=== PATIENT | male | born 1970 | race Caucasian/White ===

== ENCOUNTER → 2016-10-15 | Outpatient (CLI) | payer MEDICARE ==
[2015-07-20 11:00] VITALS: BP 134/83
[~2016-10-15] MED LIST: ACET500T55 PO; ASEN10TA9 SL; ASPI81TA9 PO; BUSP10TA PO; CITA20TA5 PO; CLON0.2T PO; CLON2TAB2 PO; DEXT4TAB PO; FENO145T2 PO; GABA-586 PO; IBUP-1060 PO; INSU100C4 SQ; INSU100I13 SQ; INSU100I7 SQ; INSU100V13 SQ; IOHEXOL 180 MG/ML 10 ML VIAL. ONE; LEVO75TA5 PO; LISI-334 PO; LISI-338 PO; METF10002 PO; MIRT30TA3 PO; NPH,100V SQ; OMEG500C PO; PENT400T2 PO; PRAV40TA2 PO; PRAZ1CAP2 PO; SENN1TAB9 PO; SERT100T PO; TAMS0.4C2 PO; TRAZ100T12 PO; TRAZ150T55 PO; methylPREDNISolone ACETATE 40 MG/ML VIAL. ONE; methylPREDNISolone ACETATE 80 MG/ML VIAL. ONE
--- NOTE | 2016-10-16 02:30 | PAIN ---
DATE OF SERVICE: 10/15/2016 INITIAL CONSULTATION FOR PAIN CLINIC CHIEF COMPLAINT: Low back and left lower extremity pain. HISTORY OF PRESENT ILLNESS: This is a 46-year-old male who presents with history of pain in the low back and left lower extremity since 02/2016. The patient reports it began gradually. He fell in a hole with his left leg up to his waist and the other leg was still above ground, bent with his knee pointing upwards. The patient reports the pain has been very severe since that time in the left leg and across the low back as well and starting to go up into the left lower back also and middle back on the left side. The patient reports it is constant, sharp, stabbing, throbbing and shooting pain radiating to the left leg, aching, mostly in the posterior gluteus, posterolateral thigh, lateral anterior thigh, especially in the medial thigh, medial lower leg, anterior lower leg, the entire foot and posterior lower leg as well. The patient reports it wakes him from sleep at least 2-3 times at night. He believes it affects his bowel and bladder control and he has some increased urgency, but no loss of continence. The patient reports it does cause difficulty with walking. He is using a cane in his left hand, a 4-point platform cane. The patient has tried oxycodone, hydrocodone and gabapentin, all with only very minimal decrease in pain since July of this year. The patient reports his disability rating from 0 to 10, 10 being the worst is a 10/10 in all categories, family and home responsibilities, social activity, recreation, occupation, sexual behavior, self care and life support activities. The patient did have MRI scan of lumbar spine dated 05/28/2016, showing multilevel degenerative changes, most notably involving the facets at L4-L5 and L5-S1 with multilevel degenerative central spinal canal narrowing, moderate at L4-L5. Multilevel degenerative neural foraminal narrowing which is greater at L4-L5 and L5-S1 with suspected annular tear at L4-L5 with moderate right and moderate to severe left narrowing at L5-S1 and facet arthropathy at this level as well, L4-L5 showing severe right, moderate left facet hypertrophy and ligamentum flavum thickening with moderate central spinal canal stenosis, moderate left and [id number] right neural foraminal narrowing at L4-L5 as well. The patient reports no complete loss of function in the left lower extremity, but he becomes weak much more easily on the right side with walking and standing, better with sitting, but again lying down or lying on his left side, it awakens from sleep because of the pain in the leg and the back. PAST MEDICAL HISTORY: Significant for hearing loss, cataracts, cigarette smoking less than 1 pack a day for the past 2 years, hypertension, pancreatitis, arthritis and headaches. PREVIOUS SURGERY: Includes splenectomy, cholecystectomy and left ankle fracture requiring ORIF. CURRENT MEDICATIONS: Include ____ insulin, Levemir, pentoxifylline, metformin, lisinopril, buspirone, Humulin, mirtazapine and tamsulosin. ALLERGIES: The patient has no known drug allergies. FAMILY HISTORY: Significant for heart disease, diabetes and cancer. SOCIAL HISTORY: The patient drinks alcohol about 6 times a year up to half a pint of alcohol or 3 beers at a time to 6 times per year by his report, smokes less than a pack a day ____ cigarettes and has smoked for about 2 years. The patient is currently single. He is on disability and lives in [place], [place], near his family. REVIEW OF SYSTEMS: The patient's review of systems is positive for those items mentioned in history of present illness. All systems reviewed and otherwise negative. It is complete, full and well documented on the patient's chart. PHYSICAL EXAMINATION: VITAL SIGNS: The patient's blood pressure is 125/89, pulse 94, respirations 18, temperature is 98.3 degrees Fahrenheit, height is 5 feet 7-3/4 inches and weight is 199 pounds. GENERAL: The patient is awake, alert, oriented, appropriate, very pleasant demeanor. HEENT: Head shows normocephalic, atraumatic. Extraocular movements are intact and symmetrical. Oral cavity, mucous membranes moist and pink. Dentition is intact. NECK: Shows anterior throat supple without palpable lymphadenopathy noted. Swallow reflex is symmetrical. CHEST: Shows normal on inspection. Breath sounds clear to auscultation bilaterally. HEART: Shows S1 and S2 clear. ABDOMEN: Soft, nontender, nondistended. No palpable organomegaly. No rebound or guarding demonstrated. BACK: Shows spine grossly midline. Normal appearing thoracic kyphosis and lumbar lordotic curvature. No previous bruises, lesions, rashes or scars are noted. Back shows symmetrical lumbar paraspinous musculature on inspection with palpation shows some moderate tenderness throughout the middle and lower distribution of paraspinous muscles bilaterally, somewhat more tender on the left side, but present bilaterally. No tenderness over the spinous processes. No tenderness over the sacrum and sacroiliac regions with palpation. The patient shows good rotational motion of lumbar spine, both laterally, right and left as well as extension and forward flexion greater than 10 degrees, extension and forward flexion at 45 degrees without significant pain reported. LOWER EXTREMITIES: The patient's lower extremities show deep tendon reflexes at 1+ in the patellar and tendo calcaneus tendons. Motor exam is 4 on a scale of 5, but symmetrical and equal in strength with dorsiflexion, extension, quadriceps and hamstring flexion bilaterally. The patient's peripheral pulses are 1+ posterior tibial and dorsalis pedis pulses. No peripheral edema is noted. No clubbing, no cyanosis. Lower extremities are warm and dry to touch, equal in color and appearance. Straight leg raise noted to be slightly positive on the left at about 45 degrees with pain in the anterior thigh, but is decreased with knee flexion, right side is negative. Gaenslen's and Ricki's maneuvers are negative bilaterally. The patient is able to stand. It is difficult to try to stand on his toes, as he loses balance quickly and has balance difficulty with standing only on his left leg compared to the right leg. He is walking again with a somewhat antalgic gait, favoring his left lower extremity with a limp and using a cane in his left hand. IMPRESSION: 1. This is a 46-year-old male who presents with history of low back and left lower extremity pain for approximately 6 months. 2. MRI scan of lumbar spine as noted. 3. Arthritis. 4. Hypertension. 5. Cigarette smoking. PLAN: Options were discussed with the patient including conservative medical management, physical therapy, interventional techniques and as he is doing some exercises and stretching techniques, he would like to pursue interventional techniques. We discussed a lumbar epidural steroid injection using description as well as anatomical models to describe the procedure. Risks were then discussed including, but not limited to bleeding, infection, possibility of epidural hematoma, subsequent neurologic compromise, dural puncture, headaches, spinal cord and/or nerve damage, side effects of steroid medication and poor results regarding pain control. The patient understands and wishes to proceed. The patient will return to clinic in approximately 2 weeks for followup, was counseled on return appointment, activity level and side effects to be aware of. DIAGNOSES: Lumbar radiculopathy with lumbar degenerative disk disease. PROCEDURE: Lumbar epidural steroid injection in translaminar approach at the L4-L5 level using C-arm fluoroscopic guidance under sterile prep and drape using local anesthetic. Medication injected is 120 mg of Depo-Medrol plus 10 mL of preservative-free normal saline and 2 mL of Isovue for contrast. CONDITION AT DISCHARGE: Stable. The patient tolerated procedure well, had no complications. BRANDEN KAUR MD DR: STEPHANIE/karan JOB#: [id number] / [id number]
== END | disposition home or self-care (01) ==
LOC: PNCL 13:16
PROVIDERS: ATTEND Anesthesiology
DX: M51.16 Intervertebral disc disorders with radiculopathy, lumbar region (principal); M19.90 Unspecified osteoarthritis, unspecified site; I10 Essential (primary) hypertension; F17.210 Nicotine dependence, cigarettes, uncomplicated; H40.9 Unspecified glaucoma; E11.9 Type 2 diabetes mellitus without complications; E03.9 Hypothyroidism, unspecified; F41.9 Anxiety disorder, unspecified; F32.9 Major depressive disorder, single episode, unspecified; Z90.49 Acquired absence of other specified parts of digestive tract
CPT/HCPCS: 62323; J1030; J1040

== ENCOUNTER → 2016-11-05 | Outpatient (CLI) | payer MEDICARE, OTHER ==
[2015-07-20 11:00] VITALS: BP 134/83
[~2016-11-05] MED LIST changes: +HYDR-2868 PO; +LURA40TA PO; +METF-620 PO; -METF10002 PO
--- NOTE | 2016-11-06 01:22 | PAIN ---
DATE OF SERVICE: 11/05/2016 DIAGNOSES: Lumbar radiculopathy with lumbar degenerative disk disease. HISTORY OF PRESENT ILLNESS: The patient is a 46-year-old male who returns for followup status post lumbar epidural steroid injection x 1. The patient reports about 60% improvement overall, but pain is returning now in the last few days in the low back and left greater than right lower extremity. The patient reports it is a 10 on a scale of 10, is worse, aching, sharp, dull, tight, shooting, stabbing, radiating, constant, severe, unbearable pain, all in various degrees depending on activity, worse with increased activity. The patient reports this did not awaken him from sleep at night. He is sleeping 4-6 hours, but not being awakened from the pain. The patient reports otherwise no new changes. No new motor or sensory deficits or other complaints. PHYSICAL EXAMINATION: VITAL SIGNS: The patient's blood pressure 140/94, pulse 98, respirations are 18, temperature 99.0 degrees Fahrenheit. Weight is 201 pounds. GENERAL: The patient is awake, alert, oriented, appropriate, very pleasant demeanor. HEENT: Head shows normocephalic, atraumatic. Extraocular movements are intact and symmetrical. Oral cavity, mucous membranes are moist and pink. The patient has full moustache and stratton. NECK: Shows anterior throat supple without palpable lymphadenopathy noted. Swallow reflex is symmetrical. CHEST: Shows normal on inspection. Breath sounds are clear to auscultation bilaterally. HEART: Shows S1 and S2 clear. ABDOMEN: Soft, nontender, nondistended. No palpable organomegaly. No rebound or guarding demonstrated. BACK: Shows spine grossly in midline with normal lordotic curvature. Lumbar paraspinous muscle shows some moderate tenderness with palpation, but it is only diffusely tender, is firm with normal muscle girth and symmetrical. Lower extremities show deep tendon reflexes 1+ in the patellar and tendo calcaneus tendons. Motor exam is approximately 4 on a scale of 5, but equal with dorsiflexion, extension, quadriceps and hamstring flexion is symmetrical. Options were discussed with the patient and the patient's old chart was reviewed as his current medication regimen updated. Current review of systems updated today as well. We will proceed with a second lumbar epidural steroid injection today with fluoroscopic guidance. Risks were again discussed including, but not limited to bleeding, infection, possibility of epidural hematoma and subsequent neurologic compromise, dural puncture, headaches, spinal cord and/or nerve damage, side effects of steroid medication and poor results regarding pain control. The patient understands and wishes to proceed. The patient will return to clinic in approximately 2 weeks for followup, was counseled on return appointment, activity level and side effects to be aware of. We also discussed the option of physical therapy. I feel he may benefit from this fairly significantly and we will have this arranged as well. The patient was counseled as to activity levels as well as side effects to be aware of with medication and to follow up with physical therapy and they will contact him for appointment soon. DIAGNOSIS: Lumbar radiculopathy with lumbar degenerative disk disease. PROCEDURES: Lumbar epidural steroid injection in translaminar approach at L4-L5 level using C-arm fluoroscopic guidance under sterile prep and drape using local anesthetic. Medications injected is 120 mg of Depo-Medrol plus 10 mL of preservative-free normal saline and 2 mL of Isovue for contrast. Condition on discharge is stable. The patient tolerated the procedure well and had no complications. BRANDEN KAUR MD DR: STEPHANIE/karan JOB#: [id number] / [id number]
== END | disposition home or self-care (01) ==
LOC: PNCL 10:15
PROVIDERS: ATTEND Anesthesiology
DX: M51.16 Intervertebral disc disorders with radiculopathy, lumbar region (principal); I10 Essential (primary) hypertension; Z90.49 Acquired absence of other specified parts of digestive tract; E11.9 Type 2 diabetes mellitus without complications; E03.9 Hypothyroidism, unspecified; F41.9 Anxiety disorder, unspecified; F32.9 Major depressive disorder, single episode, unspecified
CPT/HCPCS: 62323; J1030; J1040

== ENCOUNTER → 2016-12-13 | Outpatient (CLI) | payer MEDICARE, OTHER ==
[2015-07-20 11:00] VITALS: BP 134/83
[~2016-12-13] MED LIST changes: +ASPI-612 PO; -ASPI81TA9 PO; +TRAZ150T49 PO; -TRAZ150T55 PO
--- NOTE | 2016-12-14 04:09 | PN ---
DATE: 12/13/2016 PROGRESS NOTE FOR PAIN CLINIC DIAGNOSES: Lumbar radiculopathy with lumbar degenerative disk disease. HISTORY OF PRESENT ILLNESS: The patient is a 46-year-old male who returns for followup status post lumbar epidural steroid injection x 2. The patient reports about 50% improvement overall in his low back and left lower extremity pain. The patient reports the pain is returning now. He did well for several weeks, now is back, almost the baseline, rated as 8 on a scale of 10 at its worst, it is a 3 on a scale of 10 at the least. The patient describes it as aching, dull with radiating and shooting pain in the left leg and low back. The patient reports no new motor or sensory deficits, no new bowel or bladder incontinence or other complaints. PHYSICAL EXAMINATION: VITAL SIGNS: Today, the patient's blood pressure is 141/82, pulse 79, respirations 18, temperature 98.2 degrees Fahrenheit, height is 5 feet 7 inches, weighs 197 pounds. GENERAL: The patient is awake, alert, oriented, appropriate, has a very pleasant demeanor. HEENT: Head shows normocephalic, atraumatic. Extraocular movements are intact and symmetrical. Oral cavity has mucous membranes moist and pink. Dentition is intact. NECK: Shows anterior throat supple. CHEST: Shows normal on inspection. Breath sounds clear to auscultation bilaterally. HEART: Shows S1 and S2 clear. ABDOMEN: Soft, nontender, nondistended. BACK: Shows spine grossly in the midline. Lumbar paraspinous muscle shows symmetrical on inspection. On palpation shows some moderate tenderness to palpation, but only diffusely without radiation minimally in the lower lumbar distribution bilaterally. No problems with right and left lateral rotation, extension or flexion with pain reported. The patient's lower extremities showed deep tendon reflexes 1+ in the patellar and tendo calcaneus tendons. Motor exam is approximately 4 on a scale of 5, but equal and symmetrical with dorsiflexion, extension, quadriceps and hamstring flexion, right and left. Options were discussed with the patient and the patient's old chart was reviewed as his current medication regimen and updated. Current review of systems updated today as well. We will proceed with a third in the series of lumbar epidural steroid injection today with fluoroscopic guidance. Risks were again discussed including, but not limited to bleeding, infection, possibility of epidural hematoma, subsequent neurologic compromise, dural puncture, headaches, spinal cord and/or nerve damage, side effects of steroid medication and poor results regarding pain control. The patient understands and wishes to proceed. The patient will return to the clinic in approximately 2 weeks for followup, was counseled on return appointment, activity level and side effects to be aware of. DIAGNOSES: Lumbar radiculopathy with lumbar degenerative disk disease. PROCEDURE: Lumbar epidural steroid injection in translaminar approach at the L4-L5 level using C-arm fluoroscopic guidance under sterile prep and drape using local anesthetic. Medication injected is 120 mg Depo-Medrol plus 10 mL of preservative free normal saline and 2 mL of Isovue for contrast. CONDITION AT DISCHARGE: Stable. The patient tolerated the procedure well, had no complications. BRANDEN KAUR MD DR: STEPHANIE/karan JOB#: [id number] / [id number]
== END | disposition home or self-care (01) ==
LOC: PNCL 10:44
PROVIDERS: ATTEND Anesthesiology
DX: M51.16 Intervertebral disc disorders with radiculopathy, lumbar region (principal); E11.39 Type 2 diabetes mellitus with other diabetic ophthalmic complication; H40.89 Other specified glaucoma; I10 Essential (primary) hypertension; E03.9 Hypothyroidism, unspecified; F41.9 Anxiety disorder, unspecified; F32.9 Major depressive disorder, single episode, unspecified; Z90.49 Acquired absence of other specified parts of digestive tract; Z86.69 Personal history of other diseases of the nervous system and sense organs; Z86.39 Personal history of other endocrine, nutritional and metabolic disease
CPT/HCPCS: 62323; J1030; J1040

== ENCOUNTER → 2018-06-18 | Outpatient (CLI) | payer MEDICARE, OTHER ==
[2015-07-20 11:00] VITALS: BP 134/83
[~2018-06-18] MED LIST changes: +ATOR40TA59 PO; +CELE100C PO; +CHOL4POW2 PO; -CITA20TA5 PO; +CITA20TA6 PO; -CLON2TAB2 PO; +CLON2TAB9 PO; +DULO60CA6 PO; -FENO145T2 PO; +FENO145T30 PO; -GABA-586 PO; +GABA300C18 PO; -METF-620 PO; +METF10007 PO; +OMEG1CAP38 PO; +OXCA300T19 PO; -PENT400T2 PO; +PENT400T4 PO; +TRAZ-86 PO; -TRAZ100T12 PO; +regular insulin
--- NOTE | 2018-06-18 12:52 | PAIN ---
DATE OF SERVICE: 06/18/2018 PROGRESS NOTE FOR PAIN CLINIC DIAGNOSES: 1. Lumbar radiculopathy with lumbar degenerative disk disease. 2. Cervical radiculopathy with cervical degenerative disk disease. HISTORY OF PRESENT ILLNESS: The patient is a 47-year-old male who returns for followup status post most recent visit in 12/2016. The patient had lumbar epidural steroid injections, which reports worked for a while, but his main complaint today is neck and bilateral upper extremity and shoulder pain, slightly worse on the right than the left but present bilaterally. The patient reports it has been going on for about a year. He has recently seen a neurosurgeon. MRI scan was done showing significant cervical spondylosis and degenerative disk changes at C4-C5, disk osteophyte complex, more symmetric to the right with mild central canal stenosis towards the right as well and some moderate to severe right neural foraminal narrowing. C5-C6 shows disk osteophyte complex, more to the left, possible herniation protrusion towards the left, narrowing in the left lateral recess causing with moderate to severe or severe left neural foraminal narrowing. C6-C7 shows disk osteophyte complex, superimposed central disk bulge and central disk protrusion with mild left neural foraminal narrowing at that level as well. The patient reports significant pain in the base of the neck and shoulders with reaching his hands over his head or carrying items reaching forward, any repetitive motion, even driving a car, holding onto a steering wheel. The patient reports his pain is an 8 on a scale of 10 at its worst, 7 on average, 7 at its least and is a 7 today. The patient reports it is aching, sharp, tight, shooting, cramping, stabbing, radiating, becoming more constant, more severe and more unbearable. The patient reports some moderate loss of tactile sense in his right hand and has been dropping some items as well, but not consistently. The patient reports no new motor or sensory deficits, no new bowel or bladder incontinence. PHYSICAL EXAMINATION: VITAL SIGNS: The patient's blood pressure is 136/94, pulse 81, respirations are 16, temperature is 98.2 degrees Fahrenheit, height is 5 feet 7 inches, weight is 198 pounds. GENERAL: The patient is awake, alert, oriented, appropriate, very pleasant demeanor. HEENT: Head shows normocephalic, atraumatic. Extraocular movements are intact and symmetrical. Oral cavity: Mucous membranes are moist and pink. Dentition is intact. NECK: Shows anterior throat supple without palpable lymphadenopathy noted. Swallow reflex is symmetrical. CHEST: Shows normal on inspection. Breath sounds are clear to auscultation bilaterally. HEART: Shows S1, S2 clear. No murmurs auscultated. ABDOMEN: Soft, nontender, nondistended. No palpable organomegaly is noted. No rebound or guarding demonstrated. BACK: Shows spine grossly in the midline. Cervical lordotic curvature is maintained as is thoracic kyphotic curvature and lumbar lordotic curvature. Cervical paraspinous muscle shows symmetrical on inspection, on palpation shows some moderate tenderness diffusely bilaterally, but only with middle and inferior aspect of the cervical paraspinous muscles. The patient has good rotational motion of cervical spine, both laterally greater than 45 degrees right and left as well as full extension, full forward flexion without significant increase in pain. EXTREMITIES: The patient's upper extremities show deep tendon reflexes 2+ in the biceps and triceps tendons. Motor exam is strong with suspect artist strength rated at 5/5 on the left and 4/5 on the right. Bicep and tricep flexion, however, is 5/5 and equal bilaterally. Peripheral pulses are 2+ in radial distribution. No peripheral edema is noted. The patient does show some moderate tenderness with shoulder shrug and resistance, but without loss of strength. Options were discussed with the patient. The patient's old chart was reviewed as his current medication regimen updated. Current review of systems updated today as well. We will proceed with a cervical epidural steroid injection today with fluoroscopic guidance. Risks were again discussed including, but not limited to bleeding, infection, possibility of epidural hematoma, subsequent neurological compromise, dural puncture, headaches, spinal cord and/or nerve damage, side effects of steroid medication and poor results regarding pain control. The patient understands and wished to proceed. The patient will return to the clinic in approximately 2 weeks for followup, was counseled on return appointment, activity level and side effects to be aware of. DIAGNOSIS: Cervical radiculopathy with cervical degenerative disk disease. PROCEDURE: Cervical epidural steroid injection, translaminar approach at C6-C7 level using C-arm fluoroscopic guidance under sterile prep and drape using local anesthetic. MEDICATION INJECTED: A total of 120 mg Depo-Medrol plus 5 mL of preservative-free normal saline and 2 mL of Isovue for contrast. CONDITION AT DISCHARGE: Stable. The patient tolerated the procedure well, had no complications. BRANDEN KAUR MD DR: STEPHANIE/karan JOB#: [id number] / [id number]
== END | disposition home or self-care (01) ==
LOC: PNCL 09:56
PROVIDERS: ATTEND Anesthesiology
DX: M50.123 Cervical disc disorder at C6-C7 level with radiculopathy (principal); M51.16 Intervertebral disc disorders with radiculopathy, lumbar region
CPT/HCPCS: 62321; J1030; J1040; Q9965

== ENCOUNTER 2018-09-07 17:45 | Inpatient (IN) | payer MEDICARE, OTHER ==
[~2018-09-07] VITALS: Ht 170.2 cm; Wt 78.5 kg
[~2018-09-07 17:45] MED LIST changes: -IOHEXOL 180 MG/ML 10 ML VIAL. ONE; -PENT400T4 PO; +PENT400T7 PO; +SENN-162 PO; -SENN1TAB9 PO; -methylPREDNISolone ACETATE 40 MG/ML VIAL. ONE; -methylPREDNISolone ACETATE 80 MG/ML VIAL. ONE
[2018-09-07 20:45] VITALS: BP 124/73
[2018-09-07 21:00] VITALS: BP 131/68
[2018-09-07 21:15] VITALS: BP 117/52
[2018-09-07 21:42] LABS: ALBUMIN 3.2 g/dL (3.4-5.0); ALBUMIN/GLOBULIN RATIO 0.6 (1.0-1.7); ALK PHOS 114 U/L (46-116); ALT (SGPT) 100 U/L (16-63); AST (SGOT) 302 U/L (15-37); BLOOD UREA NITROGEN 40 mg/dL (8-26); CALCIUM 8.7 mg/dL (8.5-10.1); CHLORIDE 97 mmol/L (98-107); GFR 49.5; GLUCOSE 466 mg/dL (70-99); POTASSIUM 4.6 mmol/L (3.5-5.1); SODIUM 135 mmol/L (136-145); TOTAL BILIRUBIN 0.7 mg/dL (0.2-1.0); TOTAL PROTEIN 8.3 g/dL (6.4-8.2)
[2018-09-07 21:50] LABS: BUN/CREATININE RATIO 27 (6-20); CREATININE 1.5 mg/dL (0.7-1.3)
--- NOTE | 2018-09-07 21:50 | NUR ---
Pt admitted to 115 @ 2039 from [facility]. Pt confused, very drowsy, does not answer questions very well. Pt knows they are at [facility]. Pt unable to appropriately answer any admission questions. RN will attempt to do admission when pt is more alert and oriented.
[2018-09-07 21:53] LABS: CARBON DIOXIDE < 5 mmol/L (21-32)
[2018-09-07 22:00] VITALS: BP 135/89
[2018-09-07 22:30] VITALS: BP 140/70
[2018-09-07] MEDS ORDERED: PIP/TAZO PER PHARMACY MC PRN (22:45)
--- NOTE | 2018-09-07 22:45 | NUR ---
DKA protocol unable to be started due to limited IV access-- 2nd IV access obtained at 2230. Dr. Yaima kowalski for admission orders. Follow DKA protocol. Consult nephrology and cardiology. Order Zosyn per pharmacy. Labs ordered per DKA protocol, SHAHID in the AM.
[2018-09-07] MEDS: PIPERACILLIN/TAZOBACTAM 3.375 GM in IV NORMAL SALINE 50ML 50 ML IV SCH (22:49)
[2018-09-07 22:57] LABS: BASE EXCESS ABG -23 mmol/L (-3-3); HCO3 ABG 3 mmol/L (21-28); PO2 ABG 131 mmHg (75-108); SAT O2 ABG 98 % (92-99)
[2018-09-07 23:00] VITALS: BP 128/61
[2018-09-07] MEDS ORDERED: IV NORMAL SALINE 1000ML BAG 1,000 ML IV SCH (23:00)
[2018-09-07] MEDS: INSULIN REGULAR VIAL 150 UNIT in 0.9 % SODIUM CHLORIDE 150ML 150 ML IV PRN (23:12)
[2018-09-07 23:38] LABS: FIO2 ABG 28; PCO2 ABG < 15 mmHg (35-46)
[2018-09-07] MEDS: POTASSIUM CHLORIDE 10MEQ 100 ML IV PRN (23:47)
[2018-09-08] VITALS (24 sets, daily range): BP systolic 103–166; BP diastolic 59–85
[2018-09-08] MEDS ORDERED: SODIUM BICARB ADULT 8.4% 50 MEQ/50 ML DISP.SYRIN. IV ONE
[2018-09-08] MEDS ORDERED: SODIUM BICARBONATE VIAL 50 MEQ in IV 1/2 NORMAL SALINE 1,000 ML IV ONE ×2
--- NOTE | 2018-09-08 00:25 | NUR ---
2330: Dr. Erwin notified of critical labs on ABG-- orders received to give 1amp bicarb IVP and add 1amp Bicarb in fluids to run at 250/hr. 0015: Dr. Erwin paged back and wants another ABG drawn to determine if pH and bicarb have improved-- orders placed.
[2018-09-08 00:28] LABS: BASE EXCESS ABG -18 mmol/L (-3-3); HCO3 ABG 5 mmol/L (21-28); PO2 ABG 103 mmHg (75-108); SAT O2 ABG 98 % (92-99)
[2018-09-08 00:29] LABS: FIO2 ABG 28; PCO2 ABG < 15 mmHg (35-46)
[2018-09-08] MEDS: POTASSIUM CHLORIDE 10MEQ 100 ML IV PRN ×7 (00:49→11:42)
[2018-09-08 02:15] LABS: CALCIUM 9.1 mg/dL (8.5-10.1); CREATININE 1.6 mg/dL (0.7-1.3); MAGNESIUM 2.2 mg/dL (1.8-2.4); PHOSPHORUS 1.5 mg/dL (2.6-4.7)
[2018-09-08 02:44] LABS: BASE EXCESS ABG -13 mmol/L (-3-3); HCO3 ABG 9 mmol/L (21-28); PO2 ABG 81 mmHg (75-108)
[2018-09-08 02:55] LABS: PCO2 ABG 16 mmHg (35-46)
[2018-09-08] MEDS ORDERED: SODIUM PHOSPHATE 20 MMOL in IV DEXTROSE 5% 250 ML IV PRN (03:00)
[2018-09-08] MEDS: IV DEXTROSE 5 %-0.45 % NACL 1,000 ML IV SCH ×5 (03:03→20:04)
[2018-09-08] MEDS ORDERED: ONDANSETRON PF 4 MG/2 ML VIAL. IV PRN (03:15)
[2018-09-08 05:52] LABS: BASO # 0.1 x10^3/uL (0.0-0.2); BASO % 1 % (0-3); EOS % 0 % (0-3); HEMOGLOBIN 14.6 g/dL (13.0-17.5); LYMPH # 0.7 x10^3/uL (1.0-4.8); LYMPH % 4 % (24-48); MEAN CORPUSCULAR HEMOGLOBIN 29 pg (25-35); MEAN CORPUSCULAR HGB CONC 33 g/dL (31-37); MEAN CORPUSCULAR VOLUME 88 fL (79-100); MONO # 2.2 x10^3/uL (0.0-1.1); MONO % 12 % (0-9); NEUT # 16.4 x10^3uL (1.8-7.7); NEUT % 84 % (31-73); PLATELET COUNT 292 x10^3/uL (140-400); RED BLOOD COUNT 5.02 x10^6/uL (4.30-5.70); RED CELL DISTRIBUTION WIDTH 14.1 % (11.5-14.5); WHITE BLOOD COUNT 19.4 x10^3/uL (4.0-11.0)
[2018-09-08] MEDS: PIPERACILLIN/TAZOBACTAM 3.375 GM in IV NORMAL SALINE 50ML 50 ML IV SCH ×2 (05:58→14:37)
[2018-09-08] MEDS ORDERED: AMIODARONE 900 MG in IV DEXTROSE 5% 500 ML IV PRN (06:30)
--- NOTE | 2018-09-08 06:39 | NUR ---
Routine consult called to nephrology and cardiology.
[2018-09-08 06:41] LABS: CREATININE 1.7 mg/dL (0.7-1.3); GFR 42.9; PHOSPHORUS 1.7 mg/dL (2.6-4.7); POTASSIUM 3.6 mmol/L (3.5-5.1)
[2018-09-08 07:56] LABS: % BANDS 4 % (0-9); % LYMPHS 3 % (24-48); % MONOS 5 % (0-10); % SEGS 88 % (35-66); PLT ESTIMATE ADEQUATE (ADEQUATE)
[2018-09-08] MEDS ORDERED: SODIUM PHOSPHATE 20 MMOL in IV DEXTROSE 5% 250 ML IV ONE ×2 (09:00→19:30)
--- NOTE | 2018-09-08 09:10 | PDOC2 ---
RASHAD JIMÉNEZ SUPERVISOR INTELLIGENCE ANALYST 09/08/18 0910: CARDIAC CONSULT DATE OF CONSULT Date of Consult DATE: 09/08/18 TIME: 08:42 REASON FOR CONSULT Reason for Consult: Vfib, amiodrip REFERRING PHYSICIAN Referring Physician: Yaima SOURCE Source: Chart review HISTORY OF PRESENT ILLNESS HISTORY OF PRESENT ILLNESS This is a 48 yo male admitted for complains of SOA. Pt apparently was at home and family member called EMS due to SOA and chest pain. Per chart review this has been noted to have been going on for about 3 days. Pt is currently just got sedated with ativan with restlessness, agitation and confusion. Family member not available. Accdg to ED from [facility] to which he was placed first he was noted with significant metabolic derangement and was noted with arrhythmia which appeared to be wide complex tach prompting amiodarone drip. Pt is sedated but in no distress and ABG is being obtained. VSS. No noted hx of CAD but noted hx of DM, COPD, HTN IV drug use and noncompliance. PAST MEDICAL HISTORY Cardiovascular: HTN Pulmonary: COPD Psych: Anxiety, Other (PTSD) Endocrine: Diabetes (2), Hypothyroidism PAST SURGICAL HISTORY Past Surgical History: Cholecystectomy, Other (splenectomy) FAMILY HISTORY Family History: Family History Unknown SOCIAL HISTORY Smoke: <1 pack per day Drugs: Marijuana, Crystal meth Lives: with Family CURRENT MEDICATIONS CURRENT MEDICATIONS Current Medications Medications (Trade) Dose Ordered Sig/Cyrus Route PRN Reason Start Time Stop Time Status Last Admin Dose Admin Piperacillin Sod/ Tazobactam Sod 3.375 gm/Sodium Chloride 50 ml @ 100 mls/hr Q6HRS IV 09/07/18 23:00 09/08/18 05:58 Sodium Chloride 1,000 ml @ 250 mls/hr Q4H IV 09/07/18 23:00 09/08/18 02:52 DC 09/07/18 23:11 Insulin Human Regular 150 unit/ Sodium Chloride 151.5 ml @ 0 mls/hr CONT PRN PRN IV PER PROTOCOL 09/07/18 23:00 09/07/18 23:12 Potassium Chloride/Water 100 ml @ 100 mls/hr PRN Q1HR PRN IV SEE COMMENTS 09/07/18 23:00 09/08/18 06:53 DC 09/08/18 04:06 Sodium Bicarbonate (Sodium Bicarb Adult 8.4% Syr) 50 meq 1X ONCE IV 09/08/18 00:00 09/08/18 00:01 DC 09/07/18 23:42 Sodium Bicarbonate 50 meq/Sodium Chloride 1,050 ml @ 250 mls/hr 1X ONCE IV 09/08/18 00:00 09/08/18 04:11 DC 09/07/18 23:47 Dextrose/Sodium Chloride 1,000 ml @ 250 mls/hr Q4H IV 09/08/18 02:50 09/08/18 07:28 Sodium Phosphate 20 mmol/Dextrose 256.6667 ml @ 62.5 mls/hr 1X PRN PRN IV SEE COMMENTS 09/08/18 03:00 09/08/18 03:03 Ondansetron HCl (Zofran) 4 mg PRN Q6HRS PRN IV NAUSEA/VOMITING 1ST CHOICE 09/08/18 03:15 09/08/18 03:18 Amiodarone HCl 900 mg/Dextrose 518 ml @ 0 mls/hr CONT PRN IV SEE I/O RECORD 09/08/18 06:30 09/08/18 06:30 DC 09/08/18 06:27 Potassium Chloride/Water 100 ml @ 100 mls/hr PRN Q1HR PRN IV SEE COMMENTS 09/08/18 07:00 09/08/18 07:29 Lorazepam (Ativan) 2 mg 1X ONCE IV 09/08/18 09:00 09/08/18 09:01 09/08/18 08:35 ALLERGIES ALLERGIES: Coded Allergies: No Known Drug Allergies (Unverified , 05/11/15) ROS Review of System unreliable, sedated. PHYSICAL EXAM General: No acute distress, Other (sedated) HEENT: Atraumatic, Mucous membr. moist/pink Heart: Regular rate, Normal S1, Other (Split S2; 2/6 systolic murmur to apex) Abdomen: Soft Extremities: No cyanosis, No edema Skin: Other (LFA erythematous possible abscess) Psych/Mental Status: Other (sedated) MUSCULOSKELETAL: Osteoarthritic changes both hands VITALS VITALS Vital Signs Date Time Temp Pulse Resp B/P (MAP) Pulse Ox O2 Delivery O2 Flow Rate FiO2 09/08/18 08:00 97.6 95 29 119/75 (90) 95 Room Air 97.6 09/08/18 07:00 2.0 LABS Lab: Laboratory Tests Test 09/07/18 21:10 09/07/18 22:46 09/07/18 22:57 09/08/18 00:00 Sodium Level 135 mmol/L (136-145) Potassium Level 4.6 mmol/L (3.5-5.1) Chloride Level 97 mmol/L (98-107) Carbon Dioxide Level < 5 mmol/L (21-32) Anion Gap (6-14) Blood Urea Nitrogen 40 mg/dL (8-26) Creatinine 1.5 mg/dL (0.7-1.3) Estimated GFR (Cockcroft-Gault) 49.5 BUN/Creatinine Ratio 27 (6-20) Glucose Level 466 mg/dL (70-99) Calcium Level 8.7 mg/dL (8.5-10.1) Total Bilirubin 0.7 mg/dL (0.2-1.0) Aspartate Amino Transf (AST/SGOT) 302 U/L (15-37) Alanine Aminotransferase (ALT/SGPT) 100 U/L (16-63) Alkaline Phosphatase 114 U/L (46-116) Total Protein 8.3 g/dL (6.4-8.2) Albumin 3.2 g/dL (3.4-5.0) Albumin/Globulin Ratio 0.6 (1.0-1.7) Glucose (Fingerstick) 445 mg/dL (70-99) 410 mg/dL (70-99) O2 Saturation 98 % (92-99) Arterial Blood pH 7.17 (7.35-7.45) Arterial Blood pCO2 at Patient Temp < 15 mmHg (35-46) Arterial Blood pO2 at Patient Temp 131 mmHg (75-108) Arterial Blood HCO3 3 mmol/L (21-28) Arterial Blood Base Excess -23 mmol/L (-3-3) FiO2 28 Test 09/08/18 00:27 09/08/18 01:01 09/08/18 01:45 09/08/18 02:00 O2 Saturation 98 % (92-99) Arterial Blood pH 7.28 (7.35-7.45) Arterial Blood pCO2 at Patient Temp < 15 mmHg (35-46) Arterial Blood pO2 at Patient Temp 103 mmHg (75-108) Arterial Blood HCO3 5 mmol/L (21-28) Arterial Blood Base Excess -18 mmol/L (-3-3) FiO2 28 Glucose (Fingerstick) 320 mg/dL (70-99) 262 mg/dL (70-99) Sodium Level 140 mmol/L (136-145) Potassium Level 4.0 mmol/L (3.5-5.1) Chloride Level 102 mmol/L (98-107) Carbon Dioxide Level 10 mmol/L (21-32) Anion Gap 28 (6-14) Blood Urea Nitrogen 43 mg/dL (8-26) Creatinine 1.6 mg/dL (0.7-1.3) Estimated GFR (Cockcroft-Gault) 46.0 Glucose Level 307 mg/dL (70-99) Calcium Level 9.1 mg/dL (8.5-10.1) Phosphorus Level 1.5 mg/dL (2.6-4.7) Magnesium Level 2.2 mg/dL (1.8-2.4) Test 09/08/18 02:43 09/08/18 02:59 09/08/18 04:05 09/08/18 05:07 O2 Saturation % (92-99) Arterial Blood pH 7.39 (7.35-7.45) Arterial Blood pCO2 at Patient Temp 16 mmHg (35-46) Arterial Blood pO2 at Patient Temp 81 mmHg (75-108) Arterial Blood HCO3 9 mmol/L (21-28) Arterial Blood Base Excess -13 mmol/L (-3-3) Glucose (Fingerstick) 185 mg/dL (70-99) 202 mg/dL (70-99) 208 mg/dL (70-99) Test 09/08/18 05:45 09/08/18 06:10 09/08/18 07:24 09/08/18 08:31 White Blood Count 19.4 x10^3/uL (4.0-11.0) Red Blood Count 5.02 x10^6/uL (4.30-5.70) Hemoglobin 14.6 g/dL (13.0-17.5) Hematocrit 44.0 % (39.0-53.0) Mean Corpuscular Volume 88 fL (79-100) Mean Corpuscular Hemoglobin 29 pg (25-35) Mean Corpuscular Hemoglobin Concent 33 g/dL (31-37) Red Cell Distribution Width 14.1 % (11.5-14.5) Platelet Count 292 x10^3/uL (140-400) Neutrophils (%) (Auto) 84 % (31-73) Lymphocytes (%) (Auto) 4 % (24-48) Monocytes (%) (Auto) 12 % (0-9) Eosinophils (%) (Auto) 0 % (0-3) Basophils (%) (Auto) 1 % (0-3) Neutrophils # (Auto) 16.4 x10^3uL (1.8-7.7) Lymphocytes # (Auto) 0.7 x10^3/uL (1.0-4.8) Monocytes # (Auto) 2.2 x10^3/uL (0.0-1.1) Eosinophils # (Auto) 0.0 x10^3/uL (0.0-0.7) Basophils # (Auto) 0.1 x10^3/uL (0.0-0.2) Segmented Neutrophils % 88 % (35-66) Band Neutrophils % 4 % (0-9) Lymphocytes % 3 % (24-48) Monocytes % 5 % (0-10) Platelet Estimate Adequate (ADEQUATE) Sodium Level 144 mmol/L (136-145) Potassium Level 3.6 mmol/L (3.5-5.1) Chloride Level 106 mmol/L (98-107) Carbon Dioxide Level 16 mmol/L (21-32) Anion Gap 22 (6-14) Blood Urea Nitrogen 34 mg/dL (8-26) Creatinine 1.7 mg/dL (0.7-1.3) Estimated GFR (Cockcroft-Gault) 42.9 Glucose Level 237 mg/dL (70-99) Lactic Acid Level 1.3 mmol/L (0.4-2.0) Calcium Level 9.0 mg/dL (8.5-10.1) Phosphorus Level 1.7 mg/dL (2.6-4.7) Magnesium Level 2.0 mg/dL (1.8-2.4) Glucose (Fingerstick) 188 mg/dL (70-99) 181 mg/dL (70-99) 137 mg/dL (70-99) ASSESSMENT/PLAN ASSESSMENT/PLAN 1. Metabolic encephalopathy 2. DM with DKA 3. RAUL with hyperkalemia/hyponatremia/anion gap metabolic acidosis 4. Arrhythmia: no vfib, likely WCT due to significant metabolic derangements. No strips available. Tele with SR/RBBB, no significant ectopies overnight. 5. COPD with tobaccoism 6. CP and dyspnea: multifactorial with above. 7. LFA cellulitis: ?abscess. near anterior elbow region with hx of IV drug use? . per PCP 8. HTN: controlled 9. Hx of hypothyroidism 10. Marijuana use: neg for meth 11. Noncompliance 12. Hx of splenectomy 13. Transaminitis 14. Hx of pancreatitis Recommendations 1. Continue with amiodarone. Recheck Trop, EKG and note TTE. 2. TSH, LFTs, lipase, INR and lipids. 3. Nephrology consult pending. IVF with lyte replacement infusing. 4. Supportive care. RACHEL LOMELI MD 09/08/18 1426: CARDIAC CONSULT ASSESSMENT/PLAN ASSESSMENT/PLAN Patient seen and examined. Agree with PACKAGING MACHINE OPERATOR's assessment and plan. Brief episode of ventricular tachycardia from [facility] noted, most probably secondary to electrolyte imbalance Telemetry here did not show any significant arrhythmia so for 2-D echo showed normal LV function without any regional wall motion abnormalities Stop amiodarone. Plan for outpatient event monitor and Lexiscan nuclear stress test. Continue current treatment for DKA and metabolic encephalopathy per IM Thank you for your consultation RASHAD JIMÉNEZ APRN Sep 08, 2018 09:10 RACHEL LOMELI MD Sep 08, 2018 14:26
[2018-09-08 09:22] LABS: ALBUMIN 3.2 g/dL (3.4-5.0); DIRECT BILIRUBIN 0.1 mg/dL (0.0-0.2); PROTHROMBIN TIME PATIENT 13.3 SEC (11.7-14.0); TOTAL BILIRUBIN 0.4 mg/dL (0.2-1.0); TOTAL PROTEIN 7.4 g/dL (6.4-8.2)
[2018-09-08 09:23] LABS: CHOLESTEROL/HDL RATIO 3.7
--- NOTE | 2018-09-08 09:29 | EKG ---
[facility] [address] [place] [address] Test Date: 2018-09-08 Test Time: 09:21:48 Pat Name: SERJIO DAI Department: Room: 115 1 Gender: M Investigation Lieutenant: BRADEN : 1970 Requested By: RASHAD JIMÉNEZ Order Number: [id number] Reading MD: Paul Castro Measurements Intervals [place] Rate: 88 P: -119 CT: 124 QRS: -59 QRSD: 156 T: 56 QT: 406 QTc: 495 Interpretive Statements SINUS RHYTHM ABNORMAL LEFT AXIS DEVIATION LEFT ANTERIOR FASCICULAR BLOCK RIGHT BUNDLE BRANCH BLOCK ABNORMAL ECG Electronically Signed On 09-08-2018 11:10:13 DIRECTOR EXECUTIVE COMMUNICATIONS by Paul Castro
--- NOTE | 2018-09-08 11:00 | CARD ---
MR#: [id number] Date of Study: 09/08/2018 Ordering Physician: RASHAD JIMÉNEZ, Referring Physician: JO ANN CHAVEZ Tech: Mi Hahn RDCS APPROVED REPORT EXAM: Two-dimensional and M-mode echocardiogram with Doppler and color Doppler. Other Information Quality : Good INDICATION Tachycardia 2D DIMENSIONS RVDd3.1 (2.9-3.5cm)Left Atrium(2D)3.0 (1.6-4.0cm) IVSd1.1 (0.7-1.1cm)Aortic Root(2D)3.6 (2.0-3.7cm) LVDd5.0 (3.9-5.9cm)LVOT Diameter2.3 (1.8-2.4cm) PWd1.2 (0.7-1.1cm)LVDs3.5 (2.5-4.0cm) FS (%) 30.6 %SV68.5 ml LVEF(%)57.9 (>50%) Aortic Valve AoV Peak David.163.0cm/sAoV VTI23.3cm AO Peak GR.10.6mmHgLVOT VTI 18.73cm AO Mean GR.6mmHgAVA (VTI)3.40cm2 Mitral Valve MV E Wkbepidc32.6cm/sMV DECEL [id number] MV A Lsqirque97.2cm/sE/A Ratio0.7 TDI Medial E' P. V7.47cm/sE/Medial E'8.4 Pulmonary Vein S1 Vruwtxab81.2cm/sS2 Qxvjcivj66.20cm/s D2 Dcuncvfm68.2cm/s LEFT VENTRICLE The left ventricle is normal size. There is normal left ventricular wall thickness. The left ventricu lar systolic function is normal. The Ejection Fraction is 55-60%. There is normal LV segmental wall m otion. Transmitral Doppler flow pattern is Grade I-abnormal relaxation pattern. RIGHT VENTRICLE The right ventricle is normal size. The right ventricular systolic function is normal. ATRIA The left atrium size is normal. The right atrium size is normal. The interatrial septum is intact wit h no evidence for an atrial septal defect or patent foramen ovale as noted on 2-D or Doppler imaging. AORTIC VALVE The aortic valve is normal in structure and function. Doppler and Color Flow revealed no significant aortic regurgitation. There is no significant aortic valvular stenosis. MITRAL VALVE The mitral valve is calcified but opens well. Mitral annular calcification is mild. There is no evide nce of mitral valve prolapse. There is no mitral valve stenosis. Doppler and Color Flow revealed no m itral valve regurgitation noted. TRICUSPID VALVE The tricuspid valve is normal in structure and function. Doppler and Color Flow revealed trace tricus pid valve regurgitation. There is no tricuspid valve stenosis. PULMONIC VALVE The pulmonic valve is not well visualized. Doppler and Color Flow revealed no pulmonic valvular regur gitation. There is no pulmonic valvular stenosis. GREAT VESSELS The aortic root is normal in size. The ascending aorta is normal in size. The IVC is normal in size a nd collapses >50% with inspiration. PERICARDIAL EFFUSION There is no evidence of significant pericardial effusion. Critical Notification Critical Value: No <Conclusion> The left ventricular systolic function is normal. The Ejection Fraction is 55-60%. There is normal LV segmental wall motion. Transmitral Doppler flow pattern is Grade I-abnormal relaxation pattern. Doppler and Color Flow revealed trace tricuspid valve regurgitation. There is no evidence of significant pericardial effusion. Signed by : Paul Castro, Electronically Approved : 09/08/2018 10:59:30
--- NOTE | 2018-09-08 11:19 | HP ---
ADMIT DATE: CHIEF COMPLAINT: Shortness of breath, tachycardia. HISTORY OF PRESENT ILLNESS: The patient is a pleasant middle-aged male, who we think does drugs. He has an awful lot of tattoos. We are really not clear of his exact past medical history, he does not talk much, but yesterday he came over as a transfer from [facility]. He apparently was in DKA. Late last night when he arrived here, his pH was 7.1. I gave him some bicarbonate. This morning, he is now being examined in room 115 in the ICU where he is doing much better, but still a little tachypneic. PAST MEDICAL HISTORY: We suspect drug abuse, probable BPH as he is on Flomax, hyperlipidemia, arthritis, depression, anxiety. ALLERGIES: None. FAMILY HISTORY: Unknown. SOCIAL HISTORY: We think he does drugs, we are not positive. He does not talk to us. MEDICATIONS: Reviewed from the record, it appears he is on Flomax, Questran, fenofibrate, atorvastatin, omega-3, lisinopril, Celebrex, oxcarbazepine, Cymbalta, Latuda, metformin, Levemir. REVIEW OF SYSTEMS: Unable to obtain. The patient will not wake up. PHYSICAL EXAMINATION: VITAL SIGNS: Temperature afebrile, pulse 85, respirations 29, blood pressure 119/75. GENERAL: He is sleeping. He awakens briefly, but really does not say much, kind of grinds his jaws, I suspect he could be withdrawing. HEART: Distant S1, S2. LUNGS: Clear. ABDOMEN: Soft. EXTREMITIES: Trace edema. SKIN: He has got left arm cellulitis. He has multiple tattoos. ENDOCRINE: No thyromegaly. LYMPHATICS: No cervical nodes. HEMATOPOIETIC: No bruising. LABORATORY DATA: White count is 19, hemoglobin 14, platelets 292. Glucose is currently at 148. pH has ranged from 7.1, we now have him up to normal at 7.39 with some bicarbonate drip and one bolus. INR is 1. Lipase is high at 829. ASSESSMENT AND PLAN: Diabetic ketoacidosis, pancreatitis, leukocytosis, acute respiratory and metabolic acidosis in a middle-aged male who we suspect does drugs, suspect he also has cellulitis. He has been admitted to the ICU on a DKA protocol. I have consulted Dr. Latham, just discussed the case with Dr. Latham. I will consult GI for his elevated lipase. Consult Dr. Cesar Peck, Infectious Disease. Frequent labs. Full code. Deep venous thrombosis prophylaxis. CT of the chest and abdomen to rule out occult infection, TSH level, p.r.n. Zofran, p.r.n. lorazepam, IV antibiotics. PROGNOSIS: Guarded. JO ANN CHAVEZ DO DR: DONTA/karan JOB#: [id number] / [id number]
--- NOTE | 2018-09-08 12:26 | PDOC2 ---
CONSULT Date of Consult Date of Consult DATE: 09/08/18 TIME: 12:14 Reason for Consult Reason for Consult: Renal Insuff Source Source: Chart review, Patient History of Present Illness Reason for Visit: The patient is 48 yo m transfer from [facility]. He apparently was in DKA. Unable to obtain much info including past medical history, he does not talk much. He arrived with pH was 7.1 , recd IV bicarbonate. Doing much better per Nursing report , recd Ativan as was agitated Pt give Hx of using Meth 3-4 days back . Currently No N/V. Has Good UOP and is on DKA protocol Past Medical History Cardiovascular: HTN Pulmonary: COPD Psych: Anxiety, Other (PTSD) Endocrine: Diabetes (2), Hypothyroidism Past Surgical History Past Surgical History: Cholecystectomy, Other (splenectomy) Family History Family History: Family History Unknown Social History <1 pack per day Drugs: Marijuana, Crystal meth Lives: with Family Current Medications Current Medications Current Medications Piperacillin Sod/ Tazobactam Sod (Zosyn Per Pharmacy) 1 each PRN DAILY PRN MC SEE COMMENTS; Start 09/07/18 at 22:45 Piperacillin Sod/ Tazobactam Sod 3.375 gm/Sodium Chloride 50 ml @ 100 mls/hr Q6HRS IV Last administered on 09/08/18at 05:58; Start 09/07/18 at 23:00 Sodium Chloride 1,000 ml @ 250 mls/hr Q4H IV Last administered on 09/07/18at 23: 11; Start 09/07/18 at 23:00; Stop 09/08/18 at 02:52; Status DC Insulin Human Regular 150 unit/ Sodium Chloride 151.5 ml @ 0 mls/hr CONT PRN PRN IV PER PROTOCOL Last administered on 09/07/18at 23:12; Start 09/07/18 at 23:00 Potassium Chloride/Water 100 ml @ 100 mls/hr PRN Q1HR PRN IV SEE COMMENTS Last administered on 09/08/18at 04:06; Start 09/07/18 at 23:00; Stop 09/08/18 at 06: 53; Status DC Sodium Bicarbonate (Sodium Bicarb Adult 8.4% Syr) 50 meq 1X ONCE IV Last administered on 09/07/18at 23:42; Start 09/08/18 at 00:00; Stop 09/08/18 at 00:01; Status DC Sodium Bicarbonate 50 meq/Sodium Chloride 1,050 ml @ 250 mls/hr 1X ONCE IV Last administered on 09/07/18at 23:47; Start 09/08/18 at 00:00; Stop 09/08/18 at 04: 11; Status DC Dextrose/Sodium Chloride 1,000 ml @ 250 mls/hr Q4H IV Last administered on 09/08at 11:06; Start 09/08/18 at 02:50 Sodium Phosphate 20 mmol/Dextrose 256.6667 ml @ 62.5 mls/hr 1X PRN PRN IV SEE COMMENTS Last administered on 09/08/18at 03:03; Start 09/08/18 at 03:00 Ondansetron HCl (Zofran) 4 mg PRN Q6HRS PRN IV NAUSEA/VOMITING 1ST CHOICE Last administered on 09/08/18at 03:18; Start 09/08/18 at 03:15 Amiodarone HCl 900 mg/Dextrose 518 ml @ 0 mls/hr CONT PRN IV SEE I/O RECORD Last administered on 09/08/18at 06:27; Start 09/08/18 at 06:30; Stop 09/08/18 at 06: 30; Status DC Potassium Chloride/Water 100 ml @ 100 mls/hr PRN Q1HR PRN IV SEE COMMENTS Last administered on 09/08/18at 11:42; Start 09/08/18 at 07:00 Sodium Phosphate 20 mmol/Dextrose 256.6667 ml @ 62.5 mls/hr 1X ONCE IV ; Start 09/08/18 at 09:00; Stop 09/08/18 at 13:06 Lorazepam (Ativan) 2 mg 1X ONCE IV Last administered on 09/08/18at 08:35; Start 09/08/18 at 09:00; Stop 09/08/18 at 09:01; Status DC Lorazepam (Ativan) 2 mg PRN Q1HR PRN IV ANXIETY / AGITATION; Start 09/08/18 at 08:30 Active Scripts Active Levemir (Insulin Detemir) 100 Unit/1 Ml Vial 60 Unit SQ QHS Reported Thendara 3 Fish Oil Softgel (Thendara-3 Fatty Acids/Fish Oil) 1 Each Capsule.dr 2 Each PO DAILY Cholestyramine Packet (Cholestyramine (With Sugar)) 4 Gm Powd.pack 4 Gm PO BID [regular insulin] 45 Cymbalta (Duloxetine Hcl) 60 Mg Capsule.dr 1 Cap PO BID Oxcarbazepine 300 Mg Tablet 300 Mg PO DAILY Fenofibrate (Fenofibrate Nanocrystallized) 145 Mg Tablet 1 Tab PO DAILY Atorvastatin Calcium 40 Mg Tablet 1 Tab PO DAILY Celebrex (Celecoxib) 100 Mg Capsule 1 Cap PO BID Latuda (Lurasidone Hcl) 40 Mg Tablet 80 Tab PO QHS Tamsulosin Hcl 0.4 Mg Cap.er.24h 0.4 Mg PO DAILY Lisinopril 5 Mg Tablet 5 Mg PO DAILY Metformin Hcl 1,000 Mg Tablet 500 Tab PO BID Allergies Allergies: Coded Allergies: No Known Drug Allergies (Unverified , 05/11/15) ROS Review of System Unable to Obtain as pt not answering Physical Exam Physical Exam GENERAL: awake, not in distress HEENT- OM dryish Neck Supple HEART: Distant S1, S2. LUNGS: Clear. ABDOMEN: Soft. EXTREMITIES: Trace edema. SKIN: left arm cellulitis. He has multiple tattoos. - Price + , No CVA or SP tenderness Neuro- Grossly moving al ext Vital Signs Vital Signs Date Time Temp Pulse Resp B/P (MAP) Pulse Ox O2 Delivery O2 Flow Rate FiO2 09/08/18 12:00 Nasal Cannula 3.0 09/08/18 12:00 98.7 79 14 153/73 (99) 94 98.7 Assessment & Plan RAUL- sec to DKA /Dehydration Likely has CKD with Hx of DM and drug use Good UOP, Continue DKA protocol CT chest and abd ordered by Primary Metab Acidosis- DKA Recd IV bicarb, improved on DKA protocol ?Mild Rhabdo- CPK elevated Continue IVF , repeat CPK tomorrow Ca Normal, Phos Mildly low Elevated LFT's / lipase- ? Pancreatitis Hx of Drug use- meth 3--4 days back ? Cellulitis- ID has been consulted Discussed with RN - Labs Labs Laboratory Tests Test 09/07/18 21:10 09/07/18 22:46 09/07/18 22:57 09/08/18 00:00 Sodium Level 135 mmol/L (136-145) Potassium Level 4.6 mmol/L (3.5-5.1) Chloride Level 97 mmol/L (98-107) Carbon Dioxide Level < 5 mmol/L (21-32) Anion Gap (6-14) Blood Urea Nitrogen 40 mg/dL (8-26) Creatinine 1.5 mg/dL (0.7-1.3) Estimated GFR (Cockcroft-Gault) 49.5 BUN/Creatinine Ratio 27 (6-20) Glucose Level 466 mg/dL (70-99) Calcium Level 8.7 mg/dL (8.5-10.1) Total Bilirubin 0.7 mg/dL (0.2-1.0) Aspartate Amino Transf (AST/SGOT) 302 U/L (15-37) Alanine Aminotransferase (ALT/SGPT) 100 U/L (16-63) Alkaline Phosphatase 114 U/L (46-116) Total Protein 8.3 g/dL (6.4-8.2) Albumin 3.2 g/dL (3.4-5.0) Albumin/Globulin Ratio 0.6 (1.0-1.7) Glucose (Fingerstick) 445 mg/dL (70-99) 410 mg/dL (70-99) O2 Saturation 98 % (92-99) Arterial Blood pH 7.17 (7.35-7.45) Arterial Blood pCO2 at Patient Temp < 15 mmHg (35-46) Arterial Blood pO2 at Patient Temp 131 mmHg (75-108) Arterial Blood HCO3 3 mmol/L (21-28) Arterial Blood Base Excess -23 mmol/L (-3-3) FiO2 28 Test 09/08/18 00:27 09/08/18 01:01 09/08/18 01:45 09/08/18 02:00 O2 Saturation 98 % (92-99) Arterial Blood pH 7.28 (7.35-7.45) Arterial Blood pCO2 at Patient Temp < 15 mmHg (35-46) Arterial Blood pO2 at Patient Temp 103 mmHg (75-108) Arterial Blood HCO3 5 mmol/L (21-28) Arterial Blood Base Excess -18 mmol/L (-3-3) FiO2 28 Glucose (Fingerstick) 320 mg/dL (70-99) 262 mg/dL (70-99) Sodium Level 140 mmol/L (136-145) Potassium Level 4.0 mmol/L (3.5-5.1) Chloride Level 102 mmol/L (98-107) Carbon Dioxide Level 10 mmol/L (21-32) Anion Gap 28 (6-14) Blood Urea Nitrogen 43 mg/dL (8-26) Creatinine 1.6 mg/dL (0.7-1.3) Estimated GFR (Cockcroft-Gault) 46.0 Glucose Level 307 mg/dL (70-99) Calcium Level 9.1 mg/dL (8.5-10.1) Phosphorus Level 1.5 mg/dL (2.6-4.7) Magnesium Level 2.2 mg/dL (1.8-2.4) Test 09/08/18 02:43 09/08/18 02:59 09/08/18 04:05 09/08/18 05:07 O2 Saturation % (92-99) Arterial Blood pH 7.39 (7.35-7.45) Arterial Blood pCO2 at Patient Temp 16 mmHg (35-46) Arterial Blood pO2 at Patient Temp 81 mmHg (75-108) Arterial Blood HCO3 9 mmol/L (21-28) Arterial Blood Base Excess -13 mmol/L (-3-3) Glucose (Fingerstick) 185 mg/dL (70-99) 202 mg/dL (70-99) 208 mg/dL (70-99) Test 09/08/18 05:45 09/08/18 06:10 09/08/18 07:24 09/08/18 08:31 White Blood Count 19.4 x10^3/uL (4.0-11.0) Red Blood Count 5.02 x10^6/uL (4.30-5.70) Hemoglobin 14.6 g/dL (13.0-17.5) Hematocrit 44.0 % (39.0-53.0) Mean Corpuscular Volume 88 fL (79-100) Mean Corpuscular Hemoglobin 29 pg (25-35) Mean Corpuscular Hemoglobin Concent 33 g/dL (31-37) Red Cell Distribution Width 14.1 % (11.5-14.5) Platelet Count 292 x10^3/uL (140-400) Neutrophils (%) (Auto) 84 % (31-73) Lymphocytes (%) (Auto) 4 % (24-48) Monocytes (%) (Auto) 12 % (0-9) Eosinophils (%) (Auto) 0 % (0-3) Basophils (%) (Auto) 1 % (0-3) Neutrophils # (Auto) 16.4 x10^3uL (1.8-7.7) Lymphocytes # (Auto) 0.7 x10^3/uL (1.0-4.8) Monocytes # (Auto) 2.2 x10^3/uL (0.0-1.1) Eosinophils # (Auto) 0.0 x10^3/uL (0.0-0.7) Basophils # (Auto) 0.1 x10^3/uL (0.0-0.2) Segmented Neutrophils % 88 % (35-66) Band Neutrophils % 4 % (0-9) Lymphocytes % 3 % (24-48) Monocytes % 5 % (0-10) Platelet Estimate Adequate (ADEQUATE) Prothrombin Time 13.3 SEC (11.7-14.0) Prothromb Time International Ratio 1.0 (0.8-1.1) Sodium Level 144 mmol/L (136-145) Potassium Level 3.6 mmol/L (3.5-5.1) Chloride Level 106 mmol/L (98-107) Carbon Dioxide Level 16 mmol/L (21-32) Anion Gap 22 (6-14) Blood Urea Nitrogen 34 mg/dL (8-26) Creatinine 1.7 mg/dL (0.7-1.3) Estimated GFR (Cockcroft-Gault) 42.9 Glucose Level 237 mg/dL (70-99) Lactic Acid Level 1.3 mmol/L (0.4-2.0) Calcium Level 9.0 mg/dL (8.5-10.1) Phosphorus Level 1.7 mg/dL (2.6-4.7) Magnesium Level 2.0 mg/dL (1.8-2.4) Total Bilirubin 0.4 mg/dL (0.2-1.0) Direct Bilirubin 0.1 mg/dL (0.0-0.2) Aspartate Amino Transf (AST/SGOT) 226 U/L (15-37) Alanine Aminotransferase (ALT/SGPT) 97 U/L (16-63) Alkaline Phosphatase 101 U/L (46-116) Creatine Kinase 8608 U/L (39-308) Troponin I Quantitative < 0.017 ng/mL (0.000-0.055) Total Protein 7.4 g/dL (6.4-8.2) Albumin 3.2 g/dL (3.4-5.0) Triglycerides Level 227 mg/dL (0-150) Cholesterol Level 168 mg/dL (0-200) LDL Cholesterol, Calculated 77 mg/dL (0-100) VLDL Cholesterol, Calculated 45 mg/dL (0-40) Non-HDL Cholesterol Calculated 122 mg/dL (0-129) HDL Cholesterol 46 mg/dL (40-60) Cholesterol/HDL Ratio 3.7 Lipase 829 U/L (73-393) Thyroid Stimulating Hormone (TSH) 0.757 uIU/mL (0.358-3.74) Glucose (Fingerstick) 188 mg/dL (70-99) 181 mg/dL (70-99) 137 mg/dL (70-99) Test 09/08/18 09:36 09/08/18 10:40 09/08/18 11:39 Glucose (Fingerstick) 148 mg/dL (70-99) 132 mg/dL (70-99) 125 mg/dL (70-99) Laboratory Tests Test 09/07/18 21:10 09/07/18 22:46 09/07/18 22:57 09/08/18 00:00 Sodium Level 135 mmol/L (136-145) Potassium Level 4.6 mmol/L (3.5-5.1) Chloride Level 97 mmol/L (98-107) Carbon Dioxide Level < 5 mmol/L (21-32) Anion Gap (6-14) Blood Urea Nitrogen 40 mg/dL (8-26) Creatinine 1.5 mg/dL (0.7-1.3) Estimated GFR (Cockcroft-Gault) 49.5 BUN/Creatinine Ratio 27 (6-20) Glucose Level 466 mg/dL (70-99) Calcium Level 8.7 mg/dL (8.5-10.1) Total Bilirubin 0.7 mg/dL (0.2-1.0) Aspartate Amino Transf (AST/SGOT) 302 U/L (15-37) Alanine Aminotransferase (ALT/SGPT) 100 U/L (16-63) Alkaline Phosphatase 114 U/L (46-116) Total Protein 8.3 g/dL (6.4-8.2) Albumin 3.2 g/dL (3.4-5.0) Albumin/Globulin Ratio 0.6 (1.0-1.7) Glucose (Fingerstick) 445 mg/dL (70-99) 410 mg/dL (70-99) O2 Saturation 98 % (92-99) Arterial Blood pH 7.17 (7.35-7.45) Arterial Blood pCO2 at Patient Temp < 15 mmHg (35-46) Arterial Blood pO2 at Patient Temp 131 mmHg (75-108) Arterial Blood HCO3 3 mmol/L (21-28) Arterial Blood Base Excess -23 mmol/L (-3-3) FiO2 28 Test 09/08/18 00:27 09/08/18 01:01 09/08/18 01:45 09/08/18 02:00 O2 Saturation 98 % (92-99) Arterial Blood pH 7.28 (7.35-7.45) Arterial Blood pCO2 at Patient Temp < 15 mmHg (35-46) Arterial Blood pO2 at Patient Temp 103 mmHg (75-108) Arterial Blood HCO3 5 mmol/L (21-28) Arterial Blood Base Excess -18 mmol/L (-3-3) FiO2 28 Glucose (Fingerstick) 320 mg/dL (70-99) 262 mg/dL (70-99) Sodium Level 140 mmol/L (136-145) Potassium Level 4.0 mmol/L (3.5-5.1) Chloride Level 102 mmol/L (98-107) Carbon Dioxide Level 10 mmol/L (21-32) Anion Gap 28 (6-14) Blood Urea Nitrogen 43 mg/dL (8-26) Creatinine 1.6 mg/dL (0.7-1.3) Estimated GFR (Cockcroft-Gault) 46.0 Glucose Level 307 mg/dL (70-99) Calcium Level 9.1 mg/dL (8.5-10.1) Phosphorus Level 1.5 mg/dL (2.6-4.7) Magnesium Level 2.2 mg/dL (1.8-2.4) Test 09/08/18 02:43 09/08/18 02:59 09/08/18 04:05 09/08/18 05:07 O2 Saturation % (92-99) Arterial Blood pH 7.39 (7.35-7.45) Arterial Blood pCO2 at Patient Temp 16 mmHg (35-46) Arterial Blood pO2 at Patient Temp 81 mmHg (75-108) Arterial Blood HCO3 9 mmol/L (21-28) Arterial Blood Base Excess -13 mmol/L (-3-3) Glucose (Fingerstick) 185 mg/dL (70-99) 202 mg/dL (70-99) 208 mg/dL (70-99) Test 09/08/18 05:45 09/08/18 06:10 09/08/18 07:24 09/08/18 08:31 White Blood Count 19.4 x10^3/uL (4.0-11.0) Red Blood Count 5.02 x10^6/uL (4.30-5.70) Hemoglobin 14.6 g/dL (13.0-17.5) Hematocrit 44.0 % (39.0-53.0) Mean Corpuscular Volume 88 fL (79-100) Mean Corpuscular Hemoglobin 29 pg (25-35) Mean Corpuscular Hemoglobin Concent 33 g/dL (31-37) Red Cell Distribution Width 14.1 % (11.5-14.5) Platelet Count 292 x10^3/uL (140-400) Neutrophils (%) (Auto) 84 % (31-73) Lymphocytes (%) (Auto) 4 % (24-48) Monocytes (%) (Auto) 12 % (0-9) Eosinophils (%) (Auto) 0 % (0-3) Basophils (%) (Auto) 1 % (0-3) Neutrophils # (Auto) 16.4 x10^3uL (1.8-7.7) Lymphocytes # (Auto) 0.7 x10^3/uL (1.0-4.8) Monocytes # (Auto) 2.2 x10^3/uL (0.0-1.1) Eosinophils # (Auto) 0.0 x10^3/uL (0.0-0.7) Basophils # (Auto) 0.1 x10^3/uL (0.0-0.2) Segmented Neutrophils % 88 % (35-66) Band Neutrophils % 4 % (0-9) Lymphocytes % 3 % (24-48) Monocytes % 5 % (0-10) Platelet Estimate Adequate (ADEQUATE) Prothrombin Time 13.3 SEC (11.7-14.0) Prothromb Time International Ratio 1.0 (0.8-1.1) Sodium Level 144 mmol/L (136-145) Potassium Level 3.6 mmol/L (3.5-5.1) Chloride Level 106 mmol/L (98-107) Carbon Dioxide Level 16 mmol/L (21-32) Anion Gap 22 (6-14) Blood Urea Nitrogen 34 mg/dL (8-26) Creatinine 1.7 mg/dL (0.7-1.3) Estimated GFR (Cockcroft-Gault) 42.9 Glucose Level 237 mg/dL (70-99) Lactic Acid Level 1.3 mmol/L (0.4-2.0) Calcium Level 9.0 mg/dL (8.5-10.1) Phosphorus Level 1.7 mg/dL (2.6-4.7) Magnesium Level 2.0 mg/dL (1.8-2.4) Total Bilirubin 0.4 mg/dL (0.2-1.0) Direct Bilirubin 0.1 mg/dL (0.0-0.2) Aspartate Amino Transf (AST/SGOT) 226 U/L (15-37) Alanine Aminotransferase (ALT/SGPT) 97 U/L (16-63) Alkaline Phosphatase 101 U/L (46-116) Creatine Kinase 8608 U/L (39-308) Troponin I Quantitative < 0.017 ng/mL (0.000-0.055) Total Protein 7.4 g/dL (6.4-8.2) Albumin 3.2 g/dL (3.4-5.0) Triglycerides Level 227 mg/dL (0-150) Cholesterol Level 168 mg/dL (0-200) LDL Cholesterol, Calculated 77 mg/dL (0-100) VLDL Cholesterol, Calculated 45 mg/dL (0-40) Non-HDL Cholesterol Calculated 122 mg/dL (0-129) HDL Cholesterol 46 mg/dL (40-60) Cholesterol/HDL Ratio 3.7 Lipase 829 U/L (73-393) Thyroid Stimulating Hormone (TSH) 0.757 uIU/mL (0.358-3.74) Glucose (Fingerstick) 188 mg/dL (70-99) 181 mg/dL (70-99) 137 mg/dL (70-99) Test 09/08/18 09:36 09/08/18 10:40 09/08/18 11:39 Glucose (Fingerstick) 148 mg/dL (70-99) 132 mg/dL (70-99) 125 mg/dL (70-99) Review All relevant outside records, renal labs, imaging studies, telemetry/EKG's were reviewed. MARIXA SHERIFF MD Sep 08, 2018 12:26
--- NOTE | 2018-09-08 13:47 | PDOC2 ---
GI CONSULT Reason For Consult: Elevated lipase HPI: HPI: 48 y/o male brought to [facility] ER by EMS for SOA, transferred to [facility] w/ DKA and RAUL. Was agitated earlier, received Ativan. Currently drowsy, no meaningful history from him. Per RN, just returned from [place], had some nausea earlier. GI asked to see for elevated lipase (829). RN reports h/o pancreatitis. S/p cholecystectomy. Son told her the pt drinks 1 beer weekly or less. PMH: PMH: per records - HTN, COPD, DM, hypothyroidism, peripheral neuropathy, PTSD, substance abuse, depression, anxiety cholecystectomy, splenectomy FH: Family History: Other (unable to obtain) Social History: Smoke: <1 pack per day ALCOHOL: other (son told RN 1 beer a week or less) Drugs: Marijuana, Crystal meth ROS: Unable to obtain. Vitals: Vitals: Vital Signs Date Time Temp Pulse Resp B/P (MAP) Pulse Ox O2 Delivery O2 Flow Rate FiO2 09/08/18 13:00 74 28 152/79 (103) 94 Nasal Cannula 3.0 09/08/18 12:00 98.7 98.7 Labs: Labs: Laboratory Tests Test 09/07/18 21:10 09/07/18 22:46 09/07/18 22:57 09/08/18 00:00 Sodium Level 135 mmol/L (136-145) Potassium Level 4.6 mmol/L (3.5-5.1) Chloride Level 97 mmol/L (98-107) Carbon Dioxide Level < 5 mmol/L (21-32) Anion Gap (6-14) Blood Urea Nitrogen 40 mg/dL (8-26) Creatinine 1.5 mg/dL (0.7-1.3) Estimated GFR (Cockcroft-Gault) 49.5 BUN/Creatinine Ratio 27 (6-20) Glucose Level 466 mg/dL (70-99) Calcium Level 8.7 mg/dL (8.5-10.1) Total Bilirubin 0.7 mg/dL (0.2-1.0) Aspartate Amino Transf (AST/SGOT) 302 U/L (15-37) Alanine Aminotransferase (ALT/SGPT) 100 U/L (16-63) Alkaline Phosphatase 114 U/L (46-116) Total Protein 8.3 g/dL (6.4-8.2) Albumin 3.2 g/dL (3.4-5.0) Albumin/Globulin Ratio 0.6 (1.0-1.7) Glucose (Fingerstick) 445 mg/dL (70-99) 410 mg/dL (70-99) O2 Saturation 98 % (92-99) Arterial Blood pH 7.17 (7.35-7.45) Arterial Blood pCO2 at Patient Temp < 15 mmHg (35-46) Arterial Blood pO2 at Patient Temp 131 mmHg (75-108) Arterial Blood HCO3 3 mmol/L (21-28) Arterial Blood Base Excess -23 mmol/L (-3-3) FiO2 28 Test 09/08/18 00:27 09/08/18 01:01 09/08/18 01:45 09/08/18 02:00 O2 Saturation 98 % (92-99) Arterial Blood pH 7.28 (7.35-7.45) Arterial Blood pCO2 at Patient Temp < 15 mmHg (35-46) Arterial Blood pO2 at Patient Temp 103 mmHg (75-108) Arterial Blood HCO3 5 mmol/L (21-28) Arterial Blood Base Excess -18 mmol/L (-3-3) FiO2 28 Glucose (Fingerstick) 320 mg/dL (70-99) 262 mg/dL (70-99) Sodium Level 140 mmol/L (136-145) Potassium Level 4.0 mmol/L (3.5-5.1) Chloride Level 102 mmol/L (98-107) Carbon Dioxide Level 10 mmol/L (21-32) Anion Gap 28 (6-14) Blood Urea Nitrogen 43 mg/dL (8-26) Creatinine 1.6 mg/dL (0.7-1.3) Estimated GFR (Cockcroft-Gault) 46.0 Glucose Level 307 mg/dL (70-99) Calcium Level 9.1 mg/dL (8.5-10.1) Phosphorus Level 1.5 mg/dL (2.6-4.7) Magnesium Level 2.2 mg/dL (1.8-2.4) Test 09/08/18 02:43 09/08/18 02:59 09/08/18 04:05 09/08/18 05:07 O2 Saturation % (92-99) Arterial Blood pH 7.39 (7.35-7.45) Arterial Blood pCO2 at Patient Temp 16 mmHg (35-46) Arterial Blood pO2 at Patient Temp 81 mmHg (75-108) Arterial Blood HCO3 9 mmol/L (21-28) Arterial Blood Base Excess -13 mmol/L (-3-3) Glucose (Fingerstick) 185 mg/dL (70-99) 202 mg/dL (70-99) 208 mg/dL (70-99) Test 09/08/18 05:45 09/08/18 06:10 09/08/18 07:24 09/08/18 08:31 White Blood Count 19.4 x10^3/uL (4.0-11.0) Red Blood Count 5.02 x10^6/uL (4.30-5.70) Hemoglobin 14.6 g/dL (13.0-17.5) Hematocrit 44.0 % (39.0-53.0) Mean Corpuscular Volume 88 fL (79-100) Mean Corpuscular Hemoglobin 29 pg (25-35) Mean Corpuscular Hemoglobin Concent 33 g/dL (31-37) Red Cell Distribution Width 14.1 % (11.5-14.5) Platelet Count 292 x10^3/uL (140-400) Neutrophils (%) (Auto) 84 % (31-73) Lymphocytes (%) (Auto) 4 % (24-48) Monocytes (%) (Auto) 12 % (0-9) Eosinophils (%) (Auto) 0 % (0-3) Basophils (%) (Auto) 1 % (0-3) Neutrophils # (Auto) 16.4 x10^3uL (1.8-7.7) Lymphocytes # (Auto) 0.7 x10^3/uL (1.0-4.8) Monocytes # (Auto) 2.2 x10^3/uL (0.0-1.1) Eosinophils # (Auto) 0.0 x10^3/uL (0.0-0.7) Basophils # (Auto) 0.1 x10^3/uL (0.0-0.2) Segmented Neutrophils % 88 % (35-66) Band Neutrophils % 4 % (0-9) Lymphocytes % 3 % (24-48) Monocytes % 5 % (0-10) Platelet Estimate Adequate (ADEQUATE) Prothrombin Time 13.3 SEC (11.7-14.0) Prothromb Time International Ratio 1.0 (0.8-1.1) Sodium Level 144 mmol/L (136-145) Potassium Level 3.6 mmol/L (3.5-5.1) Chloride Level 106 mmol/L (98-107) Carbon Dioxide Level 16 mmol/L (21-32) Anion Gap 22 (6-14) Blood Urea Nitrogen 34 mg/dL (8-26) Creatinine 1.7 mg/dL (0.7-1.3) Estimated GFR (Cockcroft-Gault) 42.9 Glucose Level 237 mg/dL (70-99) Lactic Acid Level 1.3 mmol/L (0.4-2.0) Calcium Level 9.0 mg/dL (8.5-10.1) Phosphorus Level 1.7 mg/dL (2.6-4.7) Magnesium Level 2.0 mg/dL (1.8-2.4) Total Bilirubin 0.4 mg/dL (0.2-1.0) Direct Bilirubin 0.1 mg/dL (0.0-0.2) Aspartate Amino Transf (AST/SGOT) 226 U/L (15-37) Alanine Aminotransferase (ALT/SGPT) 97 U/L (16-63) Alkaline Phosphatase 101 U/L (46-116) Creatine Kinase 8608 U/L (39-308) Troponin I Quantitative < 0.017 ng/mL (0.000-0.055) Total Protein 7.4 g/dL (6.4-8.2) Albumin 3.2 g/dL (3.4-5.0) Triglycerides Level 227 mg/dL (0-150) Cholesterol Level 168 mg/dL (0-200) LDL Cholesterol, Calculated 77 mg/dL (0-100) VLDL Cholesterol, Calculated 45 mg/dL (0-40) Non-HDL Cholesterol Calculated 122 mg/dL (0-129) HDL Cholesterol 46 mg/dL (40-60) Cholesterol/HDL Ratio 3.7 Lipase 829 U/L (73-393) Thyroid Stimulating Hormone (TSH) 0.757 uIU/mL (0.358-3.74) Glucose (Fingerstick) 188 mg/dL (70-99) 181 mg/dL (70-99) 137 mg/dL (70-99) Test 09/08/18 09:36 09/08/18 10:40 09/08/18 11:39 09/08/18 12:39 Glucose (Fingerstick) 148 mg/dL (70-99) 132 mg/dL (70-99) 125 mg/dL (70-99) 125 mg/dL (70-99) Allergies: Coded Allergies: No Known Drug Allergies (Unverified , 05/11/15) Medications: Current Medications Medications (Trade) Dose Ordered Sig/Cyrus Route PRN Reason Start Time Stop Time Status Last Admin Dose Admin Piperacillin Sod/ Tazobactam Sod 3.375 gm/Sodium Chloride 50 ml @ 100 mls/hr Q6HRS IV 09/07/18 23:00 09/08/18 05:58 Sodium Chloride 1,000 ml @ 250 mls/hr Q4H IV 09/07/18 23:00 09/08/18 02:52 DC 09/07/18 23:11 Insulin Human Regular 150 unit/ Sodium Chloride 151.5 ml @ 0 mls/hr CONT PRN PRN IV PER PROTOCOL 09/07/18 23:00 09/07/18 23:12 Potassium Chloride/Water 100 ml @ 100 mls/hr PRN Q1HR PRN IV SEE COMMENTS 09/07/18 23:00 09/08/18 06:53 DC 09/08/18 04:06 Sodium Bicarbonate (Sodium Bicarb Adult 8.4% Syr) 50 meq 1X ONCE IV 09/08/18 00:00 09/08/18 00:01 DC 09/07/18 23:42 Sodium Bicarbonate 50 meq/Sodium Chloride 1,050 ml @ 250 mls/hr 1X ONCE IV 09/08/18 00:00 09/08/18 04:11 DC 09/07/18 23:47 Dextrose/Sodium Chloride 1,000 ml @ 250 mls/hr Q4H IV 09/08/18 02:50 09/08/18 11:06 Sodium Phosphate 20 mmol/Dextrose 256.6667 ml @ 62.5 mls/hr 1X PRN PRN IV SEE COMMENTS 09/08/18 03:00 09/08/18 03:03 Ondansetron HCl (Zofran) 4 mg PRN Q6HRS PRN IV NAUSEA/VOMITING 1ST CHOICE 09/08/18 03:15 09/08/18 03:18 Amiodarone HCl 900 mg/Dextrose 518 ml @ 0 mls/hr CONT PRN IV SEE I/O RECORD 09/08/18 06:30 09/08/18 06:30 DC 09/08/18 06:27 Potassium Chloride/Water 100 ml @ 100 mls/hr PRN Q1HR PRN IV SEE COMMENTS 09/08/18 07:00 09/08/18 11:42 Lorazepam (Ativan) 2 mg 1X ONCE IV 09/08/18 09:00 09/08/18 09:01 DC 09/08/18 08:35 Imaging: Imaging: CT chest/A/P pending PE: GEN: NAD HEENT: Atraumatic, PERRL LUNGS: CTAB, NC HEART: RRR ABD: NABS, S/ND/NT EXTREMITY: No edema SKIN: +tattoos NEURO/PSYCH: briefly opens eyes when I say his name A/P: A/P: SOA Encephalopathy, DKA, Leukocytosis, RAUL/rhabdo, transaminitis, elevated lipase H/o substance abuse H/o pancreatitis S/p cholecystectomy S/p splenectomy CRC screen - unclear -- Await CT. MICHELLE ROLLE Sep 08, 2018 13:47
--- NOTE | 2018-09-08 13:51 | NUR ---
SS following for discharge planning. SS reviewed pt chart. Pt is from home and is currently requiring oxygen. No discharge needs noted at this time. SS will continue to follow for pending discharge needs.
--- NOTE | 2018-09-08 14:11 | PDOC ---
PULMONARY PROGRESS NOTES Vitals Vital Signs Date Time Temp Pulse Resp B/P (MAP) Pulse Ox O2 Delivery O2 Flow Rate FiO2 09/08/18 13:00 74 28 152/79 (103) 94 Nasal Cannula 3.0 09/08/18 12:00 98.7 98.7 Lungs: Clear Labs Laboratory Tests Test 09/07/18 21:10 09/07/18 22:46 09/07/18 22:57 09/08/18 00:00 Sodium Level 135 mmol/L (136-145) Potassium Level 4.6 mmol/L (3.5-5.1) Chloride Level 97 mmol/L (98-107) Carbon Dioxide Level < 5 mmol/L (21-32) Anion Gap (6-14) Blood Urea Nitrogen 40 mg/dL (8-26) Creatinine 1.5 mg/dL (0.7-1.3) Estimated GFR (Cockcroft-Gault) 49.5 BUN/Creatinine Ratio 27 (6-20) Glucose Level 466 mg/dL (70-99) Calcium Level 8.7 mg/dL (8.5-10.1) Total Bilirubin 0.7 mg/dL (0.2-1.0) Aspartate Amino Transf (AST/SGOT) 302 U/L (15-37) Alanine Aminotransferase (ALT/SGPT) 100 U/L (16-63) Alkaline Phosphatase 114 U/L (46-116) Total Protein 8.3 g/dL (6.4-8.2) Albumin 3.2 g/dL (3.4-5.0) Albumin/Globulin Ratio 0.6 (1.0-1.7) Glucose (Fingerstick) 445 mg/dL (70-99) 410 mg/dL (70-99) O2 Saturation 98 % (92-99) Arterial Blood pH 7.17 (7.35-7.45) Arterial Blood pCO2 at Patient Temp < 15 mmHg (35-46) Arterial Blood pO2 at Patient Temp 131 mmHg (75-108) Arterial Blood HCO3 3 mmol/L (21-28) Arterial Blood Base Excess -23 mmol/L (-3-3) FiO2 28 Test 09/08/18 00:27 09/08/18 01:01 09/08/18 01:45 09/08/18 02:00 O2 Saturation 98 % (92-99) Arterial Blood pH 7.28 (7.35-7.45) Arterial Blood pCO2 at Patient Temp < 15 mmHg (35-46) Arterial Blood pO2 at Patient Temp 103 mmHg (75-108) Arterial Blood HCO3 5 mmol/L (21-28) Arterial Blood Base Excess -18 mmol/L (-3-3) FiO2 28 Glucose (Fingerstick) 320 mg/dL (70-99) 262 mg/dL (70-99) Sodium Level 140 mmol/L (136-145) Potassium Level 4.0 mmol/L (3.5-5.1) Chloride Level 102 mmol/L (98-107) Carbon Dioxide Level 10 mmol/L (21-32) Anion Gap 28 (6-14) Blood Urea Nitrogen 43 mg/dL (8-26) Creatinine 1.6 mg/dL (0.7-1.3) Estimated GFR (Cockcroft-Gault) 46.0 Glucose Level 307 mg/dL (70-99) Calcium Level 9.1 mg/dL (8.5-10.1) Phosphorus Level 1.5 mg/dL (2.6-4.7) Magnesium Level 2.2 mg/dL (1.8-2.4) Test 09/08/18 02:43 09/08/18 02:59 09/08/18 04:05 09/08/18 05:07 O2 Saturation % (92-99) Arterial Blood pH 7.39 (7.35-7.45) Arterial Blood pCO2 at Patient Temp 16 mmHg (35-46) Arterial Blood pO2 at Patient Temp 81 mmHg (75-108) Arterial Blood HCO3 9 mmol/L (21-28) Arterial Blood Base Excess -13 mmol/L (-3-3) Glucose (Fingerstick) 185 mg/dL (70-99) 202 mg/dL (70-99) 208 mg/dL (70-99) Test 09/08/18 05:45 09/08/18 06:10 09/08/18 07:24 09/08/18 08:31 White Blood Count 19.4 x10^3/uL (4.0-11.0) Red Blood Count 5.02 x10^6/uL (4.30-5.70) Hemoglobin 14.6 g/dL (13.0-17.5) Hematocrit 44.0 % (39.0-53.0) Mean Corpuscular Volume 88 fL (79-100) Mean Corpuscular Hemoglobin 29 pg (25-35) Mean Corpuscular Hemoglobin Concent 33 g/dL (31-37) Red Cell Distribution Width 14.1 % (11.5-14.5) Platelet Count 292 x10^3/uL (140-400) Neutrophils (%) (Auto) 84 % (31-73) Lymphocytes (%) (Auto) 4 % (24-48) Monocytes (%) (Auto) 12 % (0-9) Eosinophils (%) (Auto) 0 % (0-3) Basophils (%) (Auto) 1 % (0-3) Neutrophils # (Auto) 16.4 x10^3uL (1.8-7.7) Lymphocytes # (Auto) 0.7 x10^3/uL (1.0-4.8) Monocytes # (Auto) 2.2 x10^3/uL (0.0-1.1) Eosinophils # (Auto) 0.0 x10^3/uL (0.0-0.7) Basophils # (Auto) 0.1 x10^3/uL (0.0-0.2) Segmented Neutrophils % 88 % (35-66) Band Neutrophils % 4 % (0-9) Lymphocytes % 3 % (24-48) Monocytes % 5 % (0-10) Platelet Estimate Adequate (ADEQUATE) Prothrombin Time 13.3 SEC (11.7-14.0) Prothromb Time International Ratio 1.0 (0.8-1.1) Sodium Level 144 mmol/L (136-145) Potassium Level 3.6 mmol/L (3.5-5.1) Chloride Level 106 mmol/L (98-107) Carbon Dioxide Level 16 mmol/L (21-32) Anion Gap 22 (6-14) Blood Urea Nitrogen 34 mg/dL (8-26) Creatinine 1.7 mg/dL (0.7-1.3) Estimated GFR (Cockcroft-Gault) 42.9 Glucose Level 237 mg/dL (70-99) Lactic Acid Level 1.3 mmol/L (0.4-2.0) Calcium Level 9.0 mg/dL (8.5-10.1) Phosphorus Level 1.7 mg/dL (2.6-4.7) Magnesium Level 2.0 mg/dL (1.8-2.4) Total Bilirubin 0.4 mg/dL (0.2-1.0) Direct Bilirubin 0.1 mg/dL (0.0-0.2) Aspartate Amino Transf (AST/SGOT) 226 U/L (15-37) Alanine Aminotransferase (ALT/SGPT) 97 U/L (16-63) Alkaline Phosphatase 101 U/L (46-116) Creatine Kinase 8608 U/L (39-308) Troponin I Quantitative < 0.017 ng/mL (0.000-0.055) Total Protein 7.4 g/dL (6.4-8.2) Albumin 3.2 g/dL (3.4-5.0) Triglycerides Level 227 mg/dL (0-150) Cholesterol Level 168 mg/dL (0-200) LDL Cholesterol, Calculated 77 mg/dL (0-100) VLDL Cholesterol, Calculated 45 mg/dL (0-40) Non-HDL Cholesterol Calculated 122 mg/dL (0-129) HDL Cholesterol 46 mg/dL (40-60) Cholesterol/HDL Ratio 3.7 Lipase 829 U/L (73-393) Thyroid Stimulating Hormone (TSH) 0.757 uIU/mL (0.358-3.74) Glucose (Fingerstick) 188 mg/dL (70-99) 181 mg/dL (70-99) 137 mg/dL (70-99) Test 09/08/18 09:36 09/08/18 10:40 09/08/18 11:39 09/08/18 12:39 Glucose (Fingerstick) 148 mg/dL (70-99) 132 mg/dL (70-99) 125 mg/dL (70-99) 125 mg/dL (70-99) Test 09/08/18 13:43 Glucose (Fingerstick) 151 mg/dL (70-99) Laboratory Tests Test 09/07/18 21:10 09/07/18 22:46 09/07/18 22:57 09/08/18 00:00 Sodium Level 135 mmol/L (136-145) Potassium Level 4.6 mmol/L (3.5-5.1) Chloride Level 97 mmol/L (98-107) Carbon Dioxide Level < 5 mmol/L (21-32) Anion Gap (6-14) Blood Urea Nitrogen 40 mg/dL (8-26) Creatinine 1.5 mg/dL (0.7-1.3) Estimated GFR (Cockcroft-Gault) 49.5 BUN/Creatinine Ratio 27 (6-20) Glucose Level 466 mg/dL (70-99) Calcium Level 8.7 mg/dL (8.5-10.1) Total Bilirubin 0.7 mg/dL (0.2-1.0) Aspartate Amino Transf (AST/SGOT) 302 U/L (15-37) Alanine Aminotransferase (ALT/SGPT) 100 U/L (16-63) Alkaline Phosphatase 114 U/L (46-116) Total Protein 8.3 g/dL (6.4-8.2) Albumin 3.2 g/dL (3.4-5.0) Albumin/Globulin Ratio 0.6 (1.0-1.7) Glucose (Fingerstick) 445 mg/dL (70-99) 410 mg/dL (70-99) O2 Saturation 98 % (92-99) Arterial Blood pH 7.17 (7.35-7.45) Arterial Blood pCO2 at Patient Temp < 15 mmHg (35-46) Arterial Blood pO2 at Patient Temp 131 mmHg (75-108) Arterial Blood HCO3 3 mmol/L (21-28) Arterial Blood Base Excess -23 mmol/L (-3-3) FiO2 28 Test 09/08/18 00:27 09/08/18 01:01 09/08/18 01:45 09/08/18 02:00 O2 Saturation 98 % (92-99) Arterial Blood pH 7.28 (7.35-7.45) Arterial Blood pCO2 at Patient Temp < 15 mmHg (35-46) Arterial Blood pO2 at Patient Temp 103 mmHg (75-108) Arterial Blood HCO3 5 mmol/L (21-28) Arterial Blood Base Excess -18 mmol/L (-3-3) FiO2 28 Glucose (Fingerstick) 320 mg/dL (70-99) 262 mg/dL (70-99) Sodium Level 140 mmol/L (136-145) Potassium Level 4.0 mmol/L (3.5-5.1) Chloride Level 102 mmol/L (98-107) Carbon Dioxide Level 10 mmol/L (21-32) Anion Gap 28 (6-14) Blood Urea Nitrogen 43 mg/dL (8-26) Creatinine 1.6 mg/dL (0.7-1.3) Estimated GFR (Cockcroft-Gault) 46.0 Glucose Level 307 mg/dL (70-99) Calcium Level 9.1 mg/dL (8.5-10.1) Phosphorus Level 1.5 mg/dL (2.6-4.7) Magnesium Level 2.2 mg/dL (1.8-2.4) Test 09/08/18 02:43 09/08/18 02:59 09/08/18 04:05 09/08/18 05:07 O2 Saturation % (92-99) Arterial Blood pH 7.39 (7.35-7.45) Arterial Blood pCO2 at Patient Temp 16 mmHg (35-46) Arterial Blood pO2 at Patient Temp 81 mmHg (75-108) Arterial Blood HCO3 9 mmol/L (21-28) Arterial Blood Base Excess -13 mmol/L (-3-3) Glucose (Fingerstick) 185 mg/dL (70-99) 202 mg/dL (70-99) 208 mg/dL (70-99) Test 09/08/18 05:45 09/08/18 06:10 09/08/18 07:24 09/08/18 08:31 White Blood Count 19.4 x10^3/uL (4.0-11.0) Red Blood Count 5.02 x10^6/uL (4.30-5.70) Hemoglobin 14.6 g/dL (13.0-17.5) Hematocrit 44.0 % (39.0-53.0) Mean Corpuscular Volume 88 fL (79-100) Mean Corpuscular Hemoglobin 29 pg (25-35) Mean Corpuscular Hemoglobin Concent 33 g/dL (31-37) Red Cell Distribution Width 14.1 % (11.5-14.5) Platelet Count 292 x10^3/uL (140-400) Neutrophils (%) (Auto) 84 % (31-73) Lymphocytes (%) (Auto) 4 % (24-48) Monocytes (%) (Auto) 12 % (0-9) Eosinophils (%) (Auto) 0 % (0-3) Basophils (%) (Auto) 1 % (0-3) Neutrophils # (Auto) 16.4 x10^3uL (1.8-7.7) Lymphocytes # (Auto) 0.7 x10^3/uL (1.0-4.8) Monocytes # (Auto) 2.2 x10^3/uL (0.0-1.1) Eosinophils # (Auto) 0.0 x10^3/uL (0.0-0.7) Basophils # (Auto) 0.1 x10^3/uL (0.0-0.2) Segmented Neutrophils % 88 % (35-66) Band Neutrophils % 4 % (0-9) Lymphocytes % 3 % (24-48) Monocytes % 5 % (0-10) Platelet Estimate Adequate (ADEQUATE) Prothrombin Time 13.3 SEC (11.7-14.0) Prothromb Time International Ratio 1.0 (0.8-1.1) Sodium Level 144 mmol/L (136-145) Potassium Level 3.6 mmol/L (3.5-5.1) Chloride Level 106 mmol/L (98-107) Carbon Dioxide Level 16 mmol/L (21-32) Anion Gap 22 (6-14) Blood Urea Nitrogen 34 mg/dL (8-26) Creatinine 1.7 mg/dL (0.7-1.3) Estimated GFR (Cockcroft-Gault) 42.9 Glucose Level 237 mg/dL (70-99) Lactic Acid Level 1.3 mmol/L (0.4-2.0) Calcium Level 9.0 mg/dL (8.5-10.1) Phosphorus Level 1.7 mg/dL (2.6-4.7) Magnesium Level 2.0 mg/dL (1.8-2.4) Total Bilirubin 0.4 mg/dL (0.2-1.0) Direct Bilirubin 0.1 mg/dL (0.0-0.2) Aspartate Amino Transf (AST/SGOT) 226 U/L (15-37) Alanine Aminotransferase (ALT/SGPT) 97 U/L (16-63) Alkaline Phosphatase 101 U/L (46-116) Creatine Kinase 8608 U/L (39-308) Troponin I Quantitative < 0.017 ng/mL (0.000-0.055) Total Protein 7.4 g/dL (6.4-8.2) Albumin 3.2 g/dL (3.4-5.0) Triglycerides Level 227 mg/dL (0-150) Cholesterol Level 168 mg/dL (0-200) LDL Cholesterol, Calculated 77 mg/dL (0-100) VLDL Cholesterol, Calculated 45 mg/dL (0-40) Non-HDL Cholesterol Calculated 122 mg/dL (0-129) HDL Cholesterol 46 mg/dL (40-60) Cholesterol/HDL Ratio 3.7 Lipase 829 U/L (73-393) Thyroid Stimulating Hormone (TSH) 0.757 uIU/mL (0.358-3.74) Glucose (Fingerstick) 188 mg/dL (70-99) 181 mg/dL (70-99) 137 mg/dL (70-99) Test 09/08/18 09:36 09/08/18 10:40 09/08/18 11:39 09/08/18 12:39 Glucose (Fingerstick) 148 mg/dL (70-99) 132 mg/dL (70-99) 125 mg/dL (70-99) 125 mg/dL (70-99) Test 09/08/18 13:43 Glucose (Fingerstick) 151 mg/dL (70-99) Medications Active Scripts Medications Dose Route/Sig Max Daily Dose Days Date Category [place] 3 Fish Oil Softgel ([place]-3 Fatty Acids/Fish Oil) 1 Each Capsule.dr 2 Each PO DAILY 06/18/18 Reported Cholestyramine Packet (Cholestyramine (With Sugar)) 4 Gm Powd.pack 4 Gm PO BID 06/18/18 Reported [regular insulin] 45 06/18/18 Reported Cymbalta (Duloxetine Hcl) 60 Mg Capsule.dr 1 Cap PO BID 06/18/18 Reported Oxcarbazepine 300 Mg Tablet 300 Mg PO DAILY 06/18/18 Reported Fenofibrate (Fenofibrate Nanocrystallized) 145 Mg Tablet 1 Tab PO DAILY 06/18/18 Reported Atorvastatin Calcium 40 Mg Tablet 1 Tab PO DAILY 06/18/18 Reported Celebrex (Celecoxib) 100 Mg Capsule 1 Cap PO BID 06/18/18 Reported Latuda (Lurasidone Hcl) 40 Mg Tablet 80 Tab PO QHS 11/05/16 Reported Tamsulosin Hcl 0.4 Mg Cap.er.24h 0.4 Mg PO DAILY 10/15/16 Reported Lisinopril 5 Mg Tablet 5 Mg PO DAILY 10/15/16 Reported Metformin Hcl 1,000 Mg Tablet 500 Tab PO BID 10/15/16 Reported Levemir (Insulin Detemir) 100 Unit/1 Ml Vial 60 Unit SQ QHS 05/16/15 Rx Impression . NOTE DICTATED THANKS D/W DR CHAVEZ WILL ADD ARRHYTHMIAS TO MY ASSEMNT FORGOT DURING DICTATION WILFREDO CERVANTES MD Sep 08, 2018 14:11
[2018-09-08] MEDS: INSULIN REGULAR VIAL 150 UNIT in 0.9 % SODIUM CHLORIDE 150ML 150 ML IV PRN (14:42)
--- NOTE | 2018-09-08 14:58 | PDOC ---
Provider Note Provider Note Pt seen and examined Consult dictated Thank you [id number] GOGO TOUSSAINT MD Sep 08, 2018 14:58
[2018-09-08] MEDS ORDERED: MIRT15TA3 PO (15:05)
--- NOTE | 2018-09-08 15:34 | RAD ---
EXAM: CT Chest, Abdomen and Pelvis without IV contrast CLINICAL HISTORY: ELEVATED LIPASE COMPARISON: CT abdomen and pelvis 05/12/2015 TECHNIQUE: Helical CT of the chest, abdomen and pelvis was performed without intravenous contrast. Axial, coronal and sagittal reformatted images were generated. ---PQRS compliance statement - One or more of the following individualized dose reduction techniques were utilized for this study: 1. Automated exposure control 2. Adjustment of the mA and/or kV according to patient size 3. Use of iterative reconstruction technique--- FINDINGS: Lack of intravenous contrast limits evaluation of solid organs, vasculature, and lymph nodes. Chest: Mild cardiomegaly. Coronary artery calcifications are seen. No pericardial effusion. Prominent mediastinal and hilar lymph nodes, not enlarged by size criteria although evaluation is limited given noncontrast exam. No axillary lymphadenopathy. No pleural effusion or pneumothorax. Linear reticular opacities in the lower lobes and lingula bilaterally likely scarring/atelectasis. No pleural effusion or pneumothorax. Abdomen and Pelvis: Focal low-attenuation along the falciform ligament measures 4 x 2 cm, previously 3 x 1.5 cm. This may represent focal fatty infiltration although hepatic lesion is not excluded. Accounting for postcholecystectomy change, no biliary ductal dilatation. Spleen is mildly irregular in shape, stable. Adrenal glands are normal. No renal tract calculi. A left interpolar hypodense cystic lesion is grossly stable. There is trace fat infiltration about the pancreatic head and neck suggesting mild pancreatitis. No definite loculated fluid collection is seen. Appendix is normal. Moderate colonic stool content is seen. No small or large bowel dilatation. No abdominal or pelvic lymphadenopathy by size criteria although several prominent left peroneal lymph nodes are seen, possibly reactive. No abdominal or pelvic ascites. Foci of gas and Price catheter are seen within the are suggested bladder. Bones: Degenerative changes of the spine are seen. IMPRESSION: 1. Mild fat infiltration about the pancreatic head/neck suggests mild pancreatitis. No associated loculated fluid collection. 2. No pleural effusion. 3. Hepatic hypoattenuation along the falciform ligament is increased in size compared to prior from 05/12/2015. Although this may represent focal fatty infiltration, hepatic lesion is not excluded and this can be further assessed by ultrasound or MRI. 4. Foci of gas and Price catheter are seen within the partially distended bladder. Electronically signed by: Cortes Vanegas MD (09/08/2018 3:31 PM) [facility]
[2018-09-08] MEDS: CEFTAROLINE FOSAMIL 600 MG in IV NORMAL SALINE 250ML 250 ML IV SCH ×2 (15:51→23:43)
--- NOTE | 2018-09-08 17:35 | RAD ---
CHEST AP ONLY Clinical Indication: VERIFY LINE PLCM. Comparison: 05/11/2015 portable chest x-ray exam. Findings: Right internal jugular catheter joint overlying the superior cavoatrial junction. The cardiomediastinal silhouette is normal. Lungs are clear. There is no pneumothorax. No pleural effusion is appreciated. No acute bone abnormality. IMPRESSION: No acute cardiopulmonary process. Electronically signed by: Ashok De La Cruz MD (09/08/2018 5:32 PM) [id number]
--- NOTE | 2018-09-08 17:37 | RAD ---
Examination: EXT NON VASC LEFT History: DX: Lump Proximal Anterior Left Forearm; ? Abcess IMP: No fluid collectioj or abcess seen-Hyperechoic area in tissue at lump with edema notes. Cephalic vein is patent Comparison/Correlation: None Findings: Ultrasound imaging of the left upper forearm region was performed. Edema is evident at site of reported palpable of pneumonia. Cephalic vein is patent with color flow noted. No definite loculated collection. There is a region of hyperechogenicity at the site of the reported palpable abnormality but it is not well demarcated. Impression: Minimal subcutaneous edema. No loculated fluid collection. Ill-defined hyperechogenicity at the site of reported palpable abnormality of indeterminate significance. Electronically signed by: Ashok De La Cruz MD (09/08/2018 5:34 PM) [id number]
[2018-09-08 18:56] LABS: CALCIUM 8.8 mg/dL (8.5-10.1); CREATININE 1.2 mg/dL (0.7-1.3); GFR 64.1; MAGNESIUM 1.9 mg/dL (1.8-2.4); PHOSPHORUS 2.1 mg/dL (2.6-4.7)
[2018-09-08 19:02] LABS: POTASSIUM 2.8 mmol/L (3.5-5.1)
[2018-09-08] MEDS ORDERED: POTASSIUM CHL 20MEQ PREMIX 50 ML IV SCH (19:15)
[2018-09-08] MEDS: POTASSIUM CHL 20MEQ PREMIX 50 ML IV SCH ×3 (19:24→21:44)
[2018-09-08] MEDS ORDERED: DEXTROSE 50% 25 GM / 50ML DISP.SYRIN. IV PRN (19:45)
[2018-09-08] MEDS ORDERED: INSULIN GLARGINE 300 UNITS/3 ML INSULN.PEN. SQ SCH (21:00)
[2018-09-08] MEDS: INSULIN LISPRO 300 UNITS/3 ML INSULN.PEN. SQ SCH (21:00)
[2018-09-08] MEDS: LACTOBACILLUS RHAMNOSUS GG 1 CAPSULE. PO SCH (21:17)
[2018-09-08 21:33] LABS: BILIRUBIN,URINE NEGATIVE (NEG); CLARITY,URINE CLEAR; COLOR,URINE YELLOW; NITRITE,URINE NEGATIVE (NEG); PROTEIN,URINE 100 mg/dL (NEG-TRACE); UROBILINOGEN,URINE 0.2 mg/dL (0.2 mg/dL)
[2018-09-08 21:47] LABS: BACTERIA,URINE 0 /HPF (0-FEW); RBC,URINE >40 /HPF (0-2); SQUAMOUS EPITHELIAL CELL,UR OCC /LPF; WBC,URINE 0 /HPF (0-4)
[2018-09-09] VITALS (13 sets, daily range): BP systolic 119–145; BP diastolic 62–92
--- NOTE | 2018-09-09 00:42 | CONS ---
DATE OF CONSULTATION: 09/08/2018 REFERRING PHYSICIAN: Tiffany Erwin DO. REASON FOR CONSULTATION: Leukocytosis, possible cellulitis. HISTORY OF PRESENT ILLNESS: A 48-year-old male brought to [facility] ER by EMS for shortness of breath. The patient was later transferred to [facility] with DKA and RAUL. The patient has leukocytosis. The patient is currently drowsy. No history available. Was agitated earlier and received Ativan. Also had CT done, report of which is pending at this time. The patient's white count was elevated at 19,000, with severe metabolic acidosis with CO2 at 5 and creatinine of 1.5. LFT elevation DKA, lactate of 1.3. CK of 8000. The patient was given a dose of Zosyn here and continued on the same. The patient has cellulitis of the left upper extremity and history of IVDU. Lipase was elevated at 829, with history of pancreatitis. The patient drinks beer and uses IV meth. PAST MEDICAL HISTORY: Per records, hypertension, COPD, diabetes, hypothyroidism, peripheral neuropathy, PTSD, substance abuse, depression, anxiety, cholecystectomy, splenectomy, status post meth with IVDU, smoking present and history of marijuana use. REVIEW OF SYSTEMS: Unable to obtain. SOCIAL HISTORY: Smokes, ETOH and history of alcohol dependence. Drugs: Marijuana, crystal meth and IV drug use present. Multiple tattoos. CURRENT MEDICATION: IV Zosyn. Other medications reviewed in the medication list. ALLERGIES: No known drug allergies. PHYSICAL EXAMINATION: GENERAL: The patient is arousable, comfortable. Does not answer any questions. HEENT: Oropharynx dry. No conjunctival petechia. NECK: Supple. LUNGS: Clear bilaterally. HEART: S1, S2. No murmurs. ABDOMEN: Soft, nontender and nondistended. No rebound or guarding. EXTREMITIES: Trace edema. DERMATOLOGIC: Left upper extremity abscess with cellulitis. Right upper extremity cellulitis. Multiple tattoos. No generalized skin rash. GENITOURINARY: Price in place. NEUROLOGIC: Sleepy, but arousable. Moves all 4 extremities. LABORATORY DATA: WBC 19.4, hemoglobin 14.6, hematocrit 44, platelets 292,000, neutrophil 84 and lymphocytes 4. Sodium 144; potassium 3.6; chloride 106; bicarbonate 16, was 5; BUN 34; creatinine 1.7 and glucose 237. Lactate 1.7. CK 8608. Alkaline phosphatase 101, AST 226, ALT 97, total bilirubin 0.4 and direct bilirubin 0.1. Troponin less than 0.017. Lipase 829. IMAGING: CT abdomen, chest, pelvis pending. Chest x-ray pending. IMPRESSION: 1. Left upper extremity cellulitis/possible developing abscess. 2. Leukocytosis, multifactorial. 3. History of IV methamphetamine use and marijuana use. 4. History of alcohol dependence. 5. Elevated lipase with pancreatitis. 6. Diabetic ketoacidosis. 7. Severe metabolic acidosis, multifactorial. 8. Status post splenectomy. 9. Cardiac arrhythmia, on amiodarone drip. 10. Anxiety/post-traumatic stress disorder. 11. Diabetes. 12. Hypothyroidism. 13. Hypertension. 14. Rhabdomyolysis. 15. Metabolic encephalopathy. 16. Transaminitis. RECOMMENDATIONS: 1. Obtain blood cultures. 2. Obtain U/A and urine cultures. 3. Discontinue Zosyn. 4. Limited choices for empiric MRSA coverage due to RAUL and rhabdomyolysis. Will need a bactericidal agent, so we will start the patient on ceftaroline renal dosing. 5. Follow up labs and cultures in the a.m. 6. Obtain nonvascular ultrasound of left upper extremity to rule out abscess. May need likely surgical evaluation. 7. Multispecialty is following the patient. 8. Continue supportive care. 9. When the patient is able to give consent, we will obtain HIV antibody. 10. Check hepatitis panel. D/W RN D/W son at bedside Thank you, Dr. Erwin, for giving an opportunity to participate in this patient's care. If you have any questions, do not hesitate to contact me. GOGO TOUSSAINT MD DR: SAMANTHA/karan JOB#: [id number] / [id number] KULDEEP
--- NOTE | 2018-09-09 01:07 | CONS ---
DATE OF CONSULTATION: 09/08/2018 ATTENDING PHYSICIAN: Tiffany Erwin D.O. REASON FOR CONSULTATION: The patient seen in Pulmonary consultation at the request of Dr. Erwin for respiratory distress, DKA. HISTORY OF PRESENT ILLNESS: The patient is a 48-year old who ran out of his diabetes medication, presented with arterial blood gas revealing a pH of 7.17, paCO2 of 15, pO2 of 135 and bicarbonate was 3. The patient also had elevated white count along with marked elevation in his blood sugar. He was treated for DKA protocol. His AST and ALT are elevated. Albumin was low. He also had an elevated lipase level. The patient was treated for the above and is slowly improving. He was having some difficulty with increasing shortness of breath. I was asked to see him in consultation. He has been seen by GI Service for history of pancreatitis, status post cholecystectomy and splenectomy. This morning during my evaluation, the patient was sleepy but arousable. He did not appear to be in any significant distress. PAST MEDICAL HISTORY: Otherwise remarkable for hypertension, COPD, type 2 diabetes, hypothyroidism, post-traumatic stress syndrome and anxiety. SOCIAL HISTORY: Socially, there is a history of marijuana and methamphetamine use along with tobacco and alcohol. ALLERGIES: No known drug allergies. REVIEW OF SYSTEMS: Unobtainable secondary to the patient's condition. CURRENT MEDICATIONS: List was reviewed. PHYSICAL EXAMINATION: GENERAL: The patient was in the Intensive Care Unit. He was currently on 2 liters of oxygen supplementation. He did not appear to be in any significant distress. HEENT: Eyes, the sclerae were nonicteric. NECK: Jugular venous distention was not elevated. No lymphadenopathy. CHEST: Full expansion. LUNGS: Rhonchi. No wheezes. CARDIOVASCULAR: Regular rate and rhythm with S1 and S2. No S3. ABDOMEN: Soft, nontender and nondistended. EXTREMITIES: No clubbing or cyanosis. He had some skin rashes and a red area over his left arm. LABORATORY DATA: Labs were reviewed. White count was elevated. Hemoglobin and hematocrit were noted. Electrolytes were noted, deranged. BUN and creatinine were elevated. AST and ALT were elevated. Lipase was elevated. Arterial blood gas has improved. RADIOLOGICAL DATA: Chest x-ray was reviewed. IMPRESSION: 1. Acute respiratory failure secondary to diabetic ketoacidosis. 2. Diabetic ketoacidosis. 3. Suspect underlying infection. We will obtain CT chest, abdomen and pelvis, consult Infectious Disease. 4. Chronic obstructive pulmonary disease. 5. Type 2 diabetes, noncompliant with medication. 6. Post-traumatic stress syndrome. 7. Anxiety. 8. Polysubstance use including marijuana, methamphetamine and alcohol along with tobacco. PLAN: 1. Continue protocol for DKA 2. Add vancomycin. 3. Consult ID. 4. CT chest, abdomen and pelvis. 5. Monitor for any further respiratory distress. The above was discussed with the RN and Dr. Erwin. I do appreciate the privilege in sharing in the patient's care. WILFREDO CERVANTES MD DR: SEMAJ/karan JOB#: [id number] / [id number]
[2018-09-09] MEDS: IV DEXTROSE 5 %-0.45 % NACL 1,000 ML IV SCH ×2 (02:07→08:18)
--- NOTE | 2018-09-09 04:26 | RAD ---
Complete abdominal ultrasound dated 09/08/2018. Comparison made to CT dated 09/08/2018 and 05/12/2015. CLINICAL INDICATION: Evaluate liver lesion. FINDINGS: Liver is of diffuse increased echogenicity, compatible with fatty infiltration. There is a echogenic nodule within the central liver near the medial segment left lobe that measures 4.5 cm maximum dimension, well-defined. Previously described nodular focus within the medial segment anteriorly near the falciform ligament shows no definite correlate on ultrasound. Biliary tree is normal in caliber. Common bile duct measures 5 mm. Gallbladder is surgically absent. No abnormality at the gallbladder fossa. Right kidney measures 11.9 cm in length. Left kidney measures 13.3 cm in length. No hydronephrosis. There is a well-circumscribed hypoechoic focus within the left kidney that measures 3.1 cm, likely cyst. The spleen is not identified and reportedly surgically absent. Pancreas aorta and IVC are not well evaluated due to overlying bowel gas. No significant ascites. IMPRESSION: 1. No acute sonographic abnormality. 2. Hyperechoic mass within the central liver measuring up to 4.4 cm in size, nonspecific. Given the appearance is most likely represents hemangioma. 3. Hepatic steatosis. Previously described low-density focus near the falciform ligament of the liver shows no definite sonographic correlate but most likely represents an area of focal fat. Similar dating back to 2014 CT exam. Follow-up biphasic CT or liver MRI to ensure stability. 4. Status post cholecystectomy and splenectomy. Electronically signed by: Miki Bell MD (09/09/2018 4:23 AM) [facility]
[2018-09-09 06:22] LABS: BASO % 1 % (0-3); EOS % 1 % (0-3); HEMATOCRIT 36.1 % (39.0-53.0); HEMOGLOBIN 12.2 g/dL (13.0-17.5); LYMPH # 1.6 x10^3/uL (1.0-4.8); LYMPH % 16 % (24-48); MEAN CORPUSCULAR HEMOGLOBIN 29 pg (25-35); MEAN CORPUSCULAR HGB CONC 34 g/dL (31-37); MEAN CORPUSCULAR VOLUME 86 fL (79-100); MONO % 10 % (0-9); NEUT # 7.2 x10^3uL (1.8-7.7); NEUT % 73 % (31-73); PLATELET COUNT 234 x10^3/uL (140-400); WHITE BLOOD COUNT 9.9 x10^3/uL (4.0-11.0)
[2018-09-09 06:49] LABS: CALCIUM 8.7 mg/dL (8.5-10.1); GFR 79.1
[2018-09-09 06:51] LABS: POTASSIUM 2.7 mmol/L (3.5-5.1)
[2018-09-09] MEDS ORDERED: POTASSIUM CHLORIDE 20 MEQ TABLET.ER. PO ONE (07:15)
--- NOTE | 2018-09-09 08:45 | PDOC ---
Infectious Disease Note Subjective: Subjective Pt more alert this am, eating breakfast, says is ok no f/c/n/v/d/headache/abdo pain or gu symptoms Pain in LUE improving ROS: ROS Negative except for above. Vital Signs: Vital Signs Vital Signs Date Time Temp Pulse Resp B/P (MAP) Pulse Ox O2 Delivery O2 Flow Rate FiO2 09/09/18 06:00 67 22 125/63 (83) 96 Room Air 09/09/18 05:00 3.0 09/09/18 04:00 98.4 98.4 Physical Exam: PHYSICAL EXAM PHYSICAL EXAMINATION: GENERAL: alert awake,answers a few questions HEENT: Oropharynx dry. No conjunctival petechia. NECK: Supple. LUNGS: Clear bilaterally. HEART: S1, S2. No murmurs. ABDOMEN: Soft, nontender and nondistended. No rebound or guarding. EXTREMITIES: Trace edema. DERMATOLOGIC: Left upper extremity redness ,mild induration cellulitis. Multiple tattoos. No generalized skin rash. GENITOURINARY: Price in place. NEUROLOGIC: Sleepy, but arousable. Moves all 4 extremities. Medications: Inpatient Meds: Current Medications Medications (Trade) Dose Ordered Sig/Cyrus Start Time Stop Time Status Last Admin Dose Admin Amiodarone HCl 900 mg/Dextrose 518 ml @ 0 mls/hr CONT PRN 09/08/18 06:30 09/08/18 06:30 DC 09/08/18 06:27 16.7 MLS/HR Ceftaroline Fosamil 600 mg/ Sodium Chloride 250 ml @ 250 mls/hr Q12HR 09/08/18 16:00 09/08/18 23:43 250 MLS/HR Dextrose (Dextrose 50%-Water Syringe) 12.5 gm PRN Q15MIN PRN 09/08/18 19:45 Dextrose/Sodium Chloride 1,000 ml @ 175 mls/hr Q5H43M 09/08/18 20:00 09/09/18 08:18 175 MLS/HR Insulin Glargine (Lantus) 60 units QHS 09/08/18 21:00 09/08/18 20:00 60 UNITS Insulin Human Lispro (HumaLOG) 0-9 UNITS TIDACHC 09/08/18 21:00 Insulin Human Regular 150 unit/ Sodium Chloride 151.5 ml @ 0 mls/hr CONT PRN PRN 09/07/18 23:00 09/08/18 14:42 7.4 MLS/HR Lactobacillus Rhamnosus (Culturelle) 1 cap BID 09/08/18 21:00 09/08/18 21:17 1 CAP Lorazepam (Ativan) 2 mg PRN Q1HR PRN 09/08/18 08:30 09/08/18 16:42 2 MG Ondansetron HCl (Zofran) 4 mg PRN Q6HRS PRN 09/08/18 03:15 09/08/18 03:18 4 MG Piperacillin Sod/ Tazobactam Sod (Zosyn Per Pharmacy) 1 each PRN DAILY PRN 09/07/18 22:45 09/08/18 14:46 DC Piperacillin Sod/ Tazobactam Sod 3.375 gm/Sodium Chloride 50 ml @ 100 mls/hr Q6HRS 09/07/18 23:00 09/08/18 14:46 DC 09/08/18 14:37 100 MLS/HR Potassium Chloride/Water 50 ml @ 50 mls/hr Q1H 09/08/18 20:00 09/08/18 22:59 DC 09/08/18 21:44 50 MLS/HR Potassium Chloride (Klor-Con) 40 meq 1X ONCE 09/09/18 07:15 09/09/18 07:16 DC Sodium Bicarbonate 50 meq/Sodium Chloride 1,050 ml @ 250 mls/hr 1X ONCE 09/08/18 00:00 09/08/18 04:11 DC 09/07/18 23:47 250 MLS/HR Sodium Bicarbonate (Sodium Bicarb Adult 8.4% Syr) 50 meq 1X ONCE 09/08/18 00:00 09/08/18 00:01 DC 09/07/18 23:42 50 MEQ Sodium Chloride 1,000 ml @ 250 mls/hr Q4H 09/07/18 23:00 09/08/18 02:52 DC 09/07/18 23:11 250 MLS/HR Sodium Phosphate 20 mmol/Dextrose 256.6667 ml @ 62.5 mls/hr 1X ONCE 09/08/18 19:30 09/08/18 23:36 DC 09/08/18 19:41 62.5 MLS/HR Labs: Lab Laboratory Tests Test 09/08/18 09:36 09/08/18 10:40 09/08/18 11:39 09/08/18 12:39 Glucose (Fingerstick) 148 mg/dL (70-99) 132 mg/dL (70-99) 125 mg/dL (70-99) 125 mg/dL (70-99) Test 09/08/18 13:43 09/08/18 14:39 09/08/18 15:42 09/08/18 16:45 Glucose (Fingerstick) 151 mg/dL (70-99) 153 mg/dL (70-99) 133 mg/dL (70-99) 119 mg/dL (70-99) Test 09/08/18 17:48 09/08/18 18:15 09/08/18 19:08 09/08/18 19:57 Glucose (Fingerstick) 157 mg/dL (70-99) 175 mg/dL (70-99) 144 mg/dL (70-99) Sodium Level 144 mmol/L (136-145) Potassium Level 2.8 mmol/L (3.5-5.1) Chloride Level 107 mmol/L (98-107) Carbon Dioxide Level 26 mmol/L (21-32) Anion Gap 11 (6-14) Blood Urea Nitrogen 22 mg/dL (8-26) Creatinine 1.2 mg/dL (0.7-1.3) Estimated GFR (Cockcroft-Gault) 64.1 Glucose Level 181 mg/dL (70-99) Calcium Level 8.8 mg/dL (8.5-10.1) Phosphorus Level 2.1 mg/dL (2.6-4.7) Magnesium Level 1.9 mg/dL (1.8-2.4) Test 09/08/18 20:08 09/08/18 21:15 09/08/18 23:47 09/09/18 06:00 Urine Collection Type Unknown Urine Color Yellow Urine Clarity Clear Urine pH 6.0 Urine Specific [place] 1.025 Urine Protein 100 mg/dL (NEG-TRACE) Urine Glucose (UA) >=1000 mg/dL (NEG) Urine Ketones (Stick) Negative mg/dL (NEG) Urine Blood Large (NEG) Urine Nitrite Negative (NEG) Urine Bilirubin Negative (NEG) Urine Urobilinogen Dipstick 0.2 mg/dL (0.2 mg/dL) Urine Leukocyte Esterase Negative (NEG) Urine RBC >40 /HPF (0-2) Urine WBC 0 /HPF (0-4) Urine Squamous Epithelial Cells Occ /LPF Urine Bacteria 0 /HPF (0-FEW) Glucose (Fingerstick) 120 mg/dL (70-99) 201 mg/dL (70-99) White Blood Count 9.9 x10^3/uL (4.0-11.0) Red Blood Count 4.20 x10^6/uL (4.30-5.70) Hemoglobin 12.2 g/dL (13.0-17.5) Hematocrit 36.1 % (39.0-53.0) Mean Corpuscular Volume 86 fL (79-100) Mean Corpuscular Hemoglobin 29 pg (25-35) Mean Corpuscular Hemoglobin Concent 34 g/dL (31-37) Red Cell Distribution Width 14.0 % (11.5-14.5) Platelet Count 234 x10^3/uL (140-400) Neutrophils (%) (Auto) 73 % (31-73) Lymphocytes (%) (Auto) 16 % (24-48) Monocytes (%) (Auto) 10 % (0-9) Eosinophils (%) (Auto) 1 % (0-3) Basophils (%) (Auto) 1 % (0-3) Neutrophils # (Auto) 7.2 x10^3uL (1.8-7.7) Lymphocytes # (Auto) 1.6 x10^3/uL (1.0-4.8) Monocytes # (Auto) 1.0 x10^3/uL (0.0-1.1) Eosinophils # (Auto) 0.0 x10^3/uL (0.0-0.7) Basophils # (Auto) 0.0 x10^3/uL (0.0-0.2) Sodium Level 140 mmol/L (136-145) Potassium Level 2.7 mmol/L (3.5-5.1) Chloride Level 104 mmol/L (98-107) Carbon Dioxide Level 26 mmol/L (21-32) Anion Gap 10 (6-14) Blood Urea Nitrogen 11 mg/dL (8-26) Creatinine 1.0 mg/dL (0.7-1.3) Estimated GFR (Cockcroft-Gault) 79.1 Glucose Level 208 mg/dL (70-99) Calcium Level 8.7 mg/dL (8.5-10.1) Objective: Assessment: 1. Left upper extremity cellulitis/abscess. 2. Leukocytosis, multifactorial. 3. History of IV methamphetamine use and marijuana use. 4. History of alcohol dependence. 5. Elevated lipase with pancreatitis. 6. Diabetic ketoacidosis. 7. Severe metabolic acidosis, multifactorial. 8. Status post splenectomy. 9. Cardiac arrhythmia, on amiodarone drip. 10. Anxiety/post-traumatic stress disorder. 11. Diabetes. 12. Hypothyroidism. 13. Hypertension. 14. Rhabdomyolysis. 15. Metabolic encephalopathy. 16. Transaminitis. Plan: Plan of Care cont ceftaroline for now renal dosing. Follow up labs and cultures in the a.m. Monitor left upper extremity closely Continue supportive care. D/W GOGO PUGH MD Sep 09, 2018 08:45
[2018-09-09] MEDS: INSULIN LISPRO 300 UNITS/3 ML INSULN.PEN. SQ SCH ×3 (08:47→17:48)
--- NOTE | 2018-09-09 09:29 | PDOC ---
Subjective: Subjective: Says had pancreatitis once before, can't tell me is cause established. No answer when I ask about pain. Per RN - tolerating water, has breakfast tray ready. Objective: Vital Signs: Vital Signs Date Time Temp Pulse Resp B/P (MAP) Pulse Ox O2 Delivery O2 Flow Rate FiO2 09/09/18 06:00 67 22 125/63 (83) 96 Room Air 09/09/18 05:00 3.0 09/09/18 04:00 98.4 98.4 Labs: Laboratory Tests Test 09/08/18 09:36 09/08/18 10:40 09/08/18 11:39 09/08/18 12:39 Glucose (Fingerstick) 148 mg/dL 132 mg/dL 125 mg/dL 125 mg/dL Test 09/08/18 13:43 09/08/18 14:39 09/08/18 15:42 09/08/18 16:45 Glucose (Fingerstick) 151 mg/dL 153 mg/dL 133 mg/dL 119 mg/dL Test 09/08/18 17:48 09/08/18 18:15 09/08/18 19:08 09/08/18 19:57 Glucose (Fingerstick) 157 mg/dL 175 mg/dL 144 mg/dL Sodium Level 144 mmol/L Potassium Level 2.8 mmol/L Chloride Level 107 mmol/L Carbon Dioxide Level 26 mmol/L Anion Gap 11 Blood Urea Nitrogen 22 mg/dL Creatinine 1.2 mg/dL Estimated GFR (Cockcroft-Gault) 64.1 Glucose Level 181 mg/dL Calcium Level 8.8 mg/dL Phosphorus Level 2.1 mg/dL Magnesium Level 1.9 mg/dL Test 09/08/18 20:08 09/08/18 21:15 09/08/18 23:47 09/09/18 06:00 Urine Collection Type Unknown Urine Color Yellow Urine Clarity Clear Urine pH 6.0 Urine Specific [place] 1.025 Urine Protein 100 mg/dL Urine Glucose (UA) >=1000 mg/dL Urine Ketones (Stick) Negative mg/dL Urine Blood Large Urine Nitrite Negative Urine Bilirubin Negative Urine Urobilinogen Dipstick 0.2 mg/dL Urine Leukocyte Esterase Negative Urine RBC >40 /HPF Urine WBC 0 /HPF Urine Squamous Epithelial Cells Occ /LPF Urine Bacteria 0 /HPF Glucose (Fingerstick) 120 mg/dL 201 mg/dL White Blood Count 9.9 x10^3/uL Red Blood Count 4.20 x10^6/uL Hemoglobin 12.2 g/dL Hematocrit 36.1 % Mean Corpuscular Volume 86 fL Mean Corpuscular Hemoglobin 29 pg Mean Corpuscular Hemoglobin Concent 34 g/dL Red Cell Distribution Width 14.0 % Platelet Count 234 x10^3/uL Neutrophils (%) (Auto) 73 % Lymphocytes (%) (Auto) 16 % Monocytes (%) (Auto) 10 % Eosinophils (%) (Auto) 1 % Basophils (%) (Auto) 1 % Neutrophils # (Auto) 7.2 x10^3uL Lymphocytes # (Auto) 1.6 x10^3/uL Monocytes # (Auto) 1.0 x10^3/uL Eosinophils # (Auto) 0.0 x10^3/uL Basophils # (Auto) 0.0 x10^3/uL Sodium Level 140 mmol/L Potassium Level 2.7 mmol/L Chloride Level 104 mmol/L Carbon Dioxide Level 26 mmol/L Anion Gap 10 Blood Urea Nitrogen 11 mg/dL Creatinine 1.0 mg/dL Estimated GFR (Cockcroft-Gault) 79.1 Glucose Level 208 mg/dL Calcium Level 8.7 mg/dL Test 09/09/18 08:43 Glucose (Fingerstick) 205 mg/dL Imaging: CT chest/abd/pelv w/o contrast IMPRESSION: 1. Mild fat infiltration about the pancreatic head/neck suggests mild pancreatitis. No associated loculated fluid collection. 2. No pleural effusion. 3. Hepatic hypoattenuation along the falciform ligament is increased in size compared to prior from 05/12/2015. Although this may represent focal fatty infiltration, hepatic lesion is not excluded and this can be further assessed by ultrasound or MRI. 4. Foci of gas and Price catheter are seen within the partially distended bladder. LUE US Impression: Minimal subcutaneous edema. No loculated fluid collection. Ill-defined hyperechogenicity at the site of reported palpable abnormality of indeterminate significance. Abd US IMPRESSION: 1. No acute sonographic abnormality. 2. Hyperechoic mass within the central liver measuring up to 4.4 cm in size, nonspecific. Given the appearance is most likely represents hemangioma. 3. Hepatic steatosis. Previously described low-density focus near the falciform ligament of the liver shows no definite sonographic correlate but most likely represents an area of focal fat. Similar dating back to 2014 CT exam. Follow-up biphasic CT or liver MRI to ensure stability. 4. Status post cholecystectomy and splenectomy. PE: GEN: NAD, laying on right side LUNGS: NC HEART: RRR ABD: S/ND/NT NEURO/PSYCH: drowsy - more awake than yesterday A/P: Encephalopathy, DKA/hypokalemia, LUE cellulitis ?recurrent pancreatitis s/p cholecystectomy Hepatic steatosis, suspected hemangioma H/o substance abuse -- Still not forthcoming. Continue support per GI. MICHELLE ROLLE Sep 09, 2018 09:29
[2018-09-09] MEDS: LACTOBACILLUS RHAMNOSUS GG 1 CAPSULE. PO SCH (09:47)
[2018-09-09] MEDS: CEFTAROLINE FOSAMIL 600 MG in IV NORMAL SALINE 250ML 250 ML IV SCH (09:47)
--- NOTE | 2018-09-09 10:00 | PDOC ---
PULMONARY PROGRESS NOTES Subjective PT NOT SOA Vitals Vital Signs Date Time Temp Pulse Resp B/P (MAP) Pulse Ox O2 Delivery O2 Flow Rate FiO2 09/09/18 09:00 69 16 141/86 (104) 100 Room Air 09/09/18 08:00 98.1 98.1 09/09/18 05:00 3.0 ROS: No Nausea, No Chest Pain, No Abdominal Pain, No Increase Cough Lungs: Clear Cardiovascular: S1 Abdomen: Soft Neuro Exam: Alert Extremities: No Edema Skin: Warm Labs Laboratory Tests Test 09/07/18 21:00 09/07/18 21:10 09/07/18 22:46 09/07/18 22:57 Nasal Screen MRSA (PCR) Negative (Negative) Sodium Level 135 mmol/L (136-145) Potassium Level 4.6 mmol/L (3.5-5.1) Chloride Level 97 mmol/L (98-107) Carbon Dioxide Level < 5 mmol/L (21-32) Anion Gap (6-14) Blood Urea Nitrogen 40 mg/dL (8-26) Creatinine 1.5 mg/dL (0.7-1.3) Estimated GFR (Cockcroft-Gault) 49.5 BUN/Creatinine Ratio 27 (6-20) Glucose Level 466 mg/dL (70-99) Calcium Level 8.7 mg/dL (8.5-10.1) Total Bilirubin 0.7 mg/dL (0.2-1.0) Aspartate Amino Transf (AST/SGOT) 302 U/L (15-37) Alanine Aminotransferase (ALT/SGPT) 100 U/L (16-63) Alkaline Phosphatase 114 U/L (46-116) Total Protein 8.3 g/dL (6.4-8.2) Albumin 3.2 g/dL (3.4-5.0) Albumin/Globulin Ratio 0.6 (1.0-1.7) Glucose (Fingerstick) 445 mg/dL (70-99) O2 Saturation 98 % (92-99) Arterial Blood pH 7.17 (7.35-7.45) Arterial Blood pCO2 at Patient Temp < 15 mmHg (35-46) Arterial Blood pO2 at Patient Temp 131 mmHg (75-108) Arterial Blood HCO3 3 mmol/L (21-28) Arterial Blood Base Excess -23 mmol/L (-3-3) FiO2 28 Test 09/08/18 00:00 09/08/18 00:27 09/08/18 01:01 09/08/18 01:45 Glucose (Fingerstick) 410 mg/dL (70-99) 320 mg/dL (70-99) O2 Saturation 98 % (92-99) Arterial Blood pH 7.28 (7.35-7.45) Arterial Blood pCO2 at Patient Temp < 15 mmHg (35-46) Arterial Blood pO2 at Patient Temp 103 mmHg (75-108) Arterial Blood HCO3 5 mmol/L (21-28) Arterial Blood Base Excess -18 mmol/L (-3-3) FiO2 28 Sodium Level 140 mmol/L (136-145) Potassium Level 4.0 mmol/L (3.5-5.1) Chloride Level 102 mmol/L (98-107) Carbon Dioxide Level 10 mmol/L (21-32) Anion Gap 28 (6-14) Blood Urea Nitrogen 43 mg/dL (8-26) Creatinine 1.6 mg/dL (0.7-1.3) Estimated GFR (Cockcroft-Gault) 46.0 Glucose Level 307 mg/dL (70-99) Calcium Level 9.1 mg/dL (8.5-10.1) Phosphorus Level 1.5 mg/dL (2.6-4.7) Magnesium Level 2.2 mg/dL (1.8-2.4) Test 09/08/18 02:00 09/08/18 02:43 09/08/18 02:59 09/08/18 04:05 Glucose (Fingerstick) 262 mg/dL (70-99) 185 mg/dL (70-99) 202 mg/dL (70-99) O2 Saturation % (92-99) Arterial Blood pH 7.39 (7.35-7.45) Arterial Blood pCO2 at Patient Temp 16 mmHg (35-46) Arterial Blood pO2 at Patient Temp 81 mmHg (75-108) Arterial Blood HCO3 9 mmol/L (21-28) Arterial Blood Base Excess -13 mmol/L (-3-3) Test 09/08/18 05:07 09/08/18 05:45 09/08/18 06:10 09/08/18 07:24 Glucose (Fingerstick) 208 mg/dL (70-99) 188 mg/dL (70-99) 181 mg/dL (70-99) White Blood Count 19.4 x10^3/uL (4.0-11.0) Red Blood Count 5.02 x10^6/uL (4.30-5.70) Hemoglobin 14.6 g/dL (13.0-17.5) Hematocrit 44.0 % (39.0-53.0) Mean Corpuscular Volume 88 fL (79-100) Mean Corpuscular Hemoglobin 29 pg (25-35) Mean Corpuscular Hemoglobin Concent 33 g/dL (31-37) Red Cell Distribution Width 14.1 % (11.5-14.5) Platelet Count 292 x10^3/uL (140-400) Neutrophils (%) (Auto) 84 % (31-73) Lymphocytes (%) (Auto) 4 % (24-48) Monocytes (%) (Auto) 12 % (0-9) Eosinophils (%) (Auto) 0 % (0-3) Basophils (%) (Auto) 1 % (0-3) Neutrophils # (Auto) 16.4 x10^3uL (1.8-7.7) Lymphocytes # (Auto) 0.7 x10^3/uL (1.0-4.8) Monocytes # (Auto) 2.2 x10^3/uL (0.0-1.1) Eosinophils # (Auto) 0.0 x10^3/uL (0.0-0.7) Basophils # (Auto) 0.1 x10^3/uL (0.0-0.2) Segmented Neutrophils % 88 % (35-66) Band Neutrophils % 4 % (0-9) Lymphocytes % 3 % (24-48) Monocytes % 5 % (0-10) Platelet Estimate Adequate (ADEQUATE) Prothrombin Time 13.3 SEC (11.7-14.0) Prothromb Time International Ratio 1.0 (0.8-1.1) Sodium Level 144 mmol/L (136-145) Potassium Level 3.6 mmol/L (3.5-5.1) Chloride Level 106 mmol/L (98-107) Carbon Dioxide Level 16 mmol/L (21-32) Anion Gap 22 (6-14) Blood Urea Nitrogen 34 mg/dL (8-26) Creatinine 1.7 mg/dL (0.7-1.3) Estimated GFR (Cockcroft-Gault) 42.9 Glucose Level 237 mg/dL (70-99) Lactic Acid Level 1.3 mmol/L (0.4-2.0) Calcium Level 9.0 mg/dL (8.5-10.1) Phosphorus Level 1.7 mg/dL (2.6-4.7) Magnesium Level 2.0 mg/dL (1.8-2.4) Total Bilirubin 0.4 mg/dL (0.2-1.0) Direct Bilirubin 0.1 mg/dL (0.0-0.2) Aspartate Amino Transf (AST/SGOT) 226 U/L (15-37) Alanine Aminotransferase (ALT/SGPT) 97 U/L (16-63) Alkaline Phosphatase 101 U/L (46-116) Creatine Kinase 8608 U/L (39-308) Troponin I Quantitative < 0.017 ng/mL (0.000-0.055) Total Protein 7.4 g/dL (6.4-8.2) Albumin 3.2 g/dL (3.4-5.0) Triglycerides Level 227 mg/dL (0-150) Cholesterol Level 168 mg/dL (0-200) LDL Cholesterol, Calculated 77 mg/dL (0-100) VLDL Cholesterol, Calculated 45 mg/dL (0-40) Non-HDL Cholesterol Calculated 122 mg/dL (0-129) HDL Cholesterol 46 mg/dL (40-60) Cholesterol/HDL Ratio 3.7 Lipase 829 U/L (73-393) Thyroid Stimulating Hormone (TSH) 0.757 uIU/mL (0.358-3.74) Test 09/08/18 08:31 09/08/18 09:36 09/08/18 10:40 09/08/18 11:39 Glucose (Fingerstick) 137 mg/dL (70-99) 148 mg/dL (70-99) 132 mg/dL (70-99) 125 mg/dL (70-99) Test 09/08/18 12:39 09/08/18 13:43 09/08/18 14:39 09/08/18 15:42 Glucose (Fingerstick) 125 mg/dL (70-99) 151 mg/dL (70-99) 153 mg/dL (70-99) 133 mg/dL (70-99) Test 09/08/18 16:45 09/08/18 17:48 09/08/18 18:15 09/08/18 19:08 Glucose (Fingerstick) 119 mg/dL (70-99) 157 mg/dL (70-99) 175 mg/dL (70-99) Sodium Level 144 mmol/L (136-145) Potassium Level 2.8 mmol/L (3.5-5.1) Chloride Level 107 mmol/L (98-107) Carbon Dioxide Level 26 mmol/L (21-32) Anion Gap 11 (6-14) Blood Urea Nitrogen 22 mg/dL (8-26) Creatinine 1.2 mg/dL (0.7-1.3) Estimated GFR (Cockcroft-Gault) 64.1 Glucose Level 181 mg/dL (70-99) Calcium Level 8.8 mg/dL (8.5-10.1) Phosphorus Level 2.1 mg/dL (2.6-4.7) Magnesium Level 1.9 mg/dL (1.8-2.4) Test 09/08/18 19:57 09/08/18 20:08 09/08/18 21:15 09/08/18 23:47 Glucose (Fingerstick) 144 mg/dL (70-99) 120 mg/dL (70-99) 201 mg/dL (70-99) Urine Collection Type Unknown Urine Color Yellow Urine Clarity Clear Urine pH 6.0 Urine Specific [place] 1.025 Urine Protein 100 mg/dL (NEG-TRACE) Urine Glucose (UA) >=1000 mg/dL (NEG) Urine Ketones (Stick) Negative mg/dL (NEG) Urine Blood Large (NEG) Urine Nitrite Negative (NEG) Urine Bilirubin Negative (NEG) Urine Urobilinogen Dipstick 0.2 mg/dL (0.2 mg/dL) Urine Leukocyte Esterase Negative (NEG) Urine RBC >40 /HPF (0-2) Urine WBC 0 /HPF (0-4) Urine Squamous Epithelial Cells Occ /LPF Urine Bacteria 0 /HPF (0-FEW) Test 09/09/18 06:00 09/09/18 08:43 White Blood Count 9.9 x10^3/uL (4.0-11.0) Red Blood Count 4.20 x10^6/uL (4.30-5.70) Hemoglobin 12.2 g/dL (13.0-17.5) Hematocrit 36.1 % (39.0-53.0) Mean Corpuscular Volume 86 fL (79-100) Mean Corpuscular Hemoglobin 29 pg (25-35) Mean Corpuscular Hemoglobin Concent 34 g/dL (31-37) Red Cell Distribution Width 14.0 % (11.5-14.5) Platelet Count 234 x10^3/uL (140-400) Neutrophils (%) (Auto) 73 % (31-73) Lymphocytes (%) (Auto) 16 % (24-48) Monocytes (%) (Auto) 10 % (0-9) Eosinophils (%) (Auto) 1 % (0-3) Basophils (%) (Auto) 1 % (0-3) Neutrophils # (Auto) 7.2 x10^3uL (1.8-7.7) Lymphocytes # (Auto) 1.6 x10^3/uL (1.0-4.8) Monocytes # (Auto) 1.0 x10^3/uL (0.0-1.1) Eosinophils # (Auto) 0.0 x10^3/uL (0.0-0.7) Basophils # (Auto) 0.0 x10^3/uL (0.0-0.2) Sodium Level 140 mmol/L (136-145) Potassium Level 2.7 mmol/L (3.5-5.1) Chloride Level 104 mmol/L (98-107) Carbon Dioxide Level 26 mmol/L (21-32) Anion Gap 10 (6-14) Blood Urea Nitrogen 11 mg/dL (8-26) Creatinine 1.0 mg/dL (0.7-1.3) Estimated GFR (Cockcroft-Gault) 79.1 Glucose Level 208 mg/dL (70-99) Calcium Level 8.7 mg/dL (8.5-10.1) Glucose (Fingerstick) 205 mg/dL (70-99) Laboratory Tests Test 09/08/18 10:40 09/08/18 11:39 09/08/18 12:39 09/08/18 13:43 Glucose (Fingerstick) 132 mg/dL (70-99) 125 mg/dL (70-99) 125 mg/dL (70-99) 151 mg/dL (70-99) Test 09/08/18 14:39 09/08/18 15:42 09/08/18 16:45 09/08/18 17:48 Glucose (Fingerstick) 153 mg/dL (70-99) 133 mg/dL (70-99) 119 mg/dL (70-99) 157 mg/dL (70-99) Test 09/08/18 18:15 09/08/18 19:08 09/08/18 19:57 09/08/18 20:08 Sodium Level 144 mmol/L (136-145) Potassium Level 2.8 mmol/L (3.5-5.1) Chloride Level 107 mmol/L (98-107) Carbon Dioxide Level 26 mmol/L (21-32) Anion Gap 11 (6-14) Blood Urea Nitrogen 22 mg/dL (8-26) Creatinine 1.2 mg/dL (0.7-1.3) Estimated GFR (Cockcroft-Gault) 64.1 Glucose Level 181 mg/dL (70-99) Calcium Level 8.8 mg/dL (8.5-10.1) Phosphorus Level 2.1 mg/dL (2.6-4.7) Magnesium Level 1.9 mg/dL (1.8-2.4) Glucose (Fingerstick) 175 mg/dL (70-99) 144 mg/dL (70-99) Urine Collection Type Unknown Urine Color Yellow Urine Clarity Clear Urine pH 6.0 Urine Specific [place] 1.025 Urine Protein 100 mg/dL (NEG-TRACE) Urine Glucose (UA) >=1000 mg/dL (NEG) Urine Ketones (Stick) Negative mg/dL (NEG) Urine Blood Large (NEG) Urine Nitrite Negative (NEG) Urine Bilirubin Negative (NEG) Urine Urobilinogen Dipstick 0.2 mg/dL (0.2 mg/dL) Urine Leukocyte Esterase Negative (NEG) Urine RBC >40 /HPF (0-2) Urine WBC 0 /HPF (0-4) Urine Squamous Epithelial Cells Occ /LPF Urine Bacteria 0 /HPF (0-FEW) Test 09/08/18 21:15 09/08/18 23:47 09/09/18 06:00 09/09/18 08:43 Glucose (Fingerstick) 120 mg/dL (70-99) 201 mg/dL (70-99) 205 mg/dL (70-99) White Blood Count 9.9 x10^3/uL (4.0-11.0) Red Blood Count 4.20 x10^6/uL (4.30-5.70) Hemoglobin 12.2 g/dL (13.0-17.5) Hematocrit 36.1 % (39.0-53.0) Mean Corpuscular Volume 86 fL (79-100) Mean Corpuscular Hemoglobin 29 pg (25-35) Mean Corpuscular Hemoglobin Concent 34 g/dL (31-37) Red Cell Distribution Width 14.0 % (11.5-14.5) Platelet Count 234 x10^3/uL (140-400) Neutrophils (%) (Auto) 73 % (31-73) Lymphocytes (%) (Auto) 16 % (24-48) Monocytes (%) (Auto) 10 % (0-9) Eosinophils (%) (Auto) 1 % (0-3) Basophils (%) (Auto) 1 % (0-3) Neutrophils # (Auto) 7.2 x10^3uL (1.8-7.7) Lymphocytes # (Auto) 1.6 x10^3/uL (1.0-4.8) Monocytes # (Auto) 1.0 x10^3/uL (0.0-1.1) Eosinophils # (Auto) 0.0 x10^3/uL (0.0-0.7) Basophils # (Auto) 0.0 x10^3/uL (0.0-0.2) Sodium Level 140 mmol/L (136-145) Potassium Level 2.7 mmol/L (3.5-5.1) Chloride Level 104 mmol/L (98-107) Carbon Dioxide Level 26 mmol/L (21-32) Anion Gap 10 (6-14) Blood Urea Nitrogen 11 mg/dL (8-26) Creatinine 1.0 mg/dL (0.7-1.3) Estimated GFR (Cockcroft-Gault) 79.1 Glucose Level 208 mg/dL (70-99) Calcium Level 8.7 mg/dL (8.5-10.1) Medications Active Scripts Medications Dose Route/Sig Max Daily Dose Days Date Category Valentine 3 Fish Oil Softgel (Valentine-3 Fatty Acids/Fish Oil) 1 Each Capsule.dr 2 Each PO DAILY 06/18/18 Reported Cholestyramine Packet (Cholestyramine (With Sugar)) 4 Gm Powd.pack 4 Gm PO BID 06/18/18 Reported [regular insulin] 45 06/18/18 Reported Cymbalta (Duloxetine Hcl) 60 Mg Capsule.dr 1 Cap PO BID 06/18/18 Reported Oxcarbazepine 300 Mg Tablet 300 Mg PO DAILY 06/18/18 Reported Fenofibrate (Fenofibrate Nanocrystallized) 145 Mg Tablet 1 Tab PO DAILY 06/18/18 Reported Atorvastatin Calcium 40 Mg Tablet 1 Tab PO DAILY 06/18/18 Reported Celebrex (Celecoxib) 100 Mg Capsule 1 Cap PO BID 06/18/18 Reported Latuda (Lurasidone Hcl) 40 Mg Tablet 80 Tab PO QHS 11/05/16 Reported Tamsulosin Hcl 0.4 Mg Cap.er.24h 0.4 Mg PO DAILY 10/15/16 Reported Lisinopril 5 Mg Tablet 5 Mg PO DAILY 10/15/16 Reported Metformin Hcl 1,000 Mg Tablet 500 Tab PO BID 10/15/16 Reported Levemir (Insulin Detemir) 100 Unit/1 Ml Vial 60 Unit SQ QHS 05/16/15 Rx Impression . IMPRESSION: 1. Acute respiratory failure secondary to diabetic ketoacidosis. 2. Diabetic ketoacidosis. 3. Suspect underlying infection. We will obtain CT chest, abdomen and pelvis, consult Infectious Disease. 4. Chronic obstructive pulmonary disease. 5. Type 2 diabetes, noncompliant with medication. 6. Post-traumatic stress syndrome. 7. Anxiety. 8. Polysubstance use including marijuana, methamphetamine and alcohol along with tobacco. Plan . RESP STATUS COMPENSATED WILL CONTINUE THE SAME WILFREDO CERVANTES MD Sep 09, 2018 10:00
--- NOTE | 2018-09-09 10:49 | PDOC ---
SUBJECTIVE ROS Alert , states feeling tired OBJECTIVE Vital Signs Vital Signs Date Time Temp Pulse Resp B/P (MAP) Pulse Ox O2 Delivery O2 Flow Rate FiO2 09/09/18 10:00 72 20 145/92 (109) 98 Room Air 09/09/18 08:00 98.1 98.1 09/09/18 05:00 3.0 I & 0 Intake and Output 09/09/18 07:00 Intake Total 7668 ml Output Total 3940 ml Balance 3728 ml Intake Oral 1520 ml IV Total 6148 ml Output Urine Total 3940 ml PHYSICAL EXAM Physical Exam GENERAL: awake, not in distress HEENT- OM dryish Neck Supple HEART: Distant S1, S2. LUNGS: Clear. ABDOMEN: Soft. EXTREMITIES: Trace edema. SKIN: left arm cellulitis. He has multiple tattoos. - Price + , No CVA or SP tenderness Neuro- Grossly moving al ext DIAGNOSIS/ASSESSMENT Assessment & Plan RAUL- sec to DKA /Dehydration Renal function improved, back to baseline Good UOP CT chest and abd ordered by Primary Hypokalemia- Replace as per protocol Metab Acidosis- DKA Resolved Elevated LFT's / lipase- ? Pancreatitis Hx of Drug use- IV meth 3--4 days back Left upper extremity cellulitis/abscess On Abx Discussed with RN Will sign off US- Right kidney measures 11.9 cm in length. Left kidney measures 13.3 cm in length. No hydronephrosis. There is a well-circumscribed hypoechoic focus within the left kidney that measures 3.1 cm, likely cyst. The spleen is not identified and reportedly surgically absent. Pancreas aorta and IVC are not well evaluated due to overlying bowel gas. No significant ascites. IMPRESSION: 1. No acute sonographic abnormality. 2. Hyperechoic mass within the central liver measuring up to 4.4 cm in size, nonspecific. Given the appearance is most likely represents hemangioma. 3. Hepatic steatosis. Previously described low-density focus near the falciform ligament of the liver shows no definite sonographic correlate but most likely represents an area of focal fat. Similar dating back to 2014 CT exam. Follow-up biphasic CT or liver MRI to ensure stability. 4. Status post cholecystectomy and splenectomy. COMMENT/RELEVANT DATA Meds Current Medications Medications (Trade) Dose Ordered Sig/Cyrus Start Time Stop Time Status Last Admin Dose Admin Amiodarone HCl 900 mg/Dextrose 518 ml @ 0 mls/hr CONT PRN 09/08/18 06:30 09/08/18 06:30 DC 09/08/18 06:27 16.7 MLS/HR Ceftaroline Fosamil 600 mg/ Sodium Chloride 250 ml @ 250 mls/hr Q12HR 09/08/18 16:00 09/09/18 09:47 250 MLS/HR Dextrose (Dextrose 50%-Water Syringe) 12.5 gm PRN Q15MIN PRN 09/08/18 19:45 Dextrose/Sodium Chloride 1,000 ml @ 175 mls/hr Q5H43M 09/08/18 20:00 09/09/18 08:18 175 MLS/HR Insulin Glargine (Lantus) 60 units QHS 09/08/18 21:00 09/08/18 20:00 60 UNITS Insulin Human Lispro (HumaLOG) 0-9 UNITS TIDACHC 09/08/18 21:00 09/09/18 08:47 5 UNITS Insulin Human Regular 150 unit/ Sodium Chloride 151.5 ml @ 0 mls/hr CONT PRN PRN 09/07/18 23:00 09/08/18 14:42 7.4 MLS/HR Lactobacillus Rhamnosus (Culturelle) 1 cap BID 09/08/18 21:00 09/09/18 09:47 1 CAP Lorazepam (Ativan) 2 mg PRN Q1HR PRN 09/08/18 08:30 09/08/18 16:42 2 MG Ondansetron HCl (Zofran) 4 mg PRN Q6HRS PRN 09/08/18 03:15 09/08/18 03:18 4 MG Piperacillin Sod/ Tazobactam Sod (Zosyn Per Pharmacy) 1 each PRN DAILY PRN 09/07/18 22:45 09/08/18 14:46 DC Piperacillin Sod/ Tazobactam Sod 3.375 gm/Sodium Chloride 50 ml @ 100 mls/hr Q6HRS 09/07/18 23:00 09/08/18 14:46 DC 09/08/18 14:37 100 MLS/HR Potassium Chloride/Water 50 ml @ 50 mls/hr Q1H 09/08/18 20:00 09/08/18 22:59 DC 09/08/18 21:44 50 MLS/HR Potassium Chloride (Klor-Con) 40 meq 1X ONCE 09/09/18 07:15 09/09/18 07:16 DC 09/09/18 08:38 40 MEQ Sodium Bicarbonate 50 meq/Sodium Chloride 1,050 ml @ 250 mls/hr 1X ONCE 09/08/18 00:00 09/08/18 04:11 DC 09/07/18 23:47 250 MLS/HR Sodium Bicarbonate (Sodium Bicarb Adult 8.4% Syr) 50 meq 1X ONCE 09/08/18 00:00 09/08/18 00:01 DC 09/07/18 23:42 50 MEQ Sodium Chloride 1,000 ml @ 250 mls/hr Q4H 09/07/18 23:00 09/08/18 02:52 DC 09/07/18 23:11 250 MLS/HR Sodium Phosphate 20 mmol/Dextrose 256.6667 ml @ 62.5 mls/hr 1X ONCE 09/08/18 19:30 09/08/18 23:36 DC 09/08/18 19:41 62.5 MLS/HR Lab Laboratory Tests Test 09/08/18 11:39 09/08/18 12:39 09/08/18 13:43 09/08/18 14:39 Glucose (Fingerstick) 125 mg/dL (70-99) 125 mg/dL (70-99) 151 mg/dL (70-99) 153 mg/dL (70-99) Test 09/08/18 15:42 09/08/18 16:45 09/08/18 17:48 09/08/18 18:15 Glucose (Fingerstick) 133 mg/dL (70-99) 119 mg/dL (70-99) 157 mg/dL (70-99) Sodium Level 144 mmol/L (136-145) Potassium Level 2.8 mmol/L (3.5-5.1) Chloride Level 107 mmol/L (98-107) Carbon Dioxide Level 26 mmol/L (21-32) Anion Gap 11 (6-14) Blood Urea Nitrogen 22 mg/dL (8-26) Creatinine 1.2 mg/dL (0.7-1.3) Estimated GFR (Cockcroft-Gault) 64.1 Glucose Level 181 mg/dL (70-99) Calcium Level 8.8 mg/dL (8.5-10.1) Phosphorus Level 2.1 mg/dL (2.6-4.7) Magnesium Level 1.9 mg/dL (1.8-2.4) Test 09/08/18 19:08 09/08/18 19:57 09/08/18 20:08 09/08/18 21:15 Glucose (Fingerstick) 175 mg/dL (70-99) 144 mg/dL (70-99) 120 mg/dL (70-99) Urine Collection Type Unknown Urine Color Yellow Urine Clarity Clear Urine pH 6.0 Urine Specific [place] 1.025 Urine Protein 100 mg/dL (NEG-TRACE) Urine Glucose (UA) >=1000 mg/dL (NEG) Urine Ketones (Stick) Negative mg/dL (NEG) Urine Blood Large (NEG) Urine Nitrite Negative (NEG) Urine Bilirubin Negative (NEG) Urine Urobilinogen Dipstick 0.2 mg/dL (0.2 mg/dL) Urine Leukocyte Esterase Negative (NEG) Urine RBC >40 /HPF (0-2) Urine WBC 0 /HPF (0-4) Urine Squamous Epithelial Cells Occ /LPF Urine Bacteria 0 /HPF (0-FEW) Test 09/08/18 23:47 09/09/18 06:00 09/09/18 08:43 Glucose (Fingerstick) 201 mg/dL (70-99) 205 mg/dL (70-99) White Blood Count 9.9 x10^3/uL (4.0-11.0) Red Blood Count 4.20 x10^6/uL (4.30-5.70) Hemoglobin 12.2 g/dL (13.0-17.5) Hematocrit 36.1 % (39.0-53.0) Mean Corpuscular Volume 86 fL (79-100) Mean Corpuscular Hemoglobin 29 pg (25-35) Mean Corpuscular Hemoglobin Concent 34 g/dL (31-37) Red Cell Distribution Width 14.0 % (11.5-14.5) Platelet Count 234 x10^3/uL (140-400) Neutrophils (%) (Auto) 73 % (31-73) Lymphocytes (%) (Auto) 16 % (24-48) Monocytes (%) (Auto) 10 % (0-9) Eosinophils (%) (Auto) 1 % (0-3) Basophils (%) (Auto) 1 % (0-3) Neutrophils # (Auto) 7.2 x10^3uL (1.8-7.7) Lymphocytes # (Auto) 1.6 x10^3/uL (1.0-4.8) Monocytes # (Auto) 1.0 x10^3/uL (0.0-1.1) Eosinophils # (Auto) 0.0 x10^3/uL (0.0-0.7) Basophils # (Auto) 0.0 x10^3/uL (0.0-0.2) Sodium Level 140 mmol/L (136-145) Potassium Level 2.7 mmol/L (3.5-5.1) Chloride Level 104 mmol/L (98-107) Carbon Dioxide Level 26 mmol/L (21-32) Anion Gap 10 (6-14) Blood Urea Nitrogen 11 mg/dL (8-26) Creatinine 1.0 mg/dL (0.7-1.3) Estimated GFR (Cockcroft-Gault) 79.1 Glucose Level 208 mg/dL (70-99) Calcium Level 8.7 mg/dL (8.5-10.1) Results All relevant outside records, renal labs, imaging studies, telemetry/EKG's were reviewed. MARIXA SHERIFF MD Sep 09, 2018 10:49
--- NOTE | 2018-09-09 11:18 | PDOC ---
CARDIO Progress Notes Date and Time Date of Service 09/09/18 Time of Evaluation 1055 Subjective Subjective: No Chest Pain, No shortness of breath, No Palpitations Vitals Vitals Vital Signs Date Time Temp Pulse Resp B/P (MAP) Pulse Ox O2 Delivery O2 Flow Rate FiO2 09/09/18 10:00 72 20 145/92 (109) 98 Room Air 09/09/18 08:00 98.1 98.1 09/09/18 05:00 3.0 Weight Weight [ ] Input and Output Intake and Output Intake and Output 09/09/18 07:00 Intake Total 7668 ml Output Total 3940 ml Balance 3728 ml Intake Oral 1520 ml IV Total 6148 ml Output Urine Total 3940 ml Laboratory Labs Laboratory Tests Test 09/08/18 11:39 09/08/18 12:39 09/08/18 13:43 09/08/18 14:39 Glucose (Fingerstick) 125 mg/dL (70-99) 125 mg/dL (70-99) 151 mg/dL (70-99) 153 mg/dL (70-99) Test 09/08/18 15:42 09/08/18 16:45 09/08/18 17:48 09/08/18 18:15 Glucose (Fingerstick) 133 mg/dL (70-99) 119 mg/dL (70-99) 157 mg/dL (70-99) Sodium Level 144 mmol/L (136-145) Potassium Level 2.8 mmol/L (3.5-5.1) Chloride Level 107 mmol/L (98-107) Carbon Dioxide Level 26 mmol/L (21-32) Anion Gap 11 (6-14) Blood Urea Nitrogen 22 mg/dL (8-26) Creatinine 1.2 mg/dL (0.7-1.3) Estimated GFR (Cockcroft-Gault) 64.1 Glucose Level 181 mg/dL (70-99) Calcium Level 8.8 mg/dL (8.5-10.1) Phosphorus Level 2.1 mg/dL (2.6-4.7) Magnesium Level 1.9 mg/dL (1.8-2.4) Test 09/08/18 19:08 09/08/18 19:57 09/08/18 20:08 09/08/18 21:15 Glucose (Fingerstick) 175 mg/dL (70-99) 144 mg/dL (70-99) 120 mg/dL (70-99) Urine Collection Type Unknown Urine Color Yellow Urine Clarity Clear Urine pH 6.0 Urine Specific [place] 1.025 Urine Protein 100 mg/dL (NEG-TRACE) Urine Glucose (UA) >=1000 mg/dL (NEG) Urine Ketones (Stick) Negative mg/dL (NEG) Urine Blood Large (NEG) Urine Nitrite Negative (NEG) Urine Bilirubin Negative (NEG) Urine Urobilinogen Dipstick 0.2 mg/dL (0.2 mg/dL) Urine Leukocyte Esterase Negative (NEG) Urine RBC >40 /HPF (0-2) Urine WBC 0 /HPF (0-4) Urine Squamous Epithelial Cells Occ /LPF Urine Bacteria 0 /HPF (0-FEW) Test 09/08/18 23:47 09/09/18 06:00 09/09/18 08:43 Glucose (Fingerstick) 201 mg/dL (70-99) 205 mg/dL (70-99) White Blood Count 9.9 x10^3/uL (4.0-11.0) Red Blood Count 4.20 x10^6/uL (4.30-5.70) Hemoglobin 12.2 g/dL (13.0-17.5) Hematocrit 36.1 % (39.0-53.0) Mean Corpuscular Volume 86 fL (79-100) Mean Corpuscular Hemoglobin 29 pg (25-35) Mean Corpuscular Hemoglobin Concent 34 g/dL (31-37) Red Cell Distribution Width 14.0 % (11.5-14.5) Platelet Count 234 x10^3/uL (140-400) Neutrophils (%) (Auto) 73 % (31-73) Lymphocytes (%) (Auto) 16 % (24-48) Monocytes (%) (Auto) 10 % (0-9) Eosinophils (%) (Auto) 1 % (0-3) Basophils (%) (Auto) 1 % (0-3) Neutrophils # (Auto) 7.2 x10^3uL (1.8-7.7) Lymphocytes # (Auto) 1.6 x10^3/uL (1.0-4.8) Monocytes # (Auto) 1.0 x10^3/uL (0.0-1.1) Eosinophils # (Auto) 0.0 x10^3/uL (0.0-0.7) Basophils # (Auto) 0.0 x10^3/uL (0.0-0.2) Sodium Level 140 mmol/L (136-145) Potassium Level 2.7 mmol/L (3.5-5.1) Chloride Level 104 mmol/L (98-107) Carbon Dioxide Level 26 mmol/L (21-32) Anion Gap 10 (6-14) Blood Urea Nitrogen 11 mg/dL (8-26) Creatinine 1.0 mg/dL (0.7-1.3) Estimated GFR (Cockcroft-Gault) 79.1 Glucose Level 208 mg/dL (70-99) Calcium Level 8.7 mg/dL (8.5-10.1) Physical Exam HEENT: Neck Supple W Full Motion Chest: Symmetric LUNGS: Other (diminished bases ) Heart: S1S2, RRR Abdomen: Soft N/T Extremities: No Edema Neurology: alert, follow commands, other (drowsy) Assessment Assessment 1. Metabolic encephalopathy 2. DM with DKA 3. RAUL with hyperkalemia/hyponatremia/anion gap metabolic acidosis 4. Arrhythmia: brief episode of ventricular tachycardia from [facility] noted, most probably secondary to electrolyte imbalance. Echo with normal LV function; No WMA. Tele with SR/RBBB, no significant ectopies overnight. 5. COPD with tobaccoism; discussed/encouraged cessation 6. HTN: controlled 7. Noncompliance 8. Transaminitis 9. Hypokalemia Recommendations Supportive care Will arrange for outpatient event monitor and stress test with followup GENNY MORALES APRN Sep 09, 2018 11:18
--- NOTE | 2018-09-09 12:46 | PDOC ---
PROGRESS NOTES Chief Complaint Chief Complaint Diabetic ketoacidosis - AG closed Pancreatitis -unable to ascertain if chronic Leukocytosis Acute respiratory and metabolic acidosis Marijuana use LUE swollen bump possible cellulitis History of Present Illness History of Present Illness Mr. Kidd is a 48 yo male with DKA, respiratory and metabolic acidosis. Patient seen and examined in the ICU. Anion Gap has closed. Patient significantly improved. Denies shortness of breath. GI, Pulmonology and ID following. Vitals Vitals Vital Signs Date Time Temp Pulse Resp B/P (MAP) Pulse Ox O2 Delivery O2 Flow Rate FiO2 09/09/18 11:00 64 16 127/77 (94) 94 Room Air 09/09/18 08:00 98.1 98.1 09/09/18 05:00 3.0 Physical Exam Physical Exam PHYSICAL EXAMINATION: GENERAL: alert awake,answers a few questions HEENT: Oropharynx dry. No conjunctival petechia. NECK: Supple. LUNGS: Clear bilaterally. HEART: S1, S2. No murmurs. ABDOMEN: Soft, nontender and nondistended. No rebound or guarding. EXTREMITIES: Trace edema. DERMATOLOGIC: Left upper extremity redness ,mild induration cellulitis. Multiple tattoos. No generalized skin rash. GENITOURINARY: Price in place. NEUROLOGIC: Sleepy, but arousable. Moves all 4 extremities. General: Alert, Oriented X3, Cooperative, No acute distress Heart: Regular rate, Normal S1, No murmurs, Other (Split S2; 2/6 systolic murmur to apex) Lungs: Clear Abdomen: Soft, No tenderness Extremities: No clubbing, No cyanosis, No edema Skin: No rashes, Other (Left forearm erythematous and swollen) Labs LABS Laboratory Tests Test 09/08/18 12:39 09/08/18 13:43 09/08/18 14:39 09/08/18 15:42 Glucose (Fingerstick) 125 mg/dL (70-99) 151 mg/dL (70-99) 153 mg/dL (70-99) 133 mg/dL (70-99) Test 09/08/18 16:45 09/08/18 17:48 09/08/18 18:15 09/08/18 19:08 Glucose (Fingerstick) 119 mg/dL (70-99) 157 mg/dL (70-99) 175 mg/dL (70-99) Sodium Level 144 mmol/L (136-145) Potassium Level 2.8 mmol/L (3.5-5.1) Chloride Level 107 mmol/L (98-107) Carbon Dioxide Level 26 mmol/L (21-32) Anion Gap 11 (6-14) Blood Urea Nitrogen 22 mg/dL (8-26) Creatinine 1.2 mg/dL (0.7-1.3) Estimated GFR (Cockcroft-Gault) 64.1 Glucose Level 181 mg/dL (70-99) Calcium Level 8.8 mg/dL (8.5-10.1) Phosphorus Level 2.1 mg/dL (2.6-4.7) Magnesium Level 1.9 mg/dL (1.8-2.4) Test 09/08/18 19:57 09/08/18 20:08 09/08/18 21:15 09/08/18 23:47 Glucose (Fingerstick) 144 mg/dL (70-99) 120 mg/dL (70-99) 201 mg/dL (70-99) Urine Collection Type Unknown Urine Color Yellow Urine Clarity Clear Urine pH 6.0 Urine Specific [place] 1.025 Urine Protein 100 mg/dL (NEG-TRACE) Urine Glucose (UA) >=1000 mg/dL (NEG) Urine Ketones (Stick) Negative mg/dL (NEG) Urine Blood Large (NEG) Urine Nitrite Negative (NEG) Urine Bilirubin Negative (NEG) Urine Urobilinogen Dipstick 0.2 mg/dL (0.2 mg/dL) Urine Leukocyte Esterase Negative (NEG) Urine RBC >40 /HPF (0-2) Urine WBC 0 /HPF (0-4) Urine Squamous Epithelial Cells Occ /LPF Urine Bacteria 0 /HPF (0-FEW) Test 09/09/18 06:00 09/09/18 08:43 White Blood Count 9.9 x10^3/uL (4.0-11.0) Red Blood Count 4.20 x10^6/uL (4.30-5.70) Hemoglobin 12.2 g/dL (13.0-17.5) Hematocrit 36.1 % (39.0-53.0) Mean Corpuscular Volume 86 fL (79-100) Mean Corpuscular Hemoglobin 29 pg (25-35) Mean Corpuscular Hemoglobin Concent 34 g/dL (31-37) Red Cell Distribution Width 14.0 % (11.5-14.5) Platelet Count 234 x10^3/uL (140-400) Neutrophils (%) (Auto) 73 % (31-73) Lymphocytes (%) (Auto) 16 % (24-48) Monocytes (%) (Auto) 10 % (0-9) Eosinophils (%) (Auto) 1 % (0-3) Basophils (%) (Auto) 1 % (0-3) Neutrophils # (Auto) 7.2 x10^3uL (1.8-7.7) Lymphocytes # (Auto) 1.6 x10^3/uL (1.0-4.8) Monocytes # (Auto) 1.0 x10^3/uL (0.0-1.1) Eosinophils # (Auto) 0.0 x10^3/uL (0.0-0.7) Basophils # (Auto) 0.0 x10^3/uL (0.0-0.2) Sodium Level 140 mmol/L (136-145) Potassium Level 2.7 mmol/L (3.5-5.1) Chloride Level 104 mmol/L (98-107) Carbon Dioxide Level 26 mmol/L (21-32) Anion Gap 10 (6-14) Blood Urea Nitrogen 11 mg/dL (8-26) Creatinine 1.0 mg/dL (0.7-1.3) Estimated GFR (Cockcroft-Gault) 79.1 Glucose Level 208 mg/dL (70-99) Calcium Level 8.7 mg/dL (8.5-10.1) Hepatitis A IgM Antibody Nonreactive (Nonreactive) Hepatitis B Surface Antigen Nonreactive (Nonreactive) Hepatitis B Core IgM Antibody Nonreactive (Nonreactive) Hepatitis C IgG Antibody Nonreactive (Nonreactive) Glucose (Fingerstick) 205 mg/dL (70-99) Review of Systems Review of Systems Denies chest pain Denies shortness of breath Denies abdominal pain Assessment and Plan Assessmemt and Plan Assessment: Diabetic ketoacidosis - AG closed Pancreatitis -unable to ascertain if chronic Leukocytosis - trending down Acute respiratory and metabolic acidosis Marijuana use LUE swollen bump possible cellulitis Plan: Replace potassium Discharge disposition pending, hope to discharge later today Appreciate subspecialty input Continue to monitor in the ICU Continue IV ceftaroline - switch to po on discharge Comment Review of Relevant I have reviewed the following items pratima (where applicable) has been applied. Labs Laboratory Tests Test 09/07/18 21:00 09/07/18 21:10 09/07/18 22:46 09/07/18 22:57 Nasal Screen MRSA (PCR) Negative (Negative) Sodium Level 135 mmol/L (136-145) Potassium Level 4.6 mmol/L (3.5-5.1) Chloride Level 97 mmol/L (98-107) Carbon Dioxide Level < 5 mmol/L (21-32) Anion Gap (6-14) Blood Urea Nitrogen 40 mg/dL (8-26) Creatinine 1.5 mg/dL (0.7-1.3) Estimated GFR (Cockcroft-Gault) 49.5 BUN/Creatinine Ratio 27 (6-20) Glucose Level 466 mg/dL (70-99) Calcium Level 8.7 mg/dL (8.5-10.1) Total Bilirubin 0.7 mg/dL (0.2-1.0) Aspartate Amino Transf (AST/SGOT) 302 U/L (15-37) Alanine Aminotransferase (ALT/SGPT) 100 U/L (16-63) Alkaline Phosphatase 114 U/L (46-116) Total Protein 8.3 g/dL (6.4-8.2) Albumin 3.2 g/dL (3.4-5.0) Albumin/Globulin Ratio 0.6 (1.0-1.7) Glucose (Fingerstick) 445 mg/dL (70-99) O2 Saturation 98 % (92-99) Arterial Blood pH 7.17 (7.35-7.45) Arterial Blood pCO2 at Patient Temp < 15 mmHg (35-46) Arterial Blood pO2 at Patient Temp 131 mmHg (75-108) Arterial Blood HCO3 3 mmol/L (21-28) Arterial Blood Base Excess -23 mmol/L (-3-3) FiO2 28 Test 09/08/18 00:00 09/08/18 00:27 09/08/18 01:01 09/08/18 01:45 Glucose (Fingerstick) 410 mg/dL (70-99) 320 mg/dL (70-99) O2 Saturation 98 % (92-99) Arterial Blood pH 7.28 (7.35-7.45) Arterial Blood pCO2 at Patient Temp < 15 mmHg (35-46) Arterial Blood pO2 at Patient Temp 103 mmHg (75-108) Arterial Blood HCO3 5 mmol/L (21-28) Arterial Blood Base Excess -18 mmol/L (-3-3) FiO2 28 Sodium Level 140 mmol/L (136-145) Potassium Level 4.0 mmol/L (3.5-5.1) Chloride Level 102 mmol/L (98-107) Carbon Dioxide Level 10 mmol/L (21-32) Anion Gap 28 (6-14) Blood Urea Nitrogen 43 mg/dL (8-26) Creatinine 1.6 mg/dL (0.7-1.3) Estimated GFR (Cockcroft-Gault) 46.0 Glucose Level 307 mg/dL (70-99) Calcium Level 9.1 mg/dL (8.5-10.1) Phosphorus Level 1.5 mg/dL (2.6-4.7) Magnesium Level 2.2 mg/dL (1.8-2.4) Test 09/08/18 02:00 09/08/18 02:43 09/08/18 02:59 09/08/18 04:05 Glucose (Fingerstick) 262 mg/dL (70-99) 185 mg/dL (70-99) 202 mg/dL (70-99) O2 Saturation % (92-99) Arterial Blood pH 7.39 (7.35-7.45) Arterial Blood pCO2 at Patient Temp 16 mmHg (35-46) Arterial Blood pO2 at Patient Temp 81 mmHg (75-108) Arterial Blood HCO3 9 mmol/L (21-28) Arterial Blood Base Excess -13 mmol/L (-3-3) Test 09/08/18 05:07 09/08/18 05:45 09/08/18 06:10 09/08/18 07:24 Glucose (Fingerstick) 208 mg/dL (70-99) 188 mg/dL (70-99) 181 mg/dL (70-99) White Blood Count 19.4 x10^3/uL (4.0-11.0) Red Blood Count 5.02 x10^6/uL (4.30-5.70) Hemoglobin 14.6 g/dL (13.0-17.5) Hematocrit 44.0 % (39.0-53.0) Mean Corpuscular Volume 88 fL (79-100) Mean Corpuscular Hemoglobin 29 pg (25-35) Mean Corpuscular Hemoglobin Concent 33 g/dL (31-37) Red Cell Distribution Width 14.1 % (11.5-14.5) Platelet Count 292 x10^3/uL (140-400) Neutrophils (%) (Auto) 84 % (31-73) Lymphocytes (%) (Auto) 4 % (24-48) Monocytes (%) (Auto) 12 % (0-9) Eosinophils (%) (Auto) 0 % (0-3) Basophils (%) (Auto) 1 % (0-3) Neutrophils # (Auto) 16.4 x10^3uL (1.8-7.7) Lymphocytes # (Auto) 0.7 x10^3/uL (1.0-4.8) Monocytes # (Auto) 2.2 x10^3/uL (0.0-1.1) Eosinophils # (Auto) 0.0 x10^3/uL (0.0-0.7) Basophils # (Auto) 0.1 x10^3/uL (0.0-0.2) Segmented Neutrophils % 88 % (35-66) Band Neutrophils % 4 % (0-9) Lymphocytes % 3 % (24-48) Monocytes % 5 % (0-10) Platelet Estimate Adequate (ADEQUATE) Prothrombin Time 13.3 SEC (11.7-14.0) Prothromb Time International Ratio 1.0 (0.8-1.1) Sodium Level 144 mmol/L (136-145) Potassium Level 3.6 mmol/L (3.5-5.1) Chloride Level 106 mmol/L (98-107) Carbon Dioxide Level 16 mmol/L (21-32) Anion Gap 22 (6-14) Blood Urea Nitrogen 34 mg/dL (8-26) Creatinine 1.7 mg/dL (0.7-1.3) Estimated GFR (Cockcroft-Gault) 42.9 Glucose Level 237 mg/dL (70-99) Lactic Acid Level 1.3 mmol/L (0.4-2.0) Calcium Level 9.0 mg/dL (8.5-10.1) Phosphorus Level 1.7 mg/dL (2.6-4.7) Magnesium Level 2.0 mg/dL (1.8-2.4) Total Bilirubin 0.4 mg/dL (0.2-1.0) Direct Bilirubin 0.1 mg/dL (0.0-0.2) Aspartate Amino Transf (AST/SGOT) 226 U/L (15-37) Alanine Aminotransferase (ALT/SGPT) 97 U/L (16-63) Alkaline Phosphatase 101 U/L (46-116) Creatine Kinase 8608 U/L (39-308) Troponin I Quantitative < 0.017 ng/mL (0.000-0.055) Total Protein 7.4 g/dL (6.4-8.2) Albumin 3.2 g/dL (3.4-5.0) Triglycerides Level 227 mg/dL (0-150) Cholesterol Level 168 mg/dL (0-200) LDL Cholesterol, Calculated 77 mg/dL (0-100) VLDL Cholesterol, Calculated 45 mg/dL (0-40) Non-HDL Cholesterol Calculated 122 mg/dL (0-129) HDL Cholesterol 46 mg/dL (40-60) Cholesterol/HDL Ratio 3.7 Lipase 829 U/L (73-393) Thyroid Stimulating Hormone (TSH) 0.757 uIU/mL (0.358-3.74) Test 09/08/18 08:31 09/08/18 09:36 09/08/18 10:40 09/08/18 11:39 Glucose (Fingerstick) 137 mg/dL (70-99) 148 mg/dL (70-99) 132 mg/dL (70-99) 125 mg/dL (70-99) Test 09/08/18 12:39 09/08/18 13:43 09/08/18 14:39 09/08/18 15:42 Glucose (Fingerstick) 125 mg/dL (70-99) 151 mg/dL (70-99) 153 mg/dL (70-99) 133 mg/dL (70-99) Test 09/08/18 16:45 09/08/18 17:48 09/08/18 18:15 09/08/18 19:08 Glucose (Fingerstick) 119 mg/dL (70-99) 157 mg/dL (70-99) 175 mg/dL (70-99) Sodium Level 144 mmol/L (136-145) Potassium Level 2.8 mmol/L (3.5-5.1) Chloride Level 107 mmol/L (98-107) Carbon Dioxide Level 26 mmol/L (21-32) Anion Gap 11 (6-14) Blood Urea Nitrogen 22 mg/dL (8-26) Creatinine 1.2 mg/dL (0.7-1.3) Estimated GFR (Cockcroft-Gault) 64.1 Glucose Level 181 mg/dL (70-99) Calcium Level 8.8 mg/dL (8.5-10.1) Phosphorus Level 2.1 mg/dL (2.6-4.7) Magnesium Level 1.9 mg/dL (1.8-2.4) Test 09/08/18 19:57 09/08/18 20:08 09/08/18 21:15 09/08/18 23:47 Glucose (Fingerstick) 144 mg/dL (70-99) 120 mg/dL (70-99) 201 mg/dL (70-99) Urine Collection Type Unknown Urine Color Yellow Urine Clarity Clear Urine pH 6.0 Urine Specific [place] 1.025 Urine Protein 100 mg/dL (NEG-TRACE) Urine Glucose (UA) >=1000 mg/dL (NEG) Urine Ketones (Stick) Negative mg/dL (NEG) Urine Blood Large (NEG) Urine Nitrite Negative (NEG) Urine Bilirubin Negative (NEG) Urine Urobilinogen Dipstick 0.2 mg/dL (0.2 mg/dL) Urine Leukocyte Esterase Negative (NEG) Urine RBC >40 /HPF (0-2) Urine WBC 0 /HPF (0-4) Urine Squamous Epithelial Cells Occ /LPF Urine Bacteria 0 /HPF (0-FEW) Test 09/09/18 06:00 09/09/18 08:43 White Blood Count 9.9 x10^3/uL (4.0-11.0) Red Blood Count 4.20 x10^6/uL (4.30-5.70) Hemoglobin 12.2 g/dL (13.0-17.5) Hematocrit 36.1 % (39.0-53.0) Mean Corpuscular Volume 86 fL (79-100) Mean Corpuscular Hemoglobin 29 pg (25-35) Mean Corpuscular Hemoglobin Concent 34 g/dL (31-37) Red Cell Distribution Width 14.0 % (11.5-14.5) Platelet Count 234 x10^3/uL (140-400) Neutrophils (%) (Auto) 73 % (31-73) Lymphocytes (%) (Auto) 16 % (24-48) Monocytes (%) (Auto) 10 % (0-9) Eosinophils (%) (Auto) 1 % (0-3) Basophils (%) (Auto) 1 % (0-3) Neutrophils # (Auto) 7.2 x10^3uL (1.8-7.7) Lymphocytes # (Auto) 1.6 x10^3/uL (1.0-4.8) Monocytes # (Auto) 1.0 x10^3/uL (0.0-1.1) Eosinophils # (Auto) 0.0 x10^3/uL (0.0-0.7) Basophils # (Auto) 0.0 x10^3/uL (0.0-0.2) Sodium Level 140 mmol/L (136-145) Potassium Level 2.7 mmol/L (3.5-5.1) Chloride Level 104 mmol/L (98-107) Carbon Dioxide Level 26 mmol/L (21-32) Anion Gap 10 (6-14) Blood Urea Nitrogen 11 mg/dL (8-26) Creatinine 1.0 mg/dL (0.7-1.3) Estimated GFR (Cockcroft-Gault) 79.1 Glucose Level 208 mg/dL (70-99) Calcium Level 8.7 mg/dL (8.5-10.1) Hepatitis A IgM Antibody Nonreactive (Nonreactive) Hepatitis B Surface Antigen Nonreactive (Nonreactive) Hepatitis B Core IgM Antibody Nonreactive (Nonreactive) Hepatitis C IgG Antibody Nonreactive (Nonreactive) Glucose (Fingerstick) 205 mg/dL (70-99) Laboratory Tests Test 09/08/18 12:39 09/08/18 13:43 09/08/18 14:39 09/08/18 15:42 Glucose (Fingerstick) 125 mg/dL (70-99) 151 mg/dL (70-99) 153 mg/dL (70-99) 133 mg/dL (70-99) Test 09/08/18 16:45 09/08/18 17:48 09/08/18 18:15 09/08/18 19:08 Glucose (Fingerstick) 119 mg/dL (70-99) 157 mg/dL (70-99) 175 mg/dL (70-99) Sodium Level 144 mmol/L (136-145) Potassium Level 2.8 mmol/L (3.5-5.1) Chloride Level 107 mmol/L (98-107) Carbon Dioxide Level 26 mmol/L (21-32) Anion Gap 11 (6-14) Blood Urea Nitrogen 22 mg/dL (8-26) Creatinine 1.2 mg/dL (0.7-1.3) Estimated GFR (Cockcroft-Gault) 64.1 Glucose Level 181 mg/dL (70-99) Calcium Level 8.8 mg/dL (8.5-10.1) Phosphorus Level 2.1 mg/dL (2.6-4.7) Magnesium Level 1.9 mg/dL (1.8-2.4) Test 09/08/18 19:57 09/08/18 20:08 09/08/18 21:15 09/08/18 23:47 Glucose (Fingerstick) 144 mg/dL (70-99) 120 mg/dL (70-99) 201 mg/dL (70-99) Urine Collection Type Unknown Urine Color Yellow Urine Clarity Clear Urine pH 6.0 Urine Specific [place] 1.025 Urine Protein 100 mg/dL (NEG-TRACE) Urine Glucose (UA) >=1000 mg/dL (NEG) Urine Ketones (Stick) Negative mg/dL (NEG) Urine Blood Large (NEG) Urine Nitrite Negative (NEG) Urine Bilirubin Negative (NEG) Urine Urobilinogen Dipstick 0.2 mg/dL (0.2 mg/dL) Urine Leukocyte Esterase Negative (NEG) Urine RBC >40 /HPF (0-2) Urine WBC 0 /HPF (0-4) Urine Squamous Epithelial Cells Occ /LPF Urine Bacteria 0 /HPF (0-FEW) Test 09/09/18 06:00 09/09/18 08:43 White Blood Count 9.9 x10^3/uL (4.0-11.0) Red Blood Count 4.20 x10^6/uL (4.30-5.70) Hemoglobin 12.2 g/dL (13.0-17.5) Hematocrit 36.1 % (39.0-53.0) Mean Corpuscular Volume 86 fL (79-100) Mean Corpuscular Hemoglobin 29 pg (25-35) Mean Corpuscular Hemoglobin Concent 34 g/dL (31-37) Red Cell Distribution Width 14.0 % (11.5-14.5) Platelet Count 234 x10^3/uL (140-400) Neutrophils (%) (Auto) 73 % (31-73) Lymphocytes (%) (Auto) 16 % (24-48) Monocytes (%) (Auto) 10 % (0-9) Eosinophils (%) (Auto) 1 % (0-3) Basophils (%) (Auto) 1 % (0-3) Neutrophils # (Auto) 7.2 x10^3uL (1.8-7.7) Lymphocytes # (Auto) 1.6 x10^3/uL (1.0-4.8) Monocytes # (Auto) 1.0 x10^3/uL (0.0-1.1) Eosinophils # (Auto) 0.0 x10^3/uL (0.0-0.7) Basophils # (Auto) 0.0 x10^3/uL (0.0-0.2) Sodium Level 140 mmol/L (136-145) Potassium Level 2.7 mmol/L (3.5-5.1) Chloride Level 104 mmol/L (98-107) Carbon Dioxide Level 26 mmol/L (21-32) Anion Gap 10 (6-14) Blood Urea Nitrogen 11 mg/dL (8-26) Creatinine 1.0 mg/dL (0.7-1.3) Estimated GFR (Cockcroft-Gault) 79.1 Glucose Level 208 mg/dL (70-99) Calcium Level 8.7 mg/dL (8.5-10.1) Hepatitis A IgM Antibody Nonreactive (Nonreactive) Hepatitis B Surface Antigen Nonreactive (Nonreactive) Hepatitis B Core IgM Antibody Nonreactive (Nonreactive) Hepatitis C IgG Antibody Nonreactive (Nonreactive) Glucose (Fingerstick) 205 mg/dL (70-99) Medications Current Medications Piperacillin Sod/ Tazobactam Sod (Zosyn Per Pharmacy) 1 each PRN DAILY PRN MC SEE COMMENTS; Start 09/07/18 at 22:45; Stop 09/08/18 at 14:46; Status DC Piperacillin Sod/ Tazobactam Sod 3.375 gm/Sodium Chloride 50 ml @ 100 mls/hr Q6HRS IV Last administered on 09/08/18at 14:37; Start 09/07/18 at 23:00; Stop 09/08 at 14:46; Status DC Sodium Chloride 1,000 ml @ 250 mls/hr Q4H IV Last administered on 09/07/18at 23: 11; Start 09/07/18 at 23:00; Stop 09/08/18 at 02:52; Status DC Insulin Human Regular 150 unit/ Sodium Chloride 151.5 ml @ 0 mls/hr CONT PRN PRN IV PER PROTOCOL Last administered on 09/08/18 14:42; Start 09/07/18 at 23:00 Potassium Chloride/Water 100 ml @ 100 mls/hr PRN Q1HR PRN IV SEE COMMENTS Last administered on 09/08/18at 04:06; Start 09/07/18 at 23:00; Stop 09/08/18 at 06: 53; Status DC Sodium Bicarbonate (Sodium Bicarb Adult 8.4% Syr) 50 meq 1X ONCE IV Last administered on 09/07/18at 23:42; Start 09/08/18 at 00:00; Stop 09/08/18 at 00:01; Status DC Sodium Bicarbonate 50 meq/Sodium Chloride 1,050 ml @ 250 mls/hr 1X ONCE IV Last administered on 09/07/18 23:47; Start 09/08/18 at 00:00; Stop 09/08/18 at 04: 11; Status DC Dextrose/Sodium Chloride 1,000 ml @ 250 mls/hr Q4H IV Last administered on 09/08at 15:51; Start 09/08/18 at 02:50; Stop 09/08/18 at 19:45; Status DC Sodium Phosphate 20 mmol/Dextrose 256.6667 ml @ 62.5 mls/hr 1X PRN PRN IV SEE COMMENTS Last administered on 09/08/18at 03:03; Start 09/08/18 at 03:00 Ondansetron HCl (Zofran) 4 mg PRN Q6HRS PRN IV NAUSEA/VOMITING 1ST CHOICE Last administered on 09/08/18at 03:18; Start 09/08/18 at 03:15 Amiodarone HCl 900 mg/Dextrose 518 ml @ 0 mls/hr CONT PRN IV SEE I/O RECORD Last administered on 09/08/18 06:27; Start 09/08/18 at 06:30; Stop 09/08/18 at 06: 30; Status DC Potassium Chloride/Water 100 ml @ 100 mls/hr PRN Q1HR PRN IV SEE COMMENTS Last administered on 09/08/18at 11:42; Start 09/08/18 at 07:00 Sodium Phosphate 20 mmol/Dextrose 256.6667 ml @ 62.5 mls/hr 1X ONCE IV Last administered on 09/08/18 14:38; Start 09/08/18 at 09:00; Stop 09/08/18 at 13:06; Status DC Lorazepam (Ativan) 2 mg 1X ONCE IV Last administered on 09/08/18 08:35; Start 09/08/18 at 09:00; Stop 09/08/18 at 09:01; Status DC Lorazepam (Ativan) 2 mg PRN Q1HR PRN IV ANXIETY / AGITATION Last administered on 09/08/18 16:42; Start 09/08/18 at 08:30 Lactobacillus Rhamnosus (Culturelle) 1 cap BID PO Last administered on 09:47; Start 09/08/18 at 21:00 Ceftaroline Fosamil 600 mg/ Sodium Chloride 250 ml @ 250 mls/hr Q12HR IV Last administered on 09/09/18 09:47; Start 09/08/18 at 16:00 Potassium Chloride/Water 50 ml @ 50 mls/hr Q1H IV ; Start 09/08/18 at 19:15; Stop 09/08/18 at 22:14; Status UNV Potassium Chloride/Water 50 ml @ 50 mls/hr Q1H IV Last administered on at 21:44; Start 09/08/18 at 20:00; Stop 09/08/18 at 22:59; Status DC Sodium Phosphate 20 mmol/Dextrose 256.6667 ml @ 62.5 mls/hr 1X ONCE IV Last administered on 09/08/18 19:41; Start 09/08/18 at 19:30; Stop 09/08/18 at 23:36; Status DC Insulin Human Lispro (HumaLOG) 0-9 UNITS TIDACHC SQ Last administered on at 08:47; Start 09/08/18 at 21:00 Dextrose (Dextrose 50%-Water Syringe) 12.5 gm PRN Q15MIN PRN IV SEE COMMENTS; Start 09/08/18 at 19:45 Dextrose/Sodium Chloride 1,000 ml @ 175 mls/hr Q5H43M IV Last administered on 09/09/18at 08:18; Start 09/08/18 at 20:00; Stop 09/09/18 at 11:55; Status DC Insulin Glargine (Lantus) 60 units QHS SQ Last administered on 09/08/18at 20:00; Start 09/08/18 at 21:00 Potassium Chloride (Klor-Con) 40 meq 1X ONCE PO Last administered on 09/09/18at 08:38; Start 09/09/18 at 07:15; Stop 09/09/18 at 07:16; Status DC Active Scripts Active Levemir (Insulin Detemir) 100 Unit/1 Ml Vial 60 Unit SQ QHS Reported Mirtazapine 15 Mg Tablet 0.5 Tab PO QHS [place] 3 Fish Oil Softgel ([place]-3 Fatty Acids/Fish Oil) 1 Each Capsule.dr 2 Each PO BID [regular insulin] 45 Cymbalta (Duloxetine Hcl) 60 Mg Capsule.dr 1 Cap PO BID Oxcarbazepine 300 Mg Tablet 300 Mg PO DAILY Fenofibrate (Fenofibrate Nanocrystallized) 145 Mg Tablet 1 Tab PO DAILY Atorvastatin Calcium 40 Mg Tablet 1 Tab PO DAILY Celebrex (Celecoxib) 100 Mg Capsule 1 Cap PO BID Latuda (Lurasidone Hcl) 40 Mg Tablet 80 Tab PO QHS Tamsulosin Hcl 0.4 Mg Cap.er.24h 0.4 Mg PO DAILY Lisinopril 5 Mg Tablet 5 Mg PO DAILY Metformin Hcl 1,000 Mg Tablet 500 Tab PO BID Vitals/I & O Vital Sign - Last 24 Hours 09/08/18 09/08/18 09/08/18 09/08/18 13:00 14:00 15:00 15:56 Temp 98.2 98.2 Pulse 74 73 70 71 Resp 28 16 18 16 B/P (MAP) 152/79 (103) 166/84 (111) 140/76 (97) 149/80 (103) Pulse Ox 94 96 94 94 O2 Delivery Nasal Cannula Nasal Cannula Nasal Cannula Nasal Cannula O2 Flow Rate 3.0 3.0 3.0 2.0 09/08/18 09/08/18 09/08/18 09/08/18 16:00 17:00 18:00 19:00 Pulse 69 69 68 Resp 18 18 18 B/P (MAP) 137/73 (94) 145/82 (103) 121/75 (90) Pulse Ox 96 95 98 O2 Delivery Nasal Cannula Nasal Cannula Nasal Cannula Nasal Cannula O2 Flow Rate 3.0 3.0 3.0 3.0 09/08/18 09/08/18 09/08/18 09/08/18 20:00 20:00 21:00 22:00 Temp 98.8 98.8 Pulse 70 72 70 Resp 16 25 21 B/P (MAP) 147/85 (105) 131/85 (100) 124/77 (93) Pulse Ox 93 96 96 O2 Delivery Nasal Cannula Nasal Cannula Nasal Cannula Nasal Cannula O2 Flow Rate 3.0 3.0 3.0 3.0 09/08/18 09/08/18 09/09/18 09/09/18 23:00 23:59 00:00 01:00 Temp 98.2 98.2 Pulse 74 66 65 Resp 24 16 12 B/P (MAP) 145/83 (103) 137/82 (100) 135/86 (102) Pulse Ox 94 97 97 O2 Delivery Nasal Cannula Nasal Cannula Nasal Cannula Nasal Cannula O2 Flow Rate 3.0 3.0 3.0 3.0 09/09/18 09/09/18 09/09/18 09/09/18 02:00 03:00 04:00 04:00 Temp 98.4 98.4 Pulse 64 67 63 Resp 18 19 10 B/P (MAP) 140/79 (99) 121/62 (81) 140/72 (94) Pulse Ox 96 94 91 O2 Delivery Nasal Cannula Nasal Cannula Nasal Cannula Nasal Cannula O2 Flow Rate 3.0 3.0 3.0 3.0 09/09/18 09/09/18 09/09/18 09/09/18 05:00 06:00 07:00 08:00 Pulse 62 67 64 Resp 16 22 20 B/P (MAP) 122/86 (98) 125/63 (83) 134/67 (89) Pulse Ox 94 96 97 O2 Delivery Nasal Cannula Room Air Room Air Room Air O2 Flow Rate 3.0 09/09/18 09/09/18 09/09/18 09/09/18 08:00 09:00 10:00 11:00 Temp 98.1 98.1 Pulse 62 69 72 64 Resp 18 16 20 16 B/P (MAP) 119/71 (87) 141/86 (104) 145/92 (109) 127/77 (94) Pulse Ox 98 100 98 94 O2 Delivery Room Air Room Air Room Air Room Air Intake and Output 09/08/18 09/08/18 09/09/18 15:00 23:00 07:00 Intake Total 761 ml 3209 ml 3698 ml Output Total 485 ml 850 ml 2605 ml Balance 276 ml 2359 ml 1093 ml JO ANN CHAVEZ III DO Sep 09, 2018 12:46
[2018-09-09 13:00] LABS: CALCIUM 8.7 mg/dL (8.5-10.1); CREATININE 0.8 mg/dL (0.7-1.3); GFR 102.3; POTASSIUM 3.4 mmol/L (3.5-5.1)
--- NOTE | 2018-09-09 13:28 | RAD ---
Procedure: Ultrasound-guided placement of right internal jugular central venous catheter09/09/2018 1:25 PM Clinical Indication: poor peripheral access Discussion: The risks and benefits of the procedure were discussed the patient and/or their goodwill representative. Informed consent was obtained. A timeout procedure was performed. All elements of maximal sterile barrier technique including the use of a cap, mask, sterile gown, sterile gloves, large sterile sheet, appropriate hand hygiene, and 2% chlorhexidine for cutaneous antisepsis (or acceptable alternative antiseptic per current guidelines) were followed for this procedure. The patient was prepped and draped in the usual sterile fashion. Ultrasound interrogation of the right neck revealed patency and compressibility of the right internal jugular vein. A 21-gauge micropuncture was then used to gain access to this vein under ultrasound guidance. A hard copy ultrasound image was recorded. A guidewire was advanced centrally. 5 Japanese sheath was placed. Over a wire following dilatation, a triple-lumen central venous catheter was advanced centrally. Catheter was found to flush and aspirate normally. Follow-up chest radiograph demonstrates tip at the cavoatrial junction. Catheter secured in place and a sterile dressing was applied. No immediate complications were identified. Impression: Successful ultrasound-guided placement of right internal jugular triple-lumen central venous catheter
--- NOTE | 2018-09-09 18:31 | NUR ---
Central Line removed and covered with vasaline gauze, 4x4 gauze, and transparent dressing. Manolo Newton will be coming to pick him up and take him home. Patient given discharge paperwork and has been instructed to follow-up with cardiology after release.
--- NOTE | 2018-09-09 20:04 | NUR ---
Patient's 2 PIVs d/c'd prior to discharge and drsgs applied. Patient brought to son's car via wheelchair and discharged at 1950 via private vehicle.
--- NOTE | 2018-09-09 22:05 | DS ---
DATE OF DISCHARGE: 09/09/2018 ADMISSION DIAGNOSES: 1. Diabetic ketoacidosis. 2. Pancreatitis. 3. Leukocytosis. 4. Respiratory failure. 5. Metabolic acidosis. 6. Cellulitis. DISCHARGE DIAGNOSIS: Resolving diabetic ketoacidosis. CONSULTS: Multiple including Dr. Latham, Dr. Peck, Dr. Lange and Dr. Castro. PROCEDURES: None. HOSPITAL COURSE: The patient is a pleasant middle-aged male who was transferred here from [facility]. He was unconscious and was in DKA. He had multiple medical issues including recent drug abuse, pancreatitis. His white count was high. He just appeared quite sick going to the ICU. We gave him IV bicarbonate, IV insulin and fluids, IV antibiotics. Over the past 48 hours, he has returned to his baseline. This morning, I saw him and examined him. His heart tones were normal. His lungs were clear. He was asking to go home. If okay with consultants, we plan to discharge with close outpatient followup. I did talk to him by his home meds. He states he has got everything at home. DISPOSITION: Home. ACTIVITY: As tolerated. DIET: Low sodium MEDICATIONS: Please see MRAD. TOTAL TIME ON DISCHARGE: 38 minutes. JO ANN CHAVEZ DO DR: DONTA/karan JOB#: [id number] / [id number]
[2018-09-09 23:14] LABS: HEMOGLOBIN A1C 14.5 % (4.8-5.6)
== END 2018-09-09 19:50 | disposition home or self-care (01) | DRG 871 ==
LOC: 1 WEST ICU 20:38
PROVIDERS: ADMIT Internal Medicine; ATTEND Internal Medicine
PROC: 02HV33Z Insertion of Infusion Device into Superior Vena Cava, Percutaneous Approach (ICD-10-PCS; principal; 2018-09-09)
PROC: B548ZZA Ultrasonography of Superior Vena Cava, Guidance (ICD-10-PCS; 2018-09-09)
DX: A41.9 Sepsis, unspecified organism (principal); E11.10 Type 2 diabetes mellitus with ketoacidosis without coma; K85.90 Acute pancreatitis without necrosis or infection, unspecified; J96.00 Acute respiratory failure, unspecified whether with hypoxia or hypercapnia; G93.41 Metabolic encephalopathy; I49.01 Ventricular fibrillation; L03.114 Cellulitis of left upper limb; N17.9 Acute kidney failure, unspecified; E87.1 Hypo-osmolality and hyponatremia; E87.4 Mixed disorder of acid-base balance; I47.2 Ventricular tachycardia; M62.82 Rhabdomyolysis; E03.9 Hypothyroidism, unspecified; E11.42 Type 2 diabetes mellitus with diabetic polyneuropathy; E87.5 Hyperkalemia; E87.6 Hypokalemia; F12.90 Cannabis use, unspecified, uncomplicated; F15.90 Other stimulant use, unspecified, uncomplicated; F17.210 Nicotine dependence, cigarettes, uncomplicated; F10.20 Alcohol dependence, uncomplicated; F32.9 Major depressive disorder, single episode, unspecified; F43.10 Post-traumatic stress disorder, unspecified; I10 Essential (primary) hypertension; I45.10 Unspecified right bundle-branch block; J44.9 Chronic obstructive pulmonary disease, unspecified; K76.0 Fatty (change of) liver, not elsewhere classified; Z90.81 Acquired absence of spleen; Z91.14 Patient's other noncompliance with medication regimen; Z91.19 Patient's noncompliance with other medical treatment and regimen; Z90.49 Acquired absence of other specified parts of digestive tract; Z79.4 Long term (current) use of insulin
CPT/HCPCS: 36415; 36556; 36600; 71045; 71250; 74176; 76700; 76881; 76937; 80048; 80053; 80061; 80076; 81001; 82550; 82805; 82962; 83036; 83605; 83690; 83735; 84100; 84443; 84484; 85007; 85025; 85610; 86705; 86709; 86803; 87040; 87340; 87641; 93005; 93306; C1892; J0282; J0712; J1815; J2060; J2405; J2543; J3480; J7030; J7050

== ENCOUNTER 2018-10-27 06:53 | Inpatient (IN) | payer MEDICARE, OTHER ==
[2018-10-27] VITALS (17 sets, daily range): BP systolic 89–131; BP diastolic 57–84
[~2018-10-27] VITALS: Ht 170.2 cm; Wt 93.9 kg
[~2018-10-27 06:53] MED LIST changes: +MIRT15TA3 PO
[2018-10-27 07:38] LABS: HEMOGLOBIN 14.8 g/dL (13.0-17.5); RED BLOOD COUNT 4.88 x10^6/uL (4.30-5.70); RED CELL DISTRIBUTION WIDTH 15.4 % (11.5-14.5)
[2018-10-27 07:40] LABS: CREATININE 1.1 mg/dL (0.7-1.3); GFR 70.9; POTASSIUM 4.1 mmol/L (3.5-5.1)
[2018-10-27 07:47] LABS: PROTHROMBIN TIME PATIENT 12.6 SEC (11.7-14.0)
[2018-10-27] MEDS ORDERED: LIDOCAINE 1% PF 2 ML VIAL. ONE (07:57)
[2018-10-27] MEDS ORDERED: IOHEXOL 300 MG/ML 100ML VIAL. ONE ×3 (07:57→10:26)
[2018-10-27] MEDS ORDERED: fentaNYL PF VIAL 100 MCG/2 ML VIAL ONE ×2 (08:15→09:31)
[2018-10-27] MEDS ORDERED: MIDAZOLAM HCL/PF 2 MG/2 ML VIAL. ONE ×3 (08:16→09:32)
[2018-10-27] MEDS ORDERED: VERAPAMIL 5 MG/2 ML VIAL. ONE ×4 (08:16→10:00)
[2018-10-27] MEDS ORDERED: HEPARIN for IV BOLUS 10,000 UNIT/10 ML VIAL. ONE ×2 (08:16→09:22)
[2018-10-27] MEDS ORDERED: NITROGLYCERIN 200 MCG/2 ML SYRINGE FOR CATH/VASC LAB. ONE (08:16)
[2018-10-27] MEDS ORDERED: diphenhydrAMINE 50 MG/ML VIAL ONE (08:42)
[2018-10-27] MEDS ORDERED: BIVALIRUDIN 250 MG VIAL. IV ONE ×3 (08:59→10:14)
[2018-10-27] MEDS ORDERED: NITROGLYCERIN 4 MG/20 ML SYRINGE for CATH LAB. ONE (09:22)
[2018-10-27] MEDS ORDERED: LIDOCAINE 1% Multi-Dose 20 ML VIAL. ONE (09:27)
[2018-10-27] MEDS ORDERED: IOHEXOL 300 MG/ML 100ML VIAL. IART ONE (10:00)
[2018-10-27] MEDS ORDERED: LIDOCAINE 1% Multi-Dose 20 ML VIAL. INJ ONE (10:00)
[2018-10-27] MEDS ORDERED: NITROGLYCERIN 200 MCG/2 ML SYRINGE FOR CATH/VASC LAB. IART ONE (10:00)
[2018-10-27] MEDS ORDERED: MIDAZOLAM HCL/PF 2 MG/2 ML VIAL. IV ONE (10:00)
[2018-10-27] MEDS ORDERED: diphenhydrAMINE 50 MG/ML VIAL IVP ONE (10:00)
[2018-10-27] MEDS ORDERED: LIDOCAINE 1% PF 2 ML VIAL. INJ ONE (10:00)
[2018-10-27] MEDS ORDERED: fentaNYL PF VIAL 100 MCG/2 ML VIAL IV ONE (10:00)
[2018-10-27] MEDS ORDERED: NITROGLYCERIN 4MG SYRINGE 4 MG, VERAPAMIL 10 MG, HEPARIN SODIUM 4,000 UNIT, VIPERSLIDE ... IART ONE ×5 (10:00)
[2018-10-27] MEDS ORDERED: HEPARIN for IV BOLUS 10,000 UNIT/10 ML VIAL. IART ONE (10:00)
[2018-10-27] MEDS ORDERED: VERAPAMIL 5 MG/2 ML VIAL. IART ONE (10:00)
[2018-10-27] MEDS ORDERED: CONTRAST GIVEN. MC PRN (10:45)
[2018-10-27] MEDS ORDERED: HEPARIN 25,000UTS/500ML PREMIX 500 ML IV ONE (11:06)
[2018-10-27] MEDS ORDERED: TIROFIBAN 5MG -0.9% NS 100 ML IV ONE (11:12)
[2018-10-27] MEDS ORDERED: TIROFIBAN 5MG -0.9% NS 100 ML IV PRN (11:30)
[2018-10-27] MEDS ORDERED: ACETAMINOPHEN 325 MG TABLET. PO PRN (11:30)
[2018-10-27] MEDS ORDERED: HEPARIN 25,000UTS/500ML PREMIX 500 ML IV PRN (11:30)
[2018-10-27] MEDS ORDERED: HEPARIN for IV BOLUS 10,000 UNIT/10 ML VIAL. IV PRN (11:30)
--- NOTE | 2018-10-27 11:30 | PDOC ---
MODERATE SEDATION ASSESSMENT RISKS/ALTERNATIVES Risks/Alternatives Risks and alternatives of this type of sedation and procedure discussed with: RISK/ALTERNATIVES: Patient H & P ON CHART H & P H & P on chart and reviewed for co-morbid conditions and appropriate labs. H&P ON CHART: Yes STATUS PREG STATUS ASSESSED: N/A MEDS/ALLERGIES REVIEWED Meds/Allergies Reviewed Medications and Allergies including time and route of recently administered narcotics and sedatives. MEDS/ALLERGIES REVIEWED: Yes ASA RATING ASA RATING: II AIRWAY ASSESSMENT Airway Assessment Airway patency, oral function limitations, presence of caps, crowns, dentures, partials, and ability to extend neck assessed. AIRWAY ASSESSMENT: Yes MALLAMPATI SCORE MALLAMPATI SCORE: II PRE-SEDATION ASSESSMENT PRE-SEDATION ASSESSMENT: Yes RACHEL LOMELI MD Oct 27, 2018 11:30
[2018-10-27] MEDS: TIROFIBAN 5MG -0.9% NS 100 ML IV PRN ×2 (11:32→17:29)
[2018-10-27] MEDS ORDERED: ANTI-COAG MONITOR BY PHARMACY. MC PRN (11:45)
--- NOTE | 2018-10-27 11:45 | NUR ---
Patient arrived to unit, transferred to ICU bed. Admitted to unit monitors, VSS, orders received, and family at bedside.
--- NOTE | 2018-10-27 12:13 | CARD ---
MR#: [id number] Date of Study: 10/27/2018 Ordering Physician: RACHEL CASTRO, Referring Physician: RACHEL CASTRO Tech: RT Dung (R) APPROVED REPORT Technologist: RT Dung (R) Nurse: Arlene Cummings R.N. Procedure(s) performed: 1. Left heart catheterization, selective coronary angiography via right chandra sradial approach 2. Complex Rotablator atherectomy/PROPOSAL LEAD WRITER/stent placement to right coronary artery 3. Temporary transvenous pacemaker placement Sedation Time:175 Minutes Fluoro Time: 50.1 Minutes Dose: 265 Gycm2 Contrast: 264mL Omni 300 INDICATION The indication(s) include : Unstable angina, nonsustained ventricular tachycardia. CS Clinical Frailty Scale [facility] Clinical Frailty Scale: Well Heart Failure Heart Failure: No PROCEDURE NARRATIVE After explaining the risks, benefits and alternative options, informed consent was obtained from simeon ent. Patient was brought to the cardiac Design Lead and right wrist was prepped and draped in the usual fashion after confirming a positive modified Selvin's test. Arterial access was obtained in the righ t radial artery and a 6 Thai sheath was inserted. 6 Thai Augusto and 6 Thai JL 3.5 catheters we re used to perform selective angiography of the right and left coronary arteries. LVEDP and transaor tic gradients remeasured. Left ventriculography was not performed due to contrast load used for inter vention. The following findings were noted. FINDINGS 1. Hemodynamics: Left ventricular end-diastolic pressure of 15 mmHg. No pullback gradient across th e aortic valve. 3. Coronary angiography: a. The left main coronary artery arose from the left sinus of Valsalva, gave rise to the left anteri or descending and left circumflex arteries and did not show any significant stenosis. b. The left anterior descending artery showed 80% stenosis in the mid to distal segment. The diagona l branch which is a moderate caliber vessel showed 80% stenosis in the proximal segment. c. The left circumflex artery showed 50% stenosis in the midsegment. d. The right coronary artery was a large and dominant vessel arising from the right sinus of Valsalv a that showed heavily calcified 90% stenosis in the midsegment and another heavily calcified 90% sten osis in the distal segment. The posterolateral branch which is a small-caliber vessel showed 80% sten osis. INTERVENTION The right coronary artery was engaged with 6 Thai JR4 guide catheter and the stenoses in the mid an d distal segments were crossed with a 0.014 inch Darby Smart water guidewire. The lesions were predilat ed with a 3.0 x 15 mm euphora followed by 3.5 x 15 mm noncompliant NC trek balloons. Since there was suboptimal expansion secondary to heavy calcification, we decided to perform Rotablator atherectomy. Venous access was obtained in the right common femoral vein and 5 Thai sheath inserted. A temporary transvenous pacemaker was advanced under fluoroscopy guidance and the tip was positioned in the righ t ventricle apex for backup pacing. Subsequently, the guidewire in the right coronary artery was exchanged over a quick cross microcathet er to a 0.009 inch Rotablator guidewire. Multiple rotational atherectomy passes were performed within the mid and distal segments using a [employer] 1.25 atherectomy sherry. Subsequently, with the help of backup support from a guide liner inner catheter, the lesions were dilated again with the 3.5 x 15 mm noncompliant NC trek balloon. The distal segment lesion was then treated with a 3.5 x 18 mm MultiLink vision stent and the midsegment lesion was treated with overlapping 4.0 x 18 mm and another 4.0 x 15 mm MultiLink vision stents. The midportion of the stent in the midsegment and the proximal portion of the stent in the distal segment showed suboptimal expansion again secondary to heavy calci fication. These were again dilated with a 3.5 x 15 mm noncompliant NC trek at high atmospheric pressure of 26 a tm without any significant change in the luminal diameter. Patient had ST elevations in inferior lead s with every balloon inflation in the midsegment. Follow-up angiography showed 50% residual stenosis within the midportion of the stent with good distal flow. We decided to abandon further attempts, sta rt patient on heparin and Aggrastat infusions and consult cardiothoracic surgical team for possible c oronary artery bypass surgery. He tolerated the procedure well. Hemostasis in the right wrist was ach ieved using TR band. There were no immediate complications. LESLYE Flow LESYLE Flow (Pre-Intervention): LESLYE-3 LESLYE Flow (Post-Intervention): LESLYE-3 Conclusion 1. 90% heavily calcified stenoses involving the mid and distal segments of the right coronary artery , 80% stenosis involving the mid to distal segment of left anterior descending artery and 80% stenosi s involving a moderate caliber diagonal branch. 2. Complex Rotablator atherectomy/PROPOSAL LEAD WRITER/stent placement to the right coronary artery with suboptimal r esults secondary to heavy calcification Recommendations CT surgery consultation for possible coronary artery bypass surgery Signed by : Rachel Castro, Electronically Approved : 10/27/2018 12:12:51
[2018-10-27] MEDS: fentaNYL PF VIAL 100 MCG/2 ML VIAL IV PRN (12:30)
[2018-10-27] MEDS ORDERED: NITROGLYCERIN PREMIX 250 ML IV PRN (13:00)
[2018-10-27] MEDS ORDERED: NITROGLYCERIN SUBLINGUAL 0.4 MG BOTTLE OF 25. SL PRN (13:00)
[2018-10-27] MEDS: IV 1/2 NORMAL SALINE 1,000 ML IV SCH ×2 (13:07→22:00)
--- NOTE | 2018-10-27 14:06 | PDOC2 ---
CONSULT Date of Consult Date of Consult DATE: 10/27/18 TIME: 14:00 Reason for Consult Reason for Consult: Unstable angina Referring Physician Referring Physician: Dr Castro Identification/Chief Complaint Chief Complaint Chest pain Source Source: Chart review, Patient History of Present Illness Reason for Visit: The patient is a 48 year old male with a history of diabetes, hypertension, hyperlipidemia, strong family history of ischemic heart disease, who was admitted in September 2018 with diabetic ketoacidosis. At that time he had short runs of self terminating V. tach, which were thought to be from to electrolyte disorders. He follow up in the cardiology clinic and that time he mentioned that he was experiencing angina at rest for the past 2 months. He symptoms prompted a coronary angiogram today which demonstrated a mid and distal tight LAD stenosis, a 90% lesion at the ostium of a large diagonal, and a proximal and mid tight stenosis of the dominant RCA. The left circumflex has mild 40% stenosis. An echo last month showed preserved LV function with an EF of 50-60%. An attempt was made to treat the RCA lesions using a Rotablator, which was not satisfactory. Therefore the patient was referred for surgical coronary revascularization Past Medical History Cardiovascular: HTN Pulmonary: COPD Psych: Anxiety, Other Endocrine: Diabetes, Hypothyroidism Past Surgical History Past Surgical History: Cholecystectomy, Other Family History Family History: Family History Unknown Social History ALCOHOL: other Drugs: Marijuana, Crystal meth Lives: with Family Current Medications Current Medications Current Medications Lidocaine HCl (Xylocaine-Mpf 1% 2ml Vial) 2 ml STK-MED ONCE .ROUTE ; Start 10/27/18 at 07:57; Stop 10/27/18 at 07:58; Status DC Iohexol (Omnipaque 300 Mg/ml) 100 ml STK-MED ONCE .ROUTE ; Start 10/27/18 at 07:57; Stop 10/27/18 at 07:58; Status DC Heparin Sodium/ Sodium Chloride 1,000 ml @ As Directed STK-MED ONCE .ROUTE ; Start 10/27/18 at 07:58; Stop 10/27/18 at 07:59; Status DC Fentanyl Citrate (Fentanyl 2ml Vial) 100 mcg STK-MED ONCE .ROUTE ; Start 10/27/18 at 08:15; Stop 10/27/18 at 08:16; Status DC Midazolam HCl (Versed) 2 mg STK-MED ONCE .ROUTE ; Start 10/27/18 at 08:16; Stop 10/27/18 at 08:17; Status DC Heparin Sodium (Porcine) (Heparin Sodium) 10,000 unit STK-MED ONCE .ROUTE ; Start 10/27/18 at 08:16; Stop 10/27/18 at 08:17; Status DC Verapamil HCl (Verapamil) 5 mg STK-MED ONCE .ROUTE ; Start 10/27/18 at 08:16; Stop 10/27/18 at 08:17; Status DC Nitroglycerin (Nitroglycerin) 200 mcg STK-MED ONCE .ROUTE ; Start 10/27/18 at 08:16; Stop 10/27/18 at 08:17; Status DC Midazolam HCl (Versed) 2 mg STK-MED ONCE .ROUTE ; Start 10/27/18 at 08:42; Stop 10/27/18 at 08:43; Status DC Diphenhydramine HCl (Benadryl) 50 mg STK-MED ONCE .ROUTE ; Start 10/27/18 at 08:42; Stop 10/27/18 at 08:43; Status DC Bivalirudin (Angiomax) 250 mg STK-MED ONCE IV ; Start 10/27/18 at 08:59; Stop 10/27/18 at 09:00; Status DC Iohexol (Omnipaque 300 Mg/ml) 100 ml STK-MED ONCE .ROUTE ; Start 10/27/18 at 09:00; Stop 10/27/18 at 09:01; Status DC Heparin Sodium (Porcine) (Heparin Sodium) 10,000 unit STK-MED ONCE .ROUTE ; Start 10/27/18 at 09:22; Stop 10/27/18 at 09:23; Status DC Verapamil HCl (Verapamil) 5 mg STK-MED ONCE .ROUTE ; Start 10/27/18 at 09:22; Stop 10/27/18 at 09:23; Status DC Nitroglycerin/ Dextrose (Nitroglycerin) 4 mg STK-MED ONCE .ROUTE ; Start 10/27/18 at 09:22; Stop 10/27/18 at 09:23; Status DC Verapamil HCl (Verapamil) 5 mg STK-MED ONCE .ROUTE ; Start 10/27/18 at 09:24; Stop 10/27/18 at 09:25; Status DC Lidocaine HCl (Lidocaine 1% 20ml Vial) 20 ml STK-MED ONCE .ROUTE ; Start 10/27/18 at 09:27; Stop 10/27/18 at 09:28; Status DC Fentanyl Citrate (Fentanyl 2ml Vial) 100 mcg STK-MED ONCE .ROUTE ; Start 10/27/18 at 09:31; Stop 10/27/18 at 09:32; Status DC Midazolam HCl (Versed) 2 mg STK-MED ONCE .ROUTE ; Start 10/27/18 at 09:32; Stop 10/27/18 at 09:33; Status DC Dopamine HCl/ Dextrose 250 ml @ As Directed STK-MED ONCE IV ; Start 10/27/18 at 09:33; Stop 10/27/18 at 09:34; Status DC Bivalirudin (Angiomax) 250 mg STK-MED ONCE IV ; Start 10/27/18 at 10:14; Stop 10/27/18 at 10:15; Status DC Iohexol (Omnipaque 300 Mg/ml) 100 ml STK-MED ONCE .ROUTE ; Start 10/27/18 at 10:26; Stop 10/27/18 at 10:27; Status DC Nitroglycerin (Nitroglycerin) 200 mcg 1X ONCE IART Last administered on 10/27/18at 11:32; Start 10/27/18 at 10:00; Stop 10/27/18 at 10:33; Status DC Verapamil HCl (Verapamil) 2.5 mg 1X ONCE IART Last administered on 10/27/18at 11:34; Start 10/27/18 at 10:00; Stop 10/27/18 at 10:33; Status DC Heparin Sodium (Porcine) (Heparin Sodium) 2,500 unit 1X ONCE IART Last administered on 10/27/18at 11:37; Start 10/27/18 at 10:00; Stop 10/27/18 at 10:33; Status DC Heparin Sodium/ Sodium Chloride (HEPARIN for ARTERIAL LINE FLUSH) 1,000 unit 1X ONCE IART Last administered on 10/27/18at 11:31; Start 10/27/18 at 10:00; Stop 10/27/18 at 10:33; Status DC Heparin Sodium/ Sodium Chloride (HEPARIN for ARTERIAL LINE FLUSH) 1,000 unit 1X ONCE IART Last administered on 10/27/18at 11:31; Start 10/27/18 at 10:00; Stop 10/27/18 at 10:33; Status DC Midazolam HCl (Versed) 5 mg 1X ONCE IV Last administered on 10/27/18 11:34; Start 10/27/18 at 10:00; Stop 10/27/18 at 10:33; Status DC Fentanyl Citrate (Fentanyl 2ml Vial) 125 mcg 1X ONCE IV Last administered on 10/27/18 11:35; Start 10/27/18 at 10:00; Stop 10/27/18 at 10:33; Status DC Iohexol (Omnipaque 300 Mg/ml) 100 ml 1X ONCE IART Last administered on 10/27/18 11:31; Start 10/27/18 at 10:00; Stop 10/27/18 at 10:33; Status DC Bivalirudin (Angiomax) 500 mg 1X ONCE IV Last administered on 10/27/18 11:33; Start 10/27/18 at 10:00; Stop 10/27/18 at 10:33; Status DC Lidocaine HCl (Lidocaine 1% 20ml Vial) 10 ml 1X ONCE INJ Last administered on 10/27/18 11:32; Start 10/27/18 at 10:00; Stop 10/27/18 at 10:33; Status DC Nitroglycerin/ Dextrose 4 mg/ Verapamil HCl 10 mg/Heparin Sodium (Porcine) 4000 unit/ Miscellaneous 20 ml/Sodium Chloride 1,048 ml @ 1,000 mls/hr 1X ONCE IART Last administered on 10/27/18 10:00; Start 10/27/18 at 10:00; Stop 10/27/18 at 11:02; Status DC Dopamine HCl/ Dextrose 250 ml @ 6.6 mls/hr 1X ONCE IV Last administered on 10/27/18at 10:00; Start 10/27/18 at 10:00; Stop 10/28/18 at 23:52 Lidocaine HCl (Xylocaine-Mpf 1% 2ml Vial) 1 ml 1X ONCE INJ Last administered on 10/27/18 11:33; Start 10/27/18 at 10:00; Stop 10/27/18 at 10:33; Status DC Diphenhydramine HCl (Benadryl) 50 mg 1X ONCE IVP Last administered on 10/27/18 11:36; Start 10/27/18 at 10:00; Stop 10/27/18 at 10:33; Status DC Info (CONTRAST GIVEN -- Rx MONITORING) 1 each PRN DAILY PRN MC SEE COMMENTS; Start 10/27/18 at 10:45; Stop 10/29/18 at 10:44 Heparin Sodium/ Dextrose 500 ml @ As Directed STK-MED ONCE IV ; Start 10/27/18 at 11:06; Stop 10/27/18 at 11:07; Status DC Tirofiban/Sodium Chloride 100 ml @ As Directed STK-MED ONCE IV ; Start 10/27/18 at 11:12; Stop 10/27/18 at 11:13; Status DC Tirofiban/Sodium Chloride 100 ml @ 0 mls/hr CONT PRN IV PER PROTOCOL Last administered on 10/27/18at 11:32; Start 10/27/18 at 11:30; Stop 10/28/18 at 05:29 Heparin Sodium/ Dextrose 500 ml @ 0 mls/hr CONT PRN IV SEE I/O RECORD Last administered on 10/27/18at 11:17; Start 10/27/18 at 11:30 Heparin Sodium (Porcine) (Heparin Sodium) 2,200 unit PRN Q6HRS PRN IV FOR UFH LEVEL LESS THAN 0.2; Start 10/27/18 at 11:30 Info (Anti-Coagulation Monitoring By Pharmacy) 1 each PRN DAILY PRN MC SEE COMMENTS; Start 10/27/18 at 11:45 Sodium Chloride 1,000 ml @ 100 mls/hr Q10H IV Last administered on 10/27/18at 13:07; Start 10/27/18 at 12:00 Tirofiban/Sodium Chloride 100 ml @ 0 mls/hr CONT PRN IV PER PROTOCOL; Start 10/27/18 at 11:30; Stop 10/28/18 at 05:29; Status UNV Acetaminophen (Tylenol) 650 mg PRN Q6HRS PRN PO MILD PAIN / TEMP; Start 10/27/18 at 11:30 Fentanyl Citrate (Fentanyl 2ml Vial) 50 mcg PRN Q1HR PRN IV MODERATE OR SEVERE PAIN Last administered on 10/27/18at 12:30; Start 10/27/18 at 11:30 Nitroglycerin (Nitrostat) 0.4 mg PRN Q5MIN PRN SL CHEST PAIN Last administered on 10/27/18at 13:05; Start 10/27/18 at 13:00 Nitroglycerin/ Dextrose 250 ml @ 1.5 mls/hr CONT PRN IV SEE I/O RECORD; Start 10/27/18 at 13:00 Active Scripts Active Levemir (Insulin Detemir) 100 Unit/1 Ml Vial 60 Unit SQ QHS Reported Mirtazapine 15 Mg Tablet 0.5 Tab PO QHS Shelbina 3 Fish Oil Softgel (Shelbina-3 Fatty Acids/Fish Oil) 1 Each Capsule.dr 2 Each PO BID [regular insulin] 45 Cymbalta (Duloxetine Hcl) 60 Mg Capsule.dr 1 Cap PO BID Oxcarbazepine 300 Mg Tablet 300 Mg PO DAILY Fenofibrate (Fenofibrate Nanocrystallized) 145 Mg Tablet 1 Tab PO DAILY Atorvastatin Calcium 40 Mg Tablet 1 Tab PO DAILY Celebrex (Celecoxib) 100 Mg Capsule 1 Cap PO BID Latuda (Lurasidone Hcl) 40 Mg Tablet 80 Tab PO QHS Tamsulosin Hcl 0.4 Mg Cap.er.24h 0.4 Mg PO DAILY Lisinopril 5 Mg Tablet 5 Mg PO DAILY Metformin Hcl 1,000 Mg Tablet 500 Tab PO BID Allergies Allergies: Coded Allergies: No Known Drug Allergies (Unverified , 05/11/15) ROS General: No: Chills, Night Sweats, Fatigue, Malaise, Appetite PSYCHOLOGICAL ROS: No: Anxiety, Behavioral Disorder, Concentration difficultie, Decreased libido, Depression, Disorientation, Hallucinations, Hostility, Irritablity, Memory difficulties, Mood Swings, Obsessive thoughts, Physical abuse, Sexual abuse, Sleep disturbances, Suicidal ideation Eyes: No Blurry vision, No Decreased vision, No Double vision, No Dry eyes, No Excessive tearing, No Eye Pain, No Itchy Eyes, No Loss of vision, No Photophobia, No Scotomata, No Uses contacts, No Uses glasses HEENT: No: Heacaches, Visual Changes, Hearing change, Nasal congestion, Nasal discharge, Oral lesions, Sinus pain, Sore Throat, Epistaxis, Sneezing, Snoring, Tinnitus, Vertigo, Vocal changes ALLERGY AND IMMUNOLOGY: No: Hives, Insect Bite Sensitivity, Itchy/Watery Eyes, Nasal Congestion, Post Nasal Drip, Seasonal Allergies Hematological and Lymphatic: No: Bleeding Problems, Blood Clots, Blood Transfusions, Brusing, Night Sweats, Pallor, Swollen Lymph Nodes ENDOCRINE: No: Breast Changes, Galactorrhea, Hair Pattern Changes, Hot Flashes, Malaise/lethargy, Mood Swings, Palpitations, Polydipsia/polyuria, Skin Changes, Temperature Intolerance, Unexpected Weight Changes Respiratory: YES: Shortness of breath; No: Cough, Hemoptysis, Orthopnea, Pleuritic Pain, SOB with excertion, Sputum Changes, Stridor, Tachypnea, Wheezing Cardiovascular: yes Chest Pain; No Palpitations, No Orthopnea, No Paroxysmal Noc. Dyspnea, No Edema, No Lt Headedness Gastrointestinal: No Nausea, No Vomiting, No Abdominal Pain, No Diarrhea, No Constipation, No Melena, No Hematochezia Genitourinary: No Dysuria, No Frequency, No Incontinence, No Hematuria, No Retention, No Discharge, No Urgency, No Pain, No Flank Pain Musculoskeletal: Yes Joint Pain, Yes Muscle Pain; No Gait Disturbance, No Joint Stiffness, No Joint Swelling, No Muscular Weakness, No Pain In:, No Swelling In: Neurological: No Behavorial Changes, No Bowel/Bladder ControlChng, No Confusion, No Dizziness, No Gait Disturbance, No Headaches, No Impaired Coord/balance, No Memory Loss, No Numbness/Tingling, No Seizures, No Speech Problems, No Tremors, No Visual Changes, No Weakness Skin: No Dry Skin, No Eczema, No Hair Changes, No Lumps, No Mole Changes, No Mottling, No Nail Changes, No Pruritus, No Rash, No Skin Lesion Changes, No Acne Physical Exam General: Alert, Oriented X3, No acute distress HEENT: Atraumatic, PERRLA Lungs: Clear to auscultation Heart: Regular rate, Normal S1, Normal S2 Abdomen: Soft, No tenderness Extremities: No edema Skin: No significant lesion Neuro: Normal gait, Normal speech, Strength at 5/5 X4 ext, Normal tone, Sensation intact, Cranial nerves 3-12 NL, Reflexes 2+ Psych/Mental Status: Mental status NL MUSCULOSKELETAL: No deformity Vitals VITALS Vital Signs Date Time Temp Pulse Resp B/P (MAP) Pulse Ox O2 Delivery O2 Flow Rate FiO2 10/27/18 13:05 73 106/72 10/27/18 13:00 20 92 Room Air 10/27/18 12:30 2.0 10/27/18 11:45 98.1 98.1 Labs Labs Laboratory Tests Test 10/27/18 07:25 White Blood Count 13.0 x10^3/uL (4.0-11.0) Red Blood Count 4.88 x10^6/uL (4.30-5.70) Hemoglobin 14.8 g/dL (13.0-17.5) Hematocrit 44.0 % (39.0-53.0) Mean Corpuscular Volume 90 fL (79-100) Mean Corpuscular Hemoglobin 30 pg (25-35) Mean Corpuscular Hemoglobin Concent 34 g/dL (31-37) Red Cell Distribution Width 15.4 % (11.5-14.5) Platelet Count 418 x10^3/uL (140-400) Prothrombin Time 12.6 SEC (11.7-14.0) Prothromb Time International Ratio 1.0 (0.8-1.1) Sodium Level 139 mmol/L (136-145) Potassium Level 4.1 mmol/L (3.5-5.1) Chloride Level 102 mmol/L (98-107) Carbon Dioxide Level 27 mmol/L (21-32) Anion Gap 10 (6-14) Blood Urea Nitrogen 15 mg/dL (8-26) Creatinine 1.1 mg/dL (0.7-1.3) Estimated GFR (Cockcroft-Gault) 70.9 Glucose Level 137 mg/dL (70-99) Calcium Level 10.0 mg/dL (8.5-10.1) Laboratory Tests Test 10/27/18 07:25 White Blood Count 13.0 x10^3/uL (4.0-11.0) Red Blood Count 4.88 x10^6/uL (4.30-5.70) Hemoglobin 14.8 g/dL (13.0-17.5) Hematocrit 44.0 % (39.0-53.0) Mean Corpuscular Volume 90 fL (79-100) Mean Corpuscular Hemoglobin 30 pg (25-35) Mean Corpuscular Hemoglobin Concent 34 g/dL (31-37) Red Cell Distribution Width 15.4 % (11.5-14.5) Platelet Count 418 x10^3/uL (140-400) Prothrombin Time 12.6 SEC (11.7-14.0) Prothromb Time International Ratio 1.0 (0.8-1.1) Sodium Level 139 mmol/L (136-145) Potassium Level 4.1 mmol/L (3.5-5.1) Chloride Level 102 mmol/L (98-107) Carbon Dioxide Level 27 mmol/L (21-32) Anion Gap 10 (6-14) Blood Urea Nitrogen 15 mg/dL (8-26) Creatinine 1.1 mg/dL (0.7-1.3) Estimated GFR (Cockcroft-Gault) 70.9 Glucose Level 137 mg/dL (70-99) Calcium Level 10.0 mg/dL (8.5-10.1) Images Images FINDINGS 1. Hemodynamics: Left ventricular end-diastolic pressure of 15 mmHg. No pullback gradient across the aortic valve. 3. Coronary angiography: a. The left main coronary artery arose from the left sinus of Valsalva, gave rise to the left anterior descending and left circumflex arteries and did not show any significant stenosis. b. The left anterior descending artery showed 80% stenosis in the mid to distal segment. The diagonal branch which is a moderate caliber vessel showed 80% stenosis in the proximal segment. c. The left circumflex artery showed 50% stenosis in the midsegment. d. The right coronary artery was a large and dominant vessel arising from the right sinus of Valsalva that showed heavily calcified 90% stenosis in the midsegment and another heavily calcified 90% stenosis in the distal segment. The posterolateral branch which is a small-caliber vessel showed 80% stenosis. INTERVENTION The right coronary artery was engaged with 6 [place] JR4 guide catheter and the stenoses in the mid and distal segments were crossed with a 0.014 inch [employer] water guidewire. The lesions were predilated with a 3.0 x 15 mm euphora followed by 3.5 x 15 mm noncompliant NC trek balloons. Since there was suboptimal expansion secondary to heavy calcification, we decided to perform Rotablator atherectomy. Venous access was obtained in the right common femoral vein and 5 [place] sheath inserted. A temporary transvenous pacemaker was advanced under fluoroscopy guidance and the tip was positioned in the right ventricle apex for backup pacing. Subsequently, the guidewire in the right coronary artery was exchanged over a quick cross microcatheter to a 0.009 inch Rotablator guidewire. Multiple rotatio nal atherectomy passes were performed within the mid and distal segments using a [employer] 1.25 atherectomy sherry. Subsequently, with the help of backup support from a guide liner inner catheter, the lesions were dilated again with the 3.5 x 15 mm noncompliant NC trek balloon. The distal segment lesion was then treated with a 3.5 x 18 mm MultiLink vision stent and the midsegment lesion was treated with overlapping 4.0 x 18 mm and another 4.0 x 15 mm MultiLink vision stents. The midportion of the stent in the midsegment and the proximal portion of the stent in the distal segment showed suboptimal expansion again secondary to heavy calcification. These were again dilated with a 3.5 x 15 mm noncompliant NC trek at high atmospheric pressure of 26 jean claude without any significant change in the luminal diameter. Patient had ST elevations in inferior leads with every balloon inflation in the midsegment. Follow-up angiography showed 50% residual stenosis within the midportion of the stent with good distal flow. We decided to abandon further attempts, start patient on heparin and Aggrastat infusions and consult cardiothoracic surgical team for possible coronary artery bypass surgery. He tolerated the procedure well. Hemostasis in the right wrist was achieved using TR band. There were no immediate complications. LESLYE Flow LESLYE Flow (Pre-Intervention): LESLYE-3 LESLYE Flow (Post-Intervention): LESLYE-3 Conclusion 1. 90% heavily calcified stenoses involving the mid and distal segments of the right coronary artery, 80% stenosis involving the mid to distal segment of left anterior descending artery and 80% stenosis involving a moderate caliber diago nal branch. 2. Complex Rotablator atherectomy/[employer]/stent placement to the right coronary artery with suboptimal results secondary to heavy calcification Assessment/Plan Assessment/Plan 48 year old male with a history of diabetes, hypertension, hyperlipidemia, strong family history of ischemic heart disease, who was admitted in September 2018 with diabetic ketoacidosis. At that time he had short runs of self terminating V. tach, which were thought to be from to electrolyte disorders. He follow up in the cardiology clinic and that time he mentioned that he was experiencing angina at rest for the past 2 months. He symptoms prompted a coronary angiogram today which demonstrated a mid and distal tight LAD stenosis, a 90% lesion at the ostium of a large diagonal, and a proximal and mid tight stenosis of the dominant RCA. The left circumflex has mild 40% stenosis. An echo last month showed preserved LV function with an EF of 50-60%. An attempt was made to treat the RCA lesions using a Rotablator, which was not satisfactory. Therefore the patient was referred for surgical coronary revascularization The patient overall appears to be a reasonable candidate for CABG The risks which include but are not limited to mortality 1-2%, stroke 1-2%, renal failure requiring dialysis 1-2%, ventilator dependence 5%, infection 5%, toleration for hemorrhage 5%, arrhythmias 20-30%. The patient accepts these risks and agrees to proceed. Plan for CABG 3 tomorrow October 28, 2018 An echo and a CT scan of the chest were performed last month and do not need to be repeated Will obtain: Carotid duplex Bilateral lower extremity vein mapping Crossmatch to units PRBCs Stop heparin drip and tirofiban at midnight TRISTON CARTWRIGHT MD Oct 27, 2018 14:06
[2018-10-27 15:13] LABS: ALBUMIN 3.4 g/dL (3.4-5.0); CALCIUM 9.6 mg/dL (8.5-10.1); GFR 79.1; POTASSIUM 4.8 mmol/L (3.5-5.1); TOTAL BILIRUBIN 0.3 mg/dL (0.2-1.0); TOTAL PROTEIN 6.9 g/dL (6.4-8.2)
--- NOTE | 2018-10-27 16:10 | NUR ---
pt taught on cabg with endoscopic leg vein harvesting. pt given i.s. and heart pillow. questions answered. consents signed.
--- NOTE | 2018-10-27 17:40 | RAD ---
MR#: [id number] Date of Study: 10/27/2018 Ordering Physician: TRISTON CARTWRIGHT, Referring Physician: RACHEL LOMELI Tech: Judson Hernandez MBA, RDMS, RVT, RDCS, RTR APPROVED REPORT Patient Location: IN-PATIENT Indications pre-op cabg Vein Measurements Great Saphenous Small Saphenous RightLeft RightLeft Saph-Fem. Junction 5.00mm2.90mmProximal 2.70mm2.90mm Mid Thigh 3.40mm3.70mmMid 2.00mm2.70mm Distal Thigh 3.80mm2.90mmDistal 1.90mm2.80mm Proximal Calf 3.00mm3.00mm Mid Calf 2.60mm2.50mm Distal Calf 2.30mm2.70mm Findings Grayscale images of the bilateral greater and lesser saphenous veins demonstrate no obvious evidence of thrombus. The vessels appear to be compressible. Measurements appear to be adequate for bypass gra fting. Critical Notification Critical Value: No <Conclusion> Adequate bilateral greater saphenous veins for bypass harvesting. The lesser saphenous veins are francisco nt but small in caliber on the right and adequate in caliber on the left Signed by : Jose Dubon, Electronically Approved : 10/27/2018 17:40:11
[2018-10-27] MEDS: NICOTINE 21MG PATCH. TD PRN (17:41)
--- NOTE | 2018-10-27 17:42 | RAD ---
MR#: [id number] Date of Study: 10/27/2018 Ordering Physician: TRISTON CARTWRIGHT, Referring Physician: RACHEL LOMELI, Tech: Judson Hernandez MBA, RDMS, RVT, RDCS, RTR APPROVED REPORT Patient Location: IN-PATIENT Laterality:Bilateral Indications pre-op cabg Doppler Spectral Velocity Analysis Right Left pCCA 105/15 cm/spCCA 136/30 cm/s mCCA 98/20 cm/smCCA 107/24 cm/s dCCA 80/21 cm/sdCCA 87/26 cm/s Bulb 68/16 cm/sBulb 71/23 cm/s ECA 102/ cm/sECA 147/ cm/s pICA 65/15 cm/spICA 84/33 cm/s Charlee 64/22 cm/smICA 91/27 cm/s dICA 60/14 cm/sdICA 93/35 cm/s Vert. 48/ cm/sVert. 32/ cm/s Subcl. 117/ cm/sSubcl. 131/ cm/s ICA/CCA 0.62ICA/CCA 0.68 Findings Grayscale images of the bilateral common carotid, internal and external carotid vessels reveals mild intimal hyperplasia without any significant obstructive plaque. Spectral waveforms and color Doppler demonstrate normal waveforms and velocities in the bilateral int ernal carotid vessels. The vertebral velocities are antegrade. Normal ICA to CCA ratios noted. No sig nificant subclavian stenosis is noted. Critical Notification Critical Value: No <Conclusion> 1. No significant carotid or subclavian occlusive disease with normal antegrade vertebral velocities. Signed by : Jose Dubon, Electronically Approved : 10/27/2018 17:41:48
[2018-10-27] MEDS ORDERED: DEXTROSE 50% 25 GM / 50ML DISP.SYRIN. IV PRN (18:00)
[2018-10-27] MEDS ORDERED: oxyCODONE IR 5 MG TABLET PO PRN (18:00)
[2018-10-27] MEDS ORDERED: INSULIN LISPRO 300 UNITS/3 ML INSULN.PEN. SQ SCH (18:30)
--- NOTE | 2018-10-27 19:06 | PDOC1 ---
History and Physical Date of Admission Date of Admission DATE: 10/27/18 TIME: 19:03 Source Source: Chart review, Patient History of Present Illness History of Present Illness Mr. Kidd, is a 48 year old male admit [facility] for outpatient cath,. 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, admit for CABG eval Past Medical History Past Medical History diabetes - insulin req, hypertension, hyperlipidemia, strong family history of ischemic heart disease Cardiovascular: HTN Pulmonary: COPD Psych: Anxiety, Other Endocrine: Diabetes, Hypothyroidism Past Surgical History Past Surgical History: Cholecystectomy, Other Family History Family History: Coronary Artery Disease, Heart Disease, Family History Unknown Social History Smoke: <1 pack per day ALCOHOL: social Drugs: Marijuana Current Medications Current Medications Current Medications Lidocaine HCl (Xylocaine-Mpf 1% 2ml Vial) 2 ml STK-MED ONCE .ROUTE ; Start 10/27/18 at 07:57; Stop 10/27/18 at 07:58; Status DC Iohexol (Omnipaque 300 Mg/ml) 100 ml STK-MED ONCE .ROUTE ; Start 10/27/18 at 07:57; Stop 10/27/18 at 07:58; Status DC Heparin Sodium/ Sodium Chloride 1,000 ml @ As Directed STK-MED ONCE .ROUTE ; Start 10/27/18 at 07:58; Stop 10/27/18 at 07:59; Status DC Fentanyl Citrate (Fentanyl 2ml Vial) 100 mcg STK-MED ONCE .ROUTE ; Start 10/27/18 at 08:15; Stop 10/27/18 at 08:16; Status DC Midazolam HCl (Versed) 2 mg STK-MED ONCE .ROUTE ; Start 10/27/18 at 08:16; Stop 10/27/18 at 08:17; Status DC Heparin Sodium (Porcine) (Heparin Sodium) 10,000 unit STK-MED ONCE .ROUTE ; Sta rt 10/27/18 at 08:16; Stop 10/27/18 at 08:17; Status DC Verapamil HCl (Verapamil) 5 mg STK-MED ONCE .ROUTE ; Start 10/27/18 at 08:16; Stop 10/27/18 at 08:17; Status DC Nitroglycerin (Nitroglycerin) 200 mcg STK-MED ONCE .ROUTE ; Start 10/27/18 at 08:16; Stop 10/27/18 at 08:17; Status DC Midazolam HCl (Versed) 2 mg STK-MED ONCE .ROUTE ; Start 10/27/18 at 08:42; Stop 10/27/18 at 08:43; Status DC Diphenhydramine HCl (Benadryl) 50 mg STK-MED ONCE .ROUTE ; Start 10/27/18 at 08:42; Stop 10/27/18 at 08:43; Status DC Bivalirudin (Angiomax) 250 mg STK-MED ONCE IV ; Start 10/27/18 at 08:59; Stop 10/27/18 at 09:00; Status DC Iohexol (Omnipaque 300 Mg/ml) 100 ml STK-MED ONCE .ROUTE ; Start 10/27/18 at 09:00; Stop 10/27/18 at 09:01; Status DC Heparin Sodium (Porcine) (Heparin Sodium) 10,000 unit STK-MED ONCE .ROUTE ; Start 10/27/18 at 09:22; Stop 10/27/18 at 09:23; Status DC Verapamil HCl (Verapamil) 5 mg STK-MED ONCE .ROUTE ; Start 10/27/18 at 09:22; Stop 10/27/18 at 09:23; Status DC Nitroglycerin/ Dextrose (Nitroglycerin) 4 mg STK-MED ONCE .ROUTE ; Start 10/27/18 at 09:22; Stop 10/27/18 at 09:23; Status DC Verapamil HCl (Verapamil) 5 mg STK-MED ONCE .ROUTE ; Start 10/27/18 at 09:24; Stop 10/27/18 at 09:25; Status DC Lidocaine HCl (Lidocaine 1% 20ml Vial) 20 ml STK-MED ONCE .ROUTE ; Start 10/27/18 at 09:27; Stop 10/27/18 at 09:28; Status DC Fentanyl Citrate (Fentanyl 2ml Vial) 100 mcg STK-MED ONCE .ROUTE ; Start 10/27/18 at 09:31; Stop 10/27/18 at 09:32; Status DC Midazolam HCl (Versed) 2 mg STK-MED ONCE .ROUTE ; Start 10/27/18 at 09:32; Stop 10/27/18 at 09:33; Status DC Dopamine HCl/ Dextrose 250 ml @ As Directed STK-MED ONCE IV ; Start 10/27/18 at 09:33; Stop 10/27/18 at 09:34; Status DC Bivalirudin (Angiomax) 250 mg STK-MED ONCE IV ; Start 10/27/18 at 10:14; Stop 10/27/18 at 10:15; Status DC Iohexol (Omnipaque 300 Mg/ml) 100 ml STK-MED ONCE .ROUTE ; Start 10/27/18 at 10:26; Stop 10/27/18 at 10:27; Status DC Nitroglycerin (Nitroglycerin) 200 mcg 1X ONCE IART Last administered on 10/27/18 11:32; Start 10/27/18 at 10:00; Stop 10/27/18 at 10:33; Status DC Verapamil HCl (Verapamil) 2.5 mg 1X ONCE IART Last administered on 10/27/18 11:34; Start 10/27/18 at 10:00; Stop 10/27/18 at 10:33; Status DC Heparin Sodium (Porcine) (Heparin Sodium) 2,500 unit 1X ONCE IART Last administered on 10/27/18 11:37; Start 10/27/18 at 10:00; Stop 10/27/18 at 10:33; Status DC Heparin Sodium/ Sodium Chloride (HEPARIN for ARTERIAL LINE FLUSH) 1,000 unit 1X ONCE IART Last administered on 10/27/18 11:31; Start 10/27/18 at 10:00; Stop 10/27/18 at 10:33; Status DC Heparin Sodium/ Sodium Chloride (HEPARIN for ARTERIAL LINE FLUSH) 1,000 unit 1X ONCE IART Last administered on 10/27/18 11:31; Start 10/27/18 at 10:00; Stop 10/27/18 at 10:33; Status DC Midazolam HCl (Versed) 5 mg 1X ONCE IV Last administered on 10/27/18 11:34; Start 10/27/18 at 10:00; Stop 10/27/18 at 10:33; Status DC Fentanyl Citrate (Fentanyl 2ml Vial) 125 mcg 1X ONCE IV Last administered on 10/27/18 11:35; Start 10/27/18 at 10:00; Stop 10/27/18 at 10:33; Status DC Iohexol (Omnipaque 300 Mg/ml) 100 ml 1X ONCE IART Last administered on 10/27/18at 11:31; Start 10/27/18 at 10:00; Stop 10/27/18 at 10:33; Status DC Bivalirudin (Angiomax) 500 mg 1X ONCE IV Last administered on 10/27/18at 11:33; Start 10/27/18 at 10:00; Stop 10/27/18 at 10:33; Status DC Lidocaine HCl (Lidocaine 1% 20ml Vial) 10 ml 1X ONCE INJ Last administered on 10/27/18at 11:32; Start 10/27/18 at 10:00; Stop 10/27/18 at 10:33; Status DC Nitroglycerin/ Dextrose 4 mg/ Verapamil HCl 10 mg/Heparin Sodium (Porcine) 4000 unit/ Miscellaneous 20 ml/Sodium Chloride 1,048 ml @ 1,000 mls/hr 1X ONCE IART Last administered on 10/27/18at 10:00; Start 10/27/18 at 10:00; Stop 10/27/18 at 11:02; Status DC Dopamine HCl/ Dextrose 250 ml @ 6.6 mls/hr 1X ONCE IV Last administered on 10/27/18at 10:00; Start 10/27/18 at 10:00; Stop 10/28/18 at 23:52 Lidocaine HCl (Xylocaine-Mpf 1% 2ml Vial) 1 ml 1X ONCE INJ Last administered on 10/27/18at 11:33; Start 10/27/18 at 10:00; Stop 10/27/18 at 10:33; Status DC Diphenhydramine HCl (Benadryl) 50 mg 1X ONCE IVP Last administered on 10/27/18at 11:36; Start 10/27/18 at 10:00; Stop 10/27/18 at 10:33; Status DC Info (CONTRAST GIVEN -- Rx MONITORING) 1 each PRN DAILY PRN MC SEE COMMENTS; Start 10/27/18 at 10:45; Stop 10/29/18 at 10:44 Heparin Sodium/ Dextrose 500 ml @ As Directed STK-MED ONCE IV ; Start 10/27/18 at 11:06; Stop 10/27/18 at 11:07; Status DC Tirofiban/Sodium Chloride 100 ml @ As Directed STK-MED ONCE IV ; Start 10/27/18 at 11:12; Stop 10/27/18 at 11:13; Status DC Tirofiban/Sodium Chloride 100 ml @ 0 mls/hr CONT PRN IV PER PROTOCOL Last administered on 10/27/18at 17:29; Start 10/27/18 at 11:30; Stop 10/28/18 at 05:29 Heparin Sodium/ Dextrose 500 ml @ 0 mls/hr CONT PRN IV SEE I/O RECORD Last administered on 10/27/18at 11:17; Start 10/27/18 at 11:30 Heparin Sodium (Porcine) (Heparin Sodium) 2,200 unit PRN Q6HRS PRN IV FOR UFH LEVEL LESS THAN 0.2; Start 10/27/18 at 11:30 Info (Anti-Coagulation Monitoring By Pharmacy) 1 each PRN DAILY PRN MC SEE COMMENTS; Start 10/27/18 at 11:45 Sodium Chloride 1,000 ml @ 100 mls/hr Q10H IV Last administered on 10/27/18at 13:07; Start 10/27/18 at 12:00 Tirofiban/Sodium Chloride 100 ml @ 0 mls/hr CONT PRN IV PER PROTOCOL; Start 10/27/18 at 11:30; Stop 10/28/18 at 05:29; Status UNV Acetaminophen (Tylenol) 650 mg PRN Q6HRS PRN PO MILD PAIN / TEMP; Start 10/27/18 at 11:30 Fentanyl Citrate (Fentanyl 2ml Vial) 50 mcg PRN Q1HR PRN IV MODERATE OR SEVERE PAIN Last administered on 10/27/18at 12:30; Start 10/27/18 at 11:30 Nitroglycerin (Nitrostat) 0.4 mg PRN Q5MIN PRN SL CHEST PAIN Last administered on 10/27/18at 13:05; Start 10/27/18 at 13:00 Nitroglycerin/ Dextrose 250 ml @ 1.5 mls/hr CONT PRN IV SEE I/O RECORD; Start 10/27/18 at 13:00 Cefazolin Sodium/ Dextrose 50 ml @ 100 mls/hr 1X ONCE IV ; Start 10/28/18 at 06:00; Stop 10/28/18 at 06:29 Nicotine (Nicoderm Cq 21mg) 1 patch PRN DAILY PRN TD SMOKING CESSATION Last administered on 10/27/18at 17:41; Start 10/27/18 at 17:30 Atorvastatin Calcium (Lipitor) 40 mg QHS PO ; Start 10/27/18 at 21:00 Lurasidone HCl (Latuda) 80 mg QHS PO ; Start 10/27/18 at 21:00 Tamsulosin HCl (Flomax) 0.4 mg DAILY PO ; Start 10/28/18 at 09:00 Duloxetine HCl (Cymbalta) 60 mg BID PO ; Start 10/27/18 at 21:00 Lisinopril (Prinivil) 5 mg DAILY PO ; Start 10/28/18 at 09:00 Mirtazapine (Remeron) 7.5 mg QHS PO ; Start 10/27/18 at 21:00 Oxcarbazepine (Trileptal) 300 mg DAILY PO ; Start 10/28/18 at 09:00 Insulin Glargine (Lantus) 35 units QHS SQ ; Start 10/27/18 at 21:00 Insulin Human Lispro (HumaLOG) 10 units TIDWMEALS SQ Last administered on 10/27/18at 18:10; Start 10/27/18 at 18:30 Insulin Human Lispro (HumaLOG) 0-7 UNITS TIDWMEALS SQ ; Start 10/28/18 at 08:00 Dextrose (Dextrose 50%-Water Syringe) 12.5 gm PRN Q15MIN PRN IV SEE COMMENTS; Start 10/27/18 at 18:00 Oxycodone HCl (Roxicodone) 5 mg PRN Q4HRS PRN PO MODERATE-SEVERE PAIN Last administered on 10/27/18at 18:10; Start 10/27/18 at 18:00 Active Scripts Active Levemir (Insulin Detemir) 100 Unit/1 Ml Vial 60 Unit SQ QHS Reported Mirtazapine 15 Mg Tablet 0.5 Tab PO QHS [place] 3 Fish Oil Softgel ([place]-3 Fatty Acids/Fish Oil) 1 Each Capsule.dr 2 Each PO BID [regular insulin] 45 Cymbalta (Duloxetine Hcl) 60 Mg Capsule.dr 1 Cap PO BID Oxcarbazepine 300 Mg Tablet 300 Mg PO DAILY Fenofibrate (Fenofibrate Nanocrystallized) 145 Mg Tablet 1 Tab PO DAILY Atorvastatin Calcium 40 Mg Tablet 1 Tab PO DAILY Celebrex (Celecoxib) 100 Mg Capsule 1 Cap PO BID Latuda (Lurasidone Hcl) 40 Mg Tablet 80 Tab PO QHS Tamsulosin Hcl 0.4 Mg Cap.er.24h 0.4 Mg PO DAILY Lisinopril 5 Mg Tablet 5 Mg PO DAILY Metformin Hcl 1,000 Mg Tablet 500 Tab PO BID Allergies Allergies: Coded Allergies: No Known Drug Allergies (Unverified , 05/11/15) ROS General: No: Chills, Night Sweats, Fatigue, Malaise, Appetite, Other PSYCHOLOGICAL ROS: YES: Anxiety, Sleep disturbances; No: Behavioral Disorder, Concentration difficultie, Decreased libido, Depression, Disorientation, Hallucinations, Hostility, Irritablity, Memory difficulties, Mood Swings, Obsessive thoughts, Other Eyes: No Blurry vision, No Decreased vision, No Double vision, No Dry eyes, No Excessive tearing, No Eye Pain, No Itchy Eyes, No Loss of vision, No Photophobia, No Scotomata, No Uses contacts, No Uses glasses, No Other HEENT: No: Heacaches, Visual Changes, Hearing change, Nasal congestion, Nasal discharge, Oral lesions, Sinus pain, Sore Throat, Epistaxis, Sneezing, Snoring, Tinnitus, Vertigo, Vocal changes, Other Respiratory: YES: SOB with excertion; No: Cough, Hemoptysis, Orthopnea, Pleuritic Pain, Shortness of breath, Sputum Changes, Stridor, Tachypnea, Wheezing, Other Cardiovascular: yes Chest Pain Gastrointestinal: No Nausea, No Vomiting, No Abdominal Pain, No Diarrhea, No Constipation, No Melena, No Hematochezia, No Other Genitourinary: No Dysuria, No Frequency, No Incontinence, No Hematuria, No Retention, No Discharge, No Urgency, No Pain, No Flank Pain, No Other, No , No , No , No , No , No , No Musculoskeletal: Yes Joint Stiffness; No Gait Disturbance, No Joint Pain, No Joint Swelling, No Muscle Pain, No Muscular Weakness, No Pain In:, No Swelling In:, No Other Neurological: No Behavorial Changes, No Bowel/Bladder ControlChng, No Confusion, No Dizziness, No Gait Disturbance, No Headaches, No Impaired Coord/balance, No Memory Loss, No Numbness/Tingling, No Seizures, No Speech Problems, No Tremors, No Visual Changes, No Weakness, No Other Skin: Yes Dry Skin; No Eczema, No Hair Changes, No Lumps, No Mole Changes, No Mottling, No Nail Changes, No Pruritus, No Rash, No Skin Lesion Changes, No Other, No Acne Physical Exam General: Alert, Oriented X3, mild distress HEENT: Atraumatic, PERRLA, EOMI Lungs: Normal air movement Heart: no gallops, no murmurs Abdomen: Normal bowel sounds, Soft Extremities: No edema, Normal pulses Skin: Other (heavily tattooed) Neuro: Normal speech, Normal tone, Sensation intact Psych/Mental Status: Mood NL Vitals Vitals Vital Signs Date Time Temp Pulse Resp B/P (MAP) Pulse Ox O2 Delivery O2 Flow Rate FiO2 10/27/18 18:10 Room Air 10/27/18 18:00 60 20 110/71 (84) 94 10/27/18 16:00 98.7 98.7 10/27/18 12:30 2.0 Labs Labs Laboratory Tests Test 10/27/18 07:25 10/27/18 14:40 10/27/18 18:05 10/27/18 18:09 White Blood Count 13.0 x10^3/uL (4.0-11.0) Red Blood Count 4.88 x10^6/uL (4.30-5.70) Hemoglobin 14.8 g/dL (13.0-17.5) Hematocrit 44.0 % (39.0-53.0) Mean Corpuscular Volume 90 fL (79-100) Mean Corpuscular Hemoglobin 30 pg (25-35) Mean Corpuscular Hemoglobin Concent 34 g/dL (31-37) Red Cell Distribution Width 15.4 % (11.5-14.5) Platelet Count 418 x10^3/uL (140-400) Prothrombin Time 12.6 SEC (11.7-14.0) Prothromb Time International Ratio 1.0 (0.8-1.1) Sodium Level 139 mmol/L (136-145) 136 mmol/L (136-145) Potassium Level 4.1 mmol/L (3.5-5.1) 4.8 mmol/L (3.5-5.1) Chloride Level 102 mmol/L (98-107) 102 mmol/L (98-107) Carbon Dioxide Level 27 mmol/L (21-32) 23 mmol/L (21-32) Anion Gap 10 (6-14) 11 (6-14) Blood Urea Nitrogen 15 mg/dL (8-26) 13 mg/dL (8-26) Creatinine 1.1 mg/dL (0.7-1.3) 1.0 mg/dL (0.7-1.3) Estimated GFR (Cockcroft-Gault) 70.9 79.1 Glucose Level 137 mg/dL (70-99) 279 mg/dL (70-99) Calcium Level 10.0 mg/dL (8.5-10.1) 9.6 mg/dL (8.5-10.1) Activated Partial Thromboplast Time 74 SEC (24-38) BUN/Creatinine Ratio 13 (6-20) Total Bilirubin 0.3 mg/dL (0.2-1.0) Aspartate Amino Transf (AST/SGOT) 18 U/L (15-37) Alanine Aminotransferase (ALT/SGPT) 15 U/L (16-63) Alkaline Phosphatase 64 U/L (46-116) Total Protein 6.9 g/dL (6.4-8.2) Albumin 3.4 g/dL (3.4-5.0) Albumin/Globulin Ratio 1.0 (1.0-1.7) Heparin Anti-Xa Act, Unfractionated 0.12 IU/mL (0.30-0.70) Glucose (Fingerstick) 277 mg/dL (70-99) Laboratory Tests Test 10/27/18 07:25 10/27/18 14:40 10/27/18 18:05 10/27/18 18:09 White Blood Count 13.0 x10^3/uL (4.0-11.0) Red Blood Count 4.88 x10^6/uL (4.30-5.70) Hemoglobin 14.8 g/dL (13.0-17.5) Hematocrit 44.0 % (39.0-53.0) Mean Corpuscular Volume 90 fL (79-100) Mean Corpuscular Hemoglobin 30 pg (25-35) Mean Corpuscular Hemoglobin Concent 34 g/dL (31-37) Red Cell Distribution Width 15.4 % (11.5-14.5) Platelet Count 418 x10^3/uL (140-400) Prothrombin Time 12.6 SEC (11.7-14.0) Prothromb Time International Ratio 1.0 (0.8-1.1) Sodium Level 139 mmol/L (136-145) 136 mmol/L (136-145) Potassium Level 4.1 mmol/L (3.5-5.1) 4.8 mmol/L (3.5-5.1) Chloride Level 102 mmol/L (98-107) 102 mmol/L (98-107) Carbon Dioxide Level 27 mmol/L (21-32) 23 mmol/L (21-32) Anion Gap 10 (6-14) 11 (6-14) Blood Urea Nitrogen 15 mg/dL (8-26) 13 mg/dL (8-26) Creatinine 1.1 mg/dL (0.7-1.3) 1.0 mg/dL (0.7-1.3) Estimated GFR (Cockcroft-Gault) 70.9 79.1 Glucose Level 137 mg/dL (70-99) 279 mg/dL (70-99) Calcium Level 10.0 mg/dL (8.5-10.1) 9.6 mg/dL (8.5-10.1) Activated Partial Thromboplast Time 74 SEC (24-38) BUN/Creatinine Ratio 13 (6-20) Total Bilirubin 0.3 mg/dL (0.2-1.0) Aspartate Amino Transf (AST/SGOT) 18 U/L (15-37) Alanine Aminotransferase (ALT/SGPT) 15 U/L (16-63) Alkaline Phosphatase 64 U/L (46-116) Total Protein 6.9 g/dL (6.4-8.2) Albumin 3.4 g/dL (3.4-5.0) Albumin/Globulin Ratio 1.0 (1.0-1.7) Heparin Anti-Xa Act, Unfractionated 0.12 IU/mL (0.30-0.70) Glucose (Fingerstick) 277 mg/dL (70-99) VTE Prophylaxis Ordered VTE Prophylaxis Devices: Yes VTE Pharmacological Prophylaxi: Yes Assessment/Plan Assessment/Plan angina CAD, 3 vessel disease dm1, decen control, will check A1c htn lipids tobacco use disorder admit HAZEL RAMAN MD Oct 27, 2018 19:06
[2018-10-27] MEDS ORDERED: ZOLPIDEM 5 MG TABLET. PO PRN (20:00)
[2018-10-27] MEDS ORDERED: INSULIN REGULAR VIAL 150 UNIT in 0.9 % SODIUM CHLORIDE 150ML 150 ML IV PRN (20:15)
[2018-10-27] MEDS: IV NORMAL SALINE 1000ML BAG 1,000 ML IV SCH (20:15)
[2018-10-27] MEDS: LURASIDONE 40 MG TABLET. PO SCH (21:00)
[2018-10-27] MEDS ORDERED: INSULIN GLARGINE 300 UNITS/3 ML INSULN.PEN. SQ SCH (21:00)
[2018-10-27] MEDS: ATORVASTATIN CALCIUM 40 MG TABLET. PO SCH (21:49)
[2018-10-27] MEDS: MIRTAZAPINE 7.5 MG TABLET. PO SCH (21:49)
[2018-10-27] MEDS: DULoxetine HCL 30 MG CAPSULE.DR PO SCH (21:49)
[2018-10-27] MEDS: IV DEXTROSE 5% - 0.9 % NACL 1,000 ML IV SCH (23:45)
[2018-10-28] VITALS (20 sets, daily range): BP systolic 111–158; BP diastolic 57–89
[2018-10-28] MEDS: fentaNYL PF VIAL 100 MCG/2 ML VIAL IV PRN (01:35)
--- NOTE | 2018-10-28 01:40 | NUR ---
Pt called out stating he is having chest pain rating it 10. 0135, Fentanyl given IVP per orders. Chest pain intensified radiating into jaw and neck. Nitro drip started per order.
--- NOTE | 2018-10-28 02:05 | NUR ---
Pt continues to have chest pain with nitro drip and IV fentanyl. Dr. Benson paged with immediate return call. Informed Dr. Benson that fentanyl has been given and Nitro drip has been titrated to 100mcg with no relief. New orders received for IV morphine.
[2018-10-28] MEDS ORDERED: MORPHINE SULFATE 2 MG/ML VIAL. IV PRN ×2 (02:15→13:30)
[2018-10-28] MEDS ORDERED: ONDANSETRON PF 4 MG/2 ML VIAL. IV PRN ×3 (02:30→13:30)
[2018-10-28 05:54] LABS: HEMATOCRIT 41.2 % (39.0-53.0); HEMOGLOBIN 13.6 g/dL (13.0-17.5); RED BLOOD COUNT 4.54 x10^6/uL (4.30-5.70); RED CELL DISTRIBUTION WIDTH 15.6 % (11.5-14.5); WHITE BLOOD COUNT 13.1 x10^3/uL (4.0-11.0)
[2018-10-28] MEDS ORDERED: VANCOMYCIN 10GM VIAL for OR. ONE (05:54)
[2018-10-28] MEDS ORDERED: SURGICEL HEMOSTAT 4X8 EACH. ONE (05:54)
[2018-10-28] MEDS ORDERED: 0.9 % SODIUM CHLORIDE 20 ML VIAL. IJ ONE ×3 (05:55→05:56)
[2018-10-28] MEDS ORDERED: PAPAVERINE 60 MG/2 ML VIAL FOR OR ONLY. ONE (05:55)
[2018-10-28] MEDS ORDERED: ASPIRIN RECTAL 300 MG SUPP. ONE (05:57)
[2018-10-28] MEDS ORDERED: HEPARIN 20,000 UNIT in IV RINGERS,LACTATED 1000ML 1,000 ML IRR ONE (06:00)
[2018-10-28] MEDS ORDERED: POTASSIUM CHLORIDE 15 MEQ, SODIUM BICARBONATE VIAL 12.5 MEQ in IV ELECTROLYTE-S (PH 7.4... IRR ONE (06:00)
[2018-10-28] MEDS ORDERED: POTASSIUM CHLORIDE 70 MEQ, SODIUM BICARBONATE VIAL 12.5 MEQ, LIDOCAINE 2% 24 ML in IV E... IRR ONE (06:00)
[2018-10-28 06:04] LABS: ALBUMIN 3.3 g/dL (3.4-5.0); ALBUMIN/GLOBULIN RATIO 0.8 (1.0-1.7); CALCIUM 9.3 mg/dL (8.5-10.1); CREATININE 1.1 mg/dL (0.7-1.3); GFR 70.9; MAGNESIUM 1.6 mg/dL (1.8-2.4); POTASSIUM 4.4 mmol/L (3.5-5.1); TOTAL BILIRUBIN 0.3 mg/dL (0.2-1.0); TOTAL PROTEIN 7.2 g/dL (6.4-8.2)
[2018-10-28 06:10] LABS: PROTHROMBIN TIME PATIENT 13.3 SEC (11.7-14.0)
[2018-10-28] MEDS ORDERED: ETOMIDATE 20 MG/10 ML VIAL. IV ONE (06:52)
[2018-10-28] MEDS ORDERED: ROCURONIUM 100 MG/10 ML VIAL. ONE ×2 (06:53→09:06)
[2018-10-28] MEDS ORDERED: PHENYLEPHRINE in 0.9% NACL PF 1 MG/10 ML SYRINGE. IV ONE (06:53)
[2018-10-28] MEDS ORDERED: MIDAZOLAM HCL/PF 5 MG/5 ML VIAL. ONE (06:54)
[2018-10-28] MEDS ORDERED: PHENYLEPHRINE 10 MG/ML VIAL. ONE ×2 (06:55→06:56)
[2018-10-28] MEDS ORDERED: SUFentanil 250 MCG/5 ML AMPUL. ONE (06:57)
[2018-10-28] MEDS ORDERED: AMINOCAPROIC ACID 5,000 MG/20 ML VIAL. IV ONE ×3 (06:58)
[2018-10-28] MEDS ORDERED: ePHEDrine PF IN SALINE 50 MG/10 ML SYRINGE. IV ONE (07:00)
[2018-10-28] MEDS ORDERED: LIDOCAINE 1% PF 2 ML VIAL. ONE (07:14)
[2018-10-28] MEDS ORDERED: INSULIN LISPRO 300 UNITS/3 ML INSULN.PEN. SQ SCH (08:00)
[2018-10-28] MEDS ORDERED: ACETAMINOPHEN 500 MG TABLET PO PRN (08:15)
[2018-10-28] MEDS ORDERED: DEXTROSE 50% 25 GM / 50ML DISP.SYRIN. IV PRN ×2 (08:15→13:30)
[2018-10-28] MEDS ORDERED: ACETAMINOPHEN/CODEINE 300/30MG TABLET. PO PRN (08:15)
[2018-10-28] MEDS ORDERED: ONDANSETRON ODT 4 MG TAB.RAPDIS. PO PRN (08:15)
[2018-10-28] MEDS ORDERED: HEPARIN 30,000 UNIT/30 ML VIAL. ONE (08:24)
[2018-10-28] MEDS: IV DEXTROSE 5% - 0.9 % NACL 1,000 ML IV SCH (09:00)
[2018-10-28] MEDS: DULoxetine HCL 30 MG CAPSULE.DR PO SCH ×2 (09:00→21:16)
[2018-10-28] MEDS: FENOFIBRATE,MICRONIZED 134 MG CAPSULE PO SCH (09:00)
[2018-10-28] MEDS: OXcarbazepine 300 MG TABLET PO SCH (09:00)
[2018-10-28] MEDS: OMEGA-3 FATTY ACIDS/FISH OIL 1,000 MG CAPSULE. PO SCH ×2 (09:00→21:17)
[2018-10-28] MEDS: TAMSULOSIN 0.4 MG CAP.ER.24H. PO SCH (09:00)
[2018-10-28] MEDS: LISINOPRIL 5 MG TABLET. PO SCH (09:00)
[2018-10-28] MEDS ORDERED: ceFAZolin SODIUM 1 GM VIAL ONE ×2 (09:20)
--- NOTE | 2018-10-28 09:46 | PDOC ---
PROGRESS NOTES Chief Complaint Chief Complaint CAD, 3 vessel disease dm1, check A1c htn lipids tobacco use disorder History of Present Illness History of Present Illness Out having CABG H&P note reviewed We'll go to ICU 108 post CABG Labs hemoglobin 13, blood sugars anywhere between 1 50- 200 Plan: check A1c Post CABG care Vitals Vitals Vital Signs Date Time Temp Pulse Resp B/P (MAP) Pulse Ox O2 Delivery O2 Flow Rate FiO2 10/28/18 07:17 98.2 67 15 119/70 96 Nasal Cannula 3.0 98.2 Physical Exam General: Alert, Oriented X3, mild distress Heart: Regular rate, Normal S1, Normal S2 Lungs: Clear Abdomen: Normal bowel sounds, Soft Extremities: No edema, Normal pulses Skin: Other (heavily tattooed) Labs LABS Laboratory Tests Test 10/27/18 11:49 10/27/18 14:40 10/27/18 18:05 10/27/18 18:09 Nasal Screen MRSA (PCR) Negative (Negative) Activated Partial Thromboplast Time 74 SEC (24-38) Sodium Level 136 mmol/L (136-145) Potassium Level 4.8 mmol/L (3.5-5.1) Chloride Level 102 mmol/L (98-107) Carbon Dioxide Level 23 mmol/L (21-32) Anion Gap 11 (6-14) Blood Urea Nitrogen 13 mg/dL (8-26) Creatinine 1.0 mg/dL (0.7-1.3) Estimated GFR (Cockcroft-Gault) 79.1 BUN/Creatinine Ratio 13 (6-20) Glucose Level 279 mg/dL (70-99) Calcium Level 9.6 mg/dL (8.5-10.1) Total Bilirubin 0.3 mg/dL (0.2-1.0) Aspartate Amino Transf (AST/SGOT) 18 U/L (15-37) Alanine Aminotransferase (ALT/SGPT) 15 U/L (16-63) Alkaline Phosphatase 64 U/L (46-116) Total Protein 6.9 g/dL (6.4-8.2) Albumin 3.4 g/dL (3.4-5.0) Albumin/Globulin Ratio 1.0 (1.0-1.7) Heparin Anti-Xa Act, Unfractionated 0.12 IU/mL (0.30-0.70) Glucose (Fingerstick) 277 mg/dL (70-99) Test 10/27/18 20:31 10/27/18 21:43 10/27/18 22:44 10/27/18 23:41 Glucose (Fingerstick) 258 mg/dL (70-99) 198 mg/dL (70-99) 161 mg/dL (70-99) 145 mg/dL (70-99) Test 10/28/18 00:39 10/28/18 01:44 10/28/18 02:46 10/28/18 03:45 Glucose (Fingerstick) 162 mg/dL (70-99) 91 mg/dL (70-99) 97 mg/dL (70-99) 154 mg/dL (70-99) Test 10/28/18 05:15 10/28/18 05:19 10/28/18 06:24 10/28/18 07:28 White Blood Count 13.1 x10^3/uL (4.0-11.0) Red Blood Count 4.54 x10^6/uL (4.30-5.70) Hemoglobin 13.6 g/dL (13.0-17.5) Hematocrit 41.2 % (39.0-53.0) Mean Corpuscular Volume 91 fL (79-100) Mean Corpuscular Hemoglobin 30 pg (25-35) Mean Corpuscular Hemoglobin Concent 33 g/dL (31-37) Red Cell Distribution Width 15.6 % (11.5-14.5) Platelet Count 380 x10^3/uL (140-400) Prothrombin Time 13.3 SEC (11.7-14.0) Prothromb Time International Ratio 1.0 (0.8-1.1) Activated Partial Thromboplast Time 33 SEC (24-38) Sodium Level 137 mmol/L (136-145) Potassium Level 4.4 mmol/L (3.5-5.1) Chloride Level 103 mmol/L (98-107) Carbon Dioxide Level 30 mmol/L (21-32) Anion Gap 4 (6-14) Blood Urea Nitrogen 13 mg/dL (8-26) Creatinine 1.1 mg/dL (0.7-1.3) Estimated GFR (Cockcroft-Gault) 70.9 BUN/Creatinine Ratio 12 (6-20) Glucose Level 224 mg/dL (70-99) Calcium Level 9.3 mg/dL (8.5-10.1) Magnesium Level 1.6 mg/dL (1.8-2.4) Total Bilirubin 0.3 mg/dL (0.2-1.0) Aspartate Amino Transf (AST/SGOT) 24 U/L (15-37) Alanine Aminotransferase (ALT/SGPT) 14 U/L (16-63) Alkaline Phosphatase 56 U/L (46-116) Total Protein 7.2 g/dL (6.4-8.2) Albumin 3.3 g/dL (3.4-5.0) Albumin/Globulin Ratio 0.8 (1.0-1.7) Glucose (Fingerstick) 221 mg/dL (70-99) 202 mg/dL (70-99) 145 mg/dL (70-99) Review of Systems Review of Systems Out having CABG Comment Review of Relevant I have reviewed the following items pratima (where applicable) has been applied. Labs Laboratory Tests Test 10/27/18 07:25 10/27/18 11:49 10/27/18 14:40 10/27/18 18:05 White Blood Count 13.0 x10^3/uL (4.0-11.0) Red Blood Count 4.88 x10^6/uL (4.30-5.70) Hemoglobin 14.8 g/dL (13.0-17.5) Hematocrit 44.0 % (39.0-53.0) Mean Corpuscular Volume 90 fL (79-100) Mean Corpuscular Hemoglobin 30 pg (25-35) Mean Corpuscular Hemoglobin Concent 34 g/dL (31-37) Red Cell Distribution Width 15.4 % (11.5-14.5) Platelet Count 418 x10^3/uL (140-400) Prothrombin Time 12.6 SEC (11.7-14.0) Prothromb Time International Ratio 1.0 (0.8-1.1) Sodium Level 139 mmol/L (136-145) 136 mmol/L (136-145) Potassium Level 4.1 mmol/L (3.5-5.1) 4.8 mmol/L (3.5-5.1) Chloride Level 102 mmol/L (98-107) 102 mmol/L (98-107) Carbon Dioxide Level 27 mmol/L (21-32) 23 mmol/L (21-32) Anion Gap 10 (6-14) 11 (6-14) Blood Urea Nitrogen 15 mg/dL (8-26) 13 mg/dL (8-26) Creatinine 1.1 mg/dL (0.7-1.3) 1.0 mg/dL (0.7-1.3) Estimated GFR (Cockcroft-Gault) 70.9 79.1 Glucose Level 137 mg/dL (70-99) 279 mg/dL (70-99) Calcium Level 10.0 mg/dL (8.5-10.1) 9.6 mg/dL (8.5-10.1) Nasal Screen MRSA (PCR) Negative (Negative) Activated Partial Thromboplast Time 74 SEC (24-38) BUN/Creatinine Ratio 13 (6-20) Total Bilirubin 0.3 mg/dL (0.2-1.0) Aspartate Amino Transf (AST/SGOT) 18 U/L (15-37) Alanine Aminotransferase (ALT/SGPT) 15 U/L (16-63) Alkaline Phosphatase 64 U/L (46-116) Total Protein 6.9 g/dL (6.4-8.2) Albumin 3.4 g/dL (3.4-5.0) Albumin/Globulin Ratio 1.0 (1.0-1.7) Heparin Anti-Xa Act, Unfractionated 0.12 IU/mL (0.30-0.70) Test 10/27/18 18:09 10/27/18 20:31 10/27/18 21:43 10/27/18 22:44 Glucose (Fingerstick) 277 mg/dL (70-99) 258 mg/dL (70-99) 198 mg/dL (70-99) 161 mg/dL (70-99) Test 10/27/18 23:41 10/28/18 00:39 10/28/18 01:44 10/28/18 02:46 Glucose (Fingerstick) 145 mg/dL (70-99) 162 mg/dL (70-99) 91 mg/dL (70-99) 97 mg/dL (70-99) Test 10/28/18 03:45 10/28/18 05:15 10/28/18 05:19 10/28/18 06:24 Glucose (Fingerstick) 154 mg/dL (70-99) 221 mg/dL (70-99) 202 mg/dL (70-99) White Blood Count 13.1 x10^3/uL (4.0-11.0) Red Blood Count 4.54 x10^6/uL (4.30-5.70) Hemoglobin 13.6 g/dL (13.0-17.5) Hematocrit 41.2 % (39.0-53.0) Mean Corpuscular Volume 91 fL (79-100) Mean Corpuscular Hemoglobin 30 pg (25-35) Mean Corpuscular Hemoglobin Concent 33 g/dL (31-37) Red Cell Distribution Width 15.6 % (11.5-14.5) Platelet Count 380 x10^3/uL (140-400) Prothrombin Time 13.3 SEC (11.7-14.0) Prothromb Time International Ratio 1.0 (0.8-1.1) Activated Partial Thromboplast Time 33 SEC (24-38) Sodium Level 137 mmol/L (136-145) Potassium Level 4.4 mmol/L (3.5-5.1) Chloride Level 103 mmol/L (98-107) Carbon Dioxide Level 30 mmol/L (21-32) Anion Gap 4 (6-14) Blood Urea Nitrogen 13 mg/dL (8-26) Creatinine 1.1 mg/dL (0.7-1.3) Estimated GFR (Cockcroft-Gault) 70.9 BUN/Creatinine Ratio 12 (6-20) Glucose Level 224 mg/dL (70-99) Calcium Level 9.3 mg/dL (8.5-10.1) Magnesium Level 1.6 mg/dL (1.8-2.4) Total Bilirubin 0.3 mg/dL (0.2-1.0) Aspartate Amino Transf (AST/SGOT) 24 U/L (15-37) Alanine Aminotransferase (ALT/SGPT) 14 U/L (16-63) Alkaline Phosphatase 56 U/L (46-116) Total Protein 7.2 g/dL (6.4-8.2) Albumin 3.3 g/dL (3.4-5.0) Albumin/Globulin Ratio 0.8 (1.0-1.7) Test 4/24/19 07:28 Glucose (Fingerstick) 145 mg/dL (70-99) Laboratory Tests Test 10/27/18 11:49 10/27/18 14:40 10/27/18 18:05 10/27/18 18:09 Nasal Screen MRSA (PCR) Negative (Negative) Activated Partial Thromboplast Time 74 SEC (24-38) Sodium Level 136 mmol/L (136-145) Potassium Level 4.8 mmol/L (3.5-5.1) Chloride Level 102 mmol/L (98-107) Carbon Dioxide Level 23 mmol/L (21-32) Anion Gap 11 (6-14) Blood Urea Nitrogen 13 mg/dL (8-26) Creatinine 1.0 mg/dL (0.7-1.3) Estimated GFR (Cockcroft-Gault) 79.1 BUN/Creatinine Ratio 13 (6-20) Glucose Level 279 mg/dL (70-99) Calcium Level 9.6 mg/dL (8.5-10.1) Total Bilirubin 0.3 mg/dL (0.2-1.0) Aspartate Amino Transf (AST/SGOT) 18 U/L (15-37) Alanine Aminotransferase (ALT/SGPT) 15 U/L (16-63) Alkaline Phosphatase 64 U/L (46-116) Total Protein 6.9 g/dL (6.4-8.2) Albumin 3.4 g/dL (3.4-5.0) Albumin/Globulin Ratio 1.0 (1.0-1.7) Heparin Anti-Xa Act, Unfractionated 0.12 IU/mL (0.30-0.70) Glucose (Fingerstick) 277 mg/dL (70-99) Test 10/27/18 20:31 10/27/18 21:43 10/27/18 22:44 10/27/18 23:41 Glucose (Fingerstick) 258 mg/dL (70-99) 198 mg/dL (70-99) 161 mg/dL (70-99) 145 mg/dL (70-99) Test 10/28/18 00:39 10/28/18 01:44 10/28/18 02:46 10/28/18 03:45 Glucose (Fingerstick) 162 mg/dL (70-99) 91 mg/dL (70-99) 97 mg/dL (70-99) 154 mg/dL (70-99) Test 10/28/18 05:15 10/28/18 05:19 10/28/18 06:24 10/28/18 07:28 White Blood Count 13.1 x10^3/uL (4.0-11.0) Red Blood Count 4.54 x10^6/uL (4.30-5.70) Hemoglobin 13.6 g/dL (13.0-17.5) Hematocrit 41.2 % (39.0-53.0) Mean Corpuscular Volume 91 fL (79-100) Mean Corpuscular Hemoglobin 30 pg (25-35) Mean Corpuscular Hemoglobin Concent 33 g/dL (31-37) Red Cell Distribution Width 15.6 % (11.5-14.5) Platelet Count 380 x10^3/uL (140-400) Prothrombin Time 13.3 SEC (11.7-14.0) Prothromb Time International Ratio 1.0 (0.8-1.1) Activated Partial Thromboplast Time 33 SEC (24-38) Sodium Level 137 mmol/L (136-145) Potassium Level 4.4 mmol/L (3.5-5.1) Chloride Level 103 mmol/L (98-107) Carbon Dioxide Level 30 mmol/L (21-32) Anion Gap 4 (6-14) Blood Urea Nitrogen 13 mg/dL (8-26) Creatinine 1.1 mg/dL (0.7-1.3) Estimated GFR (Cockcroft-Gault) 70.9 BUN/Creatinine Ratio 12 (6-20) Glucose Level 224 mg/dL (70-99) Calcium Level 9.3 mg/dL (8.5-10.1) Magnesium Level 1.6 mg/dL (1.8-2.4) Total Bilirubin 0.3 mg/dL (0.2-1.0) Aspartate Amino Transf (AST/SGOT) 24 U/L (15-37) Alanine Aminotransferase (ALT/SGPT) 14 U/L (16-63) Alkaline Phosphatase 56 U/L (46-116) Total Protein 7.2 g/dL (6.4-8.2) Albumin 3.3 g/dL (3.4-5.0) Albumin/Globulin Ratio 0.8 (1.0-1.7) Glucose (Fingerstick) 221 mg/dL (70-99) 202 mg/dL (70-99) 145 mg/dL (70-99) Medications Current Medications Lidocaine HCl (Xylocaine-Mpf 1% 2ml Vial) 2 ml STK-MED ONCE .ROUTE ; Start 10/27/18 at 07:57; Stop 10/27/18 at 07:58; Status DC Iohexol (Omnipaque 300 Mg/ml) 100 ml STK-MED ONCE .ROUTE ; Start 10/27/18 at 07:57; Stop 10/27/18 at 07:58; Status DC Heparin Sodium/ Sodium Chloride 1,000 ml @ As Directed STK-MED ONCE .ROUTE ; Start 10/27/18 at 07:58; Stop 10/27/18 at 07:59; Status DC Fentanyl Citrate (Fentanyl 2ml Vial) 100 mcg STK-MED ONCE .ROUTE ; Start 10/27/18 at 08:15; Stop 10/27/18 at 08:16; Status DC Midazolam HCl (Versed) 2 mg STK-MED ONCE .ROUTE ; Start 10/27/18 at 08:16; Stop 10/27/18 at 08:17; Status DC Heparin Sodium (Porcine) (Heparin Sodium) 10,000 unit STK-MED ONCE .ROUTE ; Start 10/27/18 at 08:16; Stop 10/27/18 at 08:17; Status DC Verapamil HCl (Verapamil) 5 mg STK-MED ONCE .ROUTE ; Start 10/27/18 at 08:16; Stop 10/27/18 at 08:17; Status DC Nitroglycerin (Nitroglycerin) 200 mcg STK-MED ONCE .ROUTE ; Start 10/27/18 at 08:16; Stop 10/27/18 at 08:17; Status DC Midazolam HCl (Versed) 2 mg STK-MED ONCE .ROUTE ; Start 10/27/18 at 08:42; Stop 10/27/18 at 08:43; Status DC Diphenhydramine HCl (Benadryl) 50 mg STK-MED ONCE .ROUTE ; Start 10/27/18 at 08:42; Stop 10/27/18 at 08:43; Status DC Bivalirudin (Angiomax) 250 mg STK-MED ONCE IV ; Start 10/27/18 at 08:59; Stop 10/27/18 at 09:00; Status DC Iohexol (Omnipaque 300 Mg/ml) 100 ml STK-MED ONCE .ROUTE ; Start 10/27/18 at 09:00; Stop 10/27/18 at 09:01; Status DC Heparin Sodium (Porcine) (Heparin Sodium) 10,000 unit STK-MED ONCE .ROUTE ; Start 10/27/18 at 09:22; Stop 10/27/18 at 09:23; Status DC Verapamil HCl (Verapamil) 5 mg STK-MED ONCE .ROUTE ; Start 10/27/18 at 09:22; Stop 10/27/18 at 09:23; Status DC Nitroglycerin/ Dextrose (Nitroglycerin) 4 mg STK-MED ONCE .ROUTE ; Start 10/27/18 at 09:22; Stop 10/27/18 at 09:23; Status DC Verapamil HCl (Verapamil) 5 mg STK-MED ONCE .ROUTE ; Start 10/27/18 at 09:24; Stop 10/27/18 at 09:25; Status DC Lidocaine HCl (Lidocaine 1% 20ml Vial) 20 ml STK-MED ONCE .ROUTE ; Start 10/27/18 at 09:27; Stop 10/27/18 at 09:28; Status DC Fentanyl Citrate (Fentanyl 2ml Vial) 100 mcg STK-MED ONCE .ROUTE ; Start 10/27/18 at 09:31; Stop 10/27/18 at 09:32; Status DC Midazolam HCl (Versed) 2 mg STK-MED ONCE .ROUTE ; Start 10/27/18 at 09:32; Stop 10/27/18 at 09:33; Status DC Dopamine HCl/ Dextrose 250 ml @ As Directed STK-MED ONCE IV ; Start 10/27/18 at 09:33; Stop 10/27/18 at 09:34; Status DC Bivalirudin (Angiomax) 250 mg STK-MED ONCE IV ; Start 10/27/18 at 10:14; Stop 10/27/18 at 10:15; Status DC Iohexol (Omnipaque 300 Mg/ml) 100 ml STK-MED ONCE .ROUTE ; Start 10/27/18 at 10:26; Stop 10/27/18 at 10:27; Status DC Nitroglycerin (Nitroglycerin) 200 mcg 1X ONCE IART Last administered on 10/27/18 11:32; Start 10/27/18 at 10:00; Stop 10/27/18 at 10:33; Status DC Verapamil HCl (Verapamil) 2.5 mg 1X ONCE IART Last administered on 10/27/18 11:34; Start 10/27/18 at 10:00; Stop 10/27/18 at 10:33; Status DC Heparin Sodium (Porcine) (Heparin Sodium) 2,500 unit 1X ONCE IART Last administered on 10/27/18 11:37; Start 10/27/18 at 10:00; Stop 10/27/18 at 10:33; Status DC Heparin Sodium/ Sodium Chloride (HEPARIN for ARTERIAL LINE FLUSH) 1,000 unit 1X ONCE IART Last administered on 10/27/18 11:31; Start 10/27/18 at 10:00; Stop 10/27/18 at 10:33; Status DC Heparin Sodium/ Sodium Chloride (HEPARIN for ARTERIAL LINE FLUSH) 1,000 unit 1X ONCE IART Last administered on 10/27/18 11:31; Start 10/27/18 at 10:00; Stop 10/27/18 at 10:33; Status DC Midazolam HCl (Versed) 5 mg 1X ONCE IV Last administered on 10/27/18 11:34; Start 10/27/18 at 10:00; Stop 10/27/18 at 10:33; Status DC Fentanyl Citrate (Fentanyl 2ml Vial) 125 mcg 1X ONCE IV Last administered on 10/27/18 11:35; Start 10/27/18 at 10:00; Stop 10/27/18 at 10:33; Status DC Iohexol (Omnipaque 300 Mg/ml) 100 ml 1X ONCE IART Last administered on 10/27/18 11:31; Start 10/27/18 at 10:00; Stop 10/27/18 at 10:33; Status DC Bivalirudin (Angiomax) 500 mg 1X ONCE IV Last administered on 10/27/18 11:33; Start 10/27/18 at 10:00; Stop 10/27/18 at 10:33; Status DC Lidocaine HCl (Lidocaine 1% 20ml Vial) 10 ml 1X ONCE INJ Last administered on 10/27/18 11:32; Start 10/27/18 at 10:00; Stop 10/27/18 at 10:33; Status DC Nitroglycerin/ Dextrose 4 mg/ Verapamil HCl 10 mg/Heparin Sodium (Porcine) 4000 unit/ Miscellaneous 20 ml/Sodium Chloride 1,048 ml @ 1,000 mls/hr 1X ONCE IART Last administered on 10/27/18at 10:00; Start 10/27/18 at 10:00; Stop 10/27/18 at 11:02; Status DC Dopamine HCl/ Dextrose 250 ml @ 6.6 mls/hr 1X ONCE IV Last administered on 10/27/18at 10:00; Start 10/27/18 at 10:00; Stop 10/28/18 at 23:52 Lidocaine HCl (Xylocaine-Mpf 1% 2ml Vial) 1 ml 1X ONCE INJ Last administered on 10/27/18at 11:33; Start 10/27/18 at 10:00; Stop 10/27/18 at 10:33; Status DC Diphenhydramine HCl (Benadryl) 50 mg 1X ONCE IVP Last administered on 10/27/18a t 11:36; Start 10/27/18 at 10:00; Stop 10/27/18 at 10:33; Status DC Info (CONTRAST GIVEN -- Rx MONITORING) 1 each PRN DAILY PRN MC SEE COMMENTS; Start 10/27/18 at 10:45; Stop 10/29/18 at 10:44 Heparin Sodium/ Dextrose 500 ml @ As Directed STK-MED ONCE IV ; Start 10/27/18 at 11:06; Stop 10/27/18 at 11:07; Status DC Tirofiban/Sodium Chloride 100 ml @ As Directed STK-MED ONCE IV ; Start 10/27/18 at 11:12; Stop 10/27/18 at 11:13; Status DC Tirofiban/Sodium Chloride 100 ml @ 0 mls/hr CONT PRN IV PER PROTOCOL Last administered on 10/27/18at 17:29; Start 10/27/18 at 11:30; Stop 10/28/18 at 05:29; Status DC Heparin Sodium/ Dextrose 500 ml @ 0 mls/hr CONT PRN IV SEE I/O RECORD Last administered on 10/27/18at 11:17; Start 10/27/18 at 11:30 Heparin Sodium (Porcine) (Heparin Sodium) 2,200 unit PRN Q6HRS PRN IV FOR UFH LEVEL LESS THAN 0.2 Last administered on 10/27/18at 19:31; Start 10/27/18 at 11:30 Info (Anti-Coagulation Monitoring By Pharmacy) 1 each PRN DAILY PRN MC SEE COMMENTS; Start 10/27/18 at 11:45 Sodium Chloride 1,000 ml @ 100 mls/hr Q10H IV Last administered on 10/27/18at 13:07; Start 10/27/18 at 12:00 Tirofiban/Sodium Chloride 100 ml @ 0 mls/hr CONT PRN IV PER PROTOCOL; Start 10/27/18 at 11:30; Stop 10/28/18 at 05:29; Status UNV Acetaminophen (Tylenol) 650 mg PRN Q6HRS PRN PO MILD PAIN / TEMP; Start 10/27/18 at 11:30 Fentanyl Citrate (Fentanyl 2ml Vial) 50 mcg PRN Q1HR PRN IV MODERATE OR SEVERE PAIN Last administered on 10/28/18at 01:35; Start 10/27/18 at 11:30 Nitroglycerin (Nitrostat) 0.4 mg PRN Q5MIN PRN SL CHEST PAIN Last administered on 10/27/18at 13:05; Start 10/27/18 at 13:00 Nitroglycerin/ Dextrose 250 ml @ 1.5 mls/hr CONT PRN IV SEE I/O RECORD Last administered on 10/28/18at 01:27; Start 10/27/18 at 13:00 Cefazolin Sodium/ Dextrose 50 ml @ 100 mls/hr 1X ONCE IV ; Start 10/28/18 at 06:00; Stop 10/28/18 at 06:29; Status DC Nicotine (Nicoderm Cq 21mg) 1 patch PRN DAILY PRN TD SMOKING CESSATION Last administered on 10/27/18at 17:41; Start 10/27/18 at 17:30 Atorvastatin Calcium (Lipitor) 40 mg QHS PO Last administered on 10/27/18at 21:49; Start 10/27/18 at 21:00 Lurasidone HCl (Latuda) 80 mg QHS PO ; Start 10/27/18 at 21:00 Tamsulosin HCl (Flomax) 0.4 mg DAILY PO ; Start 10/28/18 at 09:00 Duloxetine HCl (Cymbalta) 60 mg BID PO Last administered on 10/27/18at 21:49; Start 10/27/18 at 21:00 Lisinopril (Prinivil) 5 mg DAILY PO ; Start 10/28/18 at 09:00 Mirtazapine (Remeron) 7.5 mg QHS PO Last administered on 10/27/18at 21:49; Start 10/27/18 at 21:00 Oxcarbazepine (Trileptal) 300 mg DAILY PO ; Start 10/28/18 at 09:00 Insulin Glargine (Lantus) 35 units QHS SQ ; Start 10/27/18 at 21:00; Stop 10/27/18 at 21:00; Status DC Insulin Human Lispro (HumaLOG) 10 units TIDWMEALS SQ Last administered on 10/27/18at 18:10; Start 10/27/18 at 18:30; Stop 10/27/18 at 20:21; Status DC Insulin Human Lispro (HumaLOG) 0-7 UNITS TIDWMEALS SQ ; Start 10/28/18 at 08:00; Stop 10/28/18 at 08:17; Status DC Dextrose (Dextrose 50%-Water Syringe) 12.5 gm PRN Q15MIN PRN IV SEE COMMENTS; Start 10/27/18 at 18:00 Oxycodone HCl (Roxicodone) 5 mg PRN Q4HRS PRN PO MODERATE-SEVERE PAIN Last administered on 10/27/18at 18:10; Start 10/27/18 at 18:00 Potassium Chloride 70 meq/ Sodium Bicarbonate 12.5 meq/Lidocaine HCl 24 ml/Parenteral Electrolytes 571.5 ml @ 571.5 mls/ hr 1X ONCE IRR ; Start 10/28/18 at 06:00; Stop 10/28/18 at 06:59; Status DC Potassium Chloride 15 meq/ Sodium Bicarbonate 12.5 meq/Parenteral Electrolytes 520 ml @ 520 mls/hr 1X ONCE IRR ; Start 10/28/18 at 06:00; Stop 10/28/18 at 06:59; Status DC Heparin Sodium (Porcine) 64071 unit/Ringer's Solution 1,020 ml @ 1,020 mls/hr 1X ONCE IRR ; Start 10/28/18 at 06:00; Stop 10/28/18 at 06:59; Status DC Cefazolin Sodium 1 gm/Sodium Chloride 500 ml @ 500 mls/hr 1X ONCE IRR ; Start 10/28/18 at 06:00; Stop 10/28/18 at 06:59; Status DC Zolpidem Tartrate (Ambien) 5 mg PRN QHS PRN PO INSOMNIA; Start 10/27/18 at 20:00 Insulin Human Regular 150 unit/ Sodium Chloride 151.5 ml @ 0 mls/hr CONT PRN IV SEE I/O RECORD Last administered on 10/27/18at 20:39; Start 10/27/18 at 20:15 Sodium Chloride 1,000 ml @ 50 mls/hr Q20H IV ; Start 10/27/18 at 20:15 Dextrose/Sodium Chloride 1,000 ml @ 100 mls/hr Q10H IV Last administered on 10/27/18at 23:45; Start 10/27/18 at 23:00 Morphine Sulfate (Morphine Sulfate) 2 mg PRN Q30MIN PRN IV PAIN Last administered on 10/28/18at 02:16; Start 10/28/18 at 02:15 Ondansetron HCl (Zofran) 4 mg PRN Q6HRS PRN IV NAUSEA/VOMITING Last ad ministered on 10/28/18at 02:31; Start 10/28/18 at 02:30 Etomidate (Amidate) 20 mg STK-MED ONCE IV ; Start 10/28/18 at 06:52; Stop 10/28/18 at 06:53; Status DC Phenylephrine HCl (PHENYLEPHRINE in 0.9% NACL PF) 1 mg STK-MED ONCE IV ; Start 10/28/18 at 06:53; Stop 10/28/18 at 06:54; Status DC Rocuronium [place] (Zemuron) 100 mg STK-MED ONCE .ROUTE ; Start 10/28/18 at 06:53; Stop 10/28/18 at 06:54; Status DC Midazolam HCl (Versed) 5 mg STK-MED ONCE .ROUTE ; Start 10/28/18 at 06:54; Stop 10/28/18 at 06:55; Status DC Vancomycin HCl (VANCO for OR ONLY) 10 gm STK-MED ONCE .ROUTE ; Start 10/28/18 at 05:54; Stop 10/28/18 at 06:55; Status DC Cellulose (Surgicel Hemostat 4x8) 1 each STK-MED ONCE .ROUTE ; Start 10/28/18 at 05:54; Stop 10/28/18 at 06:55; Status DC Papaverine HCl 60 mg STK-MED ONCE .ROUTE ; Start 10/28/18 at 05:55; Stop 10/28/18 at 06:55; Status DC Sodium Chloride (SODIUM CHLORIDE 20ml) 20 ml STK-MED ONCE IJ ; Start 10/28/18 at 05:55; Stop 10/28/18 at 06:55; Status DC Sodium Chloride (SODIUM CHLORIDE 20ml) 20 ml STK-MED ONCE IJ ; Start 10/28/18 at 05:55; Stop 10/28/18 at 06:55; Status DC Phenylephrine HCl (Jameel-Synephrine Inj) 10 mg STK-MED ONCE .ROUTE ; Start 10/28/18 at 06:55; Stop 10/28/18 at 06:56; Status DC Sodium Chloride (SODIUM CHLORIDE 20ml) 20 ml STK-MED ONCE IJ ; Start 10/28/18 at 05:56; Stop 10/28/18 at 06:56; Status DC Phenylephrine HCl (Jameel-Synephrine Inj) 10 mg STK-MED ONCE .ROUTE ; Start 10/28/18 at 06:56; Stop 10/28/18 at 06:57; Status DC Aspirin (Aspirin) 300 mg STK-MED ONCE .ROUTE ; Start 10/28/18 at 05:57; Stop 10/28/18 at 06:57; Status DC Sufentanil Citrate (Sufenta) 250 mcg STK-MED ONCE .ROUTE ; Start 10/28/18 at 06:57; Stop 10/28/18 at 06:58; Status DC Aminocaproic Acid (Amicar) 5,000 mg STK-MED ONCE IV ; Start 10/28/18 at 06:58; Stop 10/28/18 at 06:59; Status DC Aminocaproic Acid (Amicar) 5,000 mg STK-MED ONCE IV ; Start 10/28/18 at 06:58; Stop 10/28/18 at 06:59; Status DC Aminocaproic Acid (Amicar) 5,000 mg STK-MED ONCE IV ; Start 10/28/18 at 06:58; Stop 10/28/18 at 06:59; Status DC Ephedrine Sulfate (ePHEDrine PF IN SALINE SYRINGE) 50 mg STK-MED ONCE IV ; Start 10/28/18 at 07:00; Stop 10/28/18 at 07:01; Status DC Lidocaine HCl (Xylocaine-Mpf 1% 2ml Vial) 2 ml STK-MED ONCE .ROUTE ; Start 10/28/18 at 07:14; Stop 10/28/18 at 07:15; Status DC Acetaminophen (Tylenol) 500 mg PRN Q6HRS PRN PO MILD PAIN / TEMP; Start 10/28/18 at 08:15 Acetaminophen/ Codeine Phosphate (Tylenol #3) 1 tab PRN Q6HRS PRN PO MODERATE PAIN; Start 10/28/18 at 08:15 Ondansetron HCl (Zofran) 4 mg PRN Q6HRS PRN IV NAUSEA/VOMITING; Start 10/28/18 at 08:15 Ondansetron HCl (Zofran Odt) 4 mg PRN Q6HRS PRN PO NAUSEA/VOMITING; Start 10/28/18 at 08:15 Insulin Human Lispro (HumaLOG) 0-9 UNITS TIDWMEALS SQ ; Start 10/28/18 at 12:00 Dextrose (Dextrose 50%-Water Syringe) 12.5 gm PRN Q15MIN PRN IV SEE COMMENTS; Start 10/28/18 at 08:15 Fenofibrate (Lofibra) 134 mg DAILY PO ; Start 10/28/18 at 09:00 Fish Oil (Fish Oil) 2,000 mg BID PO ; Start 10/28/18 at 09:00 Heparin Sodium (Porcine) 30,000 unit STK-MED ONCE .ROUTE ; Start 10/28/18 at 08:24; Stop 10/28/18 at 08:25; Status DC Verapamil HCl (Verapamil) 10 mg STK-MED ONCE .ROUTE ; Start 10/27/18 at 10:00; Stop 10/28/18 at 08:58; Status DC Rocuronium [place] (Zemuron) 100 mg STK-MED ONCE .ROUTE ; Start 10/28/18 at 09:0 6; Stop 10/28/18 at 09:07; Status DC Cefazolin Sodium (Ancef) 1 gm STK-MED ONCE .ROUTE ; Start 10/28/18 at 09:20; Stop 10/28/18 at 09:21; Status DC Cefazolin Sodium (Ancef) 1 gm STK-MED ONCE .ROUTE ; Start 10/28/18 at 09:20; Stop 10/28/18 at 09:21; Status DC Active Scripts Active Levemir (Insulin Detemir) 100 Unit/1 Ml Vial 60 Unit SQ QHS Reported Mirtazapine 15 Mg Tablet 0.5 Tab PO QHS [place] 3 Fish Oil Softgel ([place]-3 Fatty Acids/Fish Oil) 1 Each Capsule.dr 2 Each PO BID [regular insulin] 45 Cymbalta (Duloxetine Hcl) 60 Mg Capsule.dr 1 Cap PO BID Oxcarbazepine 300 Mg Tablet 300 Mg PO DAILY Fenofibrate (Fenofibrate Nanocrystallized) 145 Mg Tablet 1 Tab PO DAILY Atorvastatin Calcium 40 Mg Tablet 1 Tab PO DAILY Celebrex (Celecoxib) 100 Mg Capsule 1 Cap PO BID Latuda (Lurasidone Hcl) 40 Mg Tablet 80 Tab PO QHS Tamsulosin Hcl 0.4 Mg Cap.er.24h 0.4 Mg PO DAILY Lisinopril 5 Mg Tablet 5 Mg PO DAILY Metformin Hcl 1,000 Mg Tablet 500 Tab PO BID Vitals/I & O Vital Sign - Last 24 Hours 10/27/18 10/27/18 10/27/18 10/27/18 10:00 11:34 11:35 11:45 Pulse 58 58 58 Resp 18 15 Pulse Ox 94 95 O2 Delivery Nasal Cannula Room Air O2 Flow Rate 2.0 10/27/18 10/27/18 10/27/18 10/27/18 11:45 11:45 12:30 12:30 Temp 98.1 98.1 Pulse 68 64 Resp 18 20 B/P (MAP) 122/78 (93) 109/70 (83) Pulse Ox 94 94 95 O2 Delivery Room Air Room Air Room Air Room Air O2 Flow Rate 2.0 10/27/18 10/27/18 10/27/18 10/27/18 12:45 13:00 13:05 13:15 Pulse 64 75 73 74 Resp 20 20 18 B/P (MAP) 108/68 (81) 109/65 (80) 106/72 106/72 (83) Pulse Ox 92 92 91 O2 Delivery Room Air Room Air Room Air 10/27/18 10/27/18 10/27/18 10/27/18 13:30 14:00 14:19 15:00 Pulse 70 68 63 Resp 19 21 17 B/P (MAP) 104/66 (79) 107/69 (82) 89/60 (70) Pulse Ox 92 94 92 92 O2 Delivery Room Air Room Air Room Air Room Air 10/27/18 10/27/18 10/27/18 10/27/18 16:00 16:00 17:00 18:00 Temp 98.7 98.7 Pulse 61 74 60 Resp 19 20 20 B/P (MAP) 103/70 (81) 110/74 (86) 110/71 (84) Pulse Ox 93 93 94 O2 Delivery Room Air Room Air Room Air Room Air 10/27/18 10/27/18 10/27/18 10/27/18 18:10 19:00 19:10 19:30 Pulse 66 Resp 16 16 B/P (MAP) 111/73 (86) Pulse Ox 88 91 O2 Delivery Room Air Room Air Room Air Nasal Cannula O2 Flow Rate 2.0 10/27/18 10/27/18 10/27/18 10/27/18 20:00 21:00 22:00 23:00 Temp 98.4 98.4 Pulse 64 66 66 65 Resp 17 22 24 21 B/P (MAP) 91/57 (68) 92/57 (69) 111/72 (85) 131/70 (90) Pulse Ox 97 99 94 92 O2 Delivery Nasal Cannula Nasal Cannula Nasal Cannula Nasal Cannula O2 Flow Rate 2.0 2.0 2.0 2.0 10/27/18 10/28/18 10/28/18 10/28/18 23:57 00:00 01:00 01:35 Temp 98.6 98.6 Pulse 66 58 Resp 17 15 22 B/P (MAP) 111/61 (78) 113/75 (88) Pulse Ox 93 97 96 O2 Delivery Nasal Cannula Nasal Cannula Nasal Cannula Nasal Cannula O2 Flow Rate 2.0 2.0 2.0 2.0 10/28/18 10/28/18 10/28/18 10/28/18 02:00 02:05 02:16 02:46 Pulse 65 Resp 23 B/P (MAP) 158/83 (108) Pulse Ox 93 93 93 93 O2 Delivery Nasal Cannula Nasal Cannula Nasal Cannula Nasal Cannula O2 Flow Rate 2.0 2.0 2.0 2.0 10/28/18 10/28/18 10/28/18 10/28/18 03:00 04:00 04:00 05:00 Temp 98.2 98.2 Pulse 65 65 70 Resp 20 20 16 B/P (MAP) 115/73 (87) 125/66 (85) 133/89 (104) Pulse Ox 93 93 95 O2 Delivery Nasal Cannula Nasal Cannula Nasal Cannula Nasal Cannula O2 Flow Rate 4.0 4.0 2.0 4.0 10/28/18 10/28/18 06:00 07:17 Temp 98.2 98.2 Pulse 68 67 Resp 19 15 B/P (MAP) 130/70 (90) 119/70 Pulse Ox 90 96 O2 Delivery Nasal Cannula Nasal Cannula O2 Flow Rate 4.0 3.0 Intake and Output 10/27/18 10/27/18 10/28/18 15:00 23:00 07:00 Intake Total 0 ml 1420 ml 3365.3 ml Output Total 1050 ml 3275 ml 1350 ml Balance -1050 ml -1855 ml 2015.3 ml JANETH FLANAGAN MD Oct 28, 2018 09:46
[2018-10-28] MEDS ORDERED: HEPARIN for IV BOLUS 10,000 UNIT/10 ML VIAL. ONE ×2 (10:24→12:17)
[2018-10-28] MEDS ORDERED: PROTAMINE 250 MG/25 ML VIAL IV ONE (11:22)
[2018-10-28] MEDS: INSULIN LISPRO 300 UNITS/3 ML INSULN.PEN. SQ SCH ×2 (12:00→17:00)
[2018-10-28] MEDS ORDERED: PROTAMINE 50 MG/5 ML VIAL. IV ONE (12:11)
[2018-10-28] MEDS ORDERED: MANNITOL 25% 12.5 G/50 ML VIAL FOR OR. ONE (12:17)
[2018-10-28] MEDS ORDERED: CALCIUM CHLORIDE 1,000 MG/10 ML DISP.SYRIN ONE (12:17)
[2018-10-28] MEDS ORDERED: MAGNESIUM SULFATE 5 GM/10 ML VIAL. ONE (12:17)
[2018-10-28] MEDS ORDERED: ALBUMIN HUMAN 25% 100 ML IV ONE (12:17)
[2018-10-28] MEDS ORDERED: LIDOCAINE 2% PF 5 ML VIAL. ONE (12:17)
[2018-10-28] MEDS ORDERED: NITROGLYCERIN PREMIX 250 ML IV ONE (12:30)
[2018-10-28] MEDS ORDERED: AMIODARONE 900 MG in IV DEXTROSE 5% 500 ML IV PRN ×2 (12:45→13:30)
[2018-10-28] MEDS ORDERED: AMIODARONE 150 MG in IV DEXTROSE 5% 100ML 100 ML IV ONE ×2 (12:45→13:30)
[2018-10-28] MEDS ORDERED: fentaNYL PF VIAL 100 MCG/2 ML VIAL ONE (12:56)
--- NOTE | 2018-10-28 13:01 | NUR ---
Communication w OR on patient status w updates passed along to family. Post 'recovery" visitation reinforced
[2018-10-28 13:09] LABS: HEMATOCRIT 36.6 % (39.0-53.0); HEMOGLOBIN 12.1 g/dL (13.0-17.5); WHITE BLOOD COUNT 14.9 x10^3/uL (4.0-11.0)
[2018-10-28 13:17] LABS: PROTHROMBIN TIME PATIENT 15.6 SEC (11.7-14.0)
--- NOTE | 2018-10-28 13:19 | PDOC ---
BRIEF OPERATIVE NOTE Date: Oct 28, 2018 Pre-Op Diagnosis Unstable angina Coronary artery disease Diabetes type 1 Hypertension Hyperlipidemia Active smoker Post-Op Diagnosis Unstable angina Coronary artery disease Diabetes type 1 Hypertension Hyperlipidemia Active smoker Procedure Performed CABG x 3 (PICKERING to LAD, SVG to RPDA, SVG to diagonal 1) Left endoscopic and open greater saphenous vein harvest Surgeon Triston Cartwright MD Employment Programs Analyst Lucia Quevedo, PATTERN CARRIER Sydni Jerez [facility] Anesthesiologist Dr Soto Anesthesia Type: General Blood Loss Cellsaver IV Fluid Crystalloid: 1700 mls Cellsaver: 1000 mls Urine Output 735 mls Specimens Obtained None Findings 2mm distal LAD, RPDA and diagonal targets Good size and quality vein conduit Excellent flow in PICKERING CPB time: 95 min x-clamp time: 82 min Complications None TRISTON CARTWRIGHT MD Oct 28, 2018 13:19
--- NOTE | 2018-10-28 13:20 | PDOC4 ---
Operative Note Operative Note Date Oct 28, 2018 Preoperative diagnosis Unstable angina Coronary artery disease Diabetes type 1 Hypertension Hyperlipidemia Active smoker Postoperative diagnosis Unstable angina Coronary artery disease Diabetes type 1 Hypertension Hyperlipidemia Active smoker Procedure performed CABG x 3 (PICKERING to LAD, SVG to RPDA, SVG to diagonal 1) Left endoscopic and open greater saphenous vein harvest Surgeon Seema Cartwright MD Business Applications Analyst Lucia Quevedo, HEATHER Nagy Anesthesiologist Dr Soto Anesthesia type General Blood loss Cellsaver IV fluids Crystalloid: 1700 mls Cellsaver: 1000 mls Urine Output 735 mls Specimens Obtained None Findings 2mm distal LAD, RPDA and diagonal targets Good size and quality vein conduit Excellent flow in PICKERING CPB time: 95 min x-clamp time: 82 min Complications None Indication The patient is a 48 year old male with a history of diabetes, hypertension, hyperlipidemia, strong family history of ischemic heart disease, who was admitted in September 2018 with diabetic ketoacidosis. At that time he had short runs of self terminating V. tach, which were thought to be from to electrolyte disorders. He follow up in the cardiology clinic and that time he mentioned that he was experiencing angina at rest for the past 2 months. He symptoms prompted a coronary angiogram yesterday which demonstrated a mid and distal tight LAD stenosis, a 90% lesion at the ostium of a large diagonal, and a proximal and distal tight stenosis of the dominant RCA. The left circumflex has mild 40% stenosis. An echo last month showed preserved LV function with an EF of 50-60%. An attempt was made to treat the RCA lesions using a Rotablator, which was not satisfactory. Therefore the patient was referred for surgical coronary revascularization. Operation After appropriate identification, the patient was brought to the operating room and placed supine on the operating table. Anesthesia was induced and the airway was secured with an endotracheal tube. A right IJ Bristol-Carey catheter was placed. A left radial arterial line was also inserted. Antibiotics were delivered and the patient was preped and draped in the usual standard surgical sterile fashion. A timeout was then performed. A median sternotomy was performed and the left internal mammary artery was harvested, which was of good size, with excellent flow. Simultaneously the left greater saphenous vein was harvested endoscopically, but only the distal half of the vein was of good quality and caliber. As a result, we proceeded with harvesting an additional length of vein through an incision in the lower leg. The pericardium was incised. The patient was heparinized. Cardiopulmonary bypass was established through the ascending aorta and the right atrium. The patient was cooled to 34. Arrest was achieved with induction antegrade cold blood cardioplegia. The cross-clamp was applied and diastolic arrest was achieved. Intermittent dosages of antegrade cardioplegia was given every 20 minutes. Grafts: Saphenous vein graft to right posterior descending coronary artery, end to side anastomosis with 7-0 Prolene. 2 mm vessel Saphenous vein graft to diagonal 1 coronary artery, end to side anastomosis with 7-0 Prolene, 2 mm vessel, diffusely calcified Left internal mammary artery to distal left anterior descending coronary artery, end to side anastomosis with 7-0 Prolene. 2 mm vessel Two proximal anastomoses were performed using a 5-0 Prolene running suture. The cross-clamp was removed. The heart was allowed to rewarm and reperfuse. The grafts were de-aired. The patient resumed normal sinus rhythm and was from cardiopulmonary bypass without inotropic support. All cannulae were removed. Heparin was reversed with protamine. Atrial and ventricular pacing wires were placed. Hemostasis was confirmed. An angled 32 Latvian chest tube was placed in the left pleural space, a 32Fr angled in the posterior pericardium and a 32 straight in the anterior pericardium. The sternotomy was closed with seven stainless steel wires. The incision was closed with a layer of 0 Vicryl, followed by 2-0 Vicryl and then 4-0 Monocryl for the epidermis. Sterile dres sings were applied. The total cardiopulmonary bypass time was 95 minutes and the cross-clamp time was 82 minutes. The instrument, sponge and needle counts were correct. The patient was then transferred to the ICU in critical condition. SEEMA CARTWRIGHT MD Oct 28, 2018 13:20
[2018-10-28] MEDS ORDERED: IV RINGERS,LACTATED 1000ML 1,000 ML IV SCH (13:22)
[2018-10-28] MEDS ORDERED: ALBUTEROL SULFATE 2.5 MG/3 ML NEBU. NEB PRN (13:30)
[2018-10-28] MEDS ORDERED: KCL PER PROTOCOL MC PRN (13:30)
[2018-10-28] MEDS ORDERED: METOCLOPRAMIDE HCL 10 MG/2 ML VIAL. IV PRN (13:30)
[2018-10-28] MEDS ORDERED: PROPOFOL 100 ML IV PRN (13:30)
[2018-10-28] MEDS ORDERED: BISACODYL 10 MG SUPP.RECT. PR PRN (13:30)
[2018-10-28] MEDS ORDERED: MAGNESIUM SULFATE 1GM 100 ML IV PRN (13:30)
[2018-10-28] MEDS ORDERED: ALBUMIN HUMAN 5% 250 ML IV PRN (13:30)
[2018-10-28] MEDS ORDERED: ACETAMINOPHEN 650 MG SUPP.RECT. PR PRN (13:30)
[2018-10-28] MEDS ORDERED: INSULIN REGULAR VIAL 150 UNIT in 0.9 % SODIUM CHLORIDE 150ML 150 ML IV PRN (13:30)
[2018-10-28] MEDS ORDERED: 0.9 % SODIUM CHLORIDE 10 ML DISP.SYRIN. IV PRN (13:30)
[2018-10-28] MEDS ORDERED: PHENYLEPHRINE INJ 20 MG in IV NORMAL SALINE 250ML 250 ML IV PRN (13:30)
[2018-10-28] MEDS ORDERED: ACETAMINOPHEN 325 MG TABLET. PO PRN (13:30)
[2018-10-28] MEDS ORDERED: NITROGLYCERIN PREMIX 250 ML IV PRN (13:30)
[2018-10-28] MEDS ORDERED: PROCHLORPERAZINE 10 MG/2 ML VIAL. IV PRN (13:30)
[2018-10-28] MEDS ORDERED: AMIODARONE 150 MG in IV DEXTROSE 5% 100ML 100 ML IV PRN (13:30)
[2018-10-28] MEDS ORDERED: MEPERIDINE PF 25 MG/ML VIAL. IV PRN (13:30)
--- NOTE | 2018-10-28 14:25 | EKG ---
[facility] [address] [place] [address] Test Date: 2018-10-28 Test Time: 14:16:25 Pat Name: SERJIO DAI Department: Room: 108 1 Gender: M [employer] Aide: ALEKSANDER : 1970 Requested By: TRISTON CARTWRIGHT Order Number: [id number] Reading MD: Marty Javier Measurements Intervals Sawyer Rate: 72 P: 50 AK: 190 QRS: -47 QRSD: 138 T: 13 QT: 408 QTc: 448 Interpretive Statements SINUS RHYTHM ABNORMAL LEFT AXIS DEVIATION LEFT ANTERIOR FASCICULAR BLOCK NON SPECIFIC INTRAVENTRICULAR BLOCK RVH WITH REPOLARIZATION ABNORMALITY ABNORMAL ECG Electronically Signed On 11-04-2018 11:40:38 CDT by Marty Javier
[2018-10-28 14:30] LABS: BASE EXCESS COOX -6 mmol/L (-3-3); HCO3 COOX 20 mmol/L (21-28); METHEMOGLOBIN 0.3 % (0.0-1.9); OXYHEMOGLOBIN 89.6 %; PCO2 COOX 41 mmHg (35-46); PO2 COOX 65 mmHg (75-108); SAT O2 COOX 91 % (92-99)
[2018-10-28 14:31] LABS: HEMATOCRIT 40.7 % (39.0-53.0); HEMOGLOBIN 13.5 g/dL (13.0-17.5); RED BLOOD COUNT 4.52 x10^6/uL (4.30-5.70); RED CELL DISTRIBUTION WIDTH 15.3 % (11.5-14.5); WHITE BLOOD COUNT 19.3 x10^3/uL (4.0-11.0)
[2018-10-28 14:40] LABS: PROTHROMBIN TIME PATIENT 14.8 SEC (11.7-14.0)
[2018-10-28] MEDS ORDERED: SODIUM BICARB ADULT 8.4% 50 MEQ/50 ML DISP.SYRIN. IV ONE (14:45)
[2018-10-28 14:46] LABS: CALCIUM 10.8 mg/dL (8.5-10.1); GFR 79.1; POTASSIUM 3.8 mmol/L (3.5-5.1)
[2018-10-28] MEDS: MORPHINE SULFATE 4 MG/ML VIAL. IV PRN ×2 (15:25→17:06)
--- NOTE | 2018-10-28 15:51 | NUR ---
1330 RETURN TO ICU FROM OR, VENT ASSIST,MULTIPLE LINES,DRIVER CATH ,D/I DRESSINGS. SEE MULTIPLE FLOW SHEETS FOR SPECIFICS
[2018-10-28] MEDS: IV NORMAL SALINE 1000ML BAG 1,000 ML IV SCH (16:15)
[2018-10-28 16:51] LABS: BASE EXCESS ABG -1 mmol/L (-3-3); HCO3 ABG 25 mmol/L (21-28); PCO2 ABG 44 mmHg (35-46); PO2 ABG 74 mmHg (75-108); SAT O2 ABG 94 % (92-99)
[2018-10-28 16:56] LABS: FIO2 ABG 40
[2018-10-28] MEDS: POTASSIUM CHL 20MEQ PREMIX 50 ML IV SCH ×2 (17:04→19:03)
[2018-10-28] MEDS ORDERED: fentaNYL PF VIAL 100 MCG/2 ML VIAL IV ONE (17:30)
--- NOTE | 2018-10-28 17:31 | RAD ---
CHEST AP supine ONLY Clinical Indication: POST OP CXR IN OR, ALL POST OP COUNTS ARE CORRECT. Comparison: AP chest, September 08, 2018. Findings: There is endotracheal tube, tip is 5.4 cm superior to the vandana. There are new median sternotomy wires and changes of CABG. There is right IJ sheath, Hague-Carey catheter is in the pulmonary outflow tract. There is mediastinal drain. There is a left chest tube. Cardiomediastinal silhouette prominence is likely postoperative and due to low lung volumes and positioning and technique. There is left greater than right basilar airspace disease, probably atelectasis. No obvious pneumothorax. No layering pleural effusion. Bones unremarkable. IMPRESSION: 1. Life support devices as above. 2. Low lung volumes. Left greater than right basilar atelectasis. Electronically signed by: Brice Ochoa MD (10/28/2018 5:28 PM) [id number]
[2018-10-28] MEDS: KETOROLAC 15 MG/ML VIAL. IV PRN (17:35)
[2018-10-28] MEDS: oxyCODONE IR 5 MG TABLET PO PRN (19:39)
--- NOTE | 2018-10-28 20:00 | NUR ---
Patient has Arterial line for BP monitoring and lab draw--BP will be documented under Vital signs intervention and not Arterial line intervention to avoid double charting. Addendum: 10/28/18 at 2224 by ANGIE VERDE RN Amended: Links added.
[2018-10-28] MEDS: HYDROmorphone 2 MG/ML VIAL IVP PRN ×2 (20:23→22:45)
[2018-10-28 20:39] LABS: HEMOGLOBIN 13.2 g/dL (13.0-17.5)
--- NOTE | 2018-10-28 21:15 | PDOC ---
PROGRESS NOTES Subjective Subjective s/p CABG earlier today, intubated Objective Objective Vital Signs Date Time Temp Pulse Resp B/P (MAP) Pulse Ox O2 Delivery O2 Flow Rate FiO2 10/28/18 20:25 14 95 Nasal Cannula 2.0 10/28/18 17:05 82 10/28/18 17:00 98.7 98.7 Intake and Output 10/28/18 07:00 Intake Total 4785.3 ml Output Total 5675 ml Balance -889.7 ml Intake Oral 1320 ml IV Total 3465.3 ml Output Urine Total 5675 ml Physical Exam Abdomen: Normal bowel sounds, Soft Heart: Regular rate, Normal S1, Normal S2 Extremities: No edema, Normal pulses General: Other (Intubated) HEENT: Atraumatic Lungs: Clear to auscultation, Normal air movement MUSCULOSKELETAL: No deformity Assessment Assessment 1. Unstable angina: cardiac cath showed heavily calcified lesions in RCA that did not dilate well with rotablator atherectomy and stent placement. He also had significant lesions in LAD and diag. He underwent successful CABG earlier today. Tele showed sinus rhythm. Continue post-op care per CTS 2. HTN: controlled 3. HLP: statins and fibrates 4. DM-2: treat per IM Comment Review of Relevant I have reviewed the following items pratima (where applicable) has been applied. Labs Laboratory Tests Test 10/27/18 21:43 10/27/18 22:44 10/27/18 23:41 10/28/18 00:39 Glucose (Fingerstick) 198 mg/dL (70-99) 161 mg/dL (70-99) 145 mg/dL (70-99) 162 mg/dL (70-99) Test 10/28/18 01:44 10/28/18 02:46 10/28/18 03:45 10/28/18 05:15 Glucose (Fingerstick) 91 mg/dL (70-99) 97 mg/dL (70-99) 154 mg/dL (70-99) White Blood Count 13.1 x10^3/uL (4.0-11.0) Red Blood Count 4.54 x10^6/uL (4.30-5.70) Hemoglobin 13.6 g/dL (13.0-17.5) Hematocrit 41.2 % (39.0-53.0) Mean Corpuscular Volume 91 fL (79-100) Mean Corpuscular Hemoglobin 30 pg (25-35) Mean Corpuscular Hemoglobin Concent 33 g/dL (31-37) Red Cell Distribution Width 15.6 % (11.5-14.5) Platelet Count 380 x10^3/uL (140-400) Prothrombin Time 13.3 SEC (11.7-14.0) Prothromb Time International Ratio 1.0 (0.8-1.1) Activated Partial Thromboplast Time 33 SEC (24-38) Sodium Level 137 mmol/L (136-145) Potassium Level 4.4 mmol/L (3.5-5.1) Chloride Level 103 mmol/L (98-107) Carbon Dioxide Level 30 mmol/L (21-32) Anion Gap 4 (6-14) Blood Urea Nitrogen 13 mg/dL (8-26) Creatinine 1.1 mg/dL (0.7-1.3) Estimated GFR (Cockcroft-Gault) 70.9 BUN/Creatinine Ratio 12 (6-20) Glucose Level 224 mg/dL (70-99) Calcium Level 9.3 mg/dL (8.5-10.1) Magnesium Level 1.6 mg/dL (1.8-2.4) Total Bilirubin 0.3 mg/dL (0.2-1.0) Aspartate Amino Transf (AST/SGOT) 24 U/L (15-37) Alanine Aminotransferase (ALT/SGPT) 14 U/L (16-63) Alkaline Phosphatase 56 U/L (46-116) Total Protein 7.2 g/dL (6.4-8.2) Albumin 3.3 g/dL (3.4-5.0) Albumin/Globulin Ratio 0.8 (1.0-1.7) Test 10/28/18 05:19 10/28/18 06:24 10/28/18 07:28 10/28/18 08:18 Glucose (Fingerstick) 221 mg/dL (70-99) 202 mg/dL (70-99) 145 mg/dL (70-99) Activated Clotting Time 107 SEC (90-125) Test 10/28/18 09:29 10/28/18 10:45 10/28/18 11:14 10/28/18 11:44 Activated Clotting Time 502 SEC (90-125) 565 SEC (90-125) 455 SEC (90-125) 432 SEC (90-125) Test 10/28/18 12:21 10/28/18 12:55 10/28/18 14:25 10/28/18 16:40 Activated Clotting Time 115 SEC (90-125) White Blood Count 14.9 x10^3/uL (4.0-11.0) 19.3 x10^3/uL (4.0-11.0) Hemoglobin 12.1 g/dL (13.0-17.5) 13.5 g/dL (13.0-17.5) Hematocrit 36.6 % (39.0-53.0) 40.7 % (39.0-53.0) Platelet Count 205 x10^3/uL (140-400) 255 x10^3/uL (140-400) Prothrombin Time 15.6 SEC (11.7-14.0) 14.8 SEC (11.7-14.0) Prothromb Time International Ratio 1.3 (0.8-1.1) 1.2 (0.8-1.1) Activated Partial Thromboplast Time 28 SEC (24-38) 28 SEC (24-38) Fibrinogen 228 mg/dL (200-440) Red Blood Count 4.52 x10^6/uL (4.30-5.70) Mean Corpuscular Volume 90 fL (79-100) Mean Corpuscular Hemoglobin 30 pg (25-35) Mean Corpuscular Hemoglobin Concent 33 g/dL (31-37) Red Cell Distribution Width 15.3 % (11.5-14.5) O2 Saturation 91 % (92-99) 94 % (92-99) Arterial Blood pH 7.31 (7.35-7.45) 7.36 (7.35-7.45) Arterial Blood pCO2 at Patient Temp 41 mmHg (35-46) 44 mmHg (35-46) Arterial Blood pO2 at Patient Temp 65 mmHg (75-108) 74 mmHg (75-108) Arterial Blood HCO3 20 mmol/L (21-28) 25 mmol/L (21-28) Arterial Blood Base Excess -6 mmol/L (-3-3) -1 mmol/L (-3-3) Oxyhemoglobin 89.6 % Methemoglobin 0.3 % (0.0-1.9) Carbon Monoxide, Quantitative 0.9 % (0.0-1.9) FiO2 100 40 Sodium Level 141 mmol/L (136-145) Potassium Level 3.8 mmol/L (3.5-5.1) Chloride Level 108 mmol/L (98-107) Carbon Dioxide Level 24 mmol/L (21-32) Anion Gap 9 (6-14) Blood Urea Nitrogen 11 mg/dL (8-26) Creatinine 1.0 mg/dL (0.7-1.3) Estimated GFR (Cockcroft-Gault) 79.1 Glucose Level 136 mg/dL (70-99) Calcium Level 10.8 mg/dL (8.5-10.1) Magnesium Level 2.0 mg/dL (1.8-2.4) Test 10/28/18 20:00 Hemoglobin 13.2 g/dL (13.0-17.5) Hematocrit 40.0 % (39.0-53.0) Mean Corpuscular Hemoglobin Concent 33 g/dL (31-37) Potassium Level 4.8 mmol/L (3.5-5.1) Magnesium Level 1.6 mg/dL (1.8-2.4) Medications Current Medications Acetaminophen (Tylenol Supp) 650 mg PRN Q4HRS PRN [place] TEMP > 101'F or MILD PAIN; Start 10/28/18 at 13:30 Acetaminophen (Tylenol) 500 mg PRN Q6HRS PRN PO MILD PAIN / TEMP; Start 10/28/18 at 08:15; Stop 10/28/18 at 13:45; Status DC Acetaminophen (Tylenol) 650 mg PRN Q4HRS PRN PO TEMP > 101'F or PAIN; Start 10/28/18 at 13:30 Acetaminophen/ Codeine Phosphate (Tylenol #3) 1 tab PRN Q6HRS PRN PO MODERATE PAIN; Start 10/28/18 at 08:15; Stop 10/28/18 at 13:46; Status DC Albumin Human 100 ml @ As Directed STK-MED ONCE IV ; Start 10/28/18 at 12:17; Stop 10/28/18 at 12:18; Status DC Albumin Human 250 ml @ 500 mls/hr PRN Q4HRS PRN IV SEE COMMENTS; Start 10/28/18 at 13:30 Albuterol Sulfate (Ventolin Neb Soln) 2.5 mg PRN Q4HRS PRN NEB SHORTNESS OF BREATH; Start 10/28/18 at 13:30 Aminocaproic Acid (Amicar) 5,000 mg STK-MED ONCE IV ; Start 10/28/18 at 06:58; Stop 10/28/18 at 06:59; Status DC Aminocaproic Acid (Amicar) 5,000 mg STK-MED ONCE IV ; Start 10/28/18 at 06:58; Stop 10/28/18 at 06:59; Status DC Aminocaproic Acid (Amicar) 5,000 mg STK-MED ONCE IV ; Start 10/28/18 at 06:58; Stop 10/28/18 at 06:59; Status DC Amiodarone HCl 150 mg/Dextrose 103 ml @ 200 mls/hr 1X PRN PRN IV FOR AFIB Last administered on 10/28/18at 14:00; Start 10/28/18 at 13:30 Amiodarone HCl 150 mg/Dextrose 103 ml @ 600 mls/hr 1X ONCE IV ; Start 10/28/18 at 13:30; Stop 10/28/18 at 13:40; Status UNV Amiodarone HCl 150 mg/Dextrose 103 ml @ 618 mls/hr 1X ONCE IV Last administered on 10/28/18at 15:26; Start 10/28/18 at 12:45; Stop 10/28/18 at 13:02; Status DC Amiodarone HCl 900 mg/Dextrose 518 ml @ 0 mls/hr CONT PRN IV SEE I/O RECORD Last administered on 10/28/18at 14:45; Start 10/28/18 at 12:45; Stop 10/28/18 at 15:49; Status DC Amiodarone HCl 900 mg/Dextrose 518 ml @ 0 mls/hr CONT PRN PRN IV AFIB; Start 10/28/18 at 13:30; Status UNV Aspirin (Aspirin) 300 mg PRN DAILY PRN [place] IF UNABLE TO TAKE PO; Start 10/29/18 at 08:00 Aspirin (Aspirin) 300 mg STK-MED ONCE .ROUTE Last administered on 10/28/18at 13:19; Start 10/28/18 at 05:57; Stop 10/28/18 at 06:57; Status DC Aspirin (Ecotrin) 325 mg DAILYWBKFT PO ; Start 10/29/18 at 08:00 Bisacodyl (Dulcolax Supp) 10 mg PRN DAILY PRN [place] NO BOWEL MOVEMENT; Start 10/28/18 at 13:30 Calcium Chloride (Calcium Chloride) 1,000 mg STK-MED ONCE .ROUTE ; Start 10/28/18 at 12:17; Stop 10/28/18 at 12:18; Status DC Cefazolin Sodium (Ancef) 1 gm STK-MED ONCE .ROUTE ; Start 10/28/18 at 09:20; Stop 10/28/18 at 09:21; Status DC Cefazolin Sodium (Ancef) 1 gm STK-MED ONCE .ROUTE ; Start 10/28/18 at 09:20; Stop 10/28/18 at 09:21; Status DC Cefazolin Sodium 1 gm/Sodium Chloride 500 ml @ 500 mls/hr 1X ONCE IRR Last administered on 10/28/18at 08:36; Start 10/28/18 at 06:00; Stop 10/28/18 at 06:59; Status DC Cefazolin Sodium/ Dextrose 50 ml @ 100 mls/hr 1X ONCE IV ; Start 10/28/18 at 06:00; Stop 10/28/18 at 06:29; Status DC Cefazolin Sodium/ Dextrose 50 ml @ 100 mls/hr Q8H IV ; Start 10/28/18 at 17:00; Stop 10/28/18 at 19:16; Status DC Cefazolin Sodium/ Dextrose 50 ml @ 100 mls/hr Q8H IV Last administered on 10/28/18at 20:12; Start 10/28/18 at 20:00; Stop 10/30/18 at 04:29 Cellulose (Surgicel Hemostat 4x8) 1 each STK-MED ONCE .ROUTE Last administered on 10/28/18at 08:36; Start 10/28/18 at 05:54; Stop 10/28/18 at 06:55; Status DC Chlorhexidine Gluconate (Peridex) 15 ml BID MM ; Start 10/29/18 at 09:00; Stop 10/29/18 at 09:00; Status DC Dextrose (Dextrose 50%-Water Syringe) 12.5 gm PRN Q15MIN PRN IV SEE COMMENTS; Start 10/28/18 at 08:15; Stop 10/28/18 at 13:49; Status DC Dextrose (Dextrose 50%-Water Syringe) 25 gm PRN Q15MIN PRN IV LOW BLOOD SUGAR; Start 10/28/18 at 13:30 Dextrose/Sodium Chloride 1,000 ml @ 100 mls/hr Q10H IV Last administered on 10/27/18at 23:45; Start 10/27/18 at 23:00; Stop 10/28/18 at 19:16; Status DC Ephedrine Sulfate (ePHEDrine PF IN SALINE SYRINGE) 50 mg STK-MED ONCE IV ; Start 10/28/18 at 07:00; Stop 10/28/18 at 07:01; Status DC Etomidate (Amidate) 20 mg STK-MED ONCE IV ; Start 10/28/18 at 06:52; Stop 10/28/18 at 06:53; Status DC Famotidine (Pepcid Vial) 20 mg BID IVP ; Start 10/28/18 at 21:00 Fenofibrate (Lofibra) 134 mg DAILY PO ; Start 10/28/18 at 09:00 Fentanyl Citrate (Fentanyl 2ml Vial) 25 mcg 1X ONCE IV Last administered on 10/28/18at 17:37; Start 10/28/18 at 17:30; Stop 10/28/18 at 17:31; Status DC Fentanyl Citrate (Fentanyl 2ml Vial) 100 mcg STK-MED ONCE .ROUTE ; Start 10/28/18 at 12:56; Stop 10/28/18 at 12:57; Status DC Fish Oil (Fish Oil) 2,000 mg BID PO ; Start 10/28/18 at 09:00 Heparin Sodium (Porcine) 30,000 unit STK-MED ONCE .ROUTE ; Start 10/28/18 at 08:24; Stop 10/28/18 at 08:25; Status DC Heparin Sodium (Porcine) (Heparin Sodium) 10,000 unit STK-MED ONCE .ROUTE ; Start 10/28/18 at 10:24; Stop 10/28/18 at 10:25; Status DC Heparin Sodium (Porcine) (Heparin Sodium) 10,000 unit STK-MED ONCE .ROUTE ; Start 10/28/18 at 12:17; Stop 10/28/18 at 12:18; Status DC Heparin Sodium (Porcine) 13257 unit/Ringer's Solution 1,020 ml @ 1,020 mls/hr 1X ONCE IRR Last administered on 10/28/18at 08:36; Start 10/28/18 at 06:00; Stop 10/28/18 at 06:59; Status DC Hydromorphone HCl (Dilaudid) 0.5 mg PRN Q2HRS PRN IVP PAIN Last administered on 10/28/18at 20:23; Start 10/28/18 at 17:30 Info (KCl Per Protocol) 1 ea CONT PRN PRN MC SEE COMMENTS; Start 10/28/18 at 13:30 Insulin Human Lispro (HumaLOG) 0-7 UNITS TIDWMEALS SQ ; Start 10/28/18 at 08:00; Stop 10/28/18 at 08:17; Status DC Insulin Human Lispro (HumaLOG) 0-9 UNITS TIDWMEALS SQ ; Start 10/28/18 at 12:00 Insulin Human Regular 150 unit/ Sodium Chloride 151.5 ml @ 0 mls/hr CONT PRN PRN IV PER PROTOCOL; Start 10/28/18 at 13:30 Ketorolac Tromethamine (Toradol 15mg Vial) 15 mg PRN Q6HRS PRN IV PAIN Last administered on 10/28/18at 17:35; Start 10/28/18 at 17:30; Stop 11/02/18 at 17:29 Lidocaine HCl (Lidocaine Pf 2% Vial) 5 ml STK-MED ONCE .ROUTE ; Start 10/28/18 at 12:17; Stop 10/28/18 at 12:18; Status DC Lidocaine HCl (Xylocaine-Mpf 1% 2ml Vial) 2 ml STK-MED ONCE .ROUTE ; Start 10/28/18 at 07:14; Stop 10/28/18 at 07:15; Status DC Lisinopril (Prinivil) 5 mg DAILY PO ; Start 10/28/18 at 09:00 Magnesium Sulfate 5 gm STK-MED ONCE .ROUTE ; Start 10/28/18 at 12:17; Stop 10/28/18 at 12:18; Status DC Magnesium Sulfate/ Dextrose 100 ml @ 100 mls/hr PRN DAILY PRN IV FOR MAG < 2.2; Start 10/28/18 at 13:30 Mannitol (Mannitol) 12.5 g STK-MED ONCE .ROUTE ; Start 10/28/18 at 12:17; Stop 10/28/18 at 12:18; Status DC Meperidine HCl (Demerol) 12.5 mg PRN Q15MIN PRN IV SHIVERING; Start 10/28/18 at 13:30; Stop 10/28/18 at 19:16; Status DC Metoclopramide HCl (Reglan Vial) 10 mg PRN Q6HRS PRN IV NAUSEA/VOMITING, 3rd CHOICE; Start 10/28/18 at 13:30 Metoprolol Tartrate (Lopressor) 25 mg BID PO ; Start 10/29/18 at 09:00 Midazolam HCl (Versed) 5 mg STK-MED ONCE .ROUTE ; Start 10/28/18 at 06:54; Stop 10/28/18 at 06:55; Status DC Morphine Sulfate (Morphine Sulfate) 2 mg PRN Q1HR PRN IV PAIN; Start 10/28/18 at 13:30; Stop 10/28/18 at 19:16; Status DC Morphine Sulfate (Morphine Sulfate) 2 mg PRN Q30MIN PRN IV PAIN Last administered on 10/28/18at 02:16; Start 10/28/18 at 02:15; Stop 10/28/18 at 13:46; Status DC Morphine Sulfate (Morphine Sulfate) 4 mg PRN Q1HR PRN IV SEVERE PAIN Last administered on 10/28/18at 17:06; Start 10/28/18 at 13:30; Stop 10/28/18 at 19:16; Status DC Nicardipine HCl 50 mg/Sodium Chloride 250 ml @ 25 mls/hr CONT PRN IV SEE I/O RECORD Last administered on 10/28/18at 14:55; Start 10/28/18 at 12:45 Nicardipine HCl 50 mg/Sodium Chloride 250 ml @ 0 mls/hr CONT PRN PRN IV PER PROTOCOL; Start 10/28/18 at 13:30; Status UNV Nitroglycerin/ Dextrose 250 ml @ As Directed STK-MED ONCE IV ; Start 10/28/18 at 12:30; Stop 10/28/18 at 12:31; Status DC Nitroglycerin/ Dextrose 250 ml @ 0 mls/hr CONT PRN PRN IV POST CV SURGERY; Start 10/28/18 at 13:30; Stop 10/28/18 at 19:16; Status DC Ondansetron HCl (Zofran Odt) 4 mg PRN Q6HRS PRN PO NAUSEA/VOMITING; Start 10/28/18 at 08:15 Ondansetron HCl (Zofran) 4 mg PRN Q4HRS PRN IV NAUSEA/VOMITING, 1st CHOICE; Start 10/28/18 at 13:30 Ondansetron HCl (Zofran) 4 mg PRN Q6HRS PRN IV NAUSEA/VOMITING Last administered on 10/28/18at 02:31; Start 10/28/18 at 02:30; Stop 10/28/18 at 13:39; Status DC Ondansetron HCl (Zofran) 4 mg PRN Q6HRS PRN IV NAUSEA/VOMITING; Start 10/28/18 at 08:15; Stop 10/28/18 at 13:39; Status DC Oxcarbazepine (Trileptal) 300 mg DAILY PO ; Start 10/28/18 at 09:00 Oxycodone HCl (Roxicodone) 5 mg PRN Q4HRS PRN PO MILD TO MODERATE PAIN; Start 10/28/18 at 13:30 Oxycodone HCl (Roxicodone) 10 mg PRN Q4HRS PRN PO SEVERE PAIN Last administered on 10/28/18at 19:39; Start 10/28/18 at 13:30 Papaverine HCl 60 mg STK-MED ONCE .ROUTE Last administered on 10/28/18at 08:36; Start 10/28/18 at 05:55; Stop 10/28/18 at 06:55; Status DC Phenylephrine HCl (Jameel-Synephrine Inj) 10 mg STK-MED ONCE .ROUTE ; Start 10/28/18 at 06:55; Stop 10/28/18 at 06:56; Status DC Phenylephrine HCl (Jameel-Synephrine Inj) 10 mg STK-MED ONCE .ROUTE ; Start 10/28/18 at 06:56; Stop 10/28/18 at 06:57; Status DC Phenylephrine HCl (PHENYLEPHRINE in 0.9% NACL PF) 1 mg STK-MED ONCE IV ; Start 10/28/18 at 06:53; Stop 10/28/18 at 06:54; Status DC Phenylephrine HCl 20 mg/Sodium Chloride 252 ml @ 0 mls/hr CONT PRN PRN IV HYPOTENSION; Start 10/28/18 at 13:30 Potassium Chloride 15 meq/ Sodium Bicarbonate 12.5 meq/Parenteral Electrolytes 520 ml @ 520 mls/hr 1X ONCE IRR Last administered on 10/28/18at 10:35; Start 10/28/18 at 06:00; Stop 10/28/18 at 06:59; Status DC Potassium Chloride 70 meq/ Sodium Bicarbonate 12.5 meq/Lidocaine HCl 24 ml/Parenteral Electrolytes 571.5 ml @ 571.5 mls/ hr 1X ONCE IRR Last administered on 10/28/18at 10:35; Start 10/28/18 at 06:00; Stop 10/28/18 at 06:59; Status DC Potassium Chloride/Water 50 ml @ 50 mls/hr Q1HR IV Last administered on 10/28/18at 19:03; Start 10/28/18 at 17:00; Stop 10/28/18 at 18:59; Status DC Prochlorperazine Edisylate (Compazine) 10 mg PRN Q6HRS PRN IV NAUSEA/VOMITING, 2nd CHOICE; Start 10/28/18 at 13:30 Propofol 100 ml @ 0 mls/hr CONT PRN PRN IV POSTOP SEDATION UNTIL EXTUBATE Last administered on 10/28/18at 15:45; Start 10/28/18 at 13:30; Stop 10/28/18 at 19:16; Status DC Protamine Sulfate (Protamine) 50 mg STK-MED ONCE IV ; Start 10/28/18 at 12:11; Stop 10/28/18 at 12:12; Status DC Protamine Sulfate (Protamine) 250 mg STK-MED ONCE IV ; Start 10/28/18 at 11:22; Stop 10/28/18 at 11:23; Status DC Ringer's Solution 1,000 ml @ 30 mls/hr Q24H IV Last administered on 10/28/18at 15:32; Start 10/28/18 at 13:22 Rocuronium Collins (Zemuron) 100 mg STK-MED ONCE .ROUTE ; Start 10/28/18 at 06:53; Stop 10/28/18 at 06:54; Status DC Rocuronium Collins (Zemuron) 100 mg STK-MED ONCE .ROUTE ; Start 10/28/18 at 09:06; Stop 10/28/18 at 09:07; Status DC Senna/Docusate Sodium (Senna Plus) 1 tab BID PO ; Start 10/28/18 at 21:00 Sodium Bicarbonate (Sodium Bicarb Adult 8.4% Syr) 50 meq 1X ONCE IV Last administered on 10/28/18at 15:33; Start 10/28/18 at 14:45; Stop 10/28/18 at 15:25; Status DC Sodium Chloride (Normal Saline Flush) 3 ml PRN Q12HR PRN IV AFTER MEDS AND BLOOD DRAWS; Start 10/28/18 at 13:30 Sodium Chloride (SODIUM CHLORIDE 20ml) 20 ml STK-MED ONCE IJ Last administered on 10/28/18at 08:36; Start 10/28/18 at 05:55; Stop 10/28/18 at 06:55; Status DC Sodium Chloride (SODIUM CHLORIDE 20ml) 20 ml STK-MED ONCE IJ Last administered on 10/28/18at 08:36; Start 10/28/18 at 05:55; Stop 10/28/18 at 06:55; Status DC Sodium Chloride (SODIUM CHLORIDE 20ml) 20 ml STK-MED ONCE IJ Last administered on 10/28/18at 08:36; Start 10/28/18 at 05:56; Stop 10/28/18 at 06:56; Status DC Sufentanil Citrate (Sufenta) 250 mcg STK-MED ONCE .ROUTE ; Start 10/28/18 at 06:57; Stop 10/28/18 at 06:58; Status DC Tamsulosin HCl (Flomax) 0.4 mg DAILY PO ; Start 10/28/18 at 09:00 Vancomycin HCl (VANCO for OR ONLY) 10 gm STK-MED ONCE .ROUTE Last administered on 10/28/18at 08:36; Start 10/28/18 at 05:54; Stop 10/28/18 at 06:55; Status DC Vitals/I & O Vital Sign - Last 24 Hours 10/27/18 10/27/18 10/27/18 10/28/18 22:00 23:00 23:57 00:00 Temp 98.6 98.6 Pulse 66 65 66 Resp 24 21 17 B/P (MAP) 111/72 (85) 131/70 (90) 111/61 (78) Pulse Ox 94 92 93 O2 Delivery Nasal Cannula Nasal Cannula Nasal Cannula Nasal Cannula O2 Flow Rate 2.0 2.0 2.0 2.0 10/28/18 10/28/18 10/28/18 10/28/18 01:00 01:35 02:00 02:05 Pulse 58 65 Resp 15 22 23 15 B/P (MAP) 113/75 (88) 158/83 (108) Pulse Ox 97 96 93 93 O2 Delivery Nasal Cannula Nasal Cannula Nasal Cannula Nasal Cannula O2 Flow Rate 2.0 2.0 2.0 2.0 10/28/18 10/28/18 10/28/18 10/28/18 02:16 02:46 03:00 04:00 Temp 98.2 98.2 Pulse 65 65 Resp 24 20 20 B/P (MAP) 115/73 (87) 125/66 (85) Pulse Ox 93 93 93 93 O2 Delivery Nasal Cannula Nasal Cannula Nasal Cannula Nasal Cannula O2 Flow Rate 2.0 2.0 4.0 4.0 10/28/18 10/28/18 10/28/18 10/28/18 04:00 05:00 06:00 07:17 Temp 98.2 98.2 Pulse 70 68 67 Resp 16 19 15 B/P (MAP) 133/89 (104) 130/70 (90) 119/70 Pulse Ox 95 90 96 O2 Delivery Nasal Cannula Nasal Cannula Nasal Cannula Nasal Cannula O2 Flow Rate 2.0 4.0 4.0 3.0 10/28/18 10/28/18 10/28/18 10/28/18 13:30 13:32 13:32 13:45 Temp 97.2 97.2 Pulse 83 83 Resp 22 B/P (MAP) 147/67 (93) 142/67 (92) Pulse Ox 100 94 O2 Delivery Mechanical Ventilator Ventilator Ventilator 10/28/18 10/28/18 10/28/18 10/28/18 14:00 14:00 14:00 14:15 Temp 97.7 98.0 97.7 98.0 Pulse 80 90 90 71 Resp 24 B/P (MAP) 136/70 122/57 (78) 123/66 (85) Pulse Ox 98 99 O2 Delivery Ventilator Ventilator 10/28/18 10/28/18 10/28/18 10/28/18 14:15 14:30 14:30 15:00 Temp 97.6 97.8 97.6 97.8 Pulse 71 76 70 76 Resp 17 18 B/P (MAP) 124/64 (84) 121/63 (82) Pulse Ox 98 98 O2 Delivery Ventilator Ventilator 10/28/18 10/28/18 10/28/18 10/28/18 15:00 15:25 15:26 16:00 Pulse 76 67 74 B/P (MAP) 119/70 138/71 (93) Pulse Ox 100 O2 Delivery Ventilator 10/28/18 10/28/18 10/28/18 10/28/18 16:00 16:00 16:04 17:00 Temp 98.0 98.0 Pulse 80 82 Resp 16 B/P (MAP) 134/76 (95) Pulse Ox 98 97 O2 Delivery Ventilator Mechanical Ventilator Ventilator 10/28/18 10/28/18 10/28/18 10/28/18 17:00 17:05 17:06 17:36 Temp 98.7 98.7 Pulse 76 82 Resp 20 27 B/P (MAP) 139/76 (97) Pulse Ox 98 98 97 98 O2 Delivery BiPAP/CPAP Nasal Cannula Ventilator O2 Flow Rate 5.0 3.0 10/28/18 10/28/18 10/28/18 10/28/18 17:37 19:20 19:39 20:23 Resp 14 20 Pulse Ox 98 95 94 95 O2 Delivery High Flow Nasal Cannula Nasal Cannula Nasal Cannula Nasal Cannula O2 Flow Rate 5.0 2.0 2.0 2.0 10/28/18 20:25 Resp 14 Pulse Ox 95 O2 Delivery Nasal Cannula O2 Flow Rate 2.0 Intake and Output 10/27/18 10/27/18 10/28/18 15:00 23:00 07:00 Intake Total 0 ml 1420 ml 3365.3 ml Output Total 1050 ml 3275 ml 1350 ml Balance -1050 ml -1855 ml 2015.3 ml RACHEL LOMELI MD Oct 28, 2018 21:15
[2018-10-28] MEDS: ATORVASTATIN CALCIUM 40 MG TABLET. PO SCH (21:16)
[2018-10-28] MEDS: MIRTAZAPINE 7.5 MG TABLET. PO SCH (21:16)
[2018-10-28] MEDS: LURASIDONE 40 MG TABLET. PO SCH (21:16)
[2018-10-28] MEDS: FAMOTIDINE 20 MG/2 ML VIAL IVP SCH (21:19)
[2018-10-28] MEDS: SENNOSIDES/DOCUSATE 8.6/50MG TABLET. PO SCH (21:21)
[2018-10-28 23:08] LABS: HEMOGLOBIN A1C 9.8 % (4.8-5.6)
--- NOTE | 2018-10-28 23:20 | NUR ---
Dr Rogers called, updated on overall condition, H/H, vital signs, hemodynamic readings (PA, CVP, CO/CI), chest tube drainage, urine output, and pain. Orders received to restart Cardene is SBP>150, if episode of AFib, rebolus with Amiodarone 150MG IV, benji Bowles in am. See orders, lab, vital signs, hemodynamics, and I/O.
[2018-10-29] VITALS (20 sets, daily range): BP systolic 97–137; BP diastolic 52–80
[2018-10-29] MEDS: KETOROLAC 15 MG/ML VIAL. IV PRN ×2 (00:04→06:27)
[2018-10-29] MEDS: oxyCODONE IR 5 MG TABLET PO PRN ×6 (00:10→23:15)
[2018-10-29] MEDS: HYDROmorphone 2 MG/ML VIAL IVP PRN ×9 (01:46→23:16)
--- NOTE | 2018-10-29 06:00 | NUR ---
At 0530 after explanation to patient, left radial arterial line removed without difficulty. Pressure held for 5 min until hemostasis obtained at 0535 and pressure dressing applied. SWAN also removed after explanation to patient and capped with blue cap. Patient up to chair with assist of 2 RNs--patient initially complained of dizziness which resolved after sitting at the side of the bed. Patient tolerated well getting up in the chair, he did dump 50CC from of mediastinal chest tubes. Patient did state his pain increased to 9 with activity, will administer pain medications. See pain intervention.
[2018-10-29 06:32] LABS: HEMATOCRIT 36.5 % (39.0-53.0); HEMOGLOBIN 12.2 g/dL (13.0-17.5); RED BLOOD COUNT 4.06 x10^6/uL (4.30-5.70); RED CELL DISTRIBUTION WIDTH 15.2 % (11.5-14.5); WHITE BLOOD COUNT 12.5 x10^3/uL (4.0-11.0)
[2018-10-29 06:43] LABS: CALCIUM 9.3 mg/dL (8.5-10.1); GFR 79.1; POTASSIUM 4.4 mmol/L (3.5-5.1)
[2018-10-29] MEDS: INSULIN LISPRO 300 UNITS/3 ML INSULN.PEN. SQ SCH ×3 (08:00→17:20)
[2018-10-29] MEDS ORDERED: ASPIRIN RECTAL 300 MG SUPP. PR PRN (08:00)
[2018-10-29] MEDS ORDERED: MAGNESIUM SULFATE 2GM 50 ML IV ONE ×2 (08:15→08:30)
[2018-10-29] MEDS ORDERED: PANTOPRAZOLE IV PUSH 40 MG VIAL. IVP ONE (08:15)
[2018-10-29] MEDS: NICOTINE 21MG PATCH. TD PRN (08:25)
[2018-10-29] MEDS: DULoxetine HCL 30 MG CAPSULE.DR PO SCH ×2 (08:26→20:39)
[2018-10-29] MEDS: FENOFIBRATE,MICRONIZED 134 MG CAPSULE PO SCH (08:26)
[2018-10-29] MEDS: TAMSULOSIN 0.4 MG CAP.ER.24H. PO SCH (08:37)
[2018-10-29] MEDS: SENNOSIDES/DOCUSATE 8.6/50MG TABLET. PO SCH ×2 (08:37→20:40)
[2018-10-29] MEDS: OMEGA-3 FATTY ACIDS/FISH OIL 1,000 MG CAPSULE. PO SCH ×2 (08:37→20:39)
[2018-10-29] MEDS: ASPIRIN ENTERIC COATED 325 MG TABLET.DR. PO SCH (08:37)
[2018-10-29] MEDS: OXcarbazepine 300 MG TABLET PO SCH (08:38)
[2018-10-29] MEDS: FAMOTIDINE 20 MG/2 ML VIAL IVP SCH ×2 (08:44→20:38)
[2018-10-29] MEDS: LISINOPRIL 5 MG TABLET. PO SCH (09:00)
[2018-10-29] MEDS: METOPROLOL TART IMMED RELEASE 25 MG TABLET. PO SCH ×2 (09:00→21:00)
[2018-10-29] MEDS ORDERED: CHLORHEXIDINE 0.12% 15 ML MOUTHWASH. MM SCH (09:00)
--- NOTE | 2018-10-29 09:25 | PDOC ---
PROGRESS NOTES Chief Complaint Chief Complaint CAD, 3 vessel disease dm1, check A1c htn lipids tobacco use disorder Obesity BMI 32 History of Present Illness History of Present Illness Extubated for 10/28/18 few hours after CABG He is up in chair in the ICU, postop soreness, some itchy back possibly from laying to long in one spot A little bit hypotensive on amiodarone drip and insulin drip He claims his A1c is high - on insulin at home So far labs hemoglobin 12, WBC 12 with 2 platelets 207 E lytes okay except for magnesium 1.2 Plan: continue drips per cardiology/T CVS Chest tube lines, Price catheter and other tubes care of T CVS Nystatin powder to the back Mag 2 g now and recheck labs tomorrow dw [employer] Vitals Vitals Vital Signs Date Time Temp Pulse Resp B/P (MAP) Pulse Ox O2 Delivery O2 Flow Rate FiO2 10/29/18 08:37 21 94 Nasal Cannula 2.0 10/29/18 07:00 76 114/69 (84) 10/29/18 05:00 98.9 98.9 Physical Exam General: Other (Intubated) Heart: Regular rate, Normal S1, Normal S2 Lungs: Clear Abdomen: Normal bowel sounds, Soft Extremities: No edema, Normal pulses Skin: No rashes, No breakdown Labs LABS Laboratory Tests Test 10/28/18 09:29 10/28/18 10:45 10/28/18 11:14 10/28/18 11:44 Activated Clotting Time 502 SEC (90-125) 565 SEC (90-125) 455 SEC (90-125) 432 SEC (90-125) Test 10/28/18 12:21 10/28/18 12:55 10/28/18 14:25 10/28/18 14:27 Activated Clotting Time 115 SEC (90-125) White Blood Count 14.9 x10^3/uL (4.0-11.0) 19.3 x10^3/uL (4.0-11.0) Hemoglobin 12.1 g/dL (13.0-17.5) 13.5 g/dL (13.0-17.5) Hematocrit 36.6 % (39.0-53.0) 40.7 % (39.0-53.0) Platelet Count 205 x10^3/uL (140-400) 255 x10^3/uL (140-400) Prothrombin Time 15.6 SEC (11.7-14.0) 14.8 SEC (11.7-14.0) Prothromb Time International Ratio 1.3 (0.8-1.1) 1.2 (0.8-1.1) Activated Partial Thromboplast Time 28 SEC (24-38) 28 SEC (24-38) Fibrinogen 228 mg/dL (200-440) Red Blood Count 4.52 x10^6/uL (4.30-5.70) Mean Corpuscular Volume 90 fL (79-100) Mean Corpuscular Hemoglobin 30 pg (25-35) Mean Corpuscular Hemoglobin Concent 33 g/dL (31-37) Red Cell Distribution Width 15.3 % (11.5-14.5) O2 Saturation 91 % (92-99) Arterial Blood pH 7.31 (7.35-7.45) Arterial Blood pCO2 at Patient Temp 41 mmHg (35-46) Arterial Blood pO2 at Patient Temp 65 mmHg (75-108) Arterial Blood HCO3 20 mmol/L (21-28) Arterial Blood Base Excess -6 mmol/L (-3-3) Oxyhemoglobin 89.6 % Methemoglobin 0.3 % (0.0-1.9) Carbon Monoxide, Quantitative 0.9 % (0.0-1.9) FiO2 100 Sodium Level 141 mmol/L (136-145) Potassium Level 3.8 mmol/L (3.5-5.1) Chloride Level 108 mmol/L (98-107) Carbon Dioxide Level 24 mmol/L (21-32) Anion Gap 9 (6-14) Blood Urea Nitrogen 11 mg/dL (8-26) Creatinine 1.0 mg/dL (0.7-1.3) Estimated GFR (Cockcroft-Gault) 79.1 Glucose Level 136 mg/dL (70-99) Calcium Level 10.8 mg/dL (8.5-10.1) Magnesium Level 2.0 mg/dL (1.8-2.4) Glucose (Fingerstick) 123 mg/dL (70-99) Test 10/28/18 15:05 10/28/18 16:10 10/28/18 16:40 10/28/18 17:09 Glucose (Fingerstick) 116 mg/dL (70-99) 112 mg/dL (70-99) 123 mg/dL (70-99) O2 Saturation 94 % (92-99) Arterial Blood pH 7.36 (7.35-7.45) Arterial Blood pCO2 at Patient Temp 44 mmHg (35-46) Arterial Blood pO2 at Patient Temp 74 mmHg (75-108) Arterial Blood HCO3 25 mmol/L (21-28) Arterial Blood Base Excess -1 mmol/L (-3-3) FiO2 40 Test 10/28/18 18:16 10/28/18 19:24 10/28/18 20:00 10/28/18 20:27 Glucose (Fingerstick) 130 mg/dL (70-99) 138 mg/dL (70-99) 150 mg/dL (70-99) Hemoglobin 13.2 g/dL (13.0-17.5) Hematocrit 40.0 % (39.0-53.0) Mean Corpuscular Hemoglobin Concent 33 g/dL (31-37) Potassium Level 4.8 mmol/L (3.5-5.1) Magnesium Level 1.6 mg/dL (1.8-2.4) Test 10/28/18 21:28 10/28/18 22:43 10/29/18 00:02 10/29/18 01:03 Glucose (Fingerstick) 154 mg/dL (70-99) 191 mg/dL (70-99) 140 mg/dL (70-99) 145 mg/dL (70-99) Test 10/29/18 01:57 10/29/18 03:07 10/29/18 04:20 10/29/18 05:30 Glucose (Fingerstick) 124 mg/dL (70-99) 117 mg/dL (70-99) 127 mg/dL (70-99) White Blood Count 12.5 x10^3/uL (4.0-11.0) Red Blood Count 4.06 x10^6/uL (4.30-5.70) Hemoglobin 12.2 g/dL (13.0-17.5) Hematocrit 36.5 % (39.0-53.0) Mean Corpuscular Volume 90 fL (79-100) Mean Corpuscular Hemoglobin 30 pg (25-35) Mean Corpuscular Hemoglobin Concent 34 g/dL (31-37) Red Cell Distribution Width 15.2 % (11.5-14.5) Platelet Count 207 x10^3/uL (140-400) Sodium Level 136 mmol/L (136-145) Potassium Level 4.4 mmol/L (3.5-5.1) Chloride Level 104 mmol/L (98-107) Carbon Dioxide Level 26 mmol/L (21-32) Anion Gap 6 (6-14) Blood Urea Nitrogen 9 mg/dL (8-26) Creatinine 1.0 mg/dL (0.7-1.3) Estimated GFR (Cockcroft-Gault) 79.1 Glucose Level 174 mg/dL (70-99) Calcium Level 9.3 mg/dL (8.5-10.1) Magnesium Level 1.2 mg/dL (1.8-2.4) Test 10/29/18 05:36 10/29/18 06:40 10/29/18 08:00 10/29/18 09:03 Glucose (Fingerstick) 178 mg/dL (70-99) 189 mg/dL (70-99) 159 mg/dL (70-99) 129 mg/dL (70-99) Review of Systems Review of Systems Itchy back, postop soreness, the rest of ROS 14 point negative Comment Review of Relevant I have reviewed the following items pratima (where applicable) has been applied. Labs Laboratory Tests Test 10/27/18 11:49 10/27/18 14:40 10/27/18 18:05 10/27/18 18:09 Nasal Screen MRSA (PCR) Negative (Negative) Activated Partial Thromboplast Time 74 SEC (24-38) Sodium Level 136 mmol/L (136-145) Potassium Level 4.8 mmol/L (3.5-5.1) Chloride Level 102 mmol/L (98-107) Carbon Dioxide Level 23 mmol/L (21-32) Anion Gap 11 (6-14) Blood Urea Nitrogen 13 mg/dL (8-26) Creatinine 1.0 mg/dL (0.7-1.3) Estimated GFR (Cockcroft-Gault) 79.1 BUN/Creatinine Ratio 13 (6-20) Glucose Level 279 mg/dL (70-99) Calcium Level 9.6 mg/dL (8.5-10.1) Total Bilirubin 0.3 mg/dL (0.2-1.0) Aspartate Amino Transf (AST/SGOT) 18 U/L (15-37) Alanine Aminotransferase (ALT/SGPT) 15 U/L (16-63) Alkaline Phosphatase 64 U/L (46-116) Total Protein 6.9 g/dL (6.4-8.2) Albumin 3.4 g/dL (3.4-5.0) Albumin/Globulin Ratio 1.0 (1.0-1.7) Heparin Anti-Xa Act, Unfractionated 0.12 IU/mL (0.30-0.70) Glucose (Fingerstick) 277 mg/dL (70-99) Test 10/27/18 20:31 10/27/18 21:43 10/27/18 22:44 10/27/18 23:41 Glucose (Fingerstick) 258 mg/dL (70-99) 198 mg/dL (70-99) 161 mg/dL (70-99) 145 mg/dL (70-99) Test 10/28/18 00:39 10/28/18 01:44 10/28/18 02:46 10/28/18 03:45 Glucose (Fingerstick) 162 mg/dL (70-99) 91 mg/dL (70-99) 97 mg/dL (70-99) 154 mg/dL (70-99) Test 10/28/18 05:15 10/28/18 05:19 10/28/18 06:24 10/28/18 07:28 White Blood Count 13.1 x10^3/uL (4.0-11.0) Red Blood Count 4.54 x10^6/uL (4.30-5.70) Hemoglobin 13.6 g/dL (13.0-17.5) Hematocrit 41.2 % (39.0-53.0) Mean Corpuscular Volume 91 fL (79-100) Mean Corpuscular Hemoglobin 30 pg (25-35) Mean Corpuscular Hemoglobin Concent 33 g/dL (31-37) Red Cell Distribution Width 15.6 % (11.5-14.5) Platelet Count 380 x10^3/uL (140-400) Prothrombin Time 13.3 SEC (11.7-14.0) Prothromb Time International Ratio 1.0 (0.8-1.1) Activated Partial Thromboplast Time 33 SEC (24-38) Sodium Level 137 mmol/L (136-145) Potassium Level 4.4 mmol/L (3.5-5.1) Chloride Level 103 mmol/L (98-107) Carbon Dioxide Level 30 mmol/L (21-32) Anion Gap 4 (6-14) Blood Urea Nitrogen 13 mg/dL (8-26) Creatinine 1.1 mg/dL (0.7-1.3) Estimated GFR (Cockcroft-Gault) 70.9 BUN/Creatinine Ratio 12 (6-20) Glucose Level 224 mg/dL (70-99) Hemoglobin A1c 9.8 % (4.8-5.6) Calcium Level 9.3 mg/dL (8.5-10.1) Magnesium Level 1.6 mg/dL (1.8-2.4) Total Bilirubin 0.3 mg/dL (0.2-1.0) Aspartate Amino Transf (AST/SGOT) 24 U/L (15-37) Alanine Aminotransferase (ALT/SGPT) 14 U/L (16-63) Alkaline Phosphatase 56 U/L (46-116) Total Protein 7.2 g/dL (6.4-8.2) Albumin 3.3 g/dL (3.4-5.0) Albumin/Globulin Ratio 0.8 (1.0-1.7) Glucose (Fingerstick) 221 mg/dL (70-99) 202 mg/dL (70-99) 145 mg/dL (70-99) Test 10/28/18 08:18 10/28/18 09:29 10/28/18 10:45 10/28/18 11:14 Activated Clotting Time 107 SEC (90-125) 502 SEC (90-125) 565 SEC (90-125) 455 SEC (90-125) Test 10/28/18 11:44 10/28/18 12:21 10/28/18 12:55 10/28/18 14:25 Activated Clotting Time 432 SEC (90-125) 115 SEC (90-125) White Blood Count 14.9 x10^3/uL (4.0-11.0) 19.3 x10^3/uL (4.0-11.0) Hemoglobin 12.1 g/dL (13.0-17.5) 13.5 g/dL (13.0-17.5) Hematocrit 36.6 % (39.0-53.0) 40.7 % (39.0-53.0) Platelet Count 205 x10^3/uL (140-400) 255 x10^3/uL (140-400) Prothrombin Time 15.6 SEC (11.7-14.0) 14.8 SEC (11.7-14.0) Prothromb Time International Ratio 1.3 (0.8-1.1) 1.2 (0.8-1.1) Activated Partial Thromboplast Time 28 SEC (24-38) 28 SEC (24-38) Fibrinogen 228 mg/dL (200-440) Red Blood Count 4.52 x10^6/uL (4.30-5.70) Mean Corpuscular Volume 90 fL (79-100) Mean Corpuscular Hemoglobin 30 pg (25-35) Mean Corpuscular Hemoglobin Concent 33 g/dL (31-37) Red Cell Distribution Width 15.3 % (11.5-14.5) O2 Saturation 91 % (92-99) Arterial Blood pH 7.31 (7.35-7.45) Arterial Blood pCO2 at Patient Temp 41 mmHg (35-46) Arterial Blood pO2 at Patient Temp 65 mmHg (75-108) Arterial Blood HCO3 20 mmol/L (21-28) Arterial Blood Base Excess -6 mmol/L (-3-3) Oxyhemoglobin 89.6 % Methemoglobin 0.3 % (0.0-1.9) Carbon Monoxide, Quantitative 0.9 % (0.0-1.9) FiO2 100 Sodium Level 141 mmol/L (136-145) Potassium Level 3.8 mmol/L (3.5-5.1) Chloride Level 108 mmol/L (98-107) Carbon Dioxide Level 24 mmol/L (21-32) Anion Gap 9 (6-14) Blood Urea Nitrogen 11 mg/dL (8-26) Creatinine 1.0 mg/dL (0.7-1.3) Estimated GFR (Cockcroft-Gault) 79.1 Glucose Level 136 mg/dL (70-99) Calcium Level 10.8 mg/dL (8.5-10.1) Magnesium Level 2.0 mg/dL (1.8-2.4) Test 10/28/18 14:27 10/28/18 15:05 10/28/18 16:10 10/28/18 16:40 Glucose (Fingerstick) 123 mg/dL (70-99) 116 mg/dL (70-99) 112 mg/dL (70-99) O2 Saturation 94 % (92-99) Arterial Blood pH 7.36 (7.35-7.45) Arterial Blood pCO2 at Patient Temp 44 mmHg (35-46) Arterial Blood pO2 at Patient Temp 74 mmHg (75-108) Arterial Blood HCO3 25 mmol/L (21-28) Arterial Blood Base Excess -1 mmol/L (-3-3) FiO2 40 Test 10/28/18 17:09 10/28/18 18:16 10/28/18 19:24 10/28/18 20:00 Glucose (Fingerstick) 123 mg/dL (70-99) 130 mg/dL (70-99) 138 mg/dL (70-99) Hemoglobin 13.2 g/dL (13.0-17.5) Hematocrit 40.0 % (39.0-53.0) Mean Corpuscular Hemoglobin Concent 33 g/dL (31-37) Potassium Level 4.8 mmol/L (3.5-5.1) Magnesium Level 1.6 mg/dL (1.8-2.4) Test 10/28/18 20:27 10/28/18 21:28 10/28/18 22:43 10/29/18 00:02 Glucose (Fingerstick) 150 mg/dL (70-99) 154 mg/dL (70-99) 191 mg/dL (70-99) 140 mg/dL (70-99) Test 10/29/18 01:03 10/29/18 01:57 10/29/18 03:07 10/29/18 04:20 Glucose (Fingerstick) 145 mg/dL (70-99) 124 mg/dL (70-99) 117 mg/dL (70-99) 127 mg/dL (70-99) Test 10/29/18 05:30 10/29/18 05:36 10/29/18 06:40 10/29/18 08:00 White Blood Count 12.5 x10^3/uL (4.0-11.0) Red Blood Count 4.06 x10^6/uL (4.30-5.70) Hemoglobin 12.2 g/dL (13.0-17.5) Hematocrit 36.5 % (39.0-53.0) Mean Corpuscular Volume 90 fL (79-100) Mean Corpuscular Hemoglobin 30 pg (25-35) Mean Corpuscular Hemoglobin Concent 34 g/dL (31-37) Red Cell Distribution Width 15.2 % (11.5-14.5) Platelet Count 207 x10^3/uL (140-400) Sodium Level 136 mmol/L (136-145) Potassium Level 4.4 mmol/L (3.5-5.1) Chloride Level 104 mmol/L (98-107) Carbon Dioxide Level 26 mmol/L (21-32) Anion Gap 6 (6-14) Blood Urea Nitrogen 9 mg/dL (8-26) Creatinine 1.0 mg/dL (0.7-1.3) Estimated GFR (Cockcroft-Gault) 79.1 Glucose Level 174 mg/dL (70-99) Calcium Level 9.3 mg/dL (8.5-10.1) Magnesium Level 1.2 mg/dL (1.8-2.4) Glucose (Fingerstick) 178 mg/dL (70-99) 189 mg/dL (70-99) 159 mg/dL (70-99) Test 10/29/18 09:03 Glucose (Fingerstick) 129 mg/dL (70-99) Laboratory Tests Test 10/28/18 09:29 10/28/18 10:45 10/28/18 11:14 10/28/18 11:44 Activated Clotting Time 502 SEC (90-125) 565 SEC (90-125) 455 SEC (90-125) 432 SEC (90-125) Test 10/28/18 12:21 10/28/18 12:55 10/28/18 14:25 10/28/18 14:27 Activated Clotting Time 115 SEC (90-125) White Blood Count 14.9 x10^3/uL (4.0-11.0) 19.3 x10^3/uL (4.0-11.0) Hemoglobin 12.1 g/dL (13.0-17.5) 13.5 g/dL (13.0-17.5) Hematocrit 36.6 % (39.0-53.0) 40.7 % (39.0-53.0) Platelet Count 205 x10^3/uL (140-400) 255 x10^3/uL (140-400) Prothrombin Time 15.6 SEC (11.7-14.0) 14.8 SEC (11.7-14.0) Prothromb Time International Ratio 1.3 (0.8-1.1) 1.2 (0.8-1.1) Activated Partial Thromboplast Time 28 SEC (24-38) 28 SEC (24-38) Fibrinogen 228 mg/dL (200-440) Red Blood Count 4.52 x10^6/uL (4.30-5.70) Mean Corpuscular Volume 90 fL (79-100) Mean Corpuscular Hemoglobin 30 pg (25-35) Mean Corpuscular Hemoglobin Concent 33 g/dL (31-37) Red Cell Distribution Width 15.3 % (11.5-14.5) O2 Saturation 91 % (92-99) Arterial Blood pH 7.31 (7.35-7.45) Arterial Blood pCO2 at Patient Temp 41 mmHg (35-46) Arterial Blood pO2 at Patient Temp 65 mmHg (75-108) Arterial Blood HCO3 20 mmol/L (21-28) Arterial Blood Base Excess -6 mmol/L (-3-3) Oxyhemoglobin 89.6 % Methemoglobin 0.3 % (0.0-1.9) Carbon Monoxide, Quantitative 0.9 % (0.0-1.9) FiO2 100 Sodium Level 141 mmol/L (136-145) Potassium Level 3.8 mmol/L (3.5-5.1) Chloride Level 108 mmol/L (98-107) Carbon Dioxide Level 24 mmol/L (21-32) Anion Gap 9 (6-14) Blood Urea Nitrogen 11 mg/dL (8-26) Creatinine 1.0 mg/dL (0.7-1.3) Estimated GFR (Cockcroft-Gault) 79.1 Glucose Level 136 mg/dL (70-99) Calcium Level 10.8 mg/dL (8.5-10.1) Magnesium Level 2.0 mg/dL (1.8-2.4) Glucose (Fingerstick) 123 mg/dL (70-99) Test 10/28/18 15:05 10/28/18 16:10 10/28/18 16:40 10/28/18 17:09 Glucose (Fingerstick) 116 mg/dL (70-99) 112 mg/dL (70-99) 123 mg/dL (70-99) O2 Saturation 94 % (92-99) Arterial Blood pH 7.36 (7.35-7.45) Arterial Blood pCO2 at Patient Temp 44 mmHg (35-46) Arterial Blood pO2 at Patient Temp 74 mmHg (75-108) Arterial Blood HCO3 25 mmol/L (21-28) Arterial Blood Base Excess -1 mmol/L (-3-3) FiO2 40 Test 10/28/18 18:16 10/28/18 19:24 10/28/18 20:00 10/28/18 20:27 Glucose (Fingerstick) 130 mg/dL (70-99) 138 mg/dL (70-99) 150 mg/dL (70-99) Hemoglobin 13.2 g/dL (13.0-17.5) Hematocrit 40.0 % (39.0-53.0) Mean Corpuscular Hemoglobin Concent 33 g/dL (31-37) Potassium Level 4.8 mmol/L (3.5-5.1) Magnesium Level 1.6 mg/dL (1.8-2.4) Test 10/28/18 21:28 10/28/18 22:43 10/29/18 00:02 10/29/18 01:03 Glucose (Fingerstick) 154 mg/dL (70-99) 191 mg/dL (70-99) 140 mg/dL (70-99) 145 mg/dL (70-99) Test 10/29/18 01:57 10/29/18 03:07 10/29/18 04:20 10/29/18 05:30 Glucose (Fingerstick) 124 mg/dL (70-99) 117 mg/dL (70-99) 127 mg/dL (70-99) White Blood Count 12.5 x10^3/uL (4.0-11.0) Red Blood Count 4.06 x10^6/uL (4.30-5.70) Hemoglobin 12.2 g/dL (13.0-17.5) Hematocrit 36.5 % (39.0-53.0) Mean Corpuscular Volume 90 fL (79-100) Mean Corpuscular Hemoglobin 30 pg (25-35) Mean Corpuscular Hemoglobin Concent 34 g/dL (31-37) Red Cell Distribution Width 15.2 % (11.5-14.5) Platelet Count 207 x10^3/uL (140-400) Sodium Level 136 mmol/L (136-145) Potassium Level 4.4 mmol/L (3.5-5.1) Chloride Level 104 mmol/L (98-107) Carbon Dioxide Level 26 mmol/L (21-32) Anion Gap 6 (6-14) Blood Urea Nitrogen 9 mg/dL (8-26) Creatinine 1.0 mg/dL (0.7-1.3) Estimated GFR (Cockcroft-Gault) 79.1 Glucose Level 174 mg/dL (70-99) Calcium Level 9.3 mg/dL (8.5-10.1) Magnesium Level 1.2 mg/dL (1.8-2.4) Test 10/29/18 05:36 10/29/18 06:40 10/29/18 08:00 10/29/18 09:03 Glucose (Fingerstick) 178 mg/dL (70-99) 189 mg/dL (70-99) 159 mg/dL (70-99) 129 mg/dL (70-99) Medications Current Medications Lidocaine HCl (Xylocaine-Mpf 1% 2ml Vial) 2 ml STK-MED ONCE .ROUTE ; Start 10/27/18 at 07:57; Stop 10/27/18 at 07:58; Status DC Iohexol (Omnipaque 300 Mg/ml) 100 ml STK-MED ONCE .ROUTE ; Start 10/27/18 at 07:57; Stop 10/27/18 at 07:58; Status DC Heparin Sodium/ Sodium Chloride 1,000 ml @ As Directed STK-MED ONCE .ROUTE ; Start 10/27/18 at 07:58; Stop 10/27/18 at 07:59; Status DC Fentanyl Citrate (Fentanyl 2ml Vial) 100 mcg STK-MED ONCE .ROUTE ; Start 10/27/18 at 08:15; Stop 10/27/18 at 08:16; Status DC Midazolam HCl (Versed) 2 mg STK-MED ONCE .ROUTE ; Start 10/27/18 at 08:16; Stop 10/27/18 at 08:17; Status DC Heparin Sodium (Porcine) (Heparin Sodium) 10,000 unit STK-MED ONCE .ROUTE ; Start 10/27/18 at 08:16; Stop 10/27/18 at 08:17; Status DC Verapamil HCl (Verapamil) 5 mg STK-MED ONCE .ROUTE ; Start 10/27/18 at 08:16; Stop 10/27/18 at 08:17; Status DC Nitroglycerin (Nitroglycerin) 200 mcg STK-MED ONCE .ROUTE ; Start 10/27/18 at 08:16; Stop 10/27/18 at 08:17; Status DC Midazolam HCl (Versed) 2 mg STK-MED ONCE .ROUTE ; Start 10/27/18 at 08:42; Stop 10/27/18 at 08:43; Status DC Diphenhydramine HCl (Benadryl) 50 mg STK-MED ONCE .ROUTE ; Start 10/27/18 at 08:42; Stop 10/27/18 at 08:43; Status DC Bivalirudin (Angiomax) 250 mg STK-MED ONCE IV ; Start 10/27/18 at 08:59; Stop 10/27/18 at 09:00; Status DC Iohexol (Omnipaque 300 Mg/ml) 100 ml STK-MED ONCE .ROUTE ; Start 10/27/18 at 09:00; Stop 10/27/18 at 09:01; Status DC Heparin Sodium (Porcine) (Heparin Sodium) 10,000 unit STK-MED ONCE .ROUTE ; Start 10/27/18 at 09:22; Stop 10/27/18 at 09:23; Status DC Verapamil HCl (Verapamil) 5 mg STK-MED ONCE .ROUTE ; Start 10/27/18 at 09:22; Stop 10/27/18 at 09:23; Status DC Nitroglycerin/ Dextrose (Nitroglycerin) 4 mg STK-MED ONCE .ROUTE ; Start 10/27/18 at 09:22; Stop 10/27/18 at 09:23; Status DC Verapamil HCl (Verapamil) 5 mg STK-MED ONCE .ROUTE ; Start 10/27/18 at 09:24; Stop 10/27/18 at 09:25; Status DC Lidocaine HCl (Lidocaine 1% 20ml Vial) 20 ml STK-MED ONCE .ROUTE ; Start at 09:27; Stop 10/27/18 at 09:28; Status DC Fentanyl Citrate (Fentanyl 2ml Vial) 100 mcg STK-MED ONCE .ROUTE ; Start 9 at 09:31; Stop 10/27/18 at 09:32; Status DC Midazolam HCl (Versed) 2 mg STK-MED ONCE .ROUTE ; Start 10/27/18 at 09:32; Stop 10/27/18 at 09:33; Status DC Dopamine HCl/ Dextrose 250 ml @ As Directed STK-MED ONCE IV ; Start 10/27/18 at 09:33; Stop 10/27/18 at 09:34; Status DC Bivalirudin (Angiomax) 250 mg STK-MED ONCE IV ; Start 10/27/18 at 10:14; Stop 10/27/18 at 10:15; Status DC Iohexol (Omnipaque 300 Mg/ml) 100 ml STK-MED ONCE .ROUTE ; Start 10/27/18 at 10:26; Stop 10/27/18 at 10:27; Status DC Nitroglycerin (Nitroglycerin) 200 mcg 1X ONCE IART Last administered on 10/27/18at 11:32; Start 10/27/18 at 10:00; Stop 10/27/18 at 10:33; Status DC Verapamil HCl (Verapamil) 2.5 mg 1X ONCE IART Last administered on 10/27/18at 11:34; Start 10/27/18 at 10:00; Stop 10/27/18 at 10:33; Status DC Heparin Sodium (Porcine) (Heparin Sodium) 2,500 unit 1X ONCE IART Last administered on 10/27/18at 11:37; Start 10/27/18 at 10:00; Stop 10/27/18 at 10:33; Status DC Heparin Sodium/ Sodium Chloride (HEPARIN for ARTERIAL LINE FLUSH) 1,000 unit 1X ONCE IART Last administered on 10/27/18at 11:31; Start 10/27/18 at 10:00; Stop 10/27/18 at 10:33; Status DC Heparin Sodium/ Sodium Chloride (HEPARIN for ARTERIAL LINE FLUSH) 1,000 unit 1X ONCE IART Last administered on 10/27/18 11:31; Start 10/27/18 at 10:00; Stop 10/27/18 at 10:33; Status DC Midazolam HCl (Versed) 5 mg 1X ONCE IV Last administered on 10/27/18 11:34; Start 10/27/18 at 10:00; Stop 10/27/18 at 10:33; Status DC Fentanyl Citrate (Fentanyl 2ml Vial) 125 mcg 1X ONCE IV Last administered on 10/27/18 11:35; Start 10/27/18 at 10:00; Stop 10/27/18 at 10:33; Status DC Iohexol (Omnipaque 300 Mg/ml) 100 ml 1X ONCE IART Last administered on 10/27/18 11:31; Start 10/27/18 at 10:00; Stop 10/27/18 at 10:33; Status DC Bivalirudin (Angiomax) 500 mg 1X ONCE IV Last administered on 10/27/18 11:33; Start 10/27/18 at 10:00; Stop 10/27/18 at 10:33; Status DC Lidocaine HCl (Lidocaine 1% 20ml Vial) 10 ml 1X ONCE INJ Last administered on 10/27/18 11:32; Start 10/27/18 at 10:00; Stop 10/27/18 at 10:33; Status DC Nitroglycerin/ Dextrose 4 mg/ Verapamil HCl 10 mg/Heparin Sodium (Porcine) 4000 unit/ Miscellaneous 20 ml/Sodium Chloride 1,048 ml @ 1,000 mls/hr 1X ONCE IART Last administered on 10/27/18 10:00; Start 10/27/18 at 10:00; Stop 10/27/18 at 11:02; Status DC Dopamine HCl/ Dextrose 250 ml @ 6.6 mls/hr 1X ONCE IV Last administered on 10:00; Start 10/27/18 at 10:00; Stop 10/28/18 at 23:52; Status DC Lidocaine HCl (Xylocaine-Mpf 1% 2ml Vial) 1 ml 1X ONCE INJ Last administered on 10/27/18 11:33; Start 10/27/18 at 10:00; Stop 10/27/18 at 10:33; Status DC Diphenhydramine HCl (Benadryl) 50 mg 1X ONCE IVP Last administered on 10/27/18at 11:36; Start 10/27/18 at 10:00; Stop 10/27/18 at 10:33; Status DC Info (CONTRAST GIVEN -- Rx MONITORING) 1 each PRN DAILY PRN MC SEE COMMENTS; Start 10/27/18 at 10:45; Stop 10/29/18 at 10:44 Heparin Sodium/ Dextrose 500 ml @ As Directed STK-MED ONCE IV ; Start 10/27/18 at 11:06; Stop 10/27/18 at 11:07; Status DC Tirofiban/Sodium Chloride 100 ml @ As Directed STK-MED ONCE IV ; Start 10/27/18 at 11:12; Stop 10/27/18 at 11:13; Status DC Tirofiban/Sodium Chloride 100 ml @ 0 mls/hr CONT PRN IV PER PROTOCOL Last administered on 10/27/18at 17:29; Start 10/27/18 at 11:30; Stop 10/28/18 at 05:29; Status DC Heparin Sodium/ Dextrose 500 ml @ 0 mls/hr CONT PRN IV SEE I/O RECORD Last administered on 10/27/18at 11:17; Start 10/27/18 at 11:30; Stop 10/28/18 at 13:51; Status DC Heparin Sodium (Porcine) (Heparin Sodium) 2,200 unit PRN Q6HRS PRN IV FOR UFH LEVEL LESS THAN 0.2 Last administered on 10/27/18at 19:31; Start 10/27/18 at 11:30; Stop 10/28/18 at 13:51; Status DC Info (Anti-Coagulation Monitoring By Pharmacy) 1 each PRN DAILY PRN MC SEE COMMENTS; Start 10/27/18 at 11:45; Stop 10/29/18 at 09:07; Status DC Sodium Chloride 1,000 ml @ 100 mls/hr Q10H IV Last administered on 10/27/18at 13:07; Start 10/27/18 at 12:00; Stop 10/28/18 at 13:49; Status DC Tirofiban/Sodium Chloride 100 ml @ 0 mls/hr CONT PRN IV PER PROTOCOL; Start 10/27/18 at 11:30; Stop 10/28/18 at 05:29; Status UNV Acetaminophen (Tylenol) 650 mg PRN Q6HRS PRN PO MILD PAIN / TEMP; Start 10/27/18 at 11:30; Stop 10/28/18 at 13:45; Status DC Fentanyl Citrate (Fentanyl 2ml Vial) 50 mcg PRN Q1HR PRN IV SEVERE PAIN Last administered on 10/28/18at 01:35; Start 10/27/18 at 11:30 Nitroglycerin (Nitrostat) 0.4 mg PRN Q5MIN PRN SL CHEST PAIN Last administered on 10/27/18at 13:05; Start 10/27/18 at 13:00 Nitroglycerin/ Dextrose 250 ml @ 1.5 mls/hr CONT PRN IV SEE I/O RECORD Last administered on 10/28/18at 01:27; Start 10/27/18 at 13:00; Stop 10/28/18 at 13:35; Status DC Cefazolin Sodium/ Dextrose 50 ml @ 100 mls/hr 1X ONCE IV Last administered on 10/28/18at 06:00; Start 10/28/18 at 06:00; Stop 10/28/18 at 06:29; Status DC Nicotine (Nicoderm Cq 21mg) 1 patch PRN DAILY PRN TD SMOKING CESSATION Last administered on 10/29/18at 08:25; Start 10/27/18 at 17:30 Atorvastatin Calcium (Lipitor) 40 mg QHS PO Last administered on 10/28/18 21:16; Start 10/27/18 at 21:00 Lurasidone HCl (Latuda) 80 mg QHS PO Last administered on 10/28/18 21:16; Start 10/27/18 at 21:00 Tamsulosin HCl (Flomax) 0.4 mg DAILY PO Last administered on 10/29/18at 08:37; Start 10/28/18 at 09:00 Duloxetine HCl (Cymbalta) 60 mg BID PO Last administered on 10/29/18 08:26; Start 10/27/18 at 21:00 Lisinopril (Prinivil) 5 mg DAILY PO ; Start 10/28/18 at 09:00 Mirtazapine (Remeron) 7.5 mg QHS PO Last administered on 10/28/18at 21:16; Start 10/27/18 at 21:00 Oxcarbazepine (Trileptal) 300 mg DAILY PO Last administered on 10/29/18at 08:38; Start 10/28/18 at 09:00 Insulin Glargine (Lantus) 35 units QHS SQ ; Start 10/27/18 at 21:00; Stop 10/27/18 at 21:00; Status DC Insulin Human Lispro (HumaLOG) 10 units TIDWMEALS SQ Last administered on 10/27/18at 18:10; Start 10/27/18 at 18:30; Stop 10/27/18 at 20:21; Status DC Insulin Human Lispro (HumaLOG) 0-7 UNITS TIDWMEALS SQ ; Start 10/28/18 at 08:00; Stop 10/28/18 at 08:17; Status DC Dextrose (Dextrose 50%-Water Syringe) 12.5 gm PRN Q15MIN PRN IV SEE COMMENTS; Start 10/27/18 at 18:00; Stop 10/28/18 at 13:49; Status DC Oxycodone HCl (Roxicodone) 5 mg PRN Q4HRS PRN PO MODERATE-SEVERE PAIN Last administered on 10/27/18at 18:10; Start 10/27/18 at 18:00; Stop 10/28/18 at 13:47; Status DC Potassium Chloride 70 meq/ Sodium Bicarbonate 12.5 meq/Lidocaine HCl 24 ml/Parenteral Electrolytes 571.5 ml @ 571.5 mls/ hr 1X ONCE IRR Last administered on 10/28/18at 10:35; Start 10/28/18 at 06:00; Stop 10/28/18 at 06:59; Status DC Potassium Chloride 15 meq/ Sodium Bicarbonate 12.5 meq/Parenteral Electrolytes 520 ml @ 520 mls/hr 1X ONCE IRR Last administered on 10/28/18at 10:35; Start 10/28/18 at 06:00; Stop 10/28/18 at 06:59; Status DC Heparin Sodium (Porcine) 36289 unit/Ringer's Solution 1,020 ml @ 1,020 mls/hr 1X ONCE IRR Last administered on 10/28/18at 08:36; Start 10/28/18 at 06:00; Stop 10/28/18 at 06:59; Status DC Cefazolin Sodium 1 gm/Sodium Chloride 500 ml @ 500 mls/hr 1X ONCE IRR Last administered on 10/28/18at 08:36; Start 10/28/18 at 06:00; Stop 10/28/18 at 06:59; Status DC Zolpidem Tartrate (Ambien) 5 mg PRN QHS PRN PO INSOMNIA; Start 10/27/18 at 20:00 Insulin Human Regular 150 unit/ Sodium Chloride 151.5 ml @ 0 mls/hr CONT PRN IV SEE I/O RECORD Last administered on 10/27/18at 20:39; Start 10/27/18 at 20:15; Stop 10/28/18 at 13:45; Status DC Sodium Chloride 1,000 ml @ 50 mls/hr Q20H IV ; Start 10/27/18 at 20:15; Stop 10/28/18 at 19:16; Status DC Dextrose/Sodium Chloride 1,000 ml @ 100 mls/hr Q10H IV Last administered on 10/27/18at 23:45; Start 10/27/18 at 23:00; Stop 10/28/18 at 19:16; Status DC Morphine Sulfate (Morphine Sulfate) 2 mg PRN Q30MIN PRN IV PAIN Last administered on 10/28/18at 02:16; Start 10/28/18 at 02:15; Stop 10/28/18 at 13:46; Status DC Ondansetron HCl (Zofran) 4 mg PRN Q6HRS PRN IV NAUSEA/VOMITING Last administered on 10/28/18at 02:31; Start 10/28/18 at 02:30; Stop 10/28/18 at 13:39; Status DC Etomidate (Amidate) 20 mg STK-MED ONCE IV ; Start 10/28/18 at 06:52; Stop 10/28/18 at 06:53; Status DC Phenylephrine HCl (PHENYLEPHRINE in 0.9% NACL PF) 1 mg STK-MED ONCE IV ; Start 10/28/18 at 06:53; Stop 10/28/18 at 06:54; Status DC Rocuronium [place] (Zemuron) 100 mg STK-MED ONCE .ROUTE ; Start 10/28/18 at 06:53; Stop 10/28/18 at 06:54; Status DC Midazolam HCl (Versed) 5 mg STK-MED ONCE .ROUTE ; Start 10/28/18 at 06:54; Stop 10/28/18 at 06:55; Status DC Vancomycin HCl (VANCO for OR ONLY) 10 gm STK-MED ONCE .ROUTE Last administered on 10/28/18 08:36; Start 10/28/18 at 05:54; Stop 10/28/18 at 06:55; Status DC Cellulose (Surgicel Hemostat 4x8) 1 each STK-MED ONCE .ROUTE Last administered on 10/28/18 08:36; Start 10/28/18 at 05:54; Stop 10/28/18 at 06:55; Status DC Papaverine HCl 60 mg STK-MED ONCE .ROUTE Last administered on 10/28/18 08:36; Start 10/28/18 at 05:55; Stop 10/28/18 at 06:55; Status DC Sodium Chloride (SODIUM CHLORIDE 20ml) 20 ml STK-MED ONCE IJ Last administered on 10/28/18 08:36; Start 10/28/18 at 05:55; Stop 10/28/18 at 06:55; Status DC Sodium Chloride (SODIUM CHLORIDE 20ml) 20 ml STK-MED ONCE IJ Last administered on 10/28/18 08:36; Start 10/28/18 at 05:55; Stop 10/28/18 at 06:55; Status DC Phenylephrine HCl (Jameel-Synephrine Inj) 10 mg STK-MED ONCE .ROUTE ; Start 10/28/18 at 06:55; Stop 10/28/18 at 06:56; Status DC Sodium Chloride (SODIUM CHLORIDE 20ml) 20 ml STK-MED ONCE IJ Last administered on 10/28/18 08:36; Start 10/28/18 at 05:56; Stop 10/28/18 at 06:56; Status DC Phenylephrine HCl (Jameel-Synephrine Inj) 10 mg STK-MED ONCE .ROUTE ; Start 10/28/18 at 06:56; Stop 10/28/18 at 06:57; Status DC Aspirin (Aspirin) 300 mg STK-MED ONCE .ROUTE Last administered on 10/28/18at 13:19; Start 10/28/18 at 05:57; Stop 10/28/18 at 06:57; Status DC Sufentanil Citrate (Sufenta) 250 mcg STK-MED ONCE .ROUTE ; Start 10/28/18 at 06:57; Stop 10/28/18 at 06:58; Status DC Aminocaproic Acid (Amicar) 5,000 mg STK-MED ONCE IV ; Start 10/28/18 at 06:58; Stop 10/28/18 at 06:59; Status DC Aminocaproic Acid (Amicar) 5,000 mg STK-MED ONCE IV ; Start 10/28/18 at 06:58; Stop 10/28/18 at 06:59; Status DC Aminocaproic Acid (Amicar) 5,000 mg STK-MED ONCE IV ; Start 10/28/18 at 06:58; Stop 10/28/18 at 06:59; Status DC Ephedrine Sulfate (ePHEDrine PF IN SALINE SYRINGE) 50 mg STK-MED ONCE IV ; Start 10/28/18 at 07:00; Stop 10/28/18 at 07:01; Status DC Lidocaine HCl (Xylocaine-Mpf 1% 2ml Vial) 2 ml STK-MED ONCE .ROUTE ; Start 10/28/18 at 07:14; Stop 10/28/18 at 07:15; Status DC Acetaminophen (Tylenol) 500 mg PRN Q6HRS PRN PO MILD PAIN / TEMP; Start 10/28/18 at 08:15; Stop 10/28/18 at 13:45; Status DC Acetaminophen/ Codeine Phosphate (Tylenol #3) 1 tab PRN Q6HRS PRN PO MODERATE PAIN; Start 10/28/18 at 08:15; Stop 10/28/18 at 13:46; Status DC Ondansetron HCl (Zofran) 4 mg PRN Q6HRS PRN IV NAUSEA/VOMITING; Start 10/28/18 at 08:15; Stop 10/28/18 at 13:39; Status DC Ondansetron HCl (Zofran Odt) 4 mg PRN Q6HRS PRN PO NAUSEA/VOMITING; Start 10/28/18 at 08:15 Insulin Human Lispro (HumaLOG) 0-9 UNITS TIDWMEALS SQ ; Start 10/28/18 at 12:00 Dextrose (Dextrose 50%-Water Syringe) 12.5 gm PRN Q15MIN PRN IV SEE COMMENTS; Start 10/28/18 at 08:15; Stop 10/28/18 at 13:49; Status DC Fenofibrate (Lofibra) 134 mg DAILY PO Last administered on 10/29/18at 08:26; Start 10/28/18 at 09:00 Fish Oil (Fish Oil) 2,000 mg BID PO Last administered on 10/29/18at 08:37; Start 10/28/18 at 09:00 Heparin Sodium (Porcine) 30,000 unit STK-MED ONCE .ROUTE ; Start 10/28/18 at 08:24; Stop 10/28/18 at 08:25; Status DC Verapamil HCl (Verapamil) 10 mg STK-MED ONCE .ROUTE ; Start 10/27/18 at 10:00; Stop 10/28/18 at 08:58; Status DC Rocuronium [place] (Zemuron) 100 mg STK-MED ONCE .ROUTE ; Start 10/28/18 at 09:06; Stop 10/28/18 at 09:07; Status DC Cefazolin Sodium (Ancef) 1 gm STK-MED ONCE .ROUTE ; Start 10/28/18 at 09:20; Stop 10/28/18 at 09:21; Status DC Cefazolin Sodium (Ancef) 1 gm STK-MED ONCE .ROUTE ; Start 10/28/18 at 09:20; Stop 10/28/18 at 09:21; Status DC Heparin Sodium (Porcine) (Heparin Sodium) 10,000 unit STK-MED ONCE .ROUTE ; Start 10/28/18 at 10:24; Stop 10/28/18 at 10:25; Status DC Protamine Sulfate (Protamine) 250 mg STK-MED ONCE IV ; Start 10/28/18 at 11:22; Stop 10/28/18 at 11:23; Status DC Protamine Sulfate (Protamine) 50 mg STK-MED ONCE IV ; Start 10/28/18 at 12:11; Stop 10/28/18 at 12:12; Status DC Heparin Sodium (Porcine) (Heparin Sodium) 10,000 unit STK-MED ONCE .ROUTE ; Start 10/28/18 at 12:17; Stop 10/28/18 at 12:18; Status DC Lidocaine HCl (Lidocaine Pf 2% Vial) 5 ml STK-MED ONCE .ROUTE ; Start 10/28/18 at 12:17; Stop 10/28/18 at 12:18; Status DC Magnesium Sulfate 5 gm STK-MED ONCE .ROUTE ; Start 10/28/18 at 12:17; Stop 10/28/18 at 12:18; Status DC Mannitol (Mannitol) 12.5 g STK-MED ONCE .ROUTE ; Start 10/28/18 at 12:17; Stop 10/28/18 at 12:18; Status DC Albumin Human 100 ml @ As Directed STK-MED ONCE IV ; Start 10/28/18 at 12:17; Stop 10/28/18 at 12:18; Status DC Calcium Chloride (Calcium Chloride) 1,000 mg STK-MED ONCE .ROUTE ; Start 10/28/18 at 12:17; Stop 10/28/18 at 12:18; Status DC Nitroglycerin/ Dextrose 250 ml @ As Directed STK-MED ONCE IV ; Start 10/28/18 at 12:30; Stop 10/28/18 at 12:31; Status DC Fentanyl Citrate (Fentanyl 2ml Vial) 100 mcg STK-MED ONCE .ROUTE ; Start 10/28/18 at 12:56; Stop 10/28/18 at 12:57; Status DC Nicardipine HCl 50 mg/Sodium Chloride 250 ml @ 25 mls/hr CONT PRN IV SEE I/O RECORD Last administered on 10/28/18at 14:55; Start 10/28/18 at 12:45 Amiodarone HCl 900 mg/Dextrose 518 ml @ 0 mls/hr CONT PRN IV SEE I/O RECORD Last administered on 10/28/18at 14:45; Start 10/28/18 at 12:45; Stop 10/28/18 at 15:49; Status DC Amiodarone HCl 150 mg/Dextrose 103 ml @ 618 mls/hr 1X ONCE IV Last administered on 10/28/18at 15:26; Start 10/28/18 at 12:45; Stop 10/28/18 at 13:02; Status DC Sodium Chloride (Normal Saline Flush) 3 ml PRN Q12HR PRN IV AFTER MEDS AND BLOOD DRAWS; Start 10/28/18 at 13:30 Ringer's Solution 1,000 ml @ 30 mls/hr Q24H IV Last administered on 10/28/18at 15:32; Start 10/28/18 at 13:22 Albumin Human 250 ml @ 500 mls/hr PRN Q4HRS PRN IV SEE COMMENTS; Start 10/28/18 at 13:30 Insulin Human Regular 150 unit/ Sodium Chloride 151.5 ml @ 0 mls/hr CONT PRN PRN IV PER PROTOCOL Last administered on 10/29/18at 03:25; Start 10/28/18 at 13: 30 Dextrose (Dextrose 50%-Water Syringe) 25 gm PRN Q15MIN PRN IV LOW BLOOD SUGAR; Start 10/28/18 at 13:30 Nitroglycerin/ Dextrose 250 ml @ 0 mls/hr CONT PRN PRN IV POST CV SURGERY; Start 10/28/18 at 13:30; Stop 10/28/18 at 19:16; Status DC Phenylephrine HCl 20 mg/Sodium Chloride 252 ml @ 0 mls/hr CONT PRN PRN IV HYPOTENSION; Start 10/28/18 at 13:30 Amiodarone HCl 150 mg/Dextrose 103 ml @ 600 mls/hr 1X ONCE IV ; Start 10/28/18 at 13:30; Stop 10/28/18 at 13:40; Status UNV Amiodarone HCl 150 mg/Dextrose 103 ml @ 200 mls/hr 1X PRN PRN IV FOR AFIB Last administered on 10/28/18at 14:00; Start 10/28/18 at 13:30 Amiodarone HCl 900 mg/Dextrose 518 ml @ 0 mls/hr CONT PRN PRN IV AFIB; Start 10/28/18 at 13:30; Status UNV Info (KCl Per Protocol) 1 ea CONT PRN PRN MC SEE COMMENTS; Start 10/28/18 at 13:30 Magnesium Sulfate/ Dextrose 100 ml @ 100 mls/hr PRN DAILY PRN IV FOR MAG < 2.2; Start 10/28/18 at 13:30 Famotidine (Pepcid Vial) 20 mg BID IVP Last administered on 10/29/18at 08:44; Start 10/28/18 at 21:00 Ondansetron HCl (Zofran) 4 mg PRN Q4HRS PRN IV NAUSEA/VOMITING, 1st CHOICE Last administered on 10/28/18at 21:44; Start 10/28/18 at 13:30 Prochlorperazine Edisylate (Compazine) 10 mg PRN Q6HRS PRN IV NAUSEA/VOMITING, 2nd CHOICE; Start 10/28/18 at 13:30 Metoclopramide HCl (Reglan Vial) 10 mg PRN Q6HRS PRN IV NAUSEA/VOMITING, 3rd CHOICE; Start 10/28/18 at 13:30 Morphine Sulfate (Morphine Sulfate) 2 mg PRN Q1HR PRN IV PAIN; Start 10/28/18 at 13:30; Stop 10/28/18 at 19:16; Status DC Morphine Sulfate (Morphine Sulfate) 4 mg PRN Q1HR PRN IV SEVERE PAIN Last administered on 10/28/18at 17:06; Start 10/28/18 at 13:30; Stop 10/28/18 at 19:16 ; Status DC Acetaminophen (Tylenol) 650 mg PRN Q4HRS PRN PO TEMP > 101'F; Start 10/28/18 at 13:30 Acetaminophen (Tylenol Supp) 650 mg PRN Q4HRS PRN [place] TEMP > 101'F or MILD PAIN; Start 10/28/18 at 13:30 Meperidine HCl (Demerol) 12.5 mg PRN Q15MIN PRN IV SHIVERING; Start 10/28/18 at 13:30; Stop 10/28/18 at 19:16; Status DC Propofol 100 ml @ 0 mls/hr CONT PRN PRN IV POSTOP SEDATION UNTIL EXTUBATE Last administered on 10/28/18at 15:45; Start 10/28/18 at 13:30; Stop 10/28/18 at 19:16; Status DC Senna/Docusate Sodium (Senna Plus) 1 tab BID PO Last administered on 10/29/18at 08:37; Start 10/28/18 at 21:00 Bisacodyl (Dulcolax Supp) 10 mg PRN DAILY PRN [place] NO BOWEL MOVEMENT; Start 10/28/18 at 13:30 Chlorhexidine Gluconate (Peridex) 15 ml BID MM ; Start 10/29/18 at 09:00; Stop 10/29/18 at 09:00; Status DC Aspirin (Ecotrin) 325 mg DAILYWBKFT PO Last administered on 10/29/18at 08:37; Start 10/29/18 at 08:00 Aspirin (Aspirin) 300 mg PRN DAILY PRN [place] IF UNABLE TO TAKE PO; Start 10/29/18 at 08:00 Albuterol Sulfate (Ventolin Neb Soln) 2.5 mg PRN Q4HRS PRN NEB SHORTNESS OF BREATH; Start 10/28/18 at 13:30 Metoprolol Tartrate (Lopressor) 25 mg BID PO ; Start 10/29/18 at 09:00 Nicardipine HCl 50 mg/Sodium Chloride 250 ml @ 0 mls/hr CONT PRN PRN IV PER PROTOCOL; Start 10/28/18 at 13:30; Status UNV Oxycodone HCl (Roxicodone) 5 mg PRN Q4HRS PRN PO MILD TO MODERATE PAIN; Start 10/28/18 at 13:30 Oxycodone HCl (Roxicodone) 10 mg PRN Q4HRS PRN PO SEVERE PAIN Last administered on 10/29/18at 06:28; Start 10/28/18 at 13:30 Cefazolin Sodium/ Dextrose 50 ml @ 100 mls/hr Q8H IV ; Start 10/28/18 at 17:00; Stop 10/28/18 at 19:16; Status DC Sodium Bicarbonate (Sodium Bicarb Adult 8.4% Syr) 50 meq 1X ONCE IV Last administered on 10/28/18at 15:33; Start 10/28/18 at 14:45; Stop 10/28/18 at 15:25; Status DC Potassium Chloride/Water 50 ml @ 50 mls/hr Q1HR IV Last administered on 10/28/18at 19:03; Start 10/28/18 at 17:00; Stop 10/28/18 at 18:59; Status DC Fentanyl Citrate (Fentanyl 2ml Vial) 25 mcg 1X ONCE IV Last administered on 10/28/18at 17:37; Start 10/28/18 at 17:30; Stop 10/28/18 at 17:31; Status DC Hydromorphone HCl (Dilaudid) 0.5 mg PRN Q2HRS PRN IVP MODERATE PAIN Last administered on 10/29/18at 08:37; Start 10/28/18 at 17:30 Ketorolac Tromethamine (Toradol 15mg Vial) 15 mg PRN Q6HRS PRN IV MILD PAIN Last administered on 10/29/18at 06:27; Start 10/28/18 at 17:30; Stop 11/02/18 at 17:29 Cefazolin Sodium/ Dextrose 50 ml @ 100 mls/hr Q8H IV Last administered on 10/29/18at 04:15; Start 10/28/18 at 20:00; Stop 10/30/18 at 04:29 Magnesium Sulfate 50 ml @ 25 mls/hr 1X ONCE IV Last administered on 10/29/18at 08:15; Start 10/29/18 at 08:15; Stop 10/29/18 at 10:14 Pantoprazole Sodium (PROTONIX VIAL for IV PUSH) 40 mg 1X ONCE IVP Last administered on 10/29/18at 08:15; Start 10/29/18 at 08:15; Stop 10/29/18 at 08:22; Status DC Pantoprazole Sodium (PROTONIX VIAL for IV PUSH) 40 mg DAILYAC IVP ; Start 10/30/18 at 07:30 Magnesium Sulfate 50 ml @ 25 mls/hr 1X ONCE IV ; Start 10/29/18 at 08:30; Stop 10/29/18 at 10:29 Active Scripts Active Levemir (Insulin Detemir) 100 Unit/1 Ml Vial 60 Unit SQ QHS Reported Mirtazapine 15 Mg Tablet 0.5 Tab PO QHS [place] 3 Fish Oil Softgel ([place]-3 Fatty Acids/Fish Oil) 1 Each Capsule.dr 2 Each PO BID [regular insulin] 45 Cymbalta (Duloxetine Hcl) 60 Mg Capsule.dr 1 Cap PO BID Oxcarbazepine 300 Mg Tablet 300 Mg PO DAILY Fenofibrate (Fenofibrate Nanocrystallized) 145 Mg Tablet 1 Tab PO DAILY Atorvastatin Calcium 40 Mg Tablet 1 Tab PO DAILY Celebrex (Celecoxib) 100 Mg Capsule 1 Cap PO BID Latuda (Lurasidone Hcl) 40 Mg Tablet 80 Tab PO QHS Tamsulosin Hcl 0.4 Mg Cap.er.24h 0.4 Mg PO DAILY Lisinopril 5 Mg Tablet 5 Mg PO DAILY Metformin Hcl 1,000 Mg Tablet 500 Tab PO BID Vitals/I & O Vital Sign - Last 24 Hours 10/28/18 10/28/18 10/28/18 10/28/18 13:30 13:32 13:32 13:45 Temp 97.2 97.2 Pulse 83 83 Resp 22 B/P (MAP) 147/67 (93) 142/67 (92) Pulse Ox 100 94 O2 Delivery Mechanical Ventilator Ventilator Ventilator 10/28/18 10/28/18 10/28/18 10/28/18 14:00 14:00 14:00 14:15 Temp 97.7 98.0 97.7 98.0 Pulse 80 90 90 71 Resp 25 24 B/P (MAP) 136/70 122/57 (78) 123/66 (85) Pulse Ox 98 99 O2 Delivery Ventilator Ventilator 10/28/18 10/28/18 10/28/18 10/28/18 14:15 14:30 14:30 15:00 Temp 97.6 97.8 97.6 97.8 Pulse 71 76 70 76 Resp 17 18 B/P (MAP) 124/64 (84) 121/63 (82) Pulse Ox 98 98 O2 Delivery Ventilator Ventilator 10/28/18 10/28/18 10/28/18 10/28/18 15:00 15:25 15:26 16:00 Pulse 76 67 74 B/P (MAP) 119/70 138/71 (93) Pulse Ox 100 O2 Delivery Ventilator 10/28/18 10/28/18 10/28/18 10/28/18 16:00 16:00 16:04 17:00 Temp 98.0 98.0 Pulse 80 82 Resp 16 B/P (MAP) 134/76 (95) Pulse Ox 98 97 O2 Delivery Ventilator Mechanical Ventilator Ventilator 10/28/18 10/28/18 10/28/18 10/28/18 17:00 17:05 17:06 17:36 Temp 98.7 98.7 Pulse 76 82 Resp 20 27 B/P (MAP) 139/76 (97) Pulse Ox 98 98 97 98 O2 Delivery BiPAP/CPAP Nasal Cannula Ventilator O2 Flow Rate 5.0 3.0 10/28/18 10/28/18 10/28/18 10/28/18 17:37 19:00 19:00 19:20 Temp 99.0 99.0 Pulse 82 82 Resp 20 B/P (MAP) 136/70 (92) 136/70 (92) Pulse Ox 98 97 95 O2 Delivery High Flow Nasal Cannula Nasal Cannula Nasal Cannula O2 Flow Rate 5.0 2.0 2.0 10/28/18 10/28/18 10/28/18 10/28/18 19:39 20:00 20:00 20:00 Temp 99.4 99.4 Pulse 83 83 Resp 14 20 B/P (MAP) 139/71 (93) 139/71 (93) Pulse Ox 94 98 O2 Delivery Nasal Cannula Nasal Cannula Nasal Cannula O2 Flow Rate 2.0 2.0 2.0 10/28/18 10/28/18 10/28/18 10/28/18 20:23 21:00 21:00 22:00 Temp 99.0 99.0 Pulse 84 84 85 Resp 22 B/P (MAP) 132/67 (88) 132/67 (88) 130/68 (88) Pulse Ox 95 95 O2 Delivery Nasal Cannula Nasal Cannula O2 Flow Rate 2.0 2.0 10/28/18 10/28/18 10/28/18 10/28/18 22:00 22:45 23:00 23:00 Temp 99.0 99.3 99.0 99.3 Pulse 85 85 Resp 20 B/P (MAP) 130/68 (88) 145/66 (92) Pulse Ox 97 96 97 O2 Delivery Nasal Cannula Nasal Cannula Nasal Cannula O2 Flow Rate 2.0 2.0 2.0 10/28/18 10/28/18 10/28/18 10/29/18 23:59 23:59 23:59 00:10 Temp 98.9 98.9 Pulse 83 83 Resp 18 18 B/P (MAP) 146/68 (94) 146/68 (94) Pulse Ox 96 96 O2 Delivery Nasal Cannula Nasal Cannula Nasal Cannula O2 Flow Rate 2.0 2.0 2.0 10/29/18 10/29/18 10/29/18 10/29/18 01:00 01:00 01:46 02:00 Temp 98.9 98.8 98.9 98.8 Pulse 82 80 Resp 16 22 18 B/P (MAP) 137/60 (85) 122/56 (78) Pulse Ox 97 94 96 O2 Delivery Nasal Cannula Nasal Cannula Nasal Cannula O2 Flow Rate 2.0 2.0 2.0 10/29/18 10/29/18 10/29/18 10/29/18 02:00 03:00 03:00 04:00 Temp 98.3 98.3 Pulse 80 77 Resp 18 B/P (MAP) 122/56 (78) 119/52 (74) Pulse Ox 94 O2 Delivery Nasal Cannula Nasal Cannula O2 Flow Rate 3.0 2.0 10/29/18 10/29/18 10/29/18 10/29/18 04:00 04:00 04:07 04:35 Temp 98.9 98.9 Pulse 76 76 Resp 18 16 16 B/P (MAP) 118/54 (75) 118/54 (75) Pulse Ox 94 94 94 O2 Delivery Nasal Cannula Nasal Cannula Nasal Cannula O2 Flow Rate 3.0 3.0 3.0 10/29/18 10/29/18 10/29/18 10/29/18 05:00 06:00 06:28 07:00 Temp 98.9 98.9 Pulse 76 77 76 Resp 16 20 20 22 B/P (MAP) 114/55 (74) 106/80 (89) 114/69 (84) Pulse Ox 94 93 93 94 O2 Delivery Nasal Cannula Nasal Cannula Nasal Cannula Nasal Cannula O2 Flow Rate 3.0 3.0 2.0 3.0 10/29/18 10/29/18 07:15 08:37 Resp 20 21 Pulse Ox 97 94 O2 Delivery Nasal Cannula Nasal Cannula O2 Flow Rate 3.0 2.0 Intake and Output 10/28/18 10/28/18 10/29/18 15:00 23:00 07:00 Intake Total 0 ml 1455 ml 1076 ml Output Total 550 ml 1285 ml 753 ml Balance -550 ml 170 ml 323 ml JANETH FLANAGAN MD Oct 29, 2018 09:25
--- NOTE | 2018-10-29 11:04 | RAD ---
Examination: PORTABLE CHEST 1V History: 1 day post cabg Comparison/Correlation: 10/28/2018 AP view of the chest Findings: Portable semiupright frontal view chest was obtained. Right internal jugular Trafford-Carey catheter sheath remains overlying the superior vena cava. Mediastinal tube noted. Left basilar chest tube identified. No pneumothorax. Sternal wires and mediastinal clips are present. Pericardial drain noted. Heart size is mildly enlarged. Pulmonary vasculature is borderline congested. Minimal left pleural effusion and atelectasis noted. Improved left basilar retrocardiac aeration. Impression: Postoperative chest. Improved left basilar aeration with decreased atelectasis. Very small left pleural effusion again seen. Electronically signed by: Ashok De La Cruz MD (10/29/2018 11:01 AM) [facility]
--- NOTE | 2018-10-29 11:13 | NUR ---
SS following for discharge planning. SS reviewed pt chart. Pt is from home and had CABG on 10/28/2018. No discharge needs noted at this time. SS will continue to follow for discharge planning.
[2018-10-29] MEDS: NYSTATIN TOPICAL POWDER 15GM BOTTLE. TP SCH ×2 (11:21→20:41)
--- NOTE | 2018-10-29 12:29 | PDOC ---
Progress Note Subjective Subjective Fast track extubation yesterday. Doing very well. Ambulated. Normotensive, SR. Minimal tube drainage. Excellent UO. Hb 12.2, creat 1. CXR with expected postop changes. Glucose 150s on 3 U/hr. A-line and [place] are out. ROS ROS No nausea No vomiting No pain No rash Vital Sign Vital Signs Vital Signs Date Time Temp Pulse Resp B/P (MAP) Pulse Ox O2 Delivery O2 Flow Rate FiO2 10/29/18 11:21 25 94 Nasal Cannula 2.0 10/29/18 11:00 76 102/64 (77) 10/29/18 08:00 98.2 98.2 Physical Exam PHYSICAL EXAM GENERAL: NAD, Alert HEENT: PERRL, OC/OP NECK: Supple, no JVD, no LN LUNGS: Clear HEART: S1S2, no gallop, no murmur ABD: Soft, NT, no organomegaly, no rebound EXT: No edema, no cyanosis JIG FITTER: Alert, oriented x 3, no focal neurologic deficit SKIN: No rash IV: ok Labs Lab Laboratory Tests Test 10/28/18 12:55 10/28/18 14:25 10/28/18 14:27 10/28/18 15:05 White Blood Count 14.9 x10^3/uL (4.0-11.0) 19.3 x10^3/uL (4.0-11.0) Hemoglobin 12.1 g/dL (13.0-17.5) 13.5 g/dL (13.0-17.5) Hematocrit 36.6 % (39.0-53.0) 40.7 % (39.0-53.0) Platelet Count 205 x10^3/uL (140-400) 255 x10^3/uL (140-400) Prothrombin Time 15.6 SEC (11.7-14.0) 14.8 SEC (11.7-14.0) Prothromb Time International Ratio 1.3 (0.8-1.1) 1.2 (0.8-1.1) Activated Partial Thromboplast Time 28 SEC (24-38) 28 SEC (24-38) Fibrinogen 228 mg/dL (200-440) Red Blood Count 4.52 x10^6/uL (4.30-5.70) Mean Corpuscular Volume 90 fL (79-100) Mean Corpuscular Hemoglobin 30 pg (25-35) Mean Corpuscular Hemoglobin Concent 33 g/dL (31-37) Red Cell Distribution Width 15.3 % (11.5-14.5) O2 Saturation 91 % (92-99) Arterial Blood pH 7.31 (7.35-7.45) Arterial Blood pCO2 at Patient Temp 41 mmHg (35-46) Arterial Blood pO2 at Patient Temp 65 mmHg (75-108) Arterial Blood HCO3 20 mmol/L (21-28) Arterial Blood Base Excess -6 mmol/L (-3-3) Oxyhemoglobin 89.6 % Methemoglobin 0.3 % (0.0-1.9) Carbon Monoxide, Quantitative 0.9 % (0.0-1.9) FiO2 100 Sodium Level 141 mmol/L (136-145) Potassium Level 3.8 mmol/L (3.5-5.1) Chloride Level 108 mmol/L (98-107) Carbon Dioxide Level 24 mmol/L (21-32) Anion Gap 9 (6-14) Blood Urea Nitrogen 11 mg/dL (8-26) Creatinine 1.0 mg/dL (0.7-1.3) Estimated GFR (Cockcroft-Gault) 79.1 Glucose Level 136 mg/dL (70-99) Calcium Level 10.8 mg/dL (8.5-10.1) Magnesium Level 2.0 mg/dL (1.8-2.4) Glucose (Fingerstick) 123 mg/dL (70-99) 116 mg/dL (70-99) Test 10/28/18 16:10 10/28/18 16:40 10/28/18 17:09 10/28/18 18:16 Glucose (Fingerstick) 112 mg/dL (70-99) 123 mg/dL (70-99) 130 mg/dL (70-99) O2 Saturation 94 % (92-99) Arterial Blood pH 7.36 (7.35-7.45) Arterial Blood pCO2 at Patient Temp 44 mmHg (35-46) Arterial Blood pO2 at Patient Temp 74 mmHg (75-108) Arterial Blood HCO3 25 mmol/L (21-28) Arterial Blood Base Excess -1 mmol/L (-3-3) FiO2 40 Test 10/28/18 19:24 10/28/18 20:00 10/28/18 20:27 10/28/18 21:28 Glucose (Fingerstick) 138 mg/dL (70-99) 150 mg/dL (70-99) 154 mg/dL (70-99) Hemoglobin 13.2 g/dL (13.0-17.5) Hematocrit 40.0 % (39.0-53.0) Mean Corpuscular Hemoglobin Concent 33 g/dL (31-37) Potassium Level 4.8 mmol/L (3.5-5.1) Magnesium Level 1.6 mg/dL (1.8-2.4) Test 10/28/18 22:43 10/29/18 00:02 10/29/18 01:03 10/29/18 01:57 Glucose (Fingerstick) 191 mg/dL (70-99) 140 mg/dL (70-99) 145 mg/dL (70-99) 124 mg/dL (70-99) Test 10/29/18 03:07 10/29/18 04:20 10/29/18 05:30 10/29/18 05:36 Glucose (Fingerstick) 117 mg/dL (70-99) 127 mg/dL (70-99) 178 mg/dL (70-99) White Blood Count 12.5 x10^3/uL (4.0-11.0) Red Blood Count 4.06 x10^6/uL (4.30-5.70) Hemoglobin 12.2 g/dL (13.0-17.5) Hematocrit 36.5 % (39.0-53.0) Mean Corpuscular Volume 90 fL (79-100) Mean Corpuscular Hemoglobin 30 pg (25-35) Mean Corpuscular Hemoglobin Concent 34 g/dL (31-37) Red Cell Distribution Width 15.2 % (11.5-14.5) Platelet Count 207 x10^3/uL (140-400) Sodium Level 136 mmol/L (136-145) Potassium Level 4.4 mmol/L (3.5-5.1) Chloride Level 104 mmol/L (98-107) Carbon Dioxide Level 26 mmol/L (21-32) Anion Gap 6 (6-14) Blood Urea Nitrogen 9 mg/dL (8-26) Creatinine 1.0 mg/dL (0.7-1.3) Estimated GFR (Cockcroft-Gault) 79.1 Glucose Level 174 mg/dL (70-99) Calcium Level 9.3 mg/dL (8.5-10.1) Magnesium Level 1.2 mg/dL (1.8-2.4) Test 10/29/18 06:40 10/29/18 08:00 10/29/18 09:03 10/29/18 10:03 Glucose (Fingerstick) 189 mg/dL (70-99) 159 mg/dL (70-99) 129 mg/dL (70-99) 139 mg/dL (70-99) Test 10/29/18 11:09 10/29/18 12:14 Glucose (Fingerstick) 233 mg/dL (70-99) 146 mg/dL (70-99) Objective Assessment POD#1, s/p CABG x3 (PICKERING to LAD, SVG to RPDA, SVG to diag) Fast track extubation yesterday. Doing very well. Ambulated. Normotensive, SR. Minimal tube drainage. Excellent UO. Hb 12.2, creat 1. CXR with expected postop changes. Glucose 150s on 3 U/hr. A-line and Delmont are out. Plan Plan of Care D/c mediastinal tubes Switch amiodarone drip to po 200mg BIB ASA, b lisandro, statin Start Lantus 40U with sliding scale Ambulation and pulm toilet TRISTON CARTWRIGHT MD Oct 29, 2018 12:29
[2018-10-29] MEDS ORDERED: DEXTROSE 50% 25 GM / 50ML DISP.SYRIN. IV PRN (14:30)
--- NOTE | 2018-10-29 14:55 | PDOC ---
RASHAD JIMÉNEZ [employer] PAINTER 10/29/18 1455: CARDIO Progress Notes Date and Time Date of Service 10/29/2018 Time of Evaluation 1430 Subjective Subjective: No Chest Pain, No shortness of breath, No Palpitations, Other (tolerated ambulation, surgical pain moderately controlled) Vitals Vitals Vital Signs Date Time Temp Pulse Resp B/P (MAP) Pulse Ox O2 Delivery O2 Flow Rate FiO2 10/29/18 14:04 20 92 Nasal Cannula 2.0 10/29/18 11:00 76 102/64 (77) 10/29/18 08:00 98.2 98.2 Weight Weight [ ] Input and Output Intake and Output Intake and Output 10/29/18 06:59 Intake Total 2531 ml Output Total 2588 ml Balance -57 ml Intake Oral 1060 ml IV Total 1471 ml Output Urine Total 1660 ml Gastric Drainage Total 350 ml Chest Tube Drainage Total 578 ml Laboratory Labs Laboratory Tests Test 10/28/18 15:05 10/28/18 16:10 10/28/18 16:40 10/28/18 17:09 Glucose (Fingerstick) 116 mg/dL (70-99) 112 mg/dL (70-99) 123 mg/dL (70-99) O2 Saturation 94 % (92-99) Arterial Blood pH 7.36 (7.35-7.45) Arterial Blood pCO2 at Patient Temp 44 mmHg (35-46) Arterial Blood pO2 at Patient Temp 74 mmHg (75-108) Arterial Blood HCO3 25 mmol/L (21-28) Arterial Blood Base Excess -1 mmol/L (-3-3) FiO2 40 Test 10/28/18 18:16 10/28/18 19:24 10/28/18 20:00 10/28/18 20:27 Glucose (Fingerstick) 130 mg/dL (70-99) 138 mg/dL (70-99) 150 mg/dL (70-99) Hemoglobin 13.2 g/dL (13.0-17.5) Hematocrit 40.0 % (39.0-53.0) Mean Corpuscular Hemoglobin Concent 33 g/dL (31-37) Potassium Level 4.8 mmol/L (3.5-5.1) Magnesium Level 1.6 mg/dL (1.8-2.4) Test 10/28/18 21:28 10/28/18 22:43 10/29/18 00:02 10/29/18 01:03 Glucose (Fingerstick) 154 mg/dL (70-99) 191 mg/dL (70-99) 140 mg/dL (70-99) 145 mg/dL (70-99) Test 10/29/18 01:57 10/29/18 03:07 10/29/18 04:20 10/29/18 05:30 Glucose (Fingerstick) 124 mg/dL (70-99) 117 mg/dL (70-99) 127 mg/dL (70-99) White Blood Count 12.5 x10^3/uL (4.0-11.0) Red Blood Count 4.06 x10^6/uL (4.30-5.70) Hemoglobin 12.2 g/dL (13.0-17.5) Hematocrit 36.5 % (39.0-53.0) Mean Corpuscular Volume 90 fL (79-100) Mean Corpuscular Hemoglobin 30 pg (25-35) Mean Corpuscular Hemoglobin Concent 34 g/dL (31-37) Red Cell Distribution Width 15.2 % (11.5-14.5) Platelet Count 207 x10^3/uL (140-400) Sodium Level 136 mmol/L (136-145) Potassium Level 4.4 mmol/L (3.5-5.1) Chloride Level 104 mmol/L (98-107) Carbon Dioxide Level 26 mmol/L (21-32) Anion Gap 6 (6-14) Blood Urea Nitrogen 9 mg/dL (8-26) Creatinine 1.0 mg/dL (0.7-1.3) Estimated GFR (Cockcroft-Gault) 79.1 Glucose Level 174 mg/dL (70-99) Calcium Level 9.3 mg/dL (8.5-10.1) Magnesium Level 1.2 mg/dL (1.8-2.4) Test 10/29/18 05:36 10/29/18 06:40 10/29/18 08:00 10/29/18 09:03 Glucose (Fingerstick) 178 mg/dL (70-99) 189 mg/dL (70-99) 159 mg/dL (70-99) 129 mg/dL (70-99) Test 10/29/18 10:03 10/29/18 11:09 10/29/18 12:14 Glucose (Fingerstick) 139 mg/dL (70-99) 233 mg/dL (70-99) 146 mg/dL (70-99) Physical Exam HEENT: Neck Supple W Full Motion Chest: Symmetric, Other (mid surgical chest incision intact and well approximated) LUNGS: Other (chest tubes with serosanguinous drain, basilar crackles) Heart: RRR (SR no significant ectopies) Abdomen: Soft N/T Extremities: Other (trace LE edeam) Neurology: alert, oriented, follow commands Assessment Assessment 1. UA/CAD: S/P CABG x 3 (PICKERING to LAD, SVG to RPDA, SVG to diagonal 1) POD#1 2. HTN: marginal, hence BP meds held 3. HLP 4. Tobaccoism Recommendations 1. Continue with post CABG protocol. 2. Aggressive IS. Act as ivy 3. Secondary prevention measures. Statin, ASA. metoprolol. 4. Amiodarone. Replace Mg. RACHEL LOMELI MD 10/29/182054: CARDIO Progress Notes Assessment Assessment Patient seen and examined. Agree with MANAGER OF CORPORATE's assessment and plan. s/p CABG, extubated and progressing well Tele did not show any arrhythmias Continue post op care per CTS RASHAD JIMÉNEZ [employer]INTER Oct 29, 2018 14:55 RACHEL LOMELI MD Oct 29, 2018 20:55
[2018-10-29] MEDS ORDERED: INSULIN LISPRO 300 UNITS/3 ML INSULN.PEN. SQ SCH (17:00)
[2018-10-29] MEDS: MIRTAZAPINE 7.5 MG TABLET. PO SCH (20:39)
[2018-10-29] MEDS: AMIODARONE HCL 200 MG TABLET. PO SCH (20:39)
[2018-10-29] MEDS: LURASIDONE 40 MG TABLET. PO SCH (20:40)
[2018-10-29] MEDS: ATORVASTATIN CALCIUM 40 MG TABLET. PO SCH (20:40)
[2018-10-29] MEDS: INSULIN GLARGINE 300 UNITS/3 ML INSULN.PEN. SQ SCH (20:41)
[2018-10-30] VITALS (16 sets, daily range): BP systolic 97–125; BP diastolic 54–75
[2018-10-30] MEDS: HYDROmorphone 2 MG/ML VIAL IVP PRN ×6 (01:13→15:43)
[2018-10-30] MEDS: oxyCODONE IR 5 MG TABLET PO PRN ×4 (03:29→20:44)
[2018-10-30 05:47] LABS: CALCIUM 9.2 mg/dL (8.5-10.1); CREATININE 0.9 mg/dL (0.7-1.3); GFR 89.3; POTASSIUM 4.3 mmol/L (3.5-5.1)
[2018-10-30 06:00] LABS: HEMATOCRIT 32.5 % (39.0-53.0); HEMOGLOBIN 11.1 g/dL (13.0-17.5); RED BLOOD COUNT 3.59 x10^6/uL (4.30-5.70); RED CELL DISTRIBUTION WIDTH 15.3 % (11.5-14.5); WHITE BLOOD COUNT 13.5 x10^3/uL (4.0-11.0)
[2018-10-30] MEDS ORDERED: MAGNESIUM SULFATE 1GM 100 ML IV ONE (06:30)
[2018-10-30] MEDS ORDERED: POTASSIUM CHL 20MEQ PREMIX 50 ML IV ONE (07:00)
[2018-10-30] MEDS: PANTOPRAZOLE IV PUSH 40 MG VIAL. IVP SCH (07:30)
[2018-10-30] MEDS: NICOTINE 21MG PATCH. TD PRN (07:43)
[2018-10-30] MEDS: FENOFIBRATE,MICRONIZED 134 MG CAPSULE PO SCH (07:43)
[2018-10-30] MEDS: AMIODARONE HCL 200 MG TABLET. PO SCH ×2 (07:44→20:38)
[2018-10-30] MEDS: ASPIRIN ENTERIC COATED 325 MG TABLET.DR. PO SCH (07:44)
[2018-10-30] MEDS: DULoxetine HCL 30 MG CAPSULE.DR PO SCH ×2 (07:45→20:40)
[2018-10-30] MEDS: FAMOTIDINE 20 MG/2 ML VIAL IVP SCH ×2 (07:45→20:39)
[2018-10-30] MEDS: NYSTATIN TOPICAL POWDER 15GM BOTTLE. TP SCH ×2 (07:46→21:00)
[2018-10-30] MEDS: OMEGA-3 FATTY ACIDS/FISH OIL 1,000 MG CAPSULE. PO SCH ×2 (07:46→20:39)
--- NOTE | 2018-10-30 08:28 | RAD ---
Examination: PORTABLE CHEST 1V History: 2 DAY POST CABG Comparison/Correlation: 10/29/2018 portable chest x-ray exam Findings: Portable upright frontal view of the chest was obtained. Sternal wires and mediastinal clips are present. Left basilar chest tube noted. Right internal jugular catheter sheath again seen. Interval removal of mediastinal tube noted. Left basilar retrocardiac atelectasis or other opacification again seen. No pneumothorax. Small left pleural effusion noted. Right lung field is clear. Limited pulmonary inflation. Impression: No change in pulmonary aeration. No new suspicious process. Electronically signed by: Ashok De La Cruz MD (10/30/2018 8:25 AM) [facility]
[2018-10-30] MEDS ORDERED: MAGNESIUM SULFATE 2GM 50 ML IV ONE (08:30)
[2018-10-30] MEDS: TAMSULOSIN 0.4 MG CAP.ER.24H. PO SCH (09:00)
[2018-10-30] MEDS: LISINOPRIL 5 MG TABLET. PO SCH (09:00)
[2018-10-30] MEDS: METOPROLOL TART IMMED RELEASE 25 MG TABLET. PO SCH ×2 (09:00→20:39)
[2018-10-30] MEDS: SENNOSIDES/DOCUSATE 8.6/50MG TABLET. PO SCH ×2 (09:00→21:00)
[2018-10-30] MEDS: OXcarbazepine 300 MG TABLET PO SCH (09:00)
--- NOTE | 2018-10-30 09:23 | PDOC ---
PROGRESS NOTES Chief Complaint Chief Complaint CAD, 3 vessel disease dm1, check A1c htn lipids tobacco use disorder Obesity BMI 32 History of Present Illness History of Present Illness Extubated for 10/28/18 few hours after CABG He is up in chair in the ICU, postop soreness, some itchy back possibly from laying to long in one spot Off amiodarone drip and insulin drip Price catheter out so far no voiding problems WBC 13, hemoglobin 11. 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 Vitals Vital Signs Date Time Temp Pulse Resp B/P (MAP) Pulse Ox O2 Delivery O2 Flow Rate FiO2 10/30/18 07:44 82 101/60 10/30/18 07:42 24 91 Nasal Cannula 3.0 10/30/18 04:00 99.0 99.0 Physical Exam Physical Exam GENERAL: NAD, Alert HEENT: PERRL, OC/OP NECK: Supple, no JVD, no LN LUNGS: Clear HEART: S1S2, no gallop, no murmur ABD: Soft, NT, no organomegaly, no rebound EXT: No edema, no cyanosis SECURITY OPERATIONS ANALYST: Alert, oriented x 3, no focal neurologic deficit SKIN: No rash IV: ok General: Other (Intubated) Heart: Regular rate, Normal S1, Normal S2 Lungs: Clear Abdomen: Normal bowel sounds, Soft Extremities: No edema, Normal pulses Skin: No rashes, No breakdown Labs LABS Laboratory Tests Test 10/29/18 10:03 10/29/18 11:09 10/29/18 12:14 10/29/18 17:17 Glucose (Fingerstick) 139 mg/dL (70-99) 233 mg/dL (70-99) 146 mg/dL (70-99) 299 mg/dL (70-99) Test 10/29/18 20:09 10/30/18 05:25 Glucose (Fingerstick) 240 mg/dL (70-99) White Blood Count 13.5 x10^3/uL (4.0-11.0) Red Blood Count 3.59 x10^6/uL (4.30-5.70) Hemoglobin 11.1 g/dL (13.0-17.5) Hematocrit 32.5 % (39.0-53.0) Mean Corpuscular Volume 91 fL (79-100) Mean Corpuscular Hemoglobin 31 pg (25-35) Mean Corpuscular Hemoglobin Concent 34 g/dL (31-37) Red Cell Distribution Width 15.3 % (11.5-14.5) Platelet Count 174 x10^3/uL (140-400) Sodium Level 132 mmol/L (136-145) Potassium Level 4.3 mmol/L (3.5-5.1) Chloride Level 98 mmol/L (98-107) Carbon Dioxide Level 29 mmol/L (21-32) Anion Gap 5 (6-14) Blood Urea Nitrogen 8 mg/dL (8-26) Creatinine 0.9 mg/dL (0.7-1.3) Estimated GFR (Cockcroft-Gault) 89.3 Glucose Level 261 mg/dL (70-99) Calcium Level 9.2 mg/dL (8.5-10.1) Magnesium Level 1.5 mg/dL (1.8-2.4) Review of Systems Review of Systems post op soreness, the rest of ROS 14 point negative Comment Review of Relevant I have reviewed the following items pratima (where applicable) has been applied. Labs Laboratory Tests Test 10/28/18 09:29 10/28/18 10:45 10/28/18 11:14 10/28/18 11:44 Activated Clotting Time 502 SEC (90-125) 565 SEC (90-125) 455 SEC (90-125) 432 SEC (90-125) Test 10/28/18 12:21 10/28/18 12:55 10/28/18 14:25 10/28/18 14:27 Activated Clotting Time 115 SEC (90-125) White Blood Count 14.9 x10^3/uL (4.0-11.0) 19.3 x10^3/uL (4.0-11.0) Hemoglobin 12.1 g/dL (13.0-17.5) 13.5 g/dL (13.0-17.5) Hematocrit 36.6 % (39.0-53.0) 40.7 % (39.0-53.0) Platelet Count 205 x10^3/uL (140-400) 255 x10^3/uL (140-400) Prothrombin Time 15.6 SEC (11.7-14.0) 14.8 SEC (11.7-14.0) Prothromb Time International Ratio 1.3 (0.8-1.1) 1.2 (0.8-1.1) Activated Partial Thromboplast Time 28 SEC (24-38) 28 SEC (24-38) Fibrinogen 228 mg/dL (200-440) Red Blood Count 4.52 x10^6/uL (4.30-5.70) Mean Corpuscular Volume 90 fL (79-100) Mean Corpuscular Hemoglobin 30 pg (25-35) Mean Corpuscular Hemoglobin Concent 33 g/dL (31-37) Red Cell Distribution Width 15.3 % (11.5-14.5) O2 Saturation 91 % (92-99) Arterial Blood pH 7.31 (7.35-7.45) Arterial Blood pCO2 at Patient Temp 41 mmHg (35-46) Arterial Blood pO2 at Patient Temp 65 mmHg (75-108) Arterial Blood HCO3 20 mmol/L (21-28) Arterial Blood Base Excess -6 mmol/L (-3-3) Oxyhemoglobin 89.6 % Methemoglobin 0.3 % (0.0-1.9) Carbon Monoxide, Quantitative 0.9 % (0.0-1.9) FiO2 100 Sodium Level 141 mmol/L (136-145) Potassium Level 3.8 mmol/L (3.5-5.1) Chloride Level 108 mmol/L (98-107) Carbon Dioxide Level 24 mmol/L (21-32) Anion Gap 9 (6-14) Blood Urea Nitrogen 11 mg/dL (8-26) Creatinine 1.0 mg/dL (0.7-1.3) Estimated GFR (Cockcroft-Gault) 79.1 Glucose Level 136 mg/dL (70-99) Calcium Level 10.8 mg/dL (8.5-10.1) Magnesium Level 2.0 mg/dL (1.8-2.4) Glucose (Fingerstick) 123 mg/dL (70-99) Test 10/28/18 15:05 10/28/18 16:10 10/28/18 16:40 10/28/18 17:09 Glucose (Fingerstick) 116 mg/dL (70-99) 112 mg/dL (70-99) 123 mg/dL (70-99) O2 Saturation 94 % (92-99) Arterial Blood pH 7.36 (7.35-7.45) Arterial Blood pCO2 at Patient Temp 44 mmHg (35-46) Arterial Blood pO2 at Patient Temp 74 mmHg (75-108) Arterial Blood HCO3 25 mmol/L (21-28) Arterial Blood Base Excess -1 mmol/L (-3-3) FiO2 40 Test 10/28/18 18:16 10/28/18 19:24 10/28/18 20:00 10/28/18 20:27 Glucose (Fingerstick) 130 mg/dL (70-99) 138 mg/dL (70-99) 150 mg/dL (70-99) Hemoglobin 13.2 g/dL (13.0-17.5) Hematocrit 40.0 % (39.0-53.0) Mean Corpuscular Hemoglobin Concent 33 g/dL (31-37) Potassium Level 4.8 mmol/L (3.5-5.1) Magnesium Level 1.6 mg/dL (1.8-2.4) Test 10/28/18 21:28 10/28/18 22:43 10/29/18 00:02 10/29/18 01:03 Glucose (Fingerstick) 154 mg/dL (70-99) 191 mg/dL (70-99) 140 mg/dL (70-99) 145 mg/dL (70-99) Test 10/29/18 01:57 10/29/18 03:07 10/29/18 04:20 10/29/18 05:30 Glucose (Fingerstick) 124 mg/dL (70-99) 117 mg/dL (70-99) 127 mg/dL (70-99) White Blood Count 12.5 x10^3/uL (4.0-11.0) Red Blood Count 4.06 x10^6/uL (4.30-5.70) Hemoglobin 12.2 g/dL (13.0-17.5) Hematocrit 36.5 % (39.0-53.0) Mean Corpuscular Volume 90 fL (79-100) Mean Corpuscular Hemoglobin 30 pg (25-35) Mean Corpuscular Hemoglobin Concent 34 g/dL (31-37) Red Cell Distribution Width 15.2 % (11.5-14.5) Platelet Count 207 x10^3/uL (140-400) Sodium Level 136 mmol/L (136-145) Potassium Level 4.4 mmol/L (3.5-5.1) Chloride Level 104 mmol/L (98-107) Carbon Dioxide Level 26 mmol/L (21-32) Anion Gap 6 (6-14) Blood Urea Nitrogen 9 mg/dL (8-26) Creatinine 1.0 mg/dL (0.7-1.3) Estimated GFR (Cockcroft-Gault) 79.1 Glucose Level 174 mg/dL (70-99) Calcium Level 9.3 mg/dL (8.5-10.1) Magnesium Level 1.2 mg/dL (1.8-2.4) Test 10/29/18 05:36 10/29/18 06:40 10/29/18 08:00 10/29/18 09:03 Glucose (Fingerstick) 178 mg/dL (70-99) 189 mg/dL (70-99) 159 mg/dL (70-99) 129 mg/dL (70-99) Test 10/29/18 10:03 10/29/18 11:09 10/29/18 12:14 10/29/18 17:17 Glucose (Fingerstick) 139 mg/dL (70-99) 233 mg/dL (70-99) 146 mg/dL (70-99) 299 mg/dL (70-99) Test 10/29/18 20:09 10/30/18 05:25 Glucose (Fingerstick) 240 mg/dL (70-99) White Blood Count 13.5 x10^3/uL (4.0-11.0) Red Blood Count 3.59 x10^6/uL (4.30-5.70) Hemoglobin 11.1 g/dL (13.0-17.5) Hematocrit 32.5 % (39.0-53.0) Mean Corpuscular Volume 91 fL (79-100) Mean Corpuscular Hemoglobin 31 pg (25-35) Mean Corpuscular Hemoglobin Concent 34 g/dL (31-37) Red Cell Distribution Width 15.3 % (11.5-14.5) Platelet Count 174 x10^3/uL (140-400) Sodium Level 132 mmol/L (136-145) Potassium Level 4.3 mmol/L (3.5-5.1) Chloride Level 98 mmol/L (98-107) Carbon Dioxide Level 29 mmol/L (21-32) Anion Gap 5 (6-14) Blood Urea Nitrogen 8 mg/dL (8-26) Creatinine 0.9 mg/dL (0.7-1.3) Estimated GFR (Cockcroft-Gault) 89.3 Glucose Level 261 mg/dL (70-99) Calcium Level 9.2 mg/dL (8.5-10.1) Magnesium Level 1.5 mg/dL (1.8-2.4) Laboratory Tests Test 10/29/18 10:03 10/29/18 11:09 10/29/18 12:14 10/29/18 17:17 Glucose (Fingerstick) 139 mg/dL (70-99) 233 mg/dL (70-99) 146 mg/dL (70-99) 299 mg/dL (70-99) Test 10/29/18 20:09 10/30/18 05:25 Glucose (Fingerstick) 240 mg/dL (70-99) White Blood Count 13.5 x10^3/uL (4.0-11.0) Red Blood Count 3.59 x10^6/uL (4.30-5.70) Hemoglobin 11.1 g/dL (13.0-17.5) Hematocrit 32.5 % (39.0-53.0) Mean Corpuscular Volume 91 fL (79-100) Mean Corpuscular Hemoglobin 31 pg (25-35) Mean Corpuscular Hemoglobin Concent 34 g/dL (31-37) Red Cell Distribution Width 15.3 % (11.5-14.5) Platelet Count 174 x10^3/uL (140-400) Sodium Level 132 mmol/L (136-145) Potassium Level 4.3 mmol/L (3.5-5.1) Chloride Level 98 mmol/L (98-107) Carbon Dioxide Level 29 mmol/L (21-32) Anion Gap 5 (6-14) Blood Urea Nitrogen 8 mg/dL (8-26) Creatinine 0.9 mg/dL (0.7-1.3) Estimated GFR (Cockcroft-Gault) 89.3 Glucose Level 261 mg/dL (70-99) Calcium Level 9.2 mg/dL (8.5-10.1) Magnesium Level 1.5 mg/dL (1.8-2.4) Medications Current Medications Lidocaine HCl (Xylocaine-Mpf 1% 2ml Vial) 2 ml STK-MED ONCE .ROUTE ; Start 10/27/18 at 07:57; Stop 10/27/18 at 07:58; Status DC Iohexol (Omnipaque 300 Mg/ml) 100 ml STK-MED ONCE .ROUTE ; Start 10/27/18 at 07:57; Stop 10/27/18 at 07:58; Status DC Heparin Sodium/ Sodium Chloride 1,000 ml @ As Directed STK-MED ONCE .ROUTE ; Start 10/27/18 at 07:58; Stop 10/27/18 at 07:59; Status DC Fentanyl Citrate (Fentanyl 2ml Vial) 100 mcg STK-MED ONCE .ROUTE ; Start 10/27/18 at 08:15; Stop 10/27/18 at 08:16; Status DC Midazolam HCl (Versed) 2 mg STK-MED ONCE .ROUTE ; Start 10/27/18 at 08:16; Stop 10/27/18 at 08:17; Status DC Heparin Sodium (Porcine) (Heparin Sodium) 10,000 unit STK-MED ONCE .ROUTE ; Start 10/27/18 at 08:16; Stop 10/27/18 at 08:17; Status DC Verapamil HCl (Verapamil) 5 mg STK-MED ONCE .ROUTE ; Start 10/27/18 at 08:16; Stop 10/27/18 at 08:17; Status DC Nitroglycerin (Nitroglycerin) 200 mcg STK-MED ONCE .ROUTE ; Start 10/27/18 at 08:16; Stop 10/27/18 at 08:17; Status DC Midazolam HCl (Versed) 2 mg STK-MED ONCE .ROUTE ; Start 10/27/18 at 08:42; Stop 10/27/18 at 08:43; Status DC Diphenhydramine HCl (Benadryl) 50 mg STK-MED ONCE .ROUTE ; Start 10/27/18 at 08:42; Stop 10/27/18 at 08:43; Status DC Bivalirudin (Angiomax) 250 mg STK-MED ONCE IV ; Start 10/27/18 at 08:59; Stop 10/27/18 at 09:00; Status DC Iohexol (Omnipaque 300 Mg/ml) 100 ml STK-MED ONCE .ROUTE ; Start 10/27/18 at 09:00; Stop 10/27/18 at 09:01; Status DC Heparin Sodium (Porcine) (Heparin Sodium) 10,000 unit STK-MED ONCE .ROUTE ; Start 10/27/18 at 09:22; Stop 10/27/18 at 09:23; Status DC Verapamil HCl (Verapamil) 5 mg STK-MED ONCE .ROUTE ; Start 10/27/18 at 09:22; Stop 10/27/18 at 09:23; Status DC Nitroglycerin/ Dextrose (Nitroglycerin) 4 mg STK-MED ONCE .ROUTE ; Start 10/27/18 at 09:22; Stop 10/27/18 at 09:23; Status DC Verapamil HCl (Verapamil) 5 mg STK-MED ONCE .ROUTE ; Start 10/27/18 at 09:24; Stop 10/27/18 at 09:25; Status DC Lidocaine HCl (Lidocaine 1% 20ml Vial) 20 ml STK-MED ONCE .ROUTE ; Start 10/27/18 at 09:27; Stop 10/27/18 at 09:28; Status DC Fentanyl Citrate (Fentanyl 2ml Vial) 100 mcg STK-MED ONCE .ROUTE ; Start 10/27/18 at 09:31; Stop 10/27/18 at 09:32; Status DC Midazolam HCl (Versed) 2 mg STK-MED ONCE .ROUTE ; Start 10/27/18 at 09:32; Stop 10/27/18 at 09:33; Status DC Dopamine HCl/ Dextrose 250 ml @ As Directed STK-MED ONCE IV ; Start 10/27/18 at 09:33; Stop 10/27/18 at 09:34; Status DC Bivalirudin (Angiomax) 250 mg STK-MED ONCE IV ; Start 10/27/18 at 10:14; Stop 10/27/18 at 10:15; Status DC Iohexol (Omnipaque 300 Mg/ml) 100 ml STK-MED ONCE .ROUTE ; Start 10/27/18 at 10:26; Stop 10/27/18 at 10:27; Status DC Nitroglycerin (Nitroglycerin) 200 mcg 1X ONCE IART Last administered on 10/27/18 11:32; Start 10/27/18 at 10:00; Stop 10/27/18 at 10:33; Status DC Verapamil HCl (Verapamil) 2.5 mg 1X ONCE IART Last administered on 10/27/18 11:34; Start 10/27/18 at 10:00; Stop 10/27/18 at 10:33; Status DC Heparin Sodium (Porcine) (Heparin Sodium) 2,500 unit 1X ONCE IART Last administered on 10/27/18 11:37; Start 10/27/18 at 10:00; Stop 10/27/18 at 10:33; Status DC Heparin Sodium/ Sodium Chloride (HEPARIN for ARTERIAL LINE FLUSH) 1,000 unit 1X ONCE IART Last administered on 10/27/18 11:31; Start 10/27/18 at 10:00; Stop 10/27/18 at 10:33; Status DC Heparin Sodium/ Sodium Chloride (HEPARIN for ARTERIAL LINE FLUSH) 1,000 unit 1X ONCE IART Last administered on 10/27/18 11:31; Start 10/27/18 at 10:00; Stop 10/27/18 at 10:33; Status DC Midazolam HCl (Versed) 5 mg 1X ONCE IV Last administered on 10/27/18 11:34; Start 10/27/18 at 10:00; Stop 10/27/18 at 10:33; Status DC Fentanyl Citrate (Fentanyl 2ml Vial) 125 mcg 1X ONCE IV Last administered on 10/27/18 11:35; Start 10/27/18 at 10:00; Stop 10/27/18 at 10:33; Status DC Iohexol (Omnipaque 300 Mg/ml) 100 ml 1X ONCE IART Last administered on 10/27/18 11:31; Start 10/27/18 at 10:00; Stop 10/27/18 at 10:33; Status DC Bivalirudin (Angiomax) 500 mg 1X ONCE IV Last administered on 10/27/18 11:33; Start 10/27/18 at 10:00; Stop 10/27/18 at 10:33; Status DC Lidocaine HCl (Lidocaine 1% 20ml Vial) 10 ml 1X ONCE INJ Last administered on 10/27/18at 11:32; Start 10/27/18 at 10:00; Stop 10/27/18 at 10:33; Status DC Nitroglycerin/ Dextrose 4 mg/ Verapamil HCl 10 mg/Heparin Sodium (Porcine) 4000 unit/ Miscellaneous 20 ml/Sodium Chloride 1,048 ml @ 1,000 mls/hr 1X ONCE IART Last administered on 10/27/18at 10:00; Start 10/27/18 at 10:00; Stop 10/27/18 at 11:02; Status DC Dopamine HCl/ Dextrose 250 ml @ 6.6 mls/hr 1X ONCE IV Last administered on 10/27/18at 10:00; Start 10/27/18 at 10:00; Stop 10/28/18 at 23:52; Status DC Lidocaine HCl (Xylocaine-Mpf 1% 2ml Vial) 1 ml 1X ONCE INJ Last administered on 10/27/18at 11:33; Start 10/27/18 at 10:00; Stop 10/27/18 at 10:33; Status DC Diphenhydramine HCl (Benadryl) 50 mg 1X ONCE IVP Last administered on 10/27/18at 11:36; Start 10/27/18 at 10:00; Stop 10/27/18 at 10:33; Status DC Info (CONTRAST GIVEN -- Rx MONITORING) 1 each PRN DAILY PRN MC SEE COMMENTS; Start 10/27/18 at 10:45; Stop 10/29/18 at 10:44; Status DC Heparin Sodium/ Dextrose 500 ml @ As Directed STK-MED ONCE IV ; Start 10/27/18 at 11:06; Stop 10/27/18 at 11:07; Status DC Tirofiban/Sodium Chloride 100 ml @ As Directed STK-MED ONCE IV ; Start 10/27/18 at 11:12; Stop 10/27/18 at 11:13; Status DC Tirofiban/Sodium Chloride 100 ml @ 0 mls/hr CONT PRN IV PER PROTOCOL Last administered on 10/27/18at 17:29; Start 10/27/18 at 11:30; Stop 10/28/18 at 05:29; Status DC Heparin Sodium/ Dextrose 500 ml @ 0 mls/hr CONT PRN IV SEE I/O RECORD Last administered on 10/27/18at 11:17; Start 10/27/18 at 11:30; Stop 10/28/18 at 13:51; Status DC Heparin Sodium (Porcine) (Heparin Sodium) 2,200 unit PRN Q6HRS PRN IV FOR UFH LEVEL LESS THAN 0.2 Last administered on 10/27/18at 19:31; Start 10/27/18 at 11:30; Stop 10/28/18 at 13:51; Status DC Info (Anti-Coagulation Monitoring By Pharmacy) 1 each PRN DAILY PRN MC SEE COM MENTS; Start 10/27/18 at 11:45; Stop 10/29/18 at 09:07; Status DC Sodium Chloride 1,000 ml @ 100 mls/hr Q10H IV Last administered on 10/27/18at 13:07; Start 10/27/18 at 12:00; Stop 10/28/18 at 13:49; Status DC Tirofiban/Sodium Chloride 100 ml @ 0 mls/hr CONT PRN IV PER PROTOCOL; Start 10/27/18 at 11:30; Stop 10/28/18 at 05:29; Status UNV Acetaminophen (Tylenol) 650 mg PRN Q6HRS PRN PO MILD PAIN / TEMP; Start 10/27/18 at 11:30; Stop 10/28/18 at 13:45; Status DC Fentanyl Citrate (Fentanyl 2ml Vial) 50 mcg PRN Q1HR PRN IV SEVERE PAIN Last administered on 10/28/18at 01:35; Start 10/27/18 at 11:30 Nitroglycerin (Nitrostat) 0.4 mg PRN Q5MIN PRN SL CHEST PAIN Last administered on 10/27/18at 13:05; Start 10/27/18 at 13:00 Nitroglycerin/ Dextrose 250 ml @ 1.5 mls/hr CONT PRN IV SEE I/O RECORD Last administered on 10/28/18at 01:27; Start 10/27/18 at 13:00; Stop 10/28/18 at 13:35; Status DC Cefazolin Sodium/ Dextrose 50 ml @ 100 mls/hr 1X ONCE IV Last administered on 10/28/18at 06:00; Start 10/28/18 at 06:00; Stop 10/28/18 at 06:29; Status DC Nicotine (Nicoderm Cq 21mg) 1 patch PRN DAILY PRN TD SMOKING CESSATION Last administered on 10/30/18 07:43; Start 10/27/18 at 17:30 Atorvastatin Calcium (Lipitor) 40 mg QHS PO Last administered on 10/29/18 20:40; Start 10/27/18 at 21:00 Lurasidone HCl (Latuda) 80 mg QHS PO Last administered on 10/29/18 20:40; Start 10/27/18 at 21:00 Tamsulosin HCl (Flomax) 0.4 mg DAILY PO Last administered on 10/29/18 08:37; Start 10/28/18 at 09:00 Duloxetine HCl (Cymbalta) 60 mg BID PO Last administered on 10/30/18 07:45; Start 10/27/18 at 21:00 Lisinopril (Prinivil) 5 mg DAILY PO ; Start 10/28/18 at 09:00 Mirtazapine (Remeron) 7.5 mg QHS PO Last administered on 10/29/18at 20:39; Start 10/27/18 at 21:00 Oxcarbazepine (Trileptal) 300 mg DAILY PO Last administered on 10/29/18 08:38; Start 10/28/18 at 09:00 Insulin Glargine (Lantus) 35 units QHS SQ ; Start 10/27/18 at 21:00; Stop 10/27/18 at 21:00; Status DC Insulin Human Lispro (HumaLOG) 10 units TIDWMEALS SQ Last administered on 10/27/18at 18:10; Start 10/27/18 at 18:30; Stop 10/27/18 at 20:21; Status DC Insulin Human Lispro (HumaLOG) 0-7 UNITS TIDWMEALS SQ ; Start 10/28/18 at 08:00; Stop 10/28/18 at 08:17; Status DC Dextrose (Dextrose 50%-Water Syringe) 12.5 gm PRN Q15MIN PRN IV SEE COMMENTS; Start 10/27/18 at 18:00; Stop 10/28/18 at 13:49; Status DC Oxycodone HCl (Roxicodone) 5 mg PRN Q4HRS PRN PO MODERATE-SEVERE PAIN Last administered on 10/27/18at 18:10; Start 10/27/18 at 18:00; Stop 10/28/18 at 13:47; Status DC Potassium Chloride 70 meq/ Sodium Bicarbonate 12.5 meq/Lidocaine HCl 24 ml/Parenteral Electrolytes 571.5 ml @ 571.5 mls/ hr 1X ONCE IRR Last administered on 10/28/18at 10:35; Start 10/28/18 at 06:00; Stop 10/28/18 at 06:59; Status DC Potassium Chloride 15 meq/ Sodium Bicarbonate 12.5 meq/Parenteral Electrolytes 520 ml @ 520 mls/hr 1X ONCE IRR Last administered on 10/28/18at 10:35; Start 10/28/18 at 06:00; Stop 10/28/18 at 06:59; Status DC Heparin Sodium (Porcine) 24626 unit/Ringer's Solution 1,020 ml @ 1,020 mls/hr 1X ONCE IRR Last administered on 10/28/18at 08:36; Start 10/28/18 at 06:00; Stop 10/28/18 at 06:59; Status DC Cefazolin Sodium 1 gm/Sodium Chloride 500 ml @ 500 mls/hr 1X ONCE IRR Last administered on 10/28/18at 08:36; Start 10/28/18 at 06:00; Stop 10/28/18 at 06:59; Status DC Zolpidem Tartrate (Ambien) 5 mg PRN QHS PRN PO INSOMNIA; Start 10/27/18 at 20:00 Insulin Human Regular 150 unit/ Sodium Chloride 151.5 ml @ 0 mls/hr CONT PRN IV SEE I/O RECORD Last administered on 10/27/18at 20:39; Start 10/27/18 at 20:15; Stop 10/28/18 at 13:45; Status DC Sodium Chloride 1,000 ml @ 50 mls/hr Q20H IV ; Start 10/27/18 at 20:15; Stop 10/28/18 at 19:16; Status DC Dextrose/Sodium Chloride 1,000 ml @ 100 mls/hr Q10H IV Last administered on 10/27/18at 23:45; Start 10/27/18 at 23:00; Stop 10/28/18 at 19:16; Status DC Morphine Sulfate (Morphine Sulfate) 2 mg PRN Q30MIN PRN IV PAIN Last administered on 10/28/18at 02:16; Start 10/28/18 at 02:15; Stop 10/28/18 at 13:46; Status DC Ondansetron HCl (Zofran) 4 mg PRN Q6HRS PRN IV NAUSEA/VOMITING Last administered on 10/28/18 02:31; Start 10/28/18 at 02:30; Stop 10/28/18 at 13:39; Status DC Etomidate (Amidate) 20 mg STK-MED ONCE IV ; Start 10/28/18 at 06:52; Stop 10/28/18 at 06:53; Status DC Phenylephrine HCl (PHENYLEPHRINE in 0.9% NACL PF) 1 mg STK-MED ONCE IV ; Start 10/28/18 at 06:53; Stop 10/28/18 at 06:54; Status DC Rocuronium [place] (Zemuron) 100 mg STK-MED ONCE .ROUTE ; Start 10/28/18 at 06:53; Stop 10/28/18 at 06:54; Status DC Midazolam HCl (Versed) 5 mg STK-MED ONCE .ROUTE ; Start 10/28/18 at 06:54; Stop 10/28/18 at 06:55; Status DC Vancomycin HCl (VANCO for OR ONLY) 10 gm STK-MED ONCE .ROUTE Last administered on 10/28/18 08:36; Start 10/28/18 at 05:54; Stop 10/28/18 at 06:55; Status DC Cellulose (Surgicel Hemostat 4x8) 1 each STK-MED ONCE .ROUTE Last administered on 10/28/18 08:36; Start 10/28/18 at 05:54; Stop 10/28/18 at 06:55; Status DC Papaverine HCl 60 mg STK-MED ONCE .ROUTE Last administered on 10/28/18 08:36; Start 10/28/18 at 05:55; Stop 10/28/18 at 06:55; Status DC Sodium Chloride (SODIUM CHLORIDE 20ml) 20 ml STK-MED ONCE IJ Last administered on 10/28/18 08:36; Start 10/28/18 at 05:55; Stop 10/28/18 at 06:55; Status DC Sodium Chloride (SODIUM CHLORIDE 20ml) 20 ml STK-MED ONCE IJ Last administered on 10/28/18 08:36; Start 10/28/18 at 05:55; Stop 10/28/18 at 06:55; Status DC Phenylephrine HCl (Jameel-Synephrine Inj) 10 mg STK-MED ONCE .ROUTE ; Start 10/28/18 at 06:55; Stop 10/28/18 at 06:56; Status DC Sodium Chloride (SODIUM CHLORIDE 20ml) 20 ml STK-MED ONCE IJ Last administered on 10/28/18at 08:36; Start 10/28/18 at 05:56; Stop 10/28/18 at 06:56; Status DC Phenylephrine HCl (Jameel-Synephrine Inj) 10 mg STK-MED ONCE .ROUTE ; Start 10/28/18 at 06:56; Stop 10/28/18 at 06:57; Status DC Aspirin (Aspirin) 300 mg STK-MED ONCE .ROUTE Last administered on 10/28/18at 13:19; Start 10/28/18 at 05:57; Stop 10/28/18 at 06:57; Status DC Sufentanil Citrate (Sufenta) 250 mcg STK-MED ONCE .ROUTE ; Start 10/28/18 at 06:57; Stop 10/28/18 at 06:58; Status DC Aminocaproic Acid (Amicar) 5,000 mg STK-MED ONCE IV ; Start 10/28/18 at 06:58; Stop 10/28/18 at 06:59; Status DC Aminocaproic Acid (Amicar) 5,000 mg STK-MED ONCE IV ; Start 10/28/18 at 06:58; Stop 10/28/18 at 06:59; Status DC Aminocaproic Acid (Amicar) 5,000 mg STK-MED ONCE IV ; Start 10/28/18 at 06:58; Stop 10/28/18 at 06:59; Status DC Ephedrine Sulfate (ePHEDrine PF IN SALINE SYRINGE) 50 mg STK-MED ONCE IV ; Start 10/28/18 at 07:00; Stop 10/28/18 at 07:01; Status DC Lidocaine HCl (Xylocaine-Mpf 1% 2ml Vial) 2 ml STK-MED ONCE .ROUTE ; Start 10/28/18 at 07:14; Stop 10/28/18 at 07:15; Status DC Acetaminophen (Tylenol) 500 mg PRN Q6HRS PRN PO MILD PAIN / TEMP; Start 10/28/18 at 08:15; Stop 10/28/18 at 13:45; Status DC Acetaminophen/ Codeine Phosphate (Tylenol #3) 1 tab PRN Q6HRS PRN PO MODERATE PAIN; Start 10/28/18 at 08:15; Stop 10/28/18 at 13:46; Status DC Ondansetron HCl (Zofran) 4 mg PRN Q6HRS PRN IV NAUSEA/VOMITING; Start 10/28/18 at 08:15; Stop 10/28/18 at 13:39; Status DC Ondansetron HCl (Zofran Odt) 4 mg PRN Q6HRS PRN PO NAUSEA/VOMITING; Start 10/28/18 at 08:15 Insulin Human Lispro (HumaLOG) 0-9 UNITS TIDWMEALS SQ Last administered on 10/29/18at 17:20; Start 10/28/18 at 12:00 Dextrose (Dextrose 50%-Water Syringe) 12.5 gm PRN Q15MIN PRN IV SEE COMMENTS; Start 10/28/18 at 08:15; Stop 10/28/18 at 13:49; Status DC Fenofibrate (Lofibra) 134 mg DAILY PO Last administered on 10/30/18at 07:43; Start 10/28/18 at 09:00 Fish Oil (Fish Oil) 2,000 mg BID PO Last administered on 10/30/18at 07:46; S tart 10/28/18 at 09:00 Heparin Sodium (Porcine) 30,000 unit STK-MED ONCE .ROUTE ; Start 10/28/18 at 08:24; Stop 10/28/18 at 08:25; Status DC Verapamil HCl (Verapamil) 10 mg STK-MED ONCE .ROUTE ; Start 10/27/18 at 10:00; Stop 10/28/18 at 08:58; Status DC Rocuronium [place] (Zemuron) 100 mg STK-MED ONCE .ROUTE ; Start 10/28/18 at 09:06; Stop 10/28/18 at 09:07; Status DC Cefazolin Sodium (Ancef) 1 gm STK-MED ONCE .ROUTE ; Start 10/28/18 at 09:20; Stop 10/28/18 at 09:21; Status DC Cefazolin Sodium (Ancef) 1 gm STK-MED ONCE .ROUTE ; Start 10/28/18 at 09:20; Stop 10/28/18 at 09:21; Status DC Heparin Sodium (Porcine) (Heparin Sodium) 10,000 unit STK-MED ONCE .ROUTE ; Start 10/28/18 at 10:24; Stop 10/28/18 at 10:25; Status DC Protamine Sulfate (Protamine) 250 mg STK-MED ONCE IV ; Start 10/28/18 at 11:22; Stop 10/28/18 at 11:23; Status DC Protamine Sulfate (Protamine) 50 mg STK-MED ONCE IV ; Start 10/28/18 at 12:11; Stop 10/28/18 at 12:12; Status DC Heparin Sodium (Porcine) (Heparin Sodium) 10,000 unit STK-MED ONCE .ROUTE ; Start 10/28/18 at 12:17; Stop 10/28/18 at 12:18; Status DC Lidocaine HCl (Lidocaine Pf 2% Vial) 5 ml STK-MED ONCE .ROUTE ; Start 10/28/18 at 12:17; Stop 10/28/18 at 12:18; Status DC Magnesium Sulfate 5 gm STK-MED ONCE .ROUTE ; Start 10/28/18 at 12:17; Stop 10/28/18 at 12:18; Status DC Mannitol (Mannitol) 12.5 g STK-MED ONCE .ROUTE ; Start 10/28/18 at 12:17; Stop 10/28/18 at 12:18; Status DC Albumin Human 100 ml @ As Directed STK-MED ONCE IV ; Start 10/28/18 at 12:17; Stop 10/28/18 at 12:18; Status DC Calcium Chloride (Calcium Chloride) 1,000 mg STK-MED ONCE .ROUTE ; Start 10/28/18 at 12:17; Stop 10/28/18 at 12:18; Status DC Nitroglycerin/ Dextrose 250 ml @ As Directed STK-MED ONCE IV ; Start 10/28/18 at 12:30; Stop 10/28/18 at 12:31; Status DC Fentanyl Citrate (Fentanyl 2ml Vial) 100 mcg STK-MED ONCE .ROUTE ; Start 10/28/18 at 12:56; Stop 10/28/18 at 12:57; Status DC Nicardipine HCl 50 mg/Sodium Chloride 250 ml @ 25 mls/hr CONT PRN IV SEE I/O RECORD Last administered on 10/28/18at 14:55; Start 10/28/18 at 12:45; Stop 10/29/18 at 13:58; Status DC Amiodarone HCl 900 mg/Dextrose 518 ml @ 0 mls/hr CONT PRN IV SEE I/O RECORD Last administered on 10/28/18at 14:45; Start 10/28/18 at 12:45; Stop 10/28/18 at 15:49; Status DC Amiodarone HCl 150 mg/Dextrose 103 ml @ 618 mls/hr 1X ONCE IV Last administered on 10/28/18at 15:26; Start 10/28/18 at 12:45; Stop 10/28/18 at 13:02; Status DC Sodium Chloride (Normal Saline Flush) 3 ml PRN Q12HR PRN IV AFTER MEDS AND BLOOD DRAWS; Start 10/28/18 at 13:30 Ringer's Solution 1,000 ml @ 30 mls/hr Q24H IV Last administered on 10/28/18at 15:32; Start 10/28/18 at 13:22; Stop 10/29/18 at 13:58; Status DC Albumin Human 250 ml @ 500 mls/hr PRN Q4HRS PRN IV SEE COMMENTS; Start 10/28/18 at 13:30; Stop 10/29/18 at 13:58; Status DC Insulin Human Regular 150 unit/ Sodium Chloride 151.5 ml @ 0 mls/hr CONT PRN PRN IV PER PROTOCOL Last administered on 10/29/18at 03:25; Start 10/28/18 at 13:30; Stop 10/29/18 at 13:58; Status DC Dextrose (Dextrose 50%-Water Syringe) 25 gm PRN Q15MIN PRN IV LOW BLOOD SUGAR; Start 10/28/18 at 13:30 Nitroglycerin/ Dextrose 250 ml @ 0 mls/hr CONT PRN PRN IV POST CV SURGERY; Start 10/28/18 at 13:30; Stop 10/28/18 at 19:16; Status DC Phenylephrine HCl 20 mg/Sodium Chloride 252 ml @ 0 mls/hr CONT PRN PRN IV HYPOTENSION; Start 10/28/18 at 13:30; Stop 10/29/18 at 13:58; Status DC Amiodarone HCl 150 mg/Dextrose 103 ml @ 600 mls/hr 1X ONCE IV ; Start 10/28/18 at 13:30; Stop 10/28/18 at 13:40; Status UNV Amiodarone HCl 150 mg/Dextrose 103 ml @ 200 mls/hr 1X PRN PRN IV FOR AFIB Last administered on 10/28/18at 14:00; Start 10/28/18 at 13:30; Stop 10/29/18 at 13:58; Status DC Amiodarone HCl 900 mg/Dextrose 518 ml @ 0 mls/hr CONT PRN PRN IV AFIB; Start 10/28/18 at 13:30; Status UNV Info (KCl Per Protocol) 1 ea CONT PRN PRN MC SEE COMMENTS; Start 10/28/18 at 13:30; Stop 10/29/18 at 13:58; Status DC Magnesium Sulfate/ Dextrose 100 ml @ 100 mls/hr PRN DAILY PRN IV FOR MAG < 2.2; Start 10/28/18 at 13:30; Stop 10/29/18 at 13:58; Status DC Famotidine (Pepcid Vial) 20 mg BID IVP Last administered on 10/30/18at 07:45; Start 10/28/18 at 21:00 Ondansetron HCl (Zofran) 4 mg PRN Q4HRS PRN IV NAUSEA/VOMITING, 1st CHOICE Last administered on 10/28/18at 21:44; Start 10/28/18 at 13:30 Prochlorperazine Edisylate (Compazine) 10 mg PRN Q6HRS PRN IV NAUSEA/VOMITING, 2nd CHOICE; Start 10/28/18 at 13:30 Metoclopramide HCl (Reglan Vial) 10 mg PRN Q6HRS PRN IV NAUSEA/VOMITING, 3rd CHOICE; Start 10/28/18 at 13:30 Morphine Sulfate (Morphine Sulfate) 2 mg PRN Q1HR PRN IV PAIN; Start 10/28/18 at 13:30; Stop 10/28/18 at 19:16; Status DC Morphine Sulfate (Morphine Sulfate) 4 mg PRN Q1HR PRN IV SEVERE PAIN Last administered on 10/28/18at 17:06; Start 10/28/18 at 13:30; Stop 10/28/18 at 19:16; Status DC Acetaminophen (Tylenol) 650 mg PRN Q4HRS PRN PO TEMP > 101'F; Start 10/28/18 at 13:30 Acetaminophen (Tylenol Supp) 650 mg PRN Q4HRS PRN VA TEMP > 101'F or MILD PAIN; Start 10/28/18 at 13:30 Meperidine HCl (Demerol) 12.5 mg PRN Q15MIN PRN IV SHIVERING; Start 10/28/18 at 13:30; Stop 10/28/18 at 19:16; Status DC Propofol 100 ml @ 0 mls/hr CONT PRN PRN IV POSTOP SEDATION UNTIL EXTUBATE Last administered on 10/28/18at 15:45; Start 10/28/18 at 13:30; Stop 10/28/18 at 19:16; Status DC Senna/Docusate Sodium (Senna Plus) 1 tab BID PO Last administered on 10/29/18at 08:37; Start 10/28/18 at 21:00 Bisacodyl (Dulcolax Supp) 10 mg PRN DAILY PRN VA NO BOWEL MOVEMENT; Start 10/28/18 at 13:30 Chlorhexidine Gluconate (Peridex) 15 ml BID MM ; Start 10/29/18 at 09:00; Stop 10/29/18 at 09:00; Status DC Aspirin (Ecotrin) 325 mg DAILYWBKFT PO Last administered on 10/30/18at 07:44; Start 10/29/18 at 08:00 Aspirin (Aspirin) 300 mg PRN DAILY PRN VA IF UNABLE TO TAKE PO; Start 10/29/18 at 08:00 Albuterol Sulfate (Ventolin Neb Soln) 2.5 mg PRN Q4HRS PRN NEB SHORTNESS OF BREATH; Start 10/28/18 at 13:30 Metoprolol Tartrate (Lopressor) 25 mg BID PO ; Start 10/29/18 at 09:00 Nicardipine HCl 50 mg/Sodium Chloride 250 ml @ 0 mls/hr CONT PRN PRN IV PER PROTOCOL; Start 10/28/18 at 13:30; Status UNV Oxycodone HCl (Roxicodone) 5 mg PRN Q4HRS PRN PO MILD TO MODERATE PAIN Last administered on 10/29/18at 14:55; Start 10/28/18 at 13:30 Oxycodone HCl (Roxicodone) 10 mg PRN Q4HRS PRN PO SEVERE PAIN Last administered on 10/30/18 03:29; Start 10/28/18 at 13:30 Cefazolin Sodium/ Dextrose 50 ml @ 100 mls/hr Q8H IV ; Start 10/28/18 at 17:00; Stop 10/28/18 at 19:16; Status DC Sodium Bicarbonate (Sodium Bicarb Adult 8.4% Syr) 50 meq 1X ONCE IV Last administered on 10/28/18at 15:33; Start 10/28/18 at 14:45; Stop 10/28/18 at 15:25; Status DC Potassium Chloride/Water 50 ml @ 50 mls/hr Q1HR IV Last administered on 10/28/18at 19:03; Start 10/28/18 at 17:00; Stop 10/28/18 at 18:59; Status DC Fentanyl Citrate (Fentanyl 2ml Vial) 25 mcg 1X ONCE IV Last administered on 10/28/18at 17:37; Start 10/28/18 at 17:30; Stop 10/28/18 at 17:31; Status DC Hydromorphone HCl (Dilaudid) 0.5 mg PRN Q2HRS PRN IVP MODERATE PAIN Last administered on 10/30/18at 07:42; Start 10/28/18 at 17:30 Ketorolac Tromethamine (Toradol 15mg Vial) 15 mg PRN Q6HRS PRN IV MILD PAIN Last administered on 10/29/18at 06:27; Start 10/28/18 at 17:30; Stop 11/02/18 at 17:29 Cefazolin Sodium/ Dextrose 50 ml @ 100 mls/hr Q8H IV Last administered on 10/30/18at 03:28; Start 10/28/18 at 20:00; Stop 10/30/18 at 04:29; Status DC Magnesium Sulfate 50 ml @ 25 mls/hr 1X ONCE IV Last administered on 10/29/18at 08:15; Start 10/29/18 at 08:15; Stop 10/29/18 at 10:14; Status DC Pantoprazole Sodium (PROTONIX VIAL for IV PUSH) 40 mg 1X ONCE IVP Last administered on 10/29/18at 08:15; Start 10/29/18 at 08:15; Stop 10/29/18 at 08:22; Status DC Pantoprazole Sodium (PROTONIX VIAL for IV PUSH) 40 mg DAILYAC IVP ; Start 10/30/18 at 07:30 Magnesium Sulfate 50 ml @ 25 mls/hr 1X ONCE IV ; Start 10/29/18 at 08:30; Stop 10/29/18 at 10:29; Status DC Nystatin (Nystop) 1 tony BID TP Last administered on 10/30/18at 07:46; Start 10/29/18 at 09:30 Amiodarone HCl (Cordarone) 200 mg BID PO Last administered on 10/30/18at 07:44; Start 10/29/18 at 21:00 Insulin Human Lispro (HumaLOG) 0-9 UNITS TIDWMEALS SQ ; Start 10/29/18 at 17:00; Status UNV Dextrose (Dextrose 50%-Water Syringe) 12.5 gm PRN Q15MIN PRN IV SEE COMMENTS; Start 10/29/18 at 14:30 Insulin Glargine (Lantus) 40 units QHS SQ Last administered on 10/29/18at 20:41; Start 10/29/18 at 21:00 Potassium Chloride/Water 50 ml @ 50 mls/hr 1X ONCE IV Last administered on 10/30/18at 07:42; Start 10/30/18 at 07:00; Stop 10/30/18 at 07:59; Status DC Magnesium Sulfate/ Dextrose 100 ml @ 100 mls/hr 1X ONCE IV Last administered on 10/30/18at 06:08; Start 10/30/18 at 06:30; Stop 10/30/18 at 07:29; Status DC Magnesium Sulfate 50 ml @ 25 mls/hr 1X ONCE IV ; Start 10/30/18 at 08:30; Stop 10/30/18 at 10:29 Active Scripts Active Levemir (Insulin Detemir) 100 Unit/1 Ml Vial 60 Unit SQ QHS Reported Mirtazapine 15 Mg Tablet 0.5 Tab PO QHS [place] 3 Fish Oil Softgel ([place]-3 Fatty Acids/Fish Oil) 1 Each Capsule. 2 Each PO BID [regular insulin] 45 Cymbalta (Duloxetine Hcl) 60 Mg Capsule.dr 1 Cap PO BID Oxcarbazepine 300 Mg Tablet 300 Mg PO DAILY Fenofibrate (Fenofibrate Nanocrystallized) 145 Mg Tablet 1 Tab PO DAILY Atorvastatin Calcium 40 Mg Tablet 1 Tab PO DAILY Celebrex (Celecoxib) 100 Mg Capsule 1 Cap PO BID Latuda (Lurasidone Hcl) 40 Mg Tablet 80 Tab PO QHS Tamsulosin Hcl 0.4 Mg Cap.er.24h 0.4 Mg PO DAILY Lisinopril 5 Mg Tablet 5 Mg PO DAILY Metformin Hcl 1,000 Mg Tablet 500 Tab PO BID Vitals/I & O Vital Sign - Last 24 Hours 10/29/18 10/29/18 10/29/18 10/29/18 10:00 11:00 11:21 11:21 Pulse 74 76 Resp 24 25 B/P (MAP) 107/64 (78) 102/64 (77) Pulse Ox 94 94 O2 Delivery Nasal Cannula Nasal Cannula Nasal Cannula Nasal Cannula O2 Flow Rate 3.0 3.0 2.0 2.0 10/29/18 10/29/18 10/29/18 10/29/18 12:00 12:00 12:24 13:00 Temp 98.5 98.5 Pulse 78 78 Resp 20 B/P (MAP) Pulse Ox 93 95 95 O2 Delivery Nasal Cannula Nasal Cannula Nasal Cannula Nasal Cannula O2 Flow Rate 2.0 3.0 2.0 3.0 10/29/18 10/29/18 10/29/18 10/29/18 14:00 14:04 14:55 15:00 Pulse 80 82 Resp 20 28 B/P (MAP) 111/65 (80) Pulse Ox 94 92 93 O2 Delivery Nasal Cannula Nasal Cannula Nasal Cannula Nasal Cannula O2 Flow Rate 3.0 2.0 2.0 3.0 10/29/18 10/29/18 10/29/18 10/29/18 16:00 16:00 17:00 17:14 Temp 98.6 98.6 Pulse 80 82 Resp 23 30 30 B/P (MAP) 106/63 (77) 119/71 (87) Pulse Ox 82 93 O2 Delivery Nasal Cannula Nasal Cannula Room Air Nasal Cannula O2 Flow Rate 3.0 2.0 2.0 10/29/18 10/29/18 10/29/18 10/29/18 18:00 18:32 18:47 19:00 Pulse 82 80 Resp 30 26 22 B/P (MAP) 111/73 (86) 117/71 (86) Pulse Ox 84 93 94 O2 Delivery Room Air Nasal Cannula Nasal Cannula Nasal Cannula O2 Flow Rate 3.0 2.0 3.0 10/29/18 10/29/18 10/29/18 10/29/18 19:27 19:40 20:00 20:39 Temp 99.1 99.1 Pulse 77 79 Resp 22 20 B/P (MAP) 119/77 (91) 119/77 Pulse Ox 95 96 O2 Delivery Room Air Nasal Cannula Nasal Cannula O2 Flow Rate 3.0 3.0 3.0 10/29/18 10/29/18 10/29/18 10/29/18 21:00 21:16 22:00 23:00 Pulse 80 82 81 Resp 18 22 20 16 B/P (MAP) 128/76 (93) 112/75 (87) 107/71 (83) Pulse Ox 95 94 96 94 O2 Delivery Nasal Cannula Nasal Cannula Nasal Cannula Nasal Cannula O2 Flow Rate 3.0 3.0 3.0 3.0 10/29/18 10/29/18 10/29/18 10/30/18 23:15 23:16 23:30 00:00 Temp 98.5 98.5 Pulse 79 Resp 25 22 14 B/P (MAP) 97/54 (68) Pulse Ox 94 94 93 O2 Delivery Nasal Cannula Nasal Cannula Nasal Cannula Nasal Cannula O2 Flow Rate 3.0 3.0 3.0 3.0 10/30/18 10/30/18 10/30/18 10/30/18 01:00 01:13 02:00 03:00 Pulse 80 78 79 Resp 17 17 16 18 B/P (MAP) 104/60 (75) 102/62 (75) 105/60 (75) Pulse Ox 91 92 91 92 O2 Delivery Nasal Cannula Nasal Cannula Nasal Cannula Nasal Cannula O2 Flow Rate 3.0 3.0 3.0 3.0 10/30/18 10/30/18 10/30/18 10/30/18 03:28 03:29 03:59 04:00 Temp 99.0 99.0 Pulse 82 Resp 16 22 18 B/P (MAP) 111/61 (78) Pulse Ox 92 92 93 O2 Delivery Nasal Cannula Nasal Cannula Nasal Cannula Nasal Cannula O2 Flow Rate 3.0 3.0 3.0 3.0 10/30/18 10/30/18 10/30/18 10/30/18 04:29 05:00 05:18 05:48 Pulse 80 Resp 16 16 22 16 B/P (MAP) 115/59 (77) Pulse Ox 93 93 93 93 O2 Delivery Nasal Cannula Nasal Cannula Nasal Cannula Nasal Cannula O2 Flow Rate 3.0 3.0 3.0 3.0 10/30/18 10/30/18 10/30/18 06:00 07:42 07:44 Pulse 82 82 Resp 14 24 B/P (MAP) 114/75 (88) 101/60 Pulse Ox 92 91 O2 Delivery Nasal Cannula Nasal Cannula O2 Flow Rate 3.0 3.0 Intake and Output 10/29/18 10/29/18 10/30/18 15:00 23:00 07:00 Intake Total 1170 ml 650 ml 50 ml Output Total 700 ml 830 ml 780 ml Balance 470 ml -180 ml -730 ml JANETH FLANAGAN MD Oct 30, 2018 09:23
[2018-10-30] MEDS: INSULIN LISPRO 300 UNITS/3 ML INSULN.PEN. SQ SCH ×3 (10:34→16:51)
--- NOTE | 2018-10-30 13:00 | PDOC ---
Progress Note Subjective Subjective Doing very well. Ambulated. Normotensive, SR. Minimal pleural tube drainage. Needs 3 lit NC, he had boderline sats preop owing to chronic smoking. Excellent UO. Hb 11.1, creat 0.9. CXR with expected postop changes. Glucose 200-250 on 40U Lantus. ROS ROS No nausea No vomiting No pain No rash Vital Sign Vital Signs Vital Signs Date Time Temp Pulse Resp B/P (MAP) Pulse Ox O2 Delivery O2 Flow Rate FiO2 10/30/18 12:30 90 Nasal Cannula 3.0 10/30/18 09:00 90 30 111/66 (81) 10/30/18 07:00 98.9 98.9 Physical Exam PHYSICAL EXAM GENERAL: NAD, Alert HEENT: PERRL, OC/OP NECK: Supple, no JVD, no LN LUNGS: Clear HEART: S1S2, no gallop, no murmur ABD: Soft, NT, no organomegaly, no rebound EXT: No edema, no cyanosis DIRECT MAIL COORDINATOR: Alert, oriented x 3, no focal neurologic deficit SKIN: No rash IV: ok Labs Lab Laboratory Tests Test 10/29/18 17:17 10/29/18 20:09 10/30/18 05:25 10/30/18 12:17 Glucose (Fingerstick) 299 mg/dL (70-99) 240 mg/dL (70-99) 230 mg/dL (70-99) White Blood Count 13.5 x10^3/uL (4.0-11.0) Red Blood Count 3.59 x10^6/uL (4.30-5.70) Hemoglobin 11.1 g/dL (13.0-17.5) Hematocrit 32.5 % (39.0-53.0) Mean Corpuscular Volume 91 fL (79-100) Mean Corpuscular Hemoglobin 31 pg (25-35) Mean Corpuscular Hemoglobin Concent 34 g/dL (31-37) Red Cell Distribution Width 15.3 % (11.5-14.5) Platelet Count 174 x10^3/uL (140-400) Sodium Level 132 mmol/L (136-145) Potassium Level 4.3 mmol/L (3.5-5.1) Chloride Level 98 mmol/L (98-107) Carbon Dioxide Level 29 mmol/L (21-32) Anion Gap 5 (6-14) Blood Urea Nitrogen 8 mg/dL (8-26) Creatinine 0.9 mg/dL (0.7-1.3) Estimated GFR (Cockcroft-Gault) 89.3 Glucose Level 261 mg/dL (70-99) Calcium Level 9.2 mg/dL (8.5-10.1) Magnesium Level 1.5 mg/dL (1.8-2.4) Objective Assessment POD#2, s/p CABG x3 (PICKERING to LAD, SVG to RPDA, SVG to diag) Doing very well. Ambulated. Normotensive, SR. Minimal pleural tube drainage. Needs 3 lit NC, he had boderline sats preop owing to chronic smoking. Excellent UO. Hb 11.1, creat 0.9. CXR with expected postop changes. Glucose 200-250 on 40U Lantus. Plan Plan of Care D/c pleural tube D/c cordis D/c horta Amiodarone po 200mg BIB for AFib prophylaxis ASA, b lisandro, statin Increase Lantus to 50U BID with sliding scale Ambulation and pulm toilet Transfer to stepdown TRISTON CARTWRIGHT MD Oct 30, 2018 13:00
[2018-10-30] MEDS: KETOROLAC 15 MG/ML VIAL. IV PRN (13:41)
--- NOTE | 2018-10-30 13:47 | PDOC ---
GENNY MORALES MOBILITY ARCHITECT 10/30/18 1347: CARDIO Progress Notes Date and Time Date of Service 10/30/18 Time of Evaluation 1245 Subjective Subjective: No Chest Pain, No shortness of breath, No Palpitations, Other (mild surgical pain) Vitals Vitals Vital Signs Date Time Temp Pulse Resp B/P (MAP) Pulse Ox O2 Delivery O2 Flow Rate FiO2 10/30/18 12:30 90 Nasal Cannula 3.0 10/30/18 09:00 90 30 111/66 (81) 10/30/18 07:00 98.9 98.9 Weight Weight [ ] Input and Output Intake and Output Intake and Output 10/30/18 06:59 Intake Total 1870 ml Output Total 2350 ml Balance -480 ml Intake Oral 1620 ml IV Total 250 ml Output Urine Total 1935 ml Chest Tube Drainage Total 415 ml Laboratory Labs Laboratory Tests Test 10/29/18 17:17 10/29/18 20:09 10/30/18 05:25 10/30/18 12:17 Glucose (Fingerstick) 299 mg/dL (70-99) 240 mg/dL (70-99) 230 mg/dL (70-99) White Blood Count 13.5 x10^3/uL (4.0-11.0) Red Blood Count 3.59 x10^6/uL (4.30-5.70) Hemoglobin 11.1 g/dL (13.0-17.5) Hematocrit 32.5 % (39.0-53.0) Mean Corpuscular Volume 91 fL (79-100) Mean Corpuscular Hemoglobin 31 pg (25-35) Mean Corpuscular Hemoglobin Concent 34 g/dL (31-37) Red Cell Distribution Width 15.3 % (11.5-14.5) Platelet Count 174 x10^3/uL (140-400) Sodium Level 132 mmol/L (136-145) Potassium Level 4.3 mmol/L (3.5-5.1) Chloride Level 98 mmol/L (98-107) Carbon Dioxide Level 29 mmol/L (21-32) Anion Gap 5 (6-14) Blood Urea Nitrogen 8 mg/dL (8-26) Creatinine 0.9 mg/dL (0.7-1.3) Estimated GFR (Cockcroft-Gault) 89.3 Glucose Level 261 mg/dL (70-99) Calcium Level 9.2 mg/dL (8.5-10.1) Magnesium Level 1.5 mg/dL (1.8-2.4) Physical Exam HEENT: Neck Supple W Full Motion Chest: Symmetric, Other (sternal incision well approximated) LUNGS: Other (diminished bases) Heart: RRR (SR ) Abdomen: Soft N/T Extremities: Other (trace LE edeam) Neurology: alert, oriented, follow commands Assessment Assessment 1. UA/CAD: S/P CABG x 3 (PICKERING to LAD, SVG to RPDA, SVG to diagonal 1) POD#2. LVEF 55-60% per recent echo. Doing very well postoperatively 2. Hypertension; low-normotensive 3. Hyperlipidemia; statin. LDL 77 09/2018 4. Tobaccoism 5. Hypomagnesemia; replaced Recommendations Continue ASA, statin. metoprolol as BP allows. Amiodarone for AFIB prophylaxis Monitor lytes, replace as warranted Continue post op management as per CTS. . Continue progressive activity and IS. Reinforced smoking cessation RACHEL LOMELI MD 10/30/18 1650: CARDIO Progress Notes Assessment Assessment Patient seen and examined. Agree with ADMINISTRATIVE [employer]BUNAL MEMBER's assessment and plan. s/p CABG, progressing well. Telemetry did not show any significant arrhythmias. Continue current medical regimen and postop care per CTS GENNY MORALES APRN Oct 30, 2018 13:47 RACHEL LOMELI MD Oct 30, 2018 16:50
--- NOTE | 2018-10-30 16:08 | NUR ---
All operative lines DC'd per protocol w midsternal ,LLL MIKE. Informed on home care of incision sites w reinforcement suggested. Dr Paris in w removal capped pacer wires as well as pleural tube,occlusive dressing over site. Informed on need to have sutures remove prior to discharge or to check on specific date for removal on discharge. Urinal use w/o difficulty after horta removal . #2 post op day w no complications,excellent tolerance to chair and amb activity. Requires O2 use/pain control difficult to obtain otherwise progressing well. Continue w POC. Cell phone ,2 chargers clothing,shoes,glasses as well as acquired( lotion,urinal,soap, and other hospital items transfer to [facility] 261 w patient
[2018-10-30] MEDS: ATORVASTATIN CALCIUM 40 MG TABLET. PO SCH (20:38)
[2018-10-30] MEDS: LURASIDONE 40 MG TABLET. PO SCH (20:39)
[2018-10-30] MEDS: MIRTAZAPINE 7.5 MG TABLET. PO SCH (20:39)
[2018-10-30] MEDS: INSULIN GLARGINE 300 UNITS/3 ML INSULN.PEN. SQ SCH (20:51)
--- NOTE | 2018-10-30 23:06 | NUR ---
pt. up to pa and completed two laps around nursing unit without difficulty or shortness of breath for final walk time of day. Will continue to monitor.
[2018-10-31] MEDS: oxyCODONE IR 5 MG TABLET PO PRN ×5 (01:12→20:54)
[2018-10-31] MEDS: HYDROmorphone 2 MG/ML VIAL IVP PRN ×3 (03:52→23:27)
[2018-10-31 03:58] VITALS: BP 104/62
[2018-10-31 03:58] LABS: HEMATOCRIT 30.3 % (39.0-53.0); HEMOGLOBIN 10.1 g/dL (13.0-17.5); RED BLOOD COUNT 3.35 x10^6/uL (4.30-5.70); RED CELL DISTRIBUTION WIDTH 14.9 % (11.5-14.5); WHITE BLOOD COUNT 9.1 x10^3/uL (4.0-11.0)
[2018-10-31 04:15] LABS: CALCIUM 9.5 mg/dL (8.5-10.1); GFR 79.1; POTASSIUM 4.1 mmol/L (3.5-5.1)
[2018-10-31] MEDS: PANTOPRAZOLE IV PUSH 40 MG VIAL. IVP SCH (07:30)
[2018-10-31 07:41] VITALS: BP 117/64
[2018-10-31] MEDS: LISINOPRIL 5 MG TABLET. PO SCH (08:38)
[2018-10-31] MEDS: ASPIRIN ENTERIC COATED 325 MG TABLET.DR. PO SCH (08:39)
[2018-10-31] MEDS: FENOFIBRATE,MICRONIZED 134 MG CAPSULE PO SCH (08:39)
[2018-10-31] MEDS: OMEGA-3 FATTY ACIDS/FISH OIL 1,000 MG CAPSULE. PO SCH ×2 (08:39→20:50)
[2018-10-31] MEDS: TAMSULOSIN 0.4 MG CAP.ER.24H. PO SCH (08:39)
--- NOTE | 2018-10-31 08:39 | RAD ---
PORTABLE CHEST 1V History: Status post coronary artery bypass graft Comparison: October 30, 2018 Findings: Single view of the chest is submitted. There again has been a median sternotomy. Previously seen left chest tube has been removed. No convincing pneumothorax is identified. There is some hazy left base airspace opacity as seen previously. Cardiac silhouette is similar. Previously seen right internal jugular catheter has been removed. Impression: 1. Left chest tube and right internal jugular vascular sheath have been removed. No pneumothorax is identified. There is again some hazy airspace opacity at the left lung base which may be component of atelectasis and small pleural effusion. Electronically signed by: Vinayak Almeida MD (10/31/2018 8:36 AM) [facility]
[2018-10-31] MEDS: METOPROLOL TART IMMED RELEASE 25 MG TABLET. PO SCH ×2 (08:40→20:51)
[2018-10-31] MEDS: AMIODARONE HCL 200 MG TABLET. PO SCH ×2 (08:40→20:52)
[2018-10-31] MEDS: FAMOTIDINE 20 MG/2 ML VIAL IVP SCH ×2 (08:40→20:53)
[2018-10-31] MEDS: SENNOSIDES/DOCUSATE 8.6/50MG TABLET. PO SCH ×2 (08:40→20:50)
[2018-10-31] MEDS: OXcarbazepine 300 MG TABLET PO SCH (08:41)
[2018-10-31] MEDS: NICOTINE 21MG PATCH. TD PRN (08:42)
[2018-10-31] MEDS: INSULIN LISPRO 300 UNITS/3 ML INSULN.PEN. SQ SCH ×3 (08:45→17:00)
[2018-10-31] MEDS: DULoxetine HCL 30 MG CAPSULE.DR PO SCH ×2 (08:53→20:53)
[2018-10-31] MEDS: NYSTATIN TOPICAL POWDER 15GM BOTTLE. TP SCH ×2 (09:00→21:00)
--- NOTE | 2018-10-31 11:13 | PDOC ---
PROGRESS NOTES Subjective Subjective Feeling better. No dyspnea. Objective Objective Vital Signs Date Time Temp Pulse Resp B/P (MAP) Pulse Ox O2 Delivery O2 Flow Rate FiO2 10/31/18 08:40 90 10/31/18 08:00 Nasal Cannula 3.0 10/31/18 07:41 98.6 16 117/64 (81) 92 98.6 Intake and Output 10/31/18 06:59 Intake Total 1460 ml Output Total 1145 ml Balance 315 ml Intake Oral 1460 ml Output Urine Total 1050 ml Chest Tube Drainage Total 95 ml Physical Exam Abdomen: Normal bowel sounds, Soft Heart: Regular rate, Normal S1, Normal S2 Extremities: No edema, Normal pulses General: Other (Intubated) HEENT: Atraumatic Lungs: Clear to auscultation, Normal air movement MUSCULOSKELETAL: No deformity Skin: No rashes, No breakdown Assessment Assessment 1. UA/CAD: S/P CABG x 3 (PICKERING to LAD, SVG to RPDA, SVG to diagonal 1), progressing well. LVEF 55-60% per recent echo. Telemetry did not show any significant arrhythmias. Continue postop care per CT surgery. 2. Hypertension; controlled 3. Hyperlipidemia; statin. 4. Tobaccoism: Advised smoking cessation 5. Hypomagnesemia; replaced Comment Review of Relevant I have reviewed the following items pratima (where applicable) has been applied. Labs Laboratory Tests Test 10/30/18 12:17 10/30/18 16:44 10/30/18 20:48 10/31/18 03:30 Glucose (Fingerstick) 230 mg/dL (70-99) 327 mg/dL (70-99) 262 mg/dL (70-99) White Blood Count 9.1 x10^3/uL (4.0-11.0) Red Blood Count 3.35 x10^6/uL (4.30-5.70) Hemoglobin 10.1 g/dL (13.0-17.5) Hematocrit 30.3 % (39.0-53.0) Mean Corpuscular Volume 90 fL (79-100) Mean Corpuscular Hemoglobin 30 pg (25-35) Mean Corpuscular Hemoglobin Concent 34 g/dL (31-37) Red Cell Distribution Width 14.9 % (11.5-14.5) Platelet Count 170 x10^3/uL (140-400) Sodium Level 136 mmol/L (136-145) Potassium Level 4.1 mmol/L (3.5-5.1) Chloride Level 100 mmol/L (98-107) Carbon Dioxide Level 31 mmol/L (21-32) Anion Gap 5 (6-14) Blood Urea Nitrogen 10 mg/dL (8-26) Creatinine 1.0 mg/dL (0.7-1.3) Estimated GFR (Cockcroft-Gault) 79.1 Glucose Level 269 mg/dL (70-99) Calcium Level 9.5 mg/dL (8.5-10.1) Magnesium Level 1.6 mg/dL (1.8-2.4) Test 10/31/18 07:27 10/31/18 10:43 Glucose (Fingerstick) 249 mg/dL (70-99) 247 mg/dL (70-99) Vitals/I & O Vital Sign - Last 24 Hours 10/30/18 10/30/18 10/30/18 10/30/18 12:00 12:00 12:30 15:27 Temp 98.6 98.7 98.6 98.7 Pulse 88 Resp 24 B/P (MAP) 112/64 (80) 114/70 (85) Pulse Ox 94 90 92 O2 Delivery Nasal Cannula Nasal Cannula Nasal Cannula Nasal Cannula O2 Flow Rate 3.0 3.0 3.0 3.0 10/30/18 10/30/18 10/30/18 10/30/18 15:43 16:10 16:16 17:22 Resp 14 14 14 12 Pulse Ox 92 92 92 92 O2 Delivery Nasal Cannula Nasal Cannula O2 Flow Rate 3.0 3.0 10/30/18 10/30/18 10/30/18 10/30/18 19:44 20:15 20:32 20:38 Temp 98.3 98.3 Pulse 84 84 Resp 22 B/P (MAP) 110/70 (83) 110/70 Pulse Ox 92 96 O2 Delivery Nasal Cannula Nasal Cannula Nasal Cannula O2 Flow Rate 3.0 3.0 3.0 10/30/18 10/30/18 10/30/18 10/31/18 20:39 20:44 23:27 01:12 Temp 98.8 98.8 Pulse 84 82 Resp 24 20 B/P (MAP) 110/70 125/72 (89) Pulse Ox 91 O2 Delivery Nasal Cannula Nasal Cannula Room Air O2 Flow Rate 3.0 3.0 10/31/18 10/31/18 10/31/18 10/31/18 02:12 03:52 03:58 04:25 Temp 98.0 98.0 Pulse 73 Resp 20 B/P (MAP) 104/62 (76) Pulse Ox 93 O2 Delivery Nasal Cannula Nasal Cannula Nasal Cannula Nasal Cannula O2 Flow Rate 3.0 3.0 3.0 3.0 10/31/18 10/31/18 10/31/18 10/31/18 06:06 07:41 08:00 08:38 Temp 98.6 98.6 Pulse 75 89 Resp 16 B/P (MAP) 117/64 (81) Pulse Ox 92 O2 Delivery Nasal Cannula Nasal Cannula Nasal Cannula O2 Flow Rate 3.0 3.0 3.0 10/31/18 10/31/18 08:40 08:40 Pulse 80 90 Intake and Output 10/30/18 10/30/18 10/31/18 14:59 22:59 06:59 Intake Total 780 ml 320 ml 360 ml Output Total 545 ml 600 ml Balance 235 ml -280 ml 360 ml RACHEL LOMELI MD Oct 31, 2018 11:13
[2018-10-31 11:16] VITALS: BP 121/72
[2018-10-31] MEDS ORDERED: MAGNESIUM SULFATE 2GM 50 ML IV ONE (11:45)
--- NOTE | 2018-10-31 12:01 | PDOC ---
PROGRESS NOTES Chief Complaint Chief Complaint CP, Dyspnea History of Present Illness History of Present Illness Patient was seen sitting up comfortably in bed. He has no complaints. He has been moved out of the ICU. Plan to DC on Friday Vitals Vitals Vital Signs Date Time Temp Pulse Resp B/P (MAP) Pulse Ox O2 Delivery O2 Flow Rate FiO2 10/31/18 11:16 98.1 72 12 121/72 (88) 100 Nasal Cannula 3.0 98.1 Physical Exam General: Alert, Oriented X3, Cooperative, No acute distress, Other (Intubated) Heart: Regular rate, Normal S1, Normal S2, No murmurs Lungs: Clear (No wheezes, rales, or rhonchi) Abdomen: Soft, No tenderness, No masses Extremities: No edema, Normal pulses, No tenderness/swelling Skin: No rashes, No breakdown, No significant lesion Labs LABS Laboratory Tests Test 10/30/18 12:17 10/30/18 16:44 10/30/18 20:48 10/31/18 03:30 Glucose (Fingerstick) 230 mg/dL (70-99) 327 mg/dL (70-99) 262 mg/dL (70-99) White Blood Count 9.1 x10^3/uL (4.0-11.0) Red Blood Count 3.35 x10^6/uL (4.30-5.70) Hemoglobin 10.1 g/dL (13.0-17.5) Hematocrit 30.3 % (39.0-53.0) Mean Corpuscular Volume 90 fL (79-100) Mean Corpuscular Hemoglobin 30 pg (25-35) Mean Corpuscular Hemoglobin Concent 34 g/dL (31-37) Red Cell Distribution Width 14.9 % (11.5-14.5) Platelet Count 170 x10^3/uL (140-400) Sodium Level 136 mmol/L (136-145) Potassium Level 4.1 mmol/L (3.5-5.1) Chloride Level 100 mmol/L (98-107) Carbon Dioxide Level 31 mmol/L (21-32) Anion Gap 5 (6-14) Blood Urea Nitrogen 10 mg/dL (8-26) Creatinine 1.0 mg/dL (0.7-1.3) Estimated GFR (Cockcroft-Gault) 79.1 Glucose Level 269 mg/dL (70-99) Calcium Level 9.5 mg/dL (8.5-10.1) Magnesium Level 1.6 mg/dL (1.8-2.4) Test 10/31/18 07:27 10/31/18 10:43 Glucose (Fingerstick) 249 mg/dL (70-99) 247 mg/dL (70-99) Review of Systems Review of Systems Patient denies fevers, chills, N/V, CP, SOB, diarrhea. Assessment and Plan Assessmemt and Plan Assessment: CAD, 3 vessel disease, CABG 10/27, POD4 DM1, Hgb A1c 9.4 HTN HLD COPD Anxiety Hypothyroidism Smoker Marijuana use Obesity BMI 32 Plan: Extubated on 10/28 Ordered 2g IV Mag sulfate (Mg 1.6) Monitor Mg DC Protonix, continue Pepcid 3L O2 NC ASA, metoprolol, statin, amiodarone Cardiology consult Cardiothoracic surgery consult F/u labs PT/OT Continue home meds DVT prophylaxis DC Friday Comment Review of Relevant I have reviewed the following items pratima (where applicable) has been applied. Labs Laboratory Tests Test 10/29/18 12:14 10/29/18 17:17 10/29/18 20:09 10/30/18 05:25 Glucose (Fingerstick) 146 mg/dL (70-99) 299 mg/dL (70-99) 240 mg/dL (70-99) White Blood Count 13.5 x10^3/uL (4.0-11.0) Red Blood Count 3.59 x10^6/uL (4.30-5.70) Hemoglobin 11.1 g/dL (13.0-17.5) Hematocrit 32.5 % (39.0-53.0) Mean Corpuscular Volume 91 fL (79-100) Mean Corpuscular Hemoglobin 31 pg (25-35) Mean Corpuscular Hemoglobin Concent 34 g/dL (31-37) Red Cell Distribution Width 15.3 % (11.5-14.5) Platelet Count 174 x10^3/uL (140-400) Sodium Level 132 mmol/L (136-145) Potassium Level 4.3 mmol/L (3.5-5.1) Chloride Level 98 mmol/L (98-107) Carbon Dioxide Level 29 mmol/L (21-32) Anion Gap 5 (6-14) Blood Urea Nitrogen 8 mg/dL (8-26) Creatinine 0.9 mg/dL (0.7-1.3) Estimated GFR (Cockcroft-Gault) 89.3 Glucose Level 261 mg/dL (70-99) Calcium Level 9.2 mg/dL (8.5-10.1) Magnesium Level 1.5 mg/dL (1.8-2.4) Test 10/30/18 12:17 10/30/18 16:44 10/30/18 20:48 10/31/18 03:30 Glucose (Fingerstick) 230 mg/dL (70-99) 327 mg/dL (70-99) 262 mg/dL (70-99) White Blood Count 9.1 x10^3/uL (4.0-11.0) Red Blood Count 3.35 x10^6/uL (4.30-5.70) Hemoglobin 10.1 g/dL (13.0-17.5) Hematocrit 30.3 % (39.0-53.0) Mean Corpuscular Volume 90 fL (79-100) Mean Corpuscular Hemoglobin 30 pg (25-35) Mean Corpuscular Hemoglobin Concent 34 g/dL (31-37) Red Cell Distribution Width 14.9 % (11.5-14.5) Platelet Count 170 x10^3/uL (140-400) Sodium Level 136 mmol/L (136-145) Potassium Level 4.1 mmol/L (3.5-5.1) Chloride Level 100 mmol/L (98-107) Carbon Dioxide Level 31 mmol/L (21-32) Anion Gap 5 (6-14) Blood Urea Nitrogen 10 mg/dL (8-26) Creatinine 1.0 mg/dL (0.7-1.3) Estimated GFR (Cockcroft-Gault) 79.1 Glucose Level 269 mg/dL (70-99) Calcium Level 9.5 mg/dL (8.5-10.1) Magnesium Level 1.6 mg/dL (1.8-2.4) Test 10/31/18 07:27 10/31/18 10:43 Glucose (Fingerstick) 249 mg/dL (70-99) 247 mg/dL (70-99) Laboratory Tests Test 10/30/18 12:17 10/30/18 16:44 10/30/18 20:48 10/31/18 03:30 Glucose (Fingerstick) 230 mg/dL (70-99) 327 mg/dL (70-99) 262 mg/dL (70-99) White Blood Count 9.1 x10^3/uL (4.0-11.0) Red Blood Count 3.35 x10^6/uL (4.30-5.70) Hemoglobin 10.1 g/dL (13.0-17.5) Hematocrit 30.3 % (39.0-53.0) Mean Corpuscular Volume 90 fL (79-100) Mean Corpuscular Hemoglobin 30 pg (25-35) Mean Corpuscular Hemoglobin Concent 34 g/dL (31-37) Red Cell Distribution Width 14.9 % (11.5-14.5) Platelet Count 170 x10^3/uL (140-400) Sodium Level 136 mmol/L (136-145) Potassium Level 4.1 mmol/L (3.5-5.1) Chloride Level 100 mmol/L (98-107) Carbon Dioxide Level 31 mmol/L (21-32) Anion Gap 5 (6-14) Blood Urea Nitrogen 10 mg/dL (8-26) Creatinine 1.0 mg/dL (0.7-1.3) Estimated GFR (Cockcroft-Gault) 79.1 Glucose Level 269 mg/dL (70-99) Calcium Level 9.5 mg/dL (8.5-10.1) Magnesium Level 1.6 mg/dL (1.8-2.4) Test 10/31/18 07:27 10/31/18 10:43 Glucose (Fingerstick) 249 mg/dL (70-99) 247 mg/dL (70-99) Medications Current Medications Lidocaine HCl (Xylocaine-Mpf 1% 2ml Vial) 2 ml STK-MED ONCE .ROUTE ; Start 10/27/18 at 07:57; Stop 10/27/18 at 07:58; Status DC Iohexol (Omnipaque 300 Mg/ml) 100 ml STK-MED ONCE .ROUTE ; Start 10/27/18 at 07:57; Stop 10/27/18 at 07:58; Status DC Heparin Sodium/ Sodium Chloride 1,000 ml @ As Directed STK-MED ONCE .ROUTE ; Start 10/27/18 at 07:58; Stop 10/27/18 at 07:59; Status DC Fentanyl Citrate (Fentanyl 2ml Vial) 100 mcg STK-MED ONCE .ROUTE ; Start 10/27/18 at 08:15; Stop 10/27/18 at 08:16; Status DC Midazolam HCl (Versed) 2 mg STK-MED ONCE .ROUTE ; Start 10/27/18 at 08:16; Stop 10/27/18 at 08:17; Status DC Heparin Sodium (Porcine) (Heparin Sodium) 10,000 unit STK-MED ONCE .ROUTE ; Start 10/27/18 at 08:16; Stop 10/27/18 at 08:17; Status DC Verapamil HCl (Verapamil) 5 mg STK-MED ONCE .ROUTE ; Start 10/27/18 at 08:16; Stop 10/27/18 at 08:17; Status DC Nitroglycerin (Nitroglycerin) 200 mcg STK-MED ONCE .ROUTE ; Start 10/27/18 at 08:16; Stop 10/27/18 at 08:17; Status DC Midazolam HCl (Versed) 2 mg STK-MED ONCE .ROUTE ; Start 10/27/18 at 08:42; Stop 10/27/18 at 08:43; Status DC Diphenhydramine HCl (Benadryl) 50 mg STK-MED ONCE .ROUTE ; Start 10/27/18 at 08:42; Stop 10/27/18 at 08:43; Status DC Bivalirudin (Angiomax) 250 mg STK-MED ONCE IV ; Start 10/27/18 at 08:59; Stop 10/27/18 at 09:00; Status DC Iohexol (Omnipaque 300 Mg/ml) 100 ml STK-MED ONCE .ROUTE ; Start 10/27/18 at 09:00; Stop 10/27/18 at 09:01; Status DC Heparin Sodium (Porcine) (Heparin Sodium) 10,000 unit STK-MED ONCE .ROUTE ; Start 10/27/18 at 09:22; Stop 10/27/18 at 09:23; Status DC Verapamil HCl (Verapamil) 5 mg STK-MED ONCE .ROUTE ; Start 10/27/18 at 09:22; Stop 10/27/18 at 09:23; Status DC Nitroglycerin/ Dextrose (Nitroglycerin) 4 mg STK-MED ONCE .ROUTE ; Start 10/27/18 at 09:22; Stop 10/27/18 at 09:23; Status DC Verapamil HCl (Verapamil) 5 mg STK-MED ONCE .ROUTE ; Start 10/27/18 at 09:24; Stop 10/27/18 at 09:25; Status DC Lidocaine HCl (Lidocaine 1% 20ml Vial) 20 ml STK-MED ONCE .ROUTE ; Start 10/27/18 at 09:27; Stop 10/27/18 at 09:28; Status DC Fentanyl Citrate (Fentanyl 2ml Vial) 100 mcg STK-MED ONCE .ROUTE ; Start 10/27/18 at 09:31; Stop 10/27/18 at 09:32; Status DC Midazolam HCl (Versed) 2 mg STK-MED ONCE .ROUTE ; Start 10/27/18 at 09:32; Stop 10/27/18 at 09:33; Status DC Dopamine HCl/ Dextrose 250 ml @ As Directed STK-MED ONCE IV ; Start 10/27/18 at 09:33; Stop 10/27/18 at 09:34; Status DC Bivalirudin (Angiomax) 250 mg STK-MED ONCE IV ; Start 10/27/18 at 10:14; Stop 10/27/18 at 10:15; Status DC Iohexol (Omnipaque 300 Mg/ml) 100 ml STK-MED ONCE .ROUTE ; Start 10/27/18 at 10:26; Stop 10/27/18 at 10:27; Status DC Nitroglycerin (Nitroglycerin) 200 mcg 1X ONCE IART Last administered on 10/27/18at 11:32; Start 10/27/18 at 10:00; Stop 10/27/18 at 10:33; Status DC Verapamil HCl (Verapamil) 2.5 mg 1X ONCE IART Last administered on 10/27/18at 11:34; Start 10/27/18 at 10:00; Stop 10/27/18 at 10:33; Status DC Heparin Sodium (Porcine) (Heparin Sodium) 2,500 unit 1X ONCE IART Last administered on 10/27/18at 11:37; Start 10/27/18 at 10:00; Stop 10/27/18 at 10:33; Status DC Heparin Sodium/ Sodium Chloride (HEPARIN for ARTERIAL LINE FLUSH) 1,000 unit 1X ONCE IART Last administered on 10/27/18 11:31; Start 10/27/18 at 10:00; Stop 10/27/18 at 10:33; Status DC Heparin Sodium/ Sodium Chloride (HEPARIN for ARTERIAL LINE FLUSH) 1,000 unit 1X ONCE IART Last administered on 10/27/18 11:31; Start 10/27/18 at 10:00; Stop 10/27/18 at 10:33; Status DC Midazolam HCl (Versed) 5 mg 1X ONCE IV Last administered on 10/27/18 11:34; Start 10/27/18 at 10:00; Stop 10/27/18 at 10:33; Status DC Fentanyl Citrate (Fentanyl 2ml Vial) 125 mcg 1X ONCE IV Last administered on 10/27/18 11:35; Start 10/27/18 at 10:00; Stop 10/27/18 at 10:33; Status DC Iohexol (Omnipaque 300 Mg/ml) 100 ml 1X ONCE IART Last administered on 10/27/18 11:31; Start 10/27/18 at 10:00; Stop 10/27/18 at 10:33; Status DC Bivalirudin (Angiomax) 500 mg 1X ONCE IV Last administered on 10/27/18 11:33; Start 10/27/18 at 10:00; Stop 10/27/18 at 10:33; Status DC Lidocaine HCl (Lidocaine 1% 20ml Vial) 10 ml 1X ONCE INJ Last administered on 10/27/18 11:32; Start 10/27/18 at 10:00; Stop 10/27/18 at 10:33; Status DC Nitroglycerin/ Dextrose 4 mg/ Verapamil HCl 10 mg/Heparin Sodium (Porcine) 4000 unit/ Miscellaneous 20 ml/Sodium Chloride 1,048 ml @ 1,000 mls/hr 1X ONCE IART Last administered on 10/27/18 10:00; Start 10/27/18 at 10:00; Stop 10/27/18 at 11:02; Status DC Dopamine HCl/ Dextrose 250 ml @ 6.6 mls/hr 1X ONCE IV Last administered on 10/27/18 10:00; Start 10/27/18 at 10:00; Stop 10/28/18 at 23:52; Status DC Lidocaine HCl (Xylocaine-Mpf 1% 2ml Vial) 1 ml 1X ONCE INJ Last administered on 10/27/18at 11:33; Start 10/27/18 at 10:00; Stop 10/27/18 at 10:33; Status DC Diphenhydramine HCl (Benadryl) 50 mg 1X ONCE IVP Last administered on 10/27/18at 11:36; Start 10/27/18 at 10:00; Stop 10/27/18 at 10:33; Status DC Info (CONTRAST GIVEN -- Rx MONITORING) 1 each PRN DAILY PRN MC SEE COMMENTS; Start 10/27/18 at 10:45; Stop 10/29/18 at 10:44; Status DC Heparin Sodium/ Dextrose 500 ml @ As Directed STK-MED ONCE IV ; Start 10/27/18 at 11:06; Stop 10/27/18 at 11:07; Status DC Tirofiban/Sodium Chloride 100 ml @ As Directed STK-MED ONCE IV ; Start 10/27/18 at 11:12; Stop 10/27/18 at 11:13; Status DC Tirofiban/Sodium Chloride 100 ml @ 0 mls/hr CONT PRN IV PER PROTOCOL Last administered on 10/27/18at 17:29; Start 10/27/18 at 11:30; Stop 10/28/18 at 05:29; Status DC Heparin Sodium/ Dextrose 500 ml @ 0 mls/hr CONT PRN IV SEE I/O RECORD Last administered on 10/27/18at 11:17; Start 10/27/18 at 11:30; Stop 10/28/18 at 13:51; Status DC Heparin Sodium (Porcine) (Heparin Sodium) 2,200 unit PRN Q6HRS PRN IV FOR UFH LEVEL LESS THAN 0.2 Last administered on 10/27/18at 19:31; Start 10/27/18 at 11:30; Stop 10/28/18 at 13:51; Status DC Info (Anti-Coagulation Monitoring By Pharmacy) 1 each PRN DAILY PRN MC SEE COMMENTS; Start 10/27/18 at 11:45; Stop 10/29/18 at 09:07; Status DC Sodium Chloride 1,000 ml @ 100 mls/hr Q10H IV Last administered on 10/27/18at 13:07; Start 10/27/18 at 12:00; Stop 10/28/18 at 13:49; Status DC Tirofiban/Sodium Chloride 100 ml @ 0 mls/hr CONT PRN IV PER PROTOCOL; Start 10/27/18 at 11:30; Stop 10/28/18 at 05:29; Status UNV Acetaminophen (Tylenol) 650 mg PRN Q6HRS PRN PO MILD PAIN / TEMP; Start 10/27/18 at 11:30; Stop 10/28/18 at 13:45; Status DC Fentanyl Citrate (Fentanyl 2ml Vial) 50 mcg PRN Q1HR PRN IV SEVERE PAIN Last administered on 10/28/18 01:35; Start 10/27/18 at 11:30 Nitroglycerin (Nitrostat) 0.4 mg PRN Q5MIN PRN SL CHEST PAIN Last administered on 10/27/18 13:05; Start 10/27/18 at 13:00 Nitroglycerin/ Dextrose 250 ml @ 1.5 mls/hr CONT PRN IV SEE I/O RECORD Last administered on 10/28/18 01:27; Start 10/27/18 at 13:00; Stop 10/28/18 at 13:35; Status DC Cefazolin Sodium/ Dextrose 50 ml @ 100 mls/hr 1X ONCE IV Last administered on 10/28/18 06:00; Start 10/28/18 at 06:00; Stop 10/28/18 at 06:29; Status DC Nicotine (Nicoderm Cq 21mg) 1 patch PRN DAILY PRN TD SMOKING CESSATION Last administered on 10/31/18at 08:42; Start 10/27/18 at 17:30 Atorvastatin Calcium (Lipitor) 40 mg QHS PO Last administered on 10/30/18at 20:38; Start 10/27/18 at 21:00 Lurasidone HCl (Latuda) 80 mg QHS PO Last administered on 10/30/18 20:39; Start 10/27/18 at 21:00 Tamsulosin HCl (Flomax) 0.4 mg DAILY PO Last administered on 10/31/18 08:39; Start 10/28/18 at 09:00 Duloxetine HCl (Cymbalta) 60 mg BID PO Last administered on 10/31/18at 08:53; Start 10/27/18 at 21:00 Lisinopril (Prinivil) 5 mg DAILY PO Last administered on 10/31/18at 08:38; Start 10/28/18 at 09:00 Mirtazapine (Remeron) 7.5 mg QHS PO Last administered on 10/30/18at 20:39; Start 10/27/18 at 21:00 Oxcarbazepine (Trileptal) 300 mg DAILY PO Last administered on 10/31/18at 08:41; Start 10/28/18 at 09:00 Insulin Glargine (Lantus) 35 units QHS SQ ; Start 10/27/18 at 21:00; Stop 10/27/18 at 21:00; Status DC Insulin Human Lispro (HumaLOG) 10 units TIDWMEALS SQ Last administered on 10/27/18at 18:10; Start 10/27/18 at 18:30; Stop 10/27/18 at 20:21; Status DC Insulin Human Lispro (HumaLOG) 0-7 UNITS TIDWMEALS SQ ; Start 10/28/18 at 08:00; Stop 10/28/18 at 08:17; Status DC Dextrose (Dextrose 50%-Water Syringe) 12.5 gm PRN Q15MIN PRN IV SEE COMMENTS; Start 10/27/18 at 18:00; Stop 10/28/18 at 13:49; Status DC Oxycodone HCl (Roxicodone) 5 mg PRN Q4HRS PRN PO MODERATE-SEVERE PAIN Last administered on 10/27/18at 18:10; Start 10/27/18 at 18:00; Stop 10/28/18 at 13:47; Status DC Potassium Chloride 70 meq/ Sodium Bicarbonate 12.5 meq/Lidocaine HCl 24 ml/Parenteral Electrolytes 571.5 ml @ 571.5 mls/ hr 1X ONCE IRR Last administered on 10/28/18at 10:35; Start 10/28/18 at 06:00; Stop 10/28/18 at 06:59; Status DC Potassium Chloride 15 meq/ Sodium Bicarbonate 12.5 meq/Parenteral Electrolytes 520 ml @ 520 mls/hr 1X ONCE IRR Last administered on 10/28/18at 10:35; Start 10/28/18 at 06:00; Stop 10/28/18 at 06:59; Status DC Heparin Sodium (Porcine) 87754 unit/Ringer's Solution 1,020 ml @ 1,020 mls/hr 1X ONCE IRR Last administered on 10/28/18at 08:36; Start 10/28/18 at 06:00; Stop 10/28/18 at 06:59; Status DC Cefazolin Sodium 1 gm/Sodium Chloride 500 ml @ 500 mls/hr 1X ONCE IRR Last administered on 10/28/18at 08:36; Start 10/28/18 at 06:00; Stop 10/28/18 at 06:59; Status DC Zolpidem Tartrate (Ambien) 5 mg PRN QHS PRN PO INSOMNIA; Start 10/27/18 at 20:00 Insulin Human Regular 150 unit/ Sodium Chloride 151.5 ml @ 0 mls/hr CONT PRN IV SEE I/O RECORD Last administered on 10/27/18at 20:39; Start 10/27/18 at 20:15; Stop 10/28/18 at 13:45; Status DC Sodium Chloride 1,000 ml @ 50 mls/hr Q20H IV ; Start 10/27/18 at 20:15; Stop 10/28/18 at 19:16; Status DC Dextrose/Sodium Chloride 1,000 ml @ 100 mls/hr Q10H IV Last administered on 10/27/18at 23:45; Start 10/27/18 at 23:00; Stop 10/28/18 at 19:16; Status DC Morphine Sulfate (Morphine Sulfate) 2 mg PRN Q30MIN PRN IV PAIN Last administered on 10/28/18at 02:16; Start 10/28/18 at 02:15; Stop 10/28/18 at 13:46; Status DC Ondansetron HCl (Zofran) 4 mg PRN Q6HRS PRN IV NAUSEA/VOMITING Last administer ed on 10/28/18at 02:31; Start 10/28/18 at 02:30; Stop 10/28/18 at 13:39; Status DC Etomidate (Amidate) 20 mg STK-MED ONCE IV ; Start 10/28/18 at 06:52; Stop 10/28/18 at 06:53; Status DC Phenylephrine HCl (PHENYLEPHRINE in 0.9% NACL PF) 1 mg STK-MED ONCE IV ; Start 10/28/18 at 06:53; Stop 10/28/18 at 06:54; Status DC Rocuronium [place] (Zemuron) 100 mg STK-MED ONCE .ROUTE ; Start 10/28/18 at 06:53; Stop 10/28/18 at 06:54; Status DC Midazolam HCl (Versed) 5 mg STK-MED ONCE .ROUTE ; Start 10/28/18 at 06:54; Stop 10/28/18 at 06:55; Status DC Vancomycin HCl (VANCO for OR ONLY) 10 gm STK-MED ONCE .ROUTE Last administered on 10/28/18 08:36; Start 10/28/18 at 05:54; Stop 10/28/18 at 06:55; Status DC Cellulose (Surgicel Hemostat 4x8) 1 each STK-MED ONCE .ROUTE Last administered on 10/28/18 08:36; Start 10/28/18 at 05:54; Stop 10/28/18 at 06:55; Status DC Papaverine HCl 60 mg STK-MED ONCE .ROUTE Last administered on 10/28/18 08:36; Start 10/28/18 at 05:55; Stop 10/28/18 at 06:55; Status DC Sodium Chloride (SODIUM CHLORIDE 20ml) 20 ml STK-MED ONCE IJ Last administered on 10/28/18 08:36; Start 10/28/18 at 05:55; Stop 10/28/18 at 06:55; Status DC Sodium Chloride (SODIUM CHLORIDE 20ml) 20 ml STK-MED ONCE IJ Last administered on 10/28/18 08:36; Start 10/28/18 at 05:55; Stop 10/28/18 at 06:55; Status DC Phenylephrine HCl (Jameel-Synephrine Inj) 10 mg STK-MED ONCE .ROUTE ; Start 9 at 06:55; Stop 10/28/18 at 06:56; Status DC Sodium Chloride (SODIUM CHLORIDE 20ml) 20 ml STK-MED ONCE IJ Last administered on 10/28/18 08:36; Start 10/28/18 at 05:56; Stop 10/28/18 at 06:56; Status DC Phenylephrine HCl (Jameel-Synephrine Inj) 10 mg STK-MED ONCE .ROUTE ; Start 10/28/18 at 06:56; Stop 10/28/18 at 06:57; Status DC Aspirin (Aspirin) 300 mg STK-MED ONCE .ROUTE Last administered on 10/28/18at 13:19; Start 10/28/18 at 05:57; Stop 10/28/18 at 06:57; Status DC Sufentanil Citrate (Sufenta) 250 mcg STK-MED ONCE .ROUTE ; Start 10/28/18 at 06:57; Stop 10/28/18 at 06:58; Status DC Aminocaproic Acid (Amicar) 5,000 mg STK-MED ONCE IV ; Start 10/28/18 at 06:58; Stop 10/28/18 at 06:59; Status DC Aminocaproic Acid (Amicar) 5,000 mg STK-MED ONCE IV ; Start 10/28/18 at 06:58; Stop 10/28/18 at 06:59; Status DC Aminocaproic Acid (Amicar) 5,000 mg STK-MED ONCE IV ; Start 10/28/18 at 06:58; Stop 10/28/18 at 06:59; Status DC Ephedrine Sulfate (ePHEDrine PF IN SALINE SYRINGE) 50 mg STK-MED ONCE IV ; Start 10/28/18 at 07:00; Stop 10/28/18 at 07:01; Status DC Lidocaine HCl (Xylocaine-Mpf 1% 2ml Vial) 2 ml STK-MED ONCE .ROUTE ; Start at 07:14; Stop 10/28/18 at 07:15; Status DC Acetaminophen (Tylenol) 500 mg PRN Q6HRS PRN PO MILD PAIN / TEMP; Start 10/06 10/23 at 08:15; Stop 10/28/18 at 13:45; Status DC Acetaminophen/ Codeine Phosphate (Tylenol #3) 1 tab PRN Q6HRS PRN PO MODERATE PAIN; Start 10/28/18 at 08:15; Stop 10/28/18 at 13:46; Status DC Ondansetron HCl (Zofran) 4 mg PRN Q6HRS PRN IV NAUSEA/VOMITING; Start 10/28/18 at 08:15; Stop 10/28/18 at 13:39; Status DC Ondansetron HCl (Zofran Odt) 4 mg PRN Q6HRS PRN PO NAUSEA/VOMITING; Start 10/28/18 at 08:15 Insulin Human Lispro (HumaLOG) 0-9 UNITS TIDWMEALS SQ Last administered on 10/31/18at 08:45; Start 10/28/18 at 12:00 Dextrose (Dextrose 50%-Water Syringe) 12.5 gm PRN Q15MIN PRN IV SEE COMMENTS; Start 10/28/18 at 08:15; Stop 10/28/18 at 13:49; Status DC Fenofibrate (Lofibra) 134 mg DAILY PO Last administered on 10/31/18at 08:39; Start 10/28/18 at 09:00 Fish Oil (Fish Oil) 2,000 mg BID PO Last administered on 10/31/18at 08:39; Start 10/28/18 at 09:00 Heparin Sodium (Porcine) 30,000 unit STK-MED ONCE .ROUTE ; Start 10/28/18 at 08:24; Stop 10/28/18 at 08:25; Status DC Verapamil HCl (Verapamil) 10 mg STK-MED ONCE .ROUTE ; Start 10/27/18 at 10:00; Stop 10/28/18 at 08:58; Status DC Rocuronium [place] (Zemuron) 100 mg STK-MED ONCE .ROUTE ; Start 10/28/18 at 09:06; Stop 10/28/18 at 09:07; Status DC Cefazolin Sodium (Ancef) 1 gm STK-MED ONCE .ROUTE ; Start 10/28/18 at 09:20; Stop 10/28/18 at 09:21; Status DC Cefazolin Sodium (Ancef) 1 gm STK-MED ONCE .ROUTE ; Start 10/28/18 at 09:20; Stop 10/28/18 at 09:21; Status DC Heparin Sodium (Porcine) (Heparin Sodium) 10,000 unit STK-MED ONCE .ROUTE ; Start 10/28/18 at 10:24; Stop 10/28/18 at 10:25; Status DC Protamine Sulfate (Protamine) 250 mg STK-MED ONCE IV ; Start 10/28/18 at 11:22; Stop 10/28/18 at 11:23; Status DC Protamine Sulfate (Protamine) 50 mg STK-MED ONCE IV ; Start 10/28/18 at 12:11; Stop 10/28/18 at 12:12; Status DC Heparin Sodium (Porcine) (Heparin Sodium) 10,000 unit STK-MED ONCE .ROUTE ; Start 10/28/18 at 12:17; Stop 10/28/18 at 12:18; Status DC Lidocaine HCl (Lidocaine Pf 2% Vial) 5 ml STK-MED ONCE .ROUTE ; Start 10/28/18 at 12:17; Stop 10/28/18 at 12:18; Status DC Magnesium Sulfate 5 gm STK-MED ONCE .ROUTE ; Start 10/28/18 at 12:17; Stop 10/28/18 at 12:18; Status DC Mannitol (Mannitol) 12.5 g STK-MED ONCE .ROUTE ; Start 10/28/18 at 12:17; Stop 10/28/18 at 12:18; Status DC Albumin Human 100 ml @ As Directed STK-MED ONCE IV ; Start 10/28/18 at 12:17; Stop 10/28/18 at 12:18; Status DC Calcium Chloride (Calcium Chloride) 1,000 mg STK-MED ONCE .ROUTE ; Start 10/28/18 at 12:17; Stop 10/28/18 at 12:18; Status DC Nitroglycerin/ Dextrose 250 ml @ As Directed STK-MED ONCE IV ; Start 10/28/18 at 12:30; Stop 10/28/18 at 12:31; Status DC Fentanyl Citrate (Fentanyl 2ml Vial) 100 mcg STK-MED ONCE .ROUTE ; Start 10/28/18 at 12:56; Stop 10/28/18 at 12:57; Status DC Nicardipine HCl 50 mg/Sodium Chloride 250 ml @ 25 mls/hr CONT PRN IV SEE I/O RECORD Last administered on 10/28/18at 14:55; Start 10/28/18 at 12:45; Stop 10/29/18 at 13:58; Status DC Amiodarone HCl 900 mg/Dextrose 518 ml @ 0 mls/hr CONT PRN IV SEE I/O RECORD Last administered on 10/28/18at 14:45; Start 10/28/18 at 12:45; Stop 10/28/18 at 15:49; Status DC Amiodarone HCl 150 mg/Dextrose 103 ml @ 618 mls/hr 1X ONCE IV Last administered on 10/28/18at 15:26; Start 10/28/18 at 12:45; Stop 10/28/18 at 13:02; Status DC Sodium Chloride (Normal Saline Flush) 3 ml PRN Q12HR PRN IV AFTER MEDS AND BLOOD DRAWS; Start 10/28/18 at 13:30 Ringer's Solution 1,000 ml @ 30 mls/hr Q24H IV Last administered on 10/28/18at 15:32; Start 10/28/18 at 13:22; Stop 10/29/18 at 13:58; Status DC Albumin Human 250 ml @ 500 mls/hr PRN Q4HRS PRN IV SEE COMMENTS; Start 10/28/18 at 13:30; Stop 10/29/18 at 13:58; Status DC Insulin Human Regular 150 unit/ Sodium Chloride 151.5 ml @ 0 mls/hr CONT PRN PRN IV PER PROTOCOL Last administered on 10/29/18at 03:25; Start 10/28/18 at 1 3:30; Stop 10/29/18 at 13:58; Status DC Dextrose (Dextrose 50%-Water Syringe) 25 gm PRN Q15MIN PRN IV LOW BLOOD SUGAR; Start 10/28/18 at 13:30 Nitroglycerin/ Dextrose 250 ml @ 0 mls/hr CONT PRN PRN IV POST CV SURGERY; Start 10/28/18 at 13:30; Stop 10/28/18 at 19:16; Status DC Phenylephrine HCl 20 mg/Sodium Chloride 252 ml @ 0 mls/hr CONT PRN PRN IV HYPOTENSION; Start 10/28/18 at 13:30; Stop 10/29/18 at 13:58; Status DC Amiodarone HCl 150 mg/Dextrose 103 ml @ 600 mls/hr 1X ONCE IV ; Start 10/28/18 at 13:30; Stop 10/28/18 at 13:40; Status UNV Amiodarone HCl 150 mg/Dextrose 103 ml @ 200 mls/hr 1X PRN PRN IV FOR AFIB Last administered on 10/28/18at 14:00; Start 10/28/18 at 13:30; Stop 10/29/18 at 13:58; Status DC Amiodarone HCl 900 mg/Dextrose 518 ml @ 0 mls/hr CONT PRN PRN IV AFIB; Start 10/28/18 at 13:30; Status UNV Info (KCl Per Protocol) 1 ea CONT PRN PRN MC SEE COMMENTS; Start 10/28/18 at 13:30; Stop 10/29/18 at 13:58; Status DC Magnesium Sulfate/ Dextrose 100 ml @ 100 mls/hr PRN DAILY PRN IV FOR MAG < 2.2 Last administered on 10/30/18at 08:30; Start 10/28/18 at 13:30; Stop 10/29/18 at 13:58; Status DC Famotidine (Pepcid Vial) 20 mg BID IVP Last administered on 10/31/18at 08:40; Start 10/28/18 at 21:00 Ondansetron HCl (Zofran) 4 mg PRN Q4HRS PRN IV NAUSEA/VOMITING, 1st CHOICE Last administered on 10/28/18at 21:44; Start 10/28/18 at 13:30 Prochlorperazine Edisylate (Compazine) 10 mg PRN Q6HRS PRN IV NAUSEA/VOMITING, 2nd CHOICE; Start 10/28/18 at 13:30 Metoclopramide HCl (Reglan Vial) 10 mg PRN Q6HRS PRN IV NAUSEA/VOMITING, 3rd CHOICE; Start 10/28/18 at 13:30 Morphine Sulfate (Morphine Sulfate) 2 mg PRN Q1HR PRN IV PAIN; Start 10/28/18 at 13:30; Stop 10/28/18 at 19:16; Status DC Morphine Sulfate (Morphine Sulfate) 4 mg PRN Q1HR PRN IV SEVERE PAIN Last administered on 10/28/18at 17:06; Start 10/28/18 at 13:30; Stop 10/28/18 at 19:16; Status DC Acetaminophen (Tylenol) 650 mg PRN Q4HRS PRN PO TEMP > 101'F Last administered on 10/31/18at 08:39; Start 10/28/18 at 13:30 Acetaminophen (Tylenol Supp) 650 mg PRN Q4HRS PRN WI TEMP > 101'F or MILD PAIN; Start 10/28/18 at 13:30 Meperidine HCl (Demerol) 12.5 mg PRN Q15MIN PRN IV SHIVERING; Start 10/28/18 at 13:30; Stop 10/28/18 at 19:16; Status DC Propofol 100 ml @ 0 mls/hr CONT PRN PRN IV POSTOP SEDATION UNTIL EXTUBATE Last administered on 10/28/18at 15:45; Start 10/28/18 at 13:30; Stop 10/28/18 at 19:16; Status DC Senna/Docusate Sodium (Senna Plus) 1 tab BID PO Last administered on 10/31/18at 08:40; Start 10/28/18 at 21:00 Bisacodyl (Dulcolax Supp) 10 mg PRN DAILY PRN WI NO BOWEL MOVEMENT; Start 10/28/18 at 13:30 Chlorhexidine Gluconate (Peridex) 15 ml BID MM ; Start 10/29/18 at 09:00; Stop 10/29/18 at 09:00; Status DC Aspirin (Ecotrin) 325 mg DAILYWBKFT PO Last administered on 10/31/18at 08:39; Start 10/29/18 at 08:00 Aspirin (Aspirin) 300 mg PRN DAILY PRN WI IF UNABLE TO TAKE PO; Start 10/29/18 at 08:00 Albuterol Sulfate (Ventolin Neb Soln) 2.5 mg PRN Q4HRS PRN NEB SHORTNESS OF BREATH Last administered on 10/30/18at 20:33; Start 10/28/18 at 13:30 Metoprolol Tartrate (Lopressor) 25 mg BID PO Last administered on 10/31/18at 08:40; Start 10/29/18 at 09:00 Nicardipine HCl 50 mg/Sodium Chloride 250 ml @ 0 mls/hr CONT PRN PRN IV PER PROTOCOL; Start 10/28/18 at 13:30; Status UNV Oxycodone HCl (Roxicodone) 5 mg PRN Q4HRS PRN PO MILD TO MODERATE PAIN Last administered on 10/29/18at 14:55; Start 10/28/18 at 13:30 Oxycodone HCl (Roxicodone) 10 mg PRN Q4HRS PRN PO SEVERE PAIN Last administered on 10/31/18at 10:15; Start 10/28/18 at 13:30 Cefazolin Sodium/ Dextrose 50 ml @ 100 mls/hr Q8H IV ; Start 10/28/18 at 17:00; Stop 10/28/18 at 19:16; Status DC Sodium Bicarbonate (Sodium Bicarb Adult 8.4% Syr) 50 meq 1X ONCE IV Last administered on 10/28/18at 15:33; Start 10/28/18 at 14:45; Stop 10/28/18 at 15:25; Status DC Potassium Chloride/Water 50 ml @ 50 mls/hr Q1HR IV Last administered on 10/28/18at 19:03; Start 10/28/18 at 17:00; Stop 10/28/18 at 18:59; Status DC Fentanyl Citrate (Fentanyl 2ml Vial) 25 mcg 1X ONCE IV Last administered on 10/28/18at 17:37; Start 10/28/18 at 17:30; Stop 10/28/18 at 17:31; Status DC Hydromorphone HCl (Dilaudid) 0.5 mg PRN Q2HRS PRN IVP MODERATE PAIN Last administered on 10/31/18at 03:52; Start 10/28/18 at 17:30 Ketorolac Tromethamine (Toradol 15mg Vial) 15 mg PRN Q6HRS PRN IV MILD PAIN Last administered on 10/30/18at 13:41; Start 10/28/18 at 17:30; Stop 11/02/18 at 17:29 Cefazolin Sodium/ Dextrose 50 ml @ 100 mls/hr Q8H IV Last administered on 10/30/18at 03:28; Start 10/28/18 at 20:00; Stop 10/30/18 at 04:29; Status DC Magnesium Sulfate 50 ml @ 25 mls/hr 1X ONCE IV Last administered on 10/29/18at 08:15; Start 10/29/18 at 08:15; Stop 10/29/18 at 10:14; Status DC Pantoprazole Sodium (PROTONIX VIAL for IV PUSH) 40 mg 1X ONCE IVP Last administered on 10/29/18at 08:15; Start 10/29/18 at 08:15; Stop 10/29/18 at 08:22; Status DC Pantoprazole Sodium (PROTONIX VIAL for IV PUSH) 40 mg DAILYAC IVP ; Start 10/30/18 at 07:30; Stop 10/31/18 at 11:37; Status DC Magnesium Sulfate 50 ml @ 25 mls/hr 1X ONCE IV ; Start 10/29/18 at 08:30; Stop 10/29/18 at 10:29; Status DC Nystatin (Nystop) 1 tony BID TP Last administered on 4/26/19at 21:00; Start 10/29/18 at 09:30 Amiodarone HCl (Cordarone) 200 mg BID PO Last administered on 10/31/18at 08:40; Start 10/29/18 at 21:00 Insulin Human Lispro (HumaLOG) 0-9 UNITS TIDWMEALS SQ ; Start 10/29/18 at 17:00; Status UNV Dextrose (Dextrose 50%-Water Syringe) 12.5 gm PRN Q15MIN PRN IV SEE COMMENTS; Start 10/29/18 at 14:30 Insulin Glargine (Lantus) 40 units QHS SQ Last administered on 10/30/18at 20:51; Start 10/29/18 at 21:00 Potassium Chloride/Water 50 ml @ 50 mls/hr 1X ONCE IV Last administered on 10/30/18at 07:42; Start 10/30/18 at 07:00; Stop 10/30/18 at 07:59; Status DC Magnesium Sulfate/ Dextrose 100 ml @ 100 mls/hr 1X ONCE IV Last administered on 10/30/18at 06:08; Start 10/30/18 at 06:30; Stop 10/30/18 at 07:29; Status DC Magnesium Sulfate 50 ml @ 25 mls/hr 1X ONCE IV Last administered on 10/30/18at 08:30; Start 10/30/18 at 08:30; Stop 10/30/18 at 10:29; Status DC Magnesium Sulfate 50 ml @ 25 mls/hr 1X ONCE IV ; Start 10/31/18 at 11:45; Stop 10/31/18 at 13:44 Active Scripts Active Levemir (Insulin Detemir) 100 Unit/1 Ml Vial 60 Unit SQ QHS Reported Mirtazapine 15 Mg Tablet 0.5 Tab PO QHS Fillmore 3 Fish Oil Softgel (Fillmore-3 Fatty Acids/Fish Oil) 1 Each Capsule.dr 2 Each PO BID [regular insulin] 45 Cymbalta (Duloxetine Hcl) 60 Mg Capsule.dr 1 Cap PO BID Oxcarbazepine 300 Mg Tablet 300 Mg PO DAILY Fenofibrate (Fenofibrate Nanocrystallized) 145 Mg Tablet 1 Tab PO DAILY Atorvastatin Calcium 40 Mg Tablet 1 Tab PO DAILY Celebrex (Celecoxib) 100 Mg Capsule 1 Cap PO BID Latuda (Lurasidone Hcl) 40 Mg Tablet 80 Tab PO QHS Tamsulosin Hcl 0.4 Mg Cap.er.24h 0.4 Mg PO DAILY Lisinopril 5 Mg Tablet 5 Mg PO DAILY Metformin Hcl 1,000 Mg Tablet 500 Tab PO BID Vitals/I & O Vital Sign - Last 24 Hours 10/30/18 10/30/18 10/30/18 10/30/18 12:00 12:00 12:30 15:27 Temp 98.6 98.7 98.6 98.7 Pulse 88 Resp 24 B/P (MAP) 112/64 (80) 114/70 (85) Pulse Ox 94 90 92 O2 Delivery Nasal Cannula Nasal Cannula Nasal Cannula Nasal Cannula O2 Flow Rate 3.0 3.0 3.0 3.0 10/30/18 10/30/18 10/30/18 10/30/18 15:43 16:10 16:16 17:22 Resp 14 14 14 12 Pulse Ox 92 92 92 92 O2 Delivery Nasal Cannula Nasal Cannula O2 Flow Rate 3.0 3.0 10/30/18 10/30/18 10/30/18 10/30/18 19:44 20:15 20:32 20:38 Temp 98.3 98.3 Pulse 84 84 Resp 22 B/P (MAP) 110/70 (83) 110/70 Pulse Ox 92 96 O2 Delivery Nasal Cannula Nasal Cannula Nasal Cannula O2 Flow Rate 3.0 3.0 3.0 10/30/18 10/30/18 10/30/18 10/31/18 20:39 20:44 23:27 01:12 Temp 98.8 98.8 Pulse 84 82 Resp 24 20 B/P (MAP) 110/70 125/72 (89) Pulse Ox 91 O2 Delivery Nasal Cannula Nasal Cannula Room Air O2 Flow Rate 3.0 3.0 10/31/18 10/31/18 10/31/18 10/31/18 02:12 03:52 03:58 04:25 Temp 98.0 98.0 Pulse 73 Resp 20 B/P (MAP) 104/62 (76) Pulse Ox 93 O2 Delivery Nasal Cannula Nasal Cannula Nasal Cannula Nasal Cannula O2 Flow Rate 3.0 3.0 3.0 3.0 10/31/18 10/31/18 10/31/18 10/31/18 06:06 07:41 08:00 08:38 Temp 98.6 98.6 Pulse 75 89 Resp 16 B/P (MAP) 117/64 (81) Pulse Ox 92 O2 Delivery Nasal Cannula Nasal Cannula Nasal Cannula O2 Flow Rate 3.0 3.0 3.0 10/31/18 10/31/18 10/31/18 08:40 08:40 11:16 Temp 98.1 98.1 Pulse 80 90 72 Resp 12 B/P (MAP) 121/72 (88) Pulse Ox 100 O2 Delivery Nasal Cannula O2 Flow Rate 3.0 Intake and Output 10/30/18 10/30/18 10/31/18 14:59 22:59 06:59 Intake Total 780 ml 320 ml 360 ml Output Total 545 ml 600 ml Balance 235 ml -280 ml 360 ml JO ANN CHAVEZ III DO Oct 31, 2018 12:01
[2018-10-31 17:20] VITALS: BP 100/56
[2018-10-31] MEDS ORDERED: INSULIN LISPRO 300 UNITS/3 ML INSULN.PEN. SQ ONE (17:30)
[2018-10-31 19:47] VITALS: BP 104/64
[2018-10-31] MEDS: LURASIDONE 40 MG TABLET. PO SCH (20:51)
[2018-10-31] MEDS: ATORVASTATIN CALCIUM 40 MG TABLET. PO SCH (20:52)
[2018-10-31] MEDS: MIRTAZAPINE 7.5 MG TABLET. PO SCH (20:52)
[2018-10-31] MEDS ORDERED: INSULIN GLARGINE 300 UNITS/3 ML INSULN.PEN. SQ SCH (21:00)
[2018-10-31] MEDS: INSULIN GLARGINE 300 UNITS/3 ML INSULN.PEN. SQ SCH (21:06)
[2018-10-31 23:28] VITALS: BP 99/60
--- NOTE | 2018-10-31 23:36 | PDOC ---
Progress Note Subjective Subjective Doing very well. Normotensive, SR. Less O2 requirements. CXR with expected postop changes. Glucose not well controlled on 40U Lantus. ROS ROS No nausea No vomiting No pain No rash Vital Sign Vital Signs Vital Signs Date Time Temp Pulse Resp B/P (MAP) Pulse Ox O2 Delivery O2 Flow Rate FiO2 10/31/18 23:28 98.9 70 22 99/60 (73) 89 Room Air 98.9 10/31/18 23:28 3.0 Labs Lab Laboratory Tests Test 10/31/18 03:30 10/31/18 07:27 10/31/18 10:43 10/31/18 14:50 White Blood Count 9.1 x10^3/uL (4.0-11.0) Red Blood Count 3.35 x10^6/uL (4.30-5.70) Hemoglobin 10.1 g/dL (13.0-17.5) Hematocrit 30.3 % (39.0-53.0) Mean Corpuscular Volume 90 fL (79-100) Mean Corpuscular Hemoglobin 30 pg (25-35) Mean Corpuscular Hemoglobin Concent 34 g/dL (31-37) Red Cell Distribution Width 14.9 % (11.5-14.5) Platelet Count 170 x10^3/uL (140-400) Sodium Level 136 mmol/L (136-145) Potassium Level 4.1 mmol/L (3.5-5.1) Chloride Level 100 mmol/L (98-107) Carbon Dioxide Level 31 mmol/L (21-32) Anion Gap 5 (6-14) Blood Urea Nitrogen 10 mg/dL (8-26) Creatinine 1.0 mg/dL (0.7-1.3) Estimated GFR (Cockcroft-Gault) 79.1 Glucose Level 269 mg/dL (70-99) Calcium Level 9.5 mg/dL (8.5-10.1) Magnesium Level 1.6 mg/dL (1.8-2.4) Glucose (Fingerstick) 249 mg/dL (70-99) 247 mg/dL (70-99) 282 mg/dL (70-99) Test 10/31/18 20:41 Glucose (Fingerstick) 218 mg/dL (70-99) Objective Assessment POD#3, s/p CABG x3 (PICKERING to LAD, SVG to RPDA, SVG to diag) Doing very well. Normotensive, SR. Less O2 requirements. CXR with expected postop changes. Glucose not well controlled on 40U Lantus. Plan Plan of Care Amiodarone po 200mg BIB for AFib prophylaxis. Will stop before discharge ASA, b lisandro, statin Need to increase Lantus to BID with sliding scale Ambulation and pulm toilet D/c home Friday TRISTON CARTWRIGHT MD Oct 31, 2018 23:36
[2018-11-01] MEDS: oxyCODONE IR 5 MG TABLET PO PRN ×4 (03:32→21:25)
[2018-11-01 03:45] VITALS: BP 123/81
[2018-11-01 05:23] LABS: BASO % 1 % (0-3); EOS # 0.3 x10^3/uL (0.0-0.7); EOS % 4 % (0-3); HEMATOCRIT 29.3 % (39.0-53.0); HEMOGLOBIN 9.8 g/dL (13.0-17.5); LYMPH # 1.6 x10^3/uL (1.0-4.8); LYMPH % 19 % (24-48); MEAN CORPUSCULAR HEMOGLOBIN 30 pg (25-35); MEAN CORPUSCULAR HGB CONC 34 g/dL (31-37); MEAN CORPUSCULAR VOLUME 91 fL (79-100); MONO # 1.4 x10^3/uL (0.0-1.1); MONO % 17 % (0-9); NEUT # 4.8 x10^3uL (1.8-7.7); NEUT % 59 % (31-73); PLATELET COUNT 220 x10^3/uL (140-400); RED BLOOD COUNT 3.24 x10^6/uL (4.30-5.70); RED CELL DISTRIBUTION WIDTH 14.7 % (11.5-14.5); WHITE BLOOD COUNT 8.2 x10^3/uL (4.0-11.0)
[2018-11-01 05:40] LABS: CALCIUM 9.8 mg/dL (8.5-10.1); CREATININE 1.1 mg/dL (0.7-1.3); GFR 70.9; POTASSIUM 3.6 mmol/L (3.5-5.1)
[2018-11-01 07:00] VITALS: BP 105/68
[2018-11-01] MEDS: INSULIN LISPRO 300 UNITS/3 ML INSULN.PEN. SQ SCH ×3 (08:00→17:29)
[2018-11-01] MEDS: FENOFIBRATE,MICRONIZED 134 MG CAPSULE PO SCH (08:23)
[2018-11-01] MEDS: ASPIRIN ENTERIC COATED 325 MG TABLET.DR. PO SCH (08:23)
[2018-11-01] MEDS: OXcarbazepine 300 MG TABLET PO SCH (08:23)
[2018-11-01] MEDS: TAMSULOSIN 0.4 MG CAP.ER.24H. PO SCH (08:23)
[2018-11-01] MEDS: DULoxetine HCL 30 MG CAPSULE.DR PO SCH ×2 (08:23→21:21)
[2018-11-01] MEDS: OMEGA-3 FATTY ACIDS/FISH OIL 1,000 MG CAPSULE. PO SCH ×2 (08:23→21:22)
[2018-11-01] MEDS: SENNOSIDES/DOCUSATE 8.6/50MG TABLET. PO SCH ×2 (08:24→21:22)
[2018-11-01] MEDS: METOPROLOL TART IMMED RELEASE 25 MG TABLET. PO SCH ×2 (08:24→21:22)
[2018-11-01] MEDS: AMIODARONE HCL 200 MG TABLET. PO SCH ×2 (08:24→21:21)
[2018-11-01] MEDS: NYSTATIN TOPICAL POWDER 15GM BOTTLE. TP SCH ×2 (08:25→21:00)
[2018-11-01] MEDS: LISINOPRIL 5 MG TABLET. PO SCH (08:25)
[2018-11-01] MEDS: FAMOTIDINE 20 MG TABLET. PO SCH ×2 (08:29→21:22)
[2018-11-01] MEDS: INSULIN GLARGINE 300 UNITS/3 ML INSULN.PEN. SQ SCH ×2 (08:33→21:29)
[2018-11-01] MEDS: NICOTINE 21MG PATCH. TD PRN (08:39)
--- NOTE | 2018-11-01 09:50 | PDOC ---
PROGRESS NOTES Chief Complaint Chief Complaint CAD, 3 vessel disease dm1, check A1c htn lipids tobacco use disorder Obesity BMI 32 NArcotic tolerant History of Present Illness History of Present Illness All chest tubes, Price catheter out and no issues Ambulating by himself in the halls Plan for home tomorrow But still complains of postop soreness, pain, never goes down to less than 6 out of 10 He is narcotic tolerant Has been getting Roxicodone 10 mg very often Has also gotten 20 doses of Dilaudid 0.5 mg and couple doses fentanyl IV Plan Add Percocet 10 PO Target for home independent tomorrow with new cardiac meds-he will need scripts Discussed with RN at bedside Vitals Vitals Vital Signs Date Time Temp Pulse Resp B/P (MAP) Pulse Ox O2 Delivery O2 Flow Rate FiO2 11/01/18 08:25 77 11/01/18 08:05 Nasal Cannula 2.0 11/01/18 07:00 98.9 12 105/68 (80) 93 98.9 Physical Exam General: Alert, Oriented X3, Cooperative, No acute distress, Other (Intubated) Heart: Regular rate, Normal S1, Normal S2, No murmurs Lungs: Clear (No wheezes, rales, or rhonchi) Abdomen: Soft, No tenderness, No masses Extremities: No edema, Normal pulses, No tenderness/swelling Skin: No rashes, No breakdown, No significant lesion Labs LABS Laboratory Tests Test 10/31/18 10:43 10/31/18 14:50 10/31/18 20:41 11/01/18 04:44 Glucose (Fingerstick) 247 mg/dL (70-99) 282 mg/dL (70-99) 218 mg/dL (70-99) White Blood Count 8.2 x10^3/uL (4.0-11.0) Red Blood Count 3.24 x10^6/uL (4.30-5.70) Hemoglobin 9.8 g/dL (13.0-17.5) Hematocrit 29.3 % (39.0-53.0) Mean Corpuscular Volume 91 fL (79-100) Mean Corpuscular Hemoglobin 30 pg (25-35) Mean Corpuscular Hemoglobin Concent 34 g/dL (31-37) Red Cell Distribution Width 14.7 % (11.5-14.5) Platelet Count 220 x10^3/uL (140-400) Neutrophils (%) (Auto) 59 % (31-73) Lymphocytes (%) (Auto) 19 % (24-48) Monocytes (%) (Auto) 17 % (0-9) Eosinophils (%) (Auto) 4 % (0-3) Basophils (%) (Auto) 1 % (0-3) Neutrophils # (Auto) 4.8 x10^3uL (1.8-7.7) Lymphocytes # (Auto) 1.6 x10^3/uL (1.0-4.8) Monocytes # (Auto) 1.4 x10^3/uL (0.0-1.1) Eosinophils # (Auto) 0.3 x10^3/uL (0.0-0.7) Basophils # (Auto) 0.0 x10^3/uL (0.0-0.2) Sodium Level 135 mmol/L (136-145) Potassium Level 3.6 mmol/L (3.5-5.1) Chloride Level 97 mmol/L (98-107) Carbon Dioxide Level 33 mmol/L (21-32) Anion Gap 5 (6-14) Blood Urea Nitrogen 11 mg/dL (8-26) Creatinine 1.1 mg/dL (0.7-1.3) Estimated GFR (Cockcroft-Gault) 70.9 Glucose Level 126 mg/dL (70-99) Calcium Level 9.8 mg/dL (8.5-10.1) Magnesium Level 1.7 mg/dL (1.8-2.4) Review of Systems Review of Systems post op pain, the rest of ROS 14 point negative Comment Review of Relevant I have reviewed the following items pratima (where applicable) has been applied. Labs Laboratory Tests Test 10/30/18 12:17 10/30/18 16:44 10/30/18 20:48 10/31/18 03:30 Glucose (Fingerstick) 230 mg/dL (70-99) 327 mg/dL (70-99) 262 mg/dL (70-99) White Blood Count 9.1 x10^3/uL (4.0-11.0) Red Blood Count 3.35 x10^6/uL (4.30-5.70) Hemoglobin 10.1 g/dL (13.0-17.5) Hematocrit 30.3 % (39.0-53.0) Mean Corpuscular Volume 90 fL (79-100) Mean Corpuscular Hemoglobin 30 pg (25-35) Mean Corpuscular Hemoglobin Concent 34 g/dL (31-37) Red Cell Distribution Width 14.9 % (11.5-14.5) Platelet Count 170 x10^3/uL (140-400) Sodium Level 136 mmol/L (136-145) Potassium Level 4.1 mmol/L (3.5-5.1) Chloride Level 100 mmol/L (98-107) Carbon Dioxide Level 31 mmol/L (21-32) Anion Gap 5 (6-14) Blood Urea Nitrogen 10 mg/dL (8-26) Creatinine 1.0 mg/dL (0.7-1.3) Estimated GFR (Cockcroft-Gault) 79.1 Glucose Level 269 mg/dL (70-99) Calcium Level 9.5 mg/dL (8.5-10.1) Magnesium Level 1.6 mg/dL (1.8-2.4) Test 10/31/18 07:27 10/31/18 10:43 10/31/18 14:50 10/31/18 20:41 Glucose (Fingerstick) 249 mg/dL (70-99) 247 mg/dL (70-99) 282 mg/dL (70-99) 218 mg/dL (70-99) Test 11/01/18 04:44 White Blood Count 8.2 x10^3/uL (4.0-11.0) Red Blood Count 3.24 x10^6/uL (4.30-5.70) Hemoglobin 9.8 g/dL (13.0-17.5) Hematocrit 29.3 % (39.0-53.0) Mean Corpuscular Volume 91 fL (79-100) Mean Corpuscular Hemoglobin 30 pg (25-35) Mean Corpuscular Hemoglobin Concent 34 g/dL (31-37) Red Cell Distribution Width 14.7 % (11.5-14.5) Platelet Count 220 x10^3/uL (140-400) Neutrophils (%) (Auto) 59 % (31-73) Lymphocytes (%) (Auto) 19 % (24-48) Monocytes (%) (Auto) 17 % (0-9) Eosinophils (%) (Auto) 4 % (0-3) Basophils (%) (Auto) 1 % (0-3) Neutrophils # (Auto) 4.8 x10^3uL (1.8-7.7) Lymphocytes # (Auto) 1.6 x10^3/uL (1.0-4.8) Monocytes # (Auto) 1.4 x10^3/uL (0.0-1.1) Eosinophils # (Auto) 0.3 x10^3/uL (0.0-0.7) Basophils # (Auto) 0.0 x10^3/uL (0.0-0.2) Sodium Level 135 mmol/L (136-145) Potassium Level 3.6 mmol/L (3.5-5.1) Chloride Level 97 mmol/L (98-107) Carbon Dioxide Level 33 mmol/L (21-32) Anion Gap 5 (6-14) Blood Urea Nitrogen 11 mg/dL (8-26) Creatinine 1.1 mg/dL (0.7-1.3) Estimated GFR (Cockcroft-Gault) 70.9 Glucose Level 126 mg/dL (70-99) Calcium Level 9.8 mg/dL (8.5-10.1) Magnesium Level 1.7 mg/dL (1.8-2.4) Laboratory Tests Test 10/31/18 10:43 10/31/18 14:50 10/31/18 20:41 11/01/18 04:44 Glucose (Fingerstick) 247 mg/dL (70-99) 282 mg/dL (70-99) 218 mg/dL (70-99) White Blood Count 8.2 x10^3/uL (4.0-11.0) Red Blood Count 3.24 x10^6/uL (4.30-5.70) Hemoglobin 9.8 g/dL (13.0-17.5) Hematocrit 29.3 % (39.0-53.0) Mean Corpuscular Volume 91 fL (79-100) Mean Corpuscular Hemoglobin 30 pg (25-35) Mean Corpuscular Hemoglobin Concent 34 g/dL (31-37) Red Cell Distribution Width 14.7 % (11.5-14.5) Platelet Count 220 x10^3/uL (140-400) Neutrophils (%) (Auto) 59 % (31-73) Lymphocytes (%) (Auto) 19 % (24-48) Monocytes (%) (Auto) 17 % (0-9) Eosinophils (%) (Auto) 4 % (0-3) Basophils (%) (Auto) 1 % (0-3) Neutrophils # (Auto) 4.8 x10^3uL (1.8-7.7) Lymphocytes # (Auto) 1.6 x10^3/uL (1.0-4.8) Monocytes # (Auto) 1.4 x10^3/uL (0.0-1.1) Eosinophils # (Auto) 0.3 x10^3/uL (0.0-0.7) Basophils # (Auto) 0.0 x10^3/uL (0.0-0.2) Sodium Level 135 mmol/L (136-145) Potassium Level 3.6 mmol/L (3.5-5.1) Chloride Level 97 mmol/L (98-107) Carbon Dioxide Level 33 mmol/L (21-32) Anion Gap 5 (6-14) Blood Urea Nitrogen 11 mg/dL (8-26) Creatinine 1.1 mg/dL (0.7-1.3) Estimated GFR (Cockcroft-Gault) 70.9 Glucose Level 126 mg/dL (70-99) Calcium Level 9.8 mg/dL (8.5-10.1) Magnesium Level 1.7 mg/dL (1.8-2.4) Medications Current Medications Lidocaine HCl (Xylocaine-Mpf 1% 2ml Vial) 2 ml STK-MED ONCE .ROUTE ; Start 10/27/18 at 07:57; Stop 10/27/18 at 07:58; Status DC Iohexol (Omnipaque 300 Mg/ml) 100 ml STK-MED ONCE .ROUTE ; Start 10/27/18 at 07:57; Stop 10/27/18 at 07:58; Status DC Heparin Sodium/ Sodium Chloride 1,000 ml @ As Directed STK-MED ONCE .ROUTE ; Start 10/27/18 at 07:58; Stop 10/27/18 at 07:59; Status DC Fentanyl Citrate (Fentanyl 2ml Vial) 100 mcg STK-MED ONCE .ROUTE ; Start 10/27/18 at 08:15; Stop 10/27/18 at 08:16; Status DC Midazolam HCl (Versed) 2 mg STK-MED ONCE .ROUTE ; Start 10/27/18 at 08:16; Stop 10/27/18 at 08:17; Status DC Heparin Sodium (Porcine) (Heparin Sodium) 10,000 unit STK-MED ONCE .ROUTE ; Start 10/27/18 at 08:16; Stop 10/27/18 at 08:17; Status DC Verapamil HCl (Verapamil) 5 mg STK-MED ONCE .ROUTE ; Start 10/27/18 at 08:16; Stop 10/27/18 at 08:17; Status DC Nitroglycerin (Nitroglycerin) 200 mcg STK-MED ONCE .ROUTE ; Start 10/27/18 at 08:16; Stop 10/27/18 at 08:17; Status DC Midazolam HCl (Versed) 2 mg STK-MED ONCE .ROUTE ; Start 10/27/18 at 08:42; Stop 10/27/18 at 08:43; Status DC Diphenhydramine HCl (Benadryl) 50 mg STK-MED ONCE .ROUTE ; Start 10/27/18 at 08:42; Stop 10/27/18 at 08:43; Status DC Bivalirudin (Angiomax) 250 mg STK-MED ONCE IV ; Start 10/27/18 at 08:59; Stop 10/27/18 at 09:00; Status DC Iohexol (Omnipaque 300 Mg/ml) 100 ml STK-MED ONCE .ROUTE ; Start 10/27/18 at 09:00; Stop 10/27/18 at 09:01; Status DC Heparin Sodium (Porcine) (Heparin Sodium) 10,000 unit STK-MED ONCE .ROUTE ; Start 10/27/18 at 09:22; Stop 10/27/18 at 09:23; Status DC Verapamil HCl (Verapamil) 5 mg STK-MED ONCE .ROUTE ; Start 10/27/18 at 09:22; Stop 10/27/18 at 09:23; Status DC Nitroglycerin/ Dextrose (Nitroglycerin) 4 mg STK-MED ONCE .ROUTE ; Start 10/27/18 at 09:22; Stop 10/27/18 at 09:23; Status DC Verapamil HCl (Verapamil) 5 mg STK-MED ONCE .ROUTE ; Start 10/27/18 at 09:24; Stop 10/27/18 at 09:25; Status DC Lidocaine HCl (Lidocaine 1% 20ml Vial) 20 ml STK-MED ONCE .ROUTE ; Start at 09:27; Stop 10/27/18 at 09:28; Status DC Fentanyl Citrate (Fentanyl 2ml Vial) 100 mcg STK-MED ONCE .ROUTE ; Start at 09:31; Stop 10/27/18 at 09:32; Status DC Midazolam HCl (Versed) 2 mg STK-MED ONCE .ROUTE ; Start 10/27/18 at 09:32; Stop 10/27/18 at 09:33; Status DC Dopamine HCl/ Dextrose 250 ml @ As Directed STK-MED ONCE IV ; Start 10/27/18 at 09:33; Stop 10/27/18 at 09:34; Status DC Bivalirudin (Angiomax) 250 mg STK-MED ONCE IV ; Start 10/27/18 at 10:14; Stop 10/27/18 at 10:15; Status DC Iohexol (Omnipaque 300 Mg/ml) 100 ml STK-MED ONCE .ROUTE ; Start 10/27/18 at 10:26; Stop 10/27/18 at 10:27; Status DC Nitroglycerin (Nitroglycerin) 200 mcg 1X ONCE IART Last administered on 10/27/18at 11:32; Start 10/27/18 at 10:00; Stop 10/27/18 at 10:33; Status DC Verapamil HCl (Verapamil) 2.5 mg 1X ONCE IART Last administered on 10/27/18at 11:34; Start 10/27/18 at 10:00; Stop 10/27/18 at 10:33; Status DC Heparin Sodium (Porcine) (Heparin Sodium) 2,500 unit 1X ONCE IART Last administered on 10/27/18at 11:37; Start 10/27/18 at 10:00; Stop 10/27/18 at 10:33; Status DC Heparin Sodium/ Sodium Chloride (HEPARIN for ARTERIAL LINE FLUSH) 1,000 unit 1X ONCE IART Last administered on 10/27/18at 11:31; Start 10/27/18 at 10:00; Stop 10/27/18 at 10:33; Status DC Heparin Sodium/ Sodium Chloride (HEPARIN for ARTERIAL LINE FLUSH) 1,000 unit 1X ONCE IART Last administered on 10/27/18 11:31; Start 10/27/18 at 10:00; Stop 10/27/18 at 10:33; Status DC Midazolam HCl (Versed) 5 mg 1X ONCE IV Last administered on 10/27/18 11:34; Start 10/27/18 at 10:00; Stop 10/27/18 at 10:33; Status DC Fentanyl Citrate (Fentanyl 2ml Vial) 125 mcg 1X ONCE IV Last administered on 10/27/18 11:35; Start 10/27/18 at 10:00; Stop 10/27/18 at 10:33; Status DC Iohexol (Omnipaque 300 Mg/ml) 100 ml 1X ONCE IART Last administered on 10/27/18 11:31; Start 10/27/18 at 10:00; Stop 10/27/18 at 10:33; Status DC Bivalirudin (Angiomax) 500 mg 1X ONCE IV Last administered on 10/27/18 11:33; Start 10/27/18 at 10:00; Stop 10/27/18 at 10:33; Status DC Lidocaine HCl (Lidocaine 1% 20ml Vial) 10 ml 1X ONCE INJ Last administered on 10/27/18 11:32; Start 10/27/18 at 10:00; Stop 10/27/18 at 10:33; Status DC Nitroglycerin/ Dextrose 4 mg/ Verapamil HCl 10 mg/Heparin Sodium (Porcine) 4000 unit/ Miscellaneous 20 ml/Sodium Chloride 1,048 ml @ 1,000 mls/hr 1X ONCE IART Last administered on 10/27/18 10:00; Start 10/27/18 at 10:00; Stop 10/27/18 at 11:02; Status DC Dopamine HCl/ Dextrose 250 ml @ 6.6 mls/hr 1X ONCE IV Last administered on 10/27/18 10:00; Start 10/27/18 at 10:00; Stop 10/28/18 at 23:52; Status DC Lidocaine HCl (Xylocaine-Mpf 1% 2ml Vial) 1 ml 1X ONCE INJ Last administered on 10/27/18 11:33; Start 10/27/18 at 10:00; Stop 10/27/18 at 10:33; Status DC Diphenhydramine HCl (Benadryl) 50 mg 1X ONCE IVP Last administered on 10/27/18at 11:36; Start 10/27/18 at 10:00; Stop 10/27/18 at 10:33; Status DC Info (CONTRAST GIVEN -- Rx MONITORING) 1 each PRN DAILY PRN MC SEE COMMENTS; Start 10/27/18 at 10:45; Stop 10/29/18 at 10:44; Status DC Heparin Sodium/ Dextrose 500 ml @ As Directed STK-MED ONCE IV ; Start 10/27/18 at 11:06; Stop 10/27/18 at 11:07; Status DC Tirofiban/Sodium Chloride 100 ml @ As Directed STK-MED ONCE IV ; Start 10/27/18 at 11:12; Stop 10/27/18 at 11:13; Status DC Tirofiban/Sodium Chloride 100 ml @ 0 mls/hr CONT PRN IV PER PROTOCOL Last administered on 10/27/18at 17:29; Start 10/27/18 at 11:30; Stop 10/28/18 at 05:29; Status DC Heparin Sodium/ Dextrose 500 ml @ 0 mls/hr CONT PRN IV SEE I/O RECORD Last adm inistered on 10/27/18at 11:17; Start 10/27/18 at 11:30; Stop 10/28/18 at 13:51; Status DC Heparin Sodium (Porcine) (Heparin Sodium) 2,200 unit PRN Q6HRS PRN IV FOR UFH LEVEL LESS THAN 0.2 Last administered on 10/27/18at 19:31; Start 10/27/18 at 11:30; Stop 10/28/18 at 13:51; Status DC Info (Anti-Coagulation Monitoring By Pharmacy) 1 each PRN DAILY PRN MC SEE COMMENTS; Start 10/27/18 at 11:45; Stop 10/29/18 at 09:07; Status DC Sodium Chloride 1,000 ml @ 100 mls/hr Q10H IV Last administered on 10/27/18at 13:07; Start 10/27/18 at 12:00; Stop 10/28/18 at 13:49; Status DC Tirofiban/Sodium Chloride 100 ml @ 0 mls/hr CONT PRN IV PER PROTOCOL; Start 10/27/18 at 11:30; Stop 10/28/18 at 05:29; Status UNV Acetaminophen (Tylenol) 650 mg PRN Q6HRS PRN PO MILD PAIN / TEMP; Start 10/27/18 at 11:30; Stop 10/28/18 at 13:45; Status DC Fentanyl Citrate (Fentanyl 2ml Vial) 50 mcg PRN Q1HR PRN IV SEVERE PAIN Last administered on 10/28/18 01:35; Start 10/27/18 at 11:30 Nitroglycerin (Nitrostat) 0.4 mg PRN Q5MIN PRN SL CHEST PAIN Last administered on 10/27/18 13:05; Start 10/27/18 at 13:00 Nitroglycerin/ Dextrose 250 ml @ 1.5 mls/hr CONT PRN IV SEE I/O RECORD Last administered on 10/28/18 01:27; Start 10/27/18 at 13:00; Stop 10/28/18 at 13:35; Status DC Cefazolin Sodium/ Dextrose 50 ml @ 100 mls/hr 1X ONCE IV Last administered on 10/28/18at 06:00; Start 10/28/18 at 06:00; Stop 10/28/18 at 06:29; Status DC Nicotine (Nicoderm Cq 21mg) 1 patch PRN DAILY PRN TD SMOKING CESSATION Last administered on 11/01/18at 08:39; Start 10/27/18 at 17:30 Atorvastatin Calcium (Lipitor) 40 mg QHS PO Last administered on 10/31/18at 20:52; Start 10/27/18 at 21:00 Lurasidone HCl (Latuda) 80 mg QHS PO Last administered on 10/31/18at 20:51; Start 10/27/18 at 21:00 Tamsulosin HCl (Flomax) 0.4 mg DAILY PO Last administered on 11/01/18 08:23; Start 10/28/18 at 09:00 Duloxetine HCl (Cymbalta) 60 mg BID PO Last administered on 11/01/18 08:23; Start 10/27/18 at 21:00 Lisinopril (Prinivil) 5 mg DAILY PO Last administered on 11/01/18at 08:25; Start 10/28/18 at 09:00 Mirtazapine (Remeron) 7.5 mg QHS PO Last administered on 10/31/18at 20:52; Start 10/27/18 at 21:00 Oxcarbazepine (Trileptal) 300 mg DAILY PO Last administered on 11/01/18at 08:23; Start 10/28/18 at 09:00 Insulin Glargine (Lantus) 35 units QHS SQ ; Start 10/27/18 at 21:00; Stop 10/27/18 at 21:00; Status DC Insulin Human Lispro (HumaLOG) 10 units TIDWMEALS SQ Last administered on 10/27/18at 18:10; Start 10/27/18 at 18:30; Stop 10/27/18 at 20:21; Status DC Insulin Human Lispro (HumaLOG) 0-7 UNITS TIDWMEALS SQ ; Start 10/28/18 at 08:00; Stop 10/28/18 at 08:17; Status DC Dextrose (Dextrose 50%-Water Syringe) 12.5 gm PRN Q15MIN PRN IV SEE COMMENTS; Start 10/27/18 at 18:00; Stop 10/28/18 at 13:49; Status DC Oxycodone HCl (Roxicodone) 5 mg PRN Q4HRS PRN PO MODERATE-SEVERE PAIN Last administered on 10/27/18at 18:10; Start 10/27/18 at 18:00; Stop 10/28/18 at 13:47; Status DC Potassium Chloride 70 meq/ Sodium Bicarbonate 12.5 meq/Lidocaine HCl 24 ml/Parenteral Electrolytes 571.5 ml @ 571.5 mls/ hr 1X ONCE IRR Last administered on 10/28/18at 10:35; Start 10/28/18 at 06:00; Stop 10/28/18 at 06:59; Status DC Potassium Chloride 15 meq/ Sodium Bicarbonate 12.5 meq/Parenteral Electrolytes 520 ml @ 520 mls/hr 1X ONCE IRR Last administered on 10/28/18at 10:35; Start 10/28/18 at 06:00; Stop 10/28/18 at 06:59; Status DC Heparin Sodium (Porcine) 37188 unit/Ringer's Solution 1,020 ml @ 1,020 mls/hr 1X ONCE IRR Last administered on 10/28/18at 08:36; Start 10/28/18 at 06:00; Stop 10/28/18 at 06:59; Status DC Cefazolin Sodium 1 gm/Sodium Chloride 500 ml @ 500 mls/hr 1X ONCE IRR Last administered on 10/28/18at 08:36; Start 10/28/18 at 06:00; Stop 10/28/18 at 06:59; Status DC Zolpidem Tartrate (Ambien) 5 mg PRN QHS PRN PO INSOMNIA; Start 10/27/18 at 20:00 Insulin Human Regular 150 unit/ Sodium Chloride 151.5 ml @ 0 mls/hr CONT PRN IV SEE I/O RECORD Last administered on 10/27/18at 20:39; Start 10/27/18 at 20:15; Stop 10/28/18 at 13:45; Status DC Sodium Chloride 1,000 ml @ 50 mls/hr Q20H IV ; Start 10/27/18 at 20:15; Stop 10/28/18 at 19:16; Status DC Dextrose/Sodium Chloride 1,000 ml @ 100 mls/hr Q10H IV Last administered on 10/27/18at 23:45; Start 10/27/18 at 23:00; Stop 10/28/18 at 19:16; Status DC Morphine Sulfate (Morphine Sulfate) 2 mg PRN Q30MIN PRN IV PAIN Last administered on 10/28/18at 02:16; Start 10/28/18 at 02:15; Stop 10/28/18 at 13:46; Status DC Ondansetron HCl (Zofran) 4 mg PRN Q6HRS PRN IV NAUSEA/VOMITING Last administered on 10/28/18at 02:31; Start 10/28/18 at 02:30; Stop 10/28/18 at 13:39; Status DC Etomidate (Amidate) 20 mg STK-MED ONCE IV ; Start 10/28/18 at 06:52; Stop 10/28/18 at 06:53; Status DC Phenylephrine HCl (PHENYLEPHRINE in 0.9% NACL PF) 1 mg STK-MED ONCE IV ; Start 10/28/18 at 06:53; Stop 10/28/18 at 06:54; Status DC Rocuronium [place] (Zemuron) 100 mg STK-MED ONCE .ROUTE ; Start 10/28/18 at 06:53; Stop 10/28/18 at 06:54; Status DC Midazolam HCl (Versed) 5 mg STK-MED ONCE .ROUTE ; Start 10/28/18 at 06:54; Stop 10/28/18 at 06:55; Status DC Vancomycin HCl (VANCO for OR ONLY) 10 gm STK-MED ONCE .ROUTE Last administered on 10/28/18 08:36; Start 10/28/18 at 05:54; Stop 10/28/18 at 06:55; Status DC Cellulose (Surgicel Hemostat 4x8) 1 each STK-MED ONCE .ROUTE Last administered on 10/28/18 08:36; Start 10/28/18 at 05:54; Stop 10/28/18 at 06:55; Status DC Papaverine HCl 60 mg STK-MED ONCE .ROUTE Last administered on 10/28/18 08:36; Start 10/28/18 at 05:55; Stop 10/28/18 at 06:55; Status DC Sodium Chloride (SODIUM CHLORIDE 20ml) 20 ml STK-MED ONCE IJ Last administered on 10/28/18 08:36; Start 10/28/18 at 05:55; Stop 10/28/18 at 06:55; Status DC Sodium Chloride (SODIUM CHLORIDE 20ml) 20 ml STK-MED ONCE IJ Last administered on 10/28/18 08:36; Start 10/28/18 at 05:55; Stop 10/28/18 at 06:55; Status DC Phenylephrine HCl (Jameel-Synephrine Inj) 10 mg STK-MED ONCE .ROUTE ; Start 10/28/18 at 06:55; Stop 10/28/18 at 06:56; Status DC Sodium Chloride (SODIUM CHLORIDE 20ml) 20 ml STK-MED ONCE IJ Last administered on 10/28/18 08:36; Start 10/28/18 at 05:56; Stop 10/28/18 at 06:56; Status DC Phenylephrine HCl (Jameel-Synephrine Inj) 10 mg STK-MED ONCE .ROUTE ; Start 10/28/18 at 06:56; Stop 10/28/18 at 06:57; Status DC Aspirin (Aspirin) 300 mg STK-MED ONCE .ROUTE Last administered on 10/28/18at 13:19; Start 10/28/18 at 05:57; Stop 10/28/18 at 06:57; Status DC Sufentanil Citrate (Sufenta) 250 mcg STK-MED ONCE .ROUTE ; Start 10/28/18 at 06:57; Stop 10/28/18 at 06:58; Status DC Aminocaproic Acid (Amicar) 5,000 mg STK-MED ONCE IV ; Start 10/28/18 at 06:58; Stop 10/28/18 at 06:59; Status DC Aminocaproic Acid (Amicar) 5,000 mg STK-MED ONCE IV ; Start 10/28/18 at 06:58; Stop 10/28/18 at 06:59; Status DC Aminocaproic Acid (Amicar) 5,000 mg STK-MED ONCE IV ; Start 10/28/18 at 06:58; Stop 10/28/18 at 06:59; Status DC Ephedrine Sulfate (ePHEDrine PF IN SALINE SYRINGE) 50 mg STK-MED ONCE IV ; Start 10/28/18 at 07:00; Stop 10/28/18 at 07:01; Status DC Lidocaine HCl (Xylocaine-Mpf 1% 2ml Vial) 2 ml STK-MED ONCE .ROUTE ; Start 10/28/18 at 07:14; Stop 10/28/18 at 07:15; Status DC Acetaminophen (Tylenol) 500 mg PRN Q6HRS PRN PO MILD PAIN / TEMP; Start 10/28/18 at 08:15; Stop 10/28/18 at 13:45; Status DC Acetaminophen/ Codeine Phosphate (Tylenol #3) 1 tab PRN Q6HRS PRN PO MODERATE PAIN; Start 10/28/18 at 08:15; Stop 10/28/18 at 13:46; Status DC Ondansetron HCl (Zofran) 4 mg PRN Q6HRS PRN IV NAUSEA/VOMITING; Start 10/28/18 at 08:15; Stop 10/28/18 at 13:39; Status DC Ondansetron HCl (Zofran Odt) 4 mg PRN Q6HRS PRN PO NAUSEA/VOMITING; Start 10/28/18 at 08:15 Insulin Human Lispro (HumaLOG) 0-9 UNITS TIDWMEALS SQ Last administered on 10/31/18at 13:48; Start 10/28/18 at 12:00 Dextrose (Dextrose 50%-Water Syringe) 12.5 gm PRN Q15MIN PRN IV SEE COMMENTS; Start 10/28/18 at 08:15; Stop 10/28/18 at 13:49; Status DC Fenofibrate (Lofibra) 134 mg DAILY PO Last administered on 11/01/18at 08:23; Start 10/28/18 at 09:00 Fish Oil (Fish Oil) 2,000 mg BID PO Last administered on 11/01/18at 08:23; Start 10/28/18 at 09:00 Heparin Sodium (Porcine) 30,000 unit STK-MED ONCE .ROUTE ; Start 10/28/18 at 08:24; Stop 10/28/18 at 08:25; Status DC Verapamil HCl (Verapamil) 10 mg STK-MED ONCE .ROUTE ; Start 10/27/18 at 10:00; Stop 10/28/18 at 08:58; Status DC Rocuronium [place] (Zemuron) 100 mg STK-MED ONCE .ROUTE ; Start 10/28/18 at 09:06; Stop 10/28/18 at 09:07; Status DC Cefazolin Sodium (Ancef) 1 gm STK-MED ONCE .ROUTE ; Start 10/28/18 at 09:20; Stop 10/28/18 at 09:21; Status DC Cefazolin Sodium (Ancef) 1 gm STK-MED ONCE .ROUTE ; Start 10/28/18 at 09:20; Stop 10/28/18 at 09:21; Status DC Heparin Sodium (Porcine) (Heparin Sodium) 10,000 unit STK-MED ONCE .ROUTE ; Start 10/28/18 at 10:24; Stop 10/28/18 at 10:25; Status DC Protamine Sulfate (Protamine) 250 mg STK-MED ONCE IV ; Start 10/28/18 at 11:22; Stop 10/28/18 at 11:23; Status DC Protamine Sulfate (Protamine) 50 mg STK-MED ONCE IV ; Start 10/28/18 at 12:11; Stop 10/28/18 at 12:12; Status DC Heparin Sodium (Porcine) (Heparin Sodium) 10,000 unit STK-MED ONCE .ROUTE ; Start 10/28/18 at 12:17; Stop 10/28/18 at 12:18; Status DC Lidocaine HCl (Lidocaine Pf 2% Vial) 5 ml STK-MED ONCE .ROUTE ; Start 10/28/18 at 12:17; Stop 10/28/18 at 12:18; Status DC Magnesium Sulfate 5 gm STK-MED ONCE .ROUTE ; Start 10/28/18 at 12:17; Stop 10/28/18 at 12:18; Status DC Mannitol (Mannitol) 12.5 g STK-MED ONCE .ROUTE ; Start 10/28/18 at 12:17; Stop 10/28/18 at 12:18; Status DC Albumin Human 100 ml @ As Directed STK-MED ONCE IV ; Start 10/28/18 at 12:17; Stop 10/28/18 at 12:18; Status DC Calcium Chloride (Calcium Chloride) 1,000 mg STK-MED ONCE .ROUTE ; Start 10/28/18 at 12:17; Stop 10/28/18 at 12:18; Status DC Nitroglycerin/ Dextrose 250 ml @ As Directed STK-MED ONCE IV ; Start 10/28/18 at 12:30; Stop 10/28/18 at 12:31; Status DC Fentanyl Citrate (Fentanyl 2ml Vial) 100 mcg STK-MED ONCE .ROUTE ; Start 10/28/18 at 12:56; Stop 10/28/18 at 12:57; Status DC Nicardipine HCl 50 mg/Sodium Chloride 250 ml @ 25 mls/hr CONT PRN IV SEE I/O RECORD Last administered on 10/28/18at 14:55; Start 10/28/18 at 12:45; Stop 10/29/18 at 13:58; Status DC Amiodarone HCl 900 mg/Dextrose 518 ml @ 0 mls/hr CONT PRN IV SEE I/O RECORD Last administered on 10/28/18at 14:45; Start 10/28/18 at 12:45; Stop 10/28/18 at 15:49; Status DC Amiodarone HCl 150 mg/Dextrose 103 ml @ 618 mls/hr 1X ONCE IV Last administered on 10/28/18at 15:26; Start 10/28/18 at 12:45; Stop 10/28/18 at 13:02; Status DC Sodium Chloride (Normal Saline Flush) 3 ml PRN Q12HR PRN IV AFTER MEDS AND BLOOD DRAWS; Start 10/28/18 at 13:30 Ringer's Solution 1,000 ml @ 30 mls/hr Q24H IV Last administered on 10/28/18at 15:32; Start 10/28/18 at 13:22; Stop 10/29/18 at 13:58; Status DC Albumin Human 250 ml @ 500 mls/hr PRN Q4HRS PRN IV SEE COMMENTS; Start 10/28/18 at 13:30; Stop 10/29/18 at 13:58; Status DC Insulin Human Regular 150 unit/ Sodium Chloride 151.5 ml @ 0 mls/hr CONT PRN PRN IV PER PROTOCOL Last administered on 10/29/18at 03:25; Start 10/28/18 at 13:30; Stop 10/29/18 at 13:58; Status DC Dextrose (Dextrose 50%-Water Syringe) 25 gm PRN Q15MIN PRN IV LOW BLOOD SUGAR; Start 10/28/18 at 13:30 Nitroglycerin/ Dextrose 250 ml @ 0 mls/hr CONT PRN PRN IV POST CV SURGERY; Start 10/28/18 at 13:30; Stop 10/28/18 at 19:16; Status DC Phenylephrine HCl 20 mg/Sodium Chloride 252 ml @ 0 mls/hr CONT PRN PRN IV HYPOTENSION; Start 10/28/18 at 13:30; Stop 10/29/18 at 13:58; Status DC Amiodarone HCl 150 mg/Dextrose 103 ml @ 600 mls/hr 1X ONCE IV ; Start 10/28/18 at 13:30; Stop 10/28/18 at 13:40; Status UNV Amiodarone HCl 150 mg/Dextrose 103 ml @ 200 mls/hr 1X PRN PRN IV FOR AFIB Last administered on 10/28/18at 14:00; Start 10/28/18 at 13:30; Stop 10/29/18 at 13:58; Status DC Amiodarone HCl 900 mg/Dextrose 518 ml @ 0 mls/hr CONT PRN PRN IV AFIB; Start 10/28/18 at 13:30; Status UNV Info (KCl Per Protocol) 1 ea CONT PRN PRN MC SEE COMMENTS; Start 10/28/18 at 13:30; Stop 10/29/18 at 13:58; Status DC Magnesium Sulfate/ Dextrose 100 ml @ 100 mls/hr PRN DAILY PRN IV FOR MAG < 2.2 Last administered on 10/30/18at 08:30; Start 10/28/18 at 13:30; Stop 10/29/18 at 13:58; Status DC Famotidine (Pepcid Vial) 20 mg BID IVP Last administered on 10/31/18at 20:53; Start 10/28/18 at 21:00; Stop 11/01/18 at 08:01; Status DC Ondansetron HCl (Zofran) 4 mg PRN Q4HRS PRN IV NAUSEA/VOMITING, 1st CHOICE Last administered on 10/28/18at 21:44; Start 10/28/18 at 13:30 Prochlorperazine Edisylate (Compazine) 10 mg PRN Q6HRS PRN IV NAUSEA/VOMITING, 2nd CHOICE; Start 10/28/18 at 13:30 Metoclopramide HCl (Reglan Vial) 10 mg PRN Q6HRS PRN IV NAUSEA/VOMITING, 3rd CHOICE; Start 10/28/18 at 13:30 Morphine Sulfate (Morphine Sulfate) 2 mg PRN Q1HR PRN IV PAIN; Start 10/28/18 at 13:30; Stop 10/28/18 at 19:16; Status DC Morphine Sulfate (Morphine Sulfate) 4 mg PRN Q1HR PRN IV SEVERE PAIN Last administered on 10/28/18at 17:06; Start 10/28/18 at 13:30; Stop 10/28/18 at 19:16; Status DC Acetaminophen (Tylenol) 650 mg PRN Q4HRS PRN PO TEMP > 101'F Last administered on 10/31/18at 08:39; Start 10/28/18 at 13:30 Acetaminophen (Tylenol Supp) 650 mg PRN Q4HRS PRN [place] TEMP > 101'F or MILD PAIN; Start 10/28/18 at 13:30 Meperidine HCl (Demerol) 12.5 mg PRN Q15MIN PRN IV SHIVERING; Start 10/28/18 at 13:30; Stop 10/28/18 at 19:16; Status DC Propofol 100 ml @ 0 mls/hr CONT PRN PRN IV POSTOP SEDATION UNTIL EXTUBATE Last administered on 10/28/18at 15:45; Start 10/28/18 at 13:30; Stop 10/28/18 at 19:16; Status DC Senna/Docusate Sodium (Senna Plus) 1 tab BID PO Last administered on 11/01/18at 08:24; Start 10/28/18 at 21:00 Bisacodyl (Dulcolax Supp) 10 mg PRN DAILY PRN NH NO BOWEL MOVEMENT; Start 10/28/18 at 13:30 Chlorhexidine Gluconate (Peridex) 15 ml BID MM ; Start 10/29/18 at 09:00; Stop 10/29/18 at 09:00; Status DC Aspirin (Ecotrin) 325 mg DAILYWBKFT PO Last administered on 11/01/18at 08:23; Start 10/29/18 at 08:00 Aspirin (Aspirin) 300 mg PRN DAILY PRN NH IF UNABLE TO TAKE PO; Start 10/29/18 at 08:00 Albuterol Sulfate (Ventolin Neb Soln) 2.5 mg PRN Q4HRS PRN NEB SHORTNESS OF BREATH Last administered on 10/30/18at 20:33; Start 10/28/18 at 13:30 Metoprolol Tartrate (Lopressor) 25 mg BID PO Last administered on 11/01/18at 08:24; Start 10/29/18 at 09:00 Nicardipine HCl 50 mg/Sodium Chloride 250 ml @ 0 mls/hr CONT PRN PRN IV PER PROTOCOL; Start 10/28/18 at 13:30; Status UNV Oxycodone HCl (Roxicodone) 5 mg PRN Q4HRS PRN PO MILD TO MODERATE PAIN Last administered on 10/29/18at 14:55; Start 10/28/18 at 13:30 Oxycodone HCl (Roxicodone) 10 mg PRN Q4HRS PRN PO SEVERE PAIN Last administered on 11/01/18at 08:24; Start 10/28/18 at 13:30 Cefazolin Sodium/ Dextrose 50 ml @ 100 mls/hr Q8H IV ; Start 10/28/18 at 17:00; Stop 10/28/18 at 19:16; Status DC Sodium Bicarbonate (Sodium Bicarb Adult 8.4% Syr) 50 meq 1X ONCE IV Last administered on 10/28/18at 15:33; Start 10/28/18 at 14:45; Stop 10/28/18 at 15:25; Status DC Potassium Chloride/Water 50 ml @ 50 mls/hr Q1HR IV Last administered on 10/28/18at 19:03; Start 10/28/18 at 17:00; Stop 10/28/18 at 18:59; Status DC Fentanyl Citrate (Fentanyl 2ml Vial) 25 mcg 1X ONCE IV Last administered on 10/28/18at 17:37; Start 10/28/18 at 17:30; Stop 10/28/18 at 17:31; Status DC Hydromorphone HCl (Dilaudid) 0.5 mg PRN Q2HRS PRN IVP MODERATE PAIN Last administered on 10/31/18at 23:27; Start 10/28/18 at 17:30 Ketorolac Tromethamine (Toradol 15mg Vial) 15 mg PRN Q6HRS PRN IV MILD PAIN Last administered on 10/30/18at 13:41; Start 10/28/18 at 17:30; Stop 11/02/18 at 17:29 Cefazolin Sodium/ Dextrose 50 ml @ 100 mls/hr Q8H IV Last administered on 10/30/18at 03:28; Start 10/28/18 at 20:00; Stop 10/30/18 at 04:29; Status DC Magnesium Sulfate 50 ml @ 25 mls/hr 1X ONCE IV Last administered on 10/29/18at 08:15; Start 10/29/18 at 08:15; Stop 10/29/18 at 10:14; Status DC Pantoprazole Sodium (PROTONIX VIAL for IV PUSH) 40 mg 1X ONCE IVP Last administered on 10/29/18at 08:15; Start 10/29/18 at 08:15; Stop 10/29/18 at 08:22; Status DC Pantoprazole Sodium (PROTONIX VIAL for IV PUSH) 40 mg DAILYAC IVP ; Start 10/30/18 at 07:30; Stop 10/31/18 at 11:37; Status DC Magnesium Sulfate 50 ml @ 25 mls/hr 1X ONCE IV ; Start 10/29/18 at 08:30; Stop 10/29/18 at 10:29; Status DC Nystatin (Nystop) 1 tony BID TP Last administered on 11/01/18at 08:25; Start 10/29/18 at 09:30 Amiodarone HCl (Cordarone) 200 mg BID PO Last administered on 11/01/18at 08:24; Start 10/29/18 at 21:00 Insulin Human Lispro (HumaLOG) 0-9 UNITS TIDWMEALS SQ ; Start 10/29/18 at 17:00; Status UNV Dextrose (Dextrose 50%-Water Syringe) 12.5 gm PRN Q15MIN PRN IV SEE COMMENTS; Start 10/29/18 at 14:30 Insulin Glargine (Lantus) 40 units QHS SQ Last administered on 10/30/18at 20:51; Start 10/29/18 at 21:00; Stop 10/31/18 at 17:24; Status DC Potassium Chloride/Water 50 ml @ 50 mls/hr 1X ONCE IV Last administered on 10/30/18at 07:42; Start 10/30/18 at 07:00; Stop 10/30/18 at 07:59; Status DC Magnesium Sulfate/ Dextrose 100 ml @ 100 mls/hr 1X ONCE IV Last administered on 10/30/18at 06:08; Start 10/30/18 at 06:30; Stop 10/30/18 at 07:29; Status DC Magnesium Sulfate 50 ml @ 25 mls/hr 1X ONCE IV Last administered on 10/30/18at 08:30; Start 10/30/18 at 08:30; Stop 10/30/18 at 10:29; Status DC Magnesium Sulfate 50 ml @ 25 mls/hr 1X ONCE IV Last administered on 10/31/18at 13:36; Start 10/31/18 at 11:45; Stop 10/31/18 at 13:44; Status DC Insulin Glargine (Lantus) 50 units QHS SQ ; Start 10/31/18 at 21:00; Stop 10/31/18 at 21:00; Status DC Insulin Human Lispro (HumaLOG) 10 units 1X ONCE SQ Last administered on 10/31/18at 18:10; Start 10/31/18 at 17:30; Stop 10/31/18 at 17:31; Status DC Insulin Glargine (Lantus) 40 units BID SQ Last administered on 11/01/18at 08:33; Start 10/31/18 at 21:00 Famotidine (Pepcid) 20 mg BID PO Last administered on 11/01/18at 08:29; Start 11/01/18 at 09:00 Active Scripts Active Levemir (Insulin Detemir) 100 Unit/1 Ml Vial 60 Unit SQ QHS Reported Mirtazapine 15 Mg Tablet 0.5 Tab PO QHS [place] 3 Fish Oil Softgel ([place]-3 Fatty Acids/Fish Oil) 1 Each Capsule.dr 2 Each PO BID [regular insulin] 45 Cymbalta (Duloxetine Hcl) 60 Mg Capsule.dr 1 Cap PO BID Oxcarbazepine 300 Mg Tablet 300 Mg PO DAILY Fenofibrate (Fenofibrate Nanocrystallized) 145 Mg Tablet 1 Tab PO DAILY Atorvastatin Calcium 40 Mg Tablet 1 Tab PO DAILY Celebrex (Celecoxib) 100 Mg Capsule 1 Cap PO BID Latuda (Lurasidone Hcl) 40 Mg Tablet 80 Tab PO QHS Tamsulosin Hcl 0.4 Mg Cap.er.24h 0.4 Mg PO DAILY Lisinopril 5 Mg Tablet 5 Mg PO DAILY Metformin Hcl 1,000 Mg Tablet 500 Tab PO BID Vitals/I & O Vital Sign - Last 24 Hours 10/31/18 10/31/18 10/31/18 10/31/18 11:16 17:56 19:47 20:00 Temp 98.1 98.1 98.1 98.1 Pulse 72 76 Resp 12 24 B/P (MAP) 121/72 (88) 104/64 (77) Pulse Ox 100 92 94 O2 Delivery Nasal Cannula Nasal Cannula Nasal Cannula Nasal Cannula O2 Flow Rate 3.0 3.0 3.0 3.0 10/31/18 10/31/18 10/31/18 10/31/18 20:51 20:52 20:54 23:27 Pulse 76 76 Resp 20 18 B/P (MAP) 104/64 104/64 Pulse Ox 94 94 O2 Delivery Nasal Cannula Nasal Cannula O2 Flow Rate 3.0 3.0 10/31/18 10/31/18 11/01/18 11/01/18 23:28 23:28 00:59 03:32 Temp 98.9 98.9 Pulse 70 Resp 22 18 20 B/P (MAP) 99/60 (73) Pulse Ox 93 89 93 93 O2 Delivery Nasal Cannula Room Air Nasal Cannula Nasal Cannula O2 Flow Rate 3.0 3.0 3.0 11/01/18 11/01/18 11/01/18 11/01/18 03:45 04:32 07:00 08:05 Temp 98.0 98.9 98.0 98.9 Pulse 71 75 Resp 22 18 12 B/P (MAP) 123/81 (95) 105/68 (80) Pulse Ox 95 95 93 O2 Delivery Nasal Cannula Nasal Cannula Nasal Cannula Nasal Cannula O2 Flow Rate 3.0 3.0 3.0 2.0 11/01/18 11/01/18 11/01/18 08:24 08:24 08:25 Pulse 77 79 77 Intake and Output 10/31/18 10/31/18 11/01/18 15:00 23:00 07:00 Intake Total 400 ml 300 ml 500 ml Output Total 600 ml 1500 ml Balance -200 ml 300 ml -1000 ml JANETH FLANAGAN MD Nov 01, 2018 09:50
[2018-11-01] MEDS ORDERED: MAGNESIUM SULFATE 2GM 50 ML IV ONE (10:30)
[2018-11-01 11:01] VITALS: BP 97/56
[2018-11-01] MEDS: oxyCODONE/APAP 10/325 1 TAB TABLET PO PRN ×2 (11:01→17:27)
--- NOTE | 2018-11-01 11:37 | PDOC ---
PROGRESS NOTES Subjective Subjective Denied any shortness of breath Objective Objective Vital Signs Date Time Temp Pulse Resp B/P (MAP) Pulse Ox O2 Delivery O2 Flow Rate FiO2 11/01/18 11:01 99.8 68 16 97/56 (70) 95 Nasal Cannula 3.0 99.8 Intake and Output 11/01/18 06:59 Intake Total 1200 ml Output Total 2100 ml Balance -900 ml Intake Oral 1200 ml Output Urine Total 2100 ml Physical Exam Abdomen: Soft, No tenderness, No masses Heart: Regular rate, Normal S1, Normal S2, No murmurs Extremities: No edema, Normal pulses, No tenderness/swelling General: Alert, Oriented X3, Cooperative, No acute distress, Other (Intubated) HEENT: Atraumatic Lungs: Clear to auscultation, Normal air movement MUSCULOSKELETAL: No deformity Skin: No rashes, No breakdown, No significant lesion Assessment Assessment 1. UA/CAD: S/P CABG x 3 (PICKERING to LAD, SVG to RPDA, SVG to diagonal 1), progressing well. LVEF 55-60% per recent echo. Telemetry did not show any significant arrhythmias. Continue postop care per CT surgery. 2. Hypertension; controlled 3. Hyperlipidemia; statin. 4. Tobaccoism: Advised smoking cessation 5. Hypomagnesemia; replaced Comment Review of Relevant I have reviewed the following items pratima (where applicable) has been applied. Labs Laboratory Tests Test 10/31/18 14:50 10/31/18 20:41 11/01/18 04:44 11/01/18 08:07 Glucose (Fingerstick) 282 mg/dL (70-99) 218 mg/dL (70-99) 142 mg/dL (70-99) White Blood Count 8.2 x10^3/uL (4.0-11.0) Red Blood Count 3.24 x10^6/uL (4.30-5.70) Hemoglobin 9.8 g/dL (13.0-17.5) Hematocrit 29.3 % (39.0-53.0) Mean Corpuscular Volume 91 fL (79-100) Mean Corpuscular Hemoglobin 30 pg (25-35) Mean Corpuscular Hemoglobin Concent 34 g/dL (31-37) Red Cell Distribution Width 14.7 % (11.5-14.5) Platelet Count 220 x10^3/uL (140-400) Neutrophils (%) (Auto) 59 % (31-73) Lymphocytes (%) (Auto) 19 % (24-48) Monocytes (%) (Auto) 17 % (0-9) Eosinophils (%) (Auto) 4 % (0-3) Basophils (%) (Auto) 1 % (0-3) Neutrophils # (Auto) 4.8 x10^3uL (1.8-7.7) Lymphocytes # (Auto) 1.6 x10^3/uL (1.0-4.8) Monocytes # (Auto) 1.4 x10^3/uL (0.0-1.1) Eosinophils # (Auto) 0.3 x10^3/uL (0.0-0.7) Basophils # (Auto) 0.0 x10^3/uL (0.0-0.2) Sodium Level 135 mmol/L (136-145) Potassium Level 3.6 mmol/L (3.5-5.1) Chloride Level 97 mmol/L (98-107) Carbon Dioxide Level 33 mmol/L (21-32) Anion Gap 5 (6-14) Blood Urea Nitrogen 11 mg/dL (8-26) Creatinine 1.1 mg/dL (0.7-1.3) Estimated GFR (Cockcroft-Gault) 70.9 Glucose Level 126 mg/dL (70-99) Calcium Level 9.8 mg/dL (8.5-10.1) Magnesium Level 1.7 mg/dL (1.8-2.4) Test 11/01/18 10:32 Glucose (Fingerstick) 210 mg/dL (70-99) Medications Current Medications Famotidine (Pepcid) 20 mg BID PO Last administered on 11/01/18at 08:29; Start 11/01/18 at 09:00 Insulin Glargine (Lantus) 40 units BID SQ Last administered on 11/01/18at 08:33; Start 10/31/18 at 21:00 Insulin Glargine (Lantus) 50 units QHS SQ ; Start 10/31/18 at 21:00; Stop 10/31/18 at 21:00; Status DC Insulin Human Lispro (HumaLOG) 10 units 1X ONCE SQ Last administered on 10/31/18at 18:10; Start 10/31/18 at 17:30; Stop 10/31/18 at 17:31; Status DC Magnesium Sulfate 50 ml @ 25 mls/hr 1X ONCE IV Last administered on 10/31/18at 13:36; Start 10/31/18 at 11:45; Stop 10/31/18 at 13:44; Status DC Magnesium Sulfate 50 ml @ 25 mls/hr 1X ONCE IV Last administered on 11/01/18at 11:03; Start 11/01/18 at 10:30; Stop 11/01/18 at 12:29 Oxycodone/ Acetaminophen (Percocet 10/325) 1 tab PRN Q4HRS PRN PO pain Last administered on 11/01/18at 11:01; Start 11/01/18 at 10:00 Vitals/I & O Vital Sign - Last 24 Hours 10/31/18 10/31/18 10/31/18 10/31/18 17:56 19:47 20:00 20:51 Temp 98.1 98.1 Pulse 76 76 Resp 24 B/P (MAP) 104/64 (77) 104/64 Pulse Ox 92 94 O2 Delivery Nasal Cannula Nasal Cannula Nasal Cannula O2 Flow Rate 3.0 3.0 3.0 10/31/18 10/31/18 10/31/18 10/31/18 20:52 20:54 23:27 23:28 Pulse 76 Resp 20 18 B/P (MAP) 104/64 Pulse Ox 94 94 93 O2 Delivery Nasal Cannula Nasal Cannula Nasal Cannula O2 Flow Rate 3.0 3.0 3.0 10/31/18 11/01/18 11/01/18 11/01/18 23:28 00:59 03:32 03:45 Temp 98.9 98.0 98.9 98.0 Pulse 70 71 Resp 22 18 20 22 B/P (MAP) 99/60 (73) 123/81 (95) Pulse Ox 89 93 93 95 O2 Delivery Room Air Nasal Cannula Nasal Cannula Nasal Cannula O2 Flow Rate 3.0 3.0 3.0 11/01/18 11/01/18 11/01/18 11/01/18 04:32 07:00 08:05 08:24 Temp 98.9 98.9 Pulse 75 77 Resp 18 12 B/P (MAP) 105/68 (80) Pulse Ox 95 93 O2 Delivery Nasal Cannula Nasal Cannula Nasal Cannula O2 Flow Rate 3.0 3.0 2.0 11/01/18 11/01/18 11/01/18 08:24 08:25 11:01 Temp 99.8 99.8 Pulse 79 77 68 Resp 16 B/P (MAP) 97/56 (70) Pulse Ox 95 O2 Delivery Nasal Cannula O2 Flow Rate 3.0 Intake and Output 10/31/18 10/31/18 11/01/18 14:59 22:59 06:59 Intake Total 400 ml 300 ml 500 ml Output Total 600 ml 1500 ml Balance -200 ml 300 ml -1000 ml RACHEL LOMELI MD Nov 01, 2018 11:37
[2018-11-01 15:35] VITALS: BP 116/66
[2018-11-01 19:40] VITALS: BP 103/56
[2018-11-01] MEDS: ATORVASTATIN CALCIUM 40 MG TABLET. PO SCH (21:21)
[2018-11-01] MEDS: LURASIDONE 40 MG TABLET. PO SCH (21:22)
[2018-11-01] MEDS: MIRTAZAPINE 7.5 MG TABLET. PO SCH (21:22)
--- NOTE | 2018-11-01 22:09 | PDOC ---
Progress Note Subjective Subjective Doing very well. Normotensive, SR. Less O2 requirements.Glucose better with 40U Lantus BID ROS ROS No nausea No vomiting No pain No rash Vital Sign Vital Signs Vital Signs Date Time Temp Pulse Resp B/P (MAP) Pulse Ox O2 Delivery O2 Flow Rate FiO2 11/01/18 21:25 20 92 Nasal Cannula 1.5 11/01/18 21:22 75 103/56 11/01/18 19:40 97.8 97.8 Labs Lab Laboratory Tests Test 11/01/18 04:44 11/01/18 08:07 11/01/18 10:32 11/01/18 16:42 White Blood Count 8.2 x10^3/uL (4.0-11.0) Red Blood Count 3.24 x10^6/uL (4.30-5.70) Hemoglobin 9.8 g/dL (13.0-17.5) Hematocrit 29.3 % (39.0-53.0) Mean Corpuscular Volume 91 fL (79-100) Mean Corpuscular Hemoglobin 30 pg (25-35) Mean Corpuscular Hemoglobin Concent 34 g/dL (31-37) Red Cell Distribution Width 14.7 % (11.5-14.5) Platelet Count 220 x10^3/uL (140-400) Neutrophils (%) (Auto) 59 % (31-73) Lymphocytes (%) (Auto) 19 % (24-48) Monocytes (%) (Auto) 17 % (0-9) Eosinophils (%) (Auto) 4 % (0-3) Basophils (%) (Auto) 1 % (0-3) Neutrophils # (Auto) 4.8 x10^3uL (1.8-7.7) Lymphocytes # (Auto) 1.6 x10^3/uL (1.0-4.8) Monocytes # (Auto) 1.4 x10^3/uL (0.0-1.1) Eosinophils # (Auto) 0.3 x10^3/uL (0.0-0.7) Basophils # (Auto) 0.0 x10^3/uL (0.0-0.2) Sodium Level 135 mmol/L (136-145) Potassium Level 3.6 mmol/L (3.5-5.1) Chloride Level 97 mmol/L (98-107) Carbon Dioxide Level 33 mmol/L (21-32) Anion Gap 5 (6-14) Blood Urea Nitrogen 11 mg/dL (8-26) Creatinine 1.1 mg/dL (0.7-1.3) Estimated GFR (Cockcroft-Gault) 70.9 Glucose Level 126 mg/dL (70-99) Calcium Level 9.8 mg/dL (8.5-10.1) Magnesium Level 1.7 mg/dL (1.8-2.4) Glucose (Fingerstick) 142 mg/dL (70-99) 210 mg/dL (70-99) 227 mg/dL (70-99) Test 11/01/18 21:12 Glucose (Fingerstick) 127 mg/dL (70-99) Objective Assessment POD#4, s/p CABG x3 (PICKERING to LAD, SVG to RPDA, SVG diagonal) Doing very well. Normotensive, SR. Less O2 requirements.Glucose better with 40U Lantus BID Plan Plan of Care Amiodarone po 200mg BIB for AFib prophylaxis. Will stop before discharge ASA, b lisandro, statin Lantus BID No more labs or CXRs D/c home tomorrow TRISTON CARTWRIGHT MD Nov 01, 2018 22:09
[2018-11-01 23:45] VITALS: BP 103/57
[2018-11-02] MEDS: oxyCODONE/APAP 10/325 1 TAB TABLET PO PRN ×4 (00:25→17:57)
[2018-11-02 03:45] VITALS: BP 101/55
[2018-11-02] MEDS: oxyCODONE IR 5 MG TABLET PO PRN ×2 (05:30→12:11)
--- NOTE | 2018-11-02 07:47 | PDOC ---
PROGRESS NOTES Chief Complaint Chief Complaint CAD, 3 vessel disease dm1, check A1c htn lipids tobacco use disorder Obesity BMI 32 NArcotic tolerant History of Present Illness History of Present Illness All chest tubes, Price catheter out and no issues. Ambulating by himself in the halls. But still complains of postop soreness, pain, never goes down to less than 6 out of 10. He is narcotic tolerant, Has been getting Roxicodone 10 mg very often, Has also gotten 20 doses of Dilaudid 0.5 mg and couple doses fentanyl IV. no BM in 7 days Mag 1.6 this morning. No BM. With his psych history it may be difficult to ensure compliance with his cardiac meds. He states he may not take some of them Plan Mag 4 grams Bowel regimen Target for home independent this evening with new cardiac meds-he will need scripts - SW to see for asst Discussed with RN at bedside Vitals Vitals Vital Signs Date Time Temp Pulse Resp B/P (MAP) Pulse Ox O2 Delivery O2 Flow Rate FiO2 11/02/18 06:30 18 93 Nasal Cannula 2.0 11/02/18 03:45 98.1 63 101/55 (70) 98.1 Physical Exam General: Alert, Oriented X3, Cooperative, No acute distress, Other (Intubated) Heart: Regular rate, Normal S1, Normal S2, No murmurs Lungs: Clear (No wheezes, rales, or rhonchi) Abdomen: Soft, No tenderness, No masses Extremities: No edema, Normal pulses, No tenderness/swelling Skin: No rashes, No breakdown, No significant lesion Labs LABS Laboratory Tests Test 11/01/18 08:07 11/01/18 10:32 11/01/18 16:42 11/01/18 21:12 Glucose (Fingerstick) 142 mg/dL (70-99) 210 mg/dL (70-99) 227 mg/dL (70-99) 127 mg/dL (70-99) Test 11/02/18 06:30 Magnesium Level 1.6 mg/dL (1.8-2.4) Comment Review of Relevant I have reviewed the following items pratima (where applicable) has been applied. Labs Laboratory Tests Test 10/31/18 10:43 10/31/18 14:50 10/31/18 20:41 11/01/18 04:44 Glucose (Fingerstick) 247 mg/dL (70-99) 282 mg/dL (70-99) 218 mg/dL (70-99) White Blood Count 8.2 x10^3/uL (4.0-11.0) Red Blood Count 3.24 x10^6/uL (4.30-5.70) Hemoglobin 9.8 g/dL (13.0-17.5) Hematocrit 29.3 % (39.0-53.0) Mean Corpuscular Volume 91 fL (79-100) Mean Corpuscular Hemoglobin 30 pg (25-35) Mean Corpuscular Hemoglobin Concent 34 g/dL (31-37) Red Cell Distribution Width 14.7 % (11.5-14.5) Platelet Count 220 x10^3/uL (140-400) Neutrophils (%) (Auto) 59 % (31-73) Lymphocytes (%) (Auto) 19 % (24-48) Monocytes (%) (Auto) 17 % (0-9) Eosinophils (%) (Auto) 4 % (0-3) Basophils (%) (Auto) 1 % (0-3) Neutrophils # (Auto) 4.8 x10^3uL (1.8-7.7) Lymphocytes # (Auto) 1.6 x10^3/uL (1.0-4.8) Monocytes # (Auto) 1.4 x10^3/uL (0.0-1.1) Eosinophils # (Auto) 0.3 x10^3/uL (0.0-0.7) Basophils # (Auto) 0.0 x10^3/uL (0.0-0.2) Sodium Level 135 mmol/L (136-145) Potassium Level 3.6 mmol/L (3.5-5.1) Chloride Level 97 mmol/L (98-107) Carbon Dioxide Level 33 mmol/L (21-32) Anion Gap 5 (6-14) Blood Urea Nitrogen 11 mg/dL (8-26) Creatinine 1.1 mg/dL (0.7-1.3) Estimated GFR (Cockcroft-Gault) 70.9 Glucose Level 126 mg/dL (70-99) Calcium Level 9.8 mg/dL (8.5-10.1) Magnesium Level 1.7 mg/dL (1.8-2.4) Test 11/01/18 08:07 11/01/18 10:32 11/01/18 16:42 11/01/18 21:12 Glucose (Fingerstick) 142 mg/dL (70-99) 210 mg/dL (70-99) 227 mg/dL (70-99) 127 mg/dL (70-99) Test 11/02/18 06:30 Magnesium Level 1.6 mg/dL (1.8-2.4) Laboratory Tests Test 11/01/18 08:07 11/01/18 10:32 11/01/18 16:42 11/01/18 21:12 Glucose (Fingerstick) 142 mg/dL (70-99) 210 mg/dL (70-99) 227 mg/dL (70-99) 127 mg/dL (70-99) Test 11/02/18 06:30 Magnesium Level 1.6 mg/dL (1.8-2.4) Medications Current Medications Lidocaine HCl (Xylocaine-Mpf 1% 2ml Vial) 2 ml STK-MED ONCE .ROUTE ; Start 10/27/18 at 07:57; Stop 10/27/18 at 07:58; Status DC Iohexol (Omnipaque 300 Mg/ml) 100 ml STK-MED ONCE .ROUTE ; Start 10/27/18 at 07:57; Stop 10/27/18 at 07:58; Status DC Heparin Sodium/ Sodium Chloride 1,000 ml @ As Directed STK-MED ONCE .ROUTE ; Start 10/27/18 at 07:58; Stop 10/27/18 at 07:59; Status DC Fentanyl Citrate (Fentanyl 2ml Vial) 100 mcg STK-MED ONCE .ROUTE ; Start 10/27/18 at 08:15; Stop 10/27/18 at 08:16; Status DC Midazolam HCl (Versed) 2 mg STK-MED ONCE .ROUTE ; Start 10/27/18 at 08:16; Stop 10/27/18 at 08:17; Status DC Heparin Sodium (Porcine) (Heparin Sodium) 10,000 unit STK-MED ONCE .ROUTE ; Start 10/27/18 at 08:16; Stop 10/27/18 at 08:17; Status DC Verapamil HCl (Verapamil) 5 mg STK-MED ONCE .ROUTE ; Start 10/27/18 at 08:16; Stop 10/27/18 at 08:17; Status DC Nitroglycerin (Nitroglycerin) 200 mcg STK-MED ONCE .ROUTE ; Start 10/27/18 at 08:16; Stop 10/27/18 at 08:17; Status DC Midazolam HCl (Versed) 2 mg STK-MED ONCE .ROUTE ; Start 10/27/18 at 08:42; Stop 10/27/18 at 08:43; Status DC Diphenhydramine HCl (Benadryl) 50 mg STK-MED ONCE .ROUTE ; Start 10/27/18 at 08:42; Stop 10/27/18 at 08:43; Status DC Bivalirudin (Angiomax) 250 mg STK-MED ONCE IV ; Start 10/27/18 at 08:59; Stop 10/27/18 at 09:00; Status DC Iohexol (Omnipaque 300 Mg/ml) 100 ml STK-MED ONCE .ROUTE ; Start 10/27/18 at 09:00; Stop 10/27/18 at 09:01; Status DC Heparin Sodium (Porcine) (Heparin Sodium) 10,000 unit STK-MED ONCE .ROUTE ; Start 10/27/18 at 09:22; Stop 10/27/18 at 09:23; Status DC Verapamil HCl (Verapamil) 5 mg STK-MED ONCE .ROUTE ; Start 10/27/18 at 09:22; Stop 10/27/18 at 09:23; Status DC Nitroglycerin/ Dextrose (Nitroglycerin) 4 mg STK-MED ONCE .ROUTE ; Start 10/27/18 at 09:22; Stop 10/27/18 at 09:23; Status DC Verapamil HCl (Verapamil) 5 mg STK-MED ONCE .ROUTE ; Start 10/27/18 at 09:24; Stop 10/27/18 at 09:25; Status DC Lidocaine HCl (Lidocaine 1% 20ml Vial) 20 ml STK-MED ONCE .ROUTE ; Start 10/27/18 at 09:27; Stop 10/27/18 at 09:28; Status DC Fentanyl Citrate (Fentanyl 2ml Vial) 100 mcg STK-MED ONCE .ROUTE ; Start 10/27/18 at 09:31; Stop 10/27/18 at 09:32; Status DC Midazolam HCl (Versed) 2 mg STK-MED ONCE .ROUTE ; Start 10/27/18 at 09:32; Stop 10/27/18 at 09:33; Status DC Dopamine HCl/ Dextrose 250 ml @ As Directed STK-MED ONCE IV ; Start 10/27/18 at 09:33; Stop 10/27/18 at 09:34; Status DC Bivalirudin (Angiomax) 250 mg STK-MED ONCE IV ; Start 10/27/18 at 10:14; Stop 10/27/18 at 10:15; Status DC Iohexol (Omnipaque 300 Mg/ml) 100 ml STK-MED ONCE .ROUTE ; Start 10/27/18 at 10:26; Stop 10/27/18 at 10:27; Status DC Nitroglycerin (Nitroglycerin) 200 mcg 1X ONCE IART Last administered on 10/27/18 11:32; Start 10/27/18 at 10:00; Stop 10/27/18 at 10:33; Status DC Verapamil HCl (Verapamil) 2.5 mg 1X ONCE IART Last administered on 10/27/18 11:34; Start 10/27/18 at 10:00; Stop 10/27/18 at 10:33; Status DC Heparin Sodium (Porcine) (Heparin Sodium) 2,500 unit 1X ONCE IART Last administered on 10/27/18 11:37; Start 10/27/18 at 10:00; Stop 10/27/18 at 10:33; Status DC Heparin Sodium/ Sodium Chloride (HEPARIN for ARTERIAL LINE FLUSH) 1,000 unit 1X ONCE IART Last administered on 10/27/18 11:31; Start 10/27/18 at 10:00; Stop 10/27/18 at 10:33; Status DC Heparin Sodium/ Sodium Chloride (HEPARIN for ARTERIAL LINE FLUSH) 1,000 unit 1X ONCE IART Last administered on 10/27/18 11:31; Start 10/27/18 at 10:00; Stop 10/27/18 at 10:33; Status DC Midazolam HCl (Versed) 5 mg 1X ONCE IV Last administered on 10/27/18 11:34; Start 10/27/18 at 10:00; Stop 10/27/18 at 10:33; Status DC Fentanyl Citrate (Fentanyl 2ml Vial) 125 mcg 1X ONCE IV Last administered on 10/27/18 11:35; Start 10/27/18 at 10:00; Stop 10/27/18 at 10:33; Status DC Iohexol (Omnipaque 300 Mg/ml) 100 ml 1X ONCE IART Last administered on 10/27/18at 11:31; Start 10/27/18 at 10:00; Stop 10/27/18 at 10:33; Status DC Bivalirudin (Angiomax) 500 mg 1X ONCE IV Last administered on 10/27/18at 11:33; Start 10/27/18 at 10:00; Stop 10/27/18 at 10:33; Status DC Lidocaine HCl (Lidocaine 1% 20ml Vial) 10 ml 1X ONCE INJ Last administered on 10/27/18at 11:32; Start 10/27/18 at 10:00; Stop 10/27/18 at 10:33; Status DC Nitroglycerin/ Dextrose 4 mg/ Verapamil HCl 10 mg/Heparin Sodium (Porcine) 4000 unit/ Miscellaneous 20 ml/Sodium Chloride 1,048 ml @ 1,000 mls/hr 1X ONCE IART Last administered on 10/27/18at 10:00; Start 10/27/18 at 10:00; Stop 10/27/18 at 11:02; Status DC Dopamine HCl/ Dextrose 250 ml @ 6.6 mls/hr 1X ONCE IV Last administered on 10/27/18at 10:00; Start 10/27/18 at 10:00; Stop 10/28/18 at 23:52; Status DC Lidocaine HCl (Xylocaine-Mpf 1% 2ml Vial) 1 ml 1X ONCE INJ Last administered on 10/27/18at 11:33; Start 10/27/18 at 10:00; Stop 10/27/18 at 10:33; Status DC Diphenhydramine HCl (Benadryl) 50 mg 1X ONCE IVP Last administered on 10/27/18at 11:36; Start 10/27/18 at 10:00; Stop 10/27/18 at 10:33; Status DC Info (CONTRAST GIVEN -- Rx MONITORING) 1 each PRN DAILY PRN MC SEE COMMENTS; Start 10/27/18 at 10:45; Stop 10/29/18 at 10:44; Status DC Heparin Sodium/ Dextrose 500 ml @ As Directed STK-MED ONCE IV ; Start 10/27/18 at 11:06; Stop 10/27/18 at 11:07; Status DC Tirofiban/Sodium Chloride 100 ml @ As Directed STK-MED ONCE IV ; Start 10/27/18 at 11:12; Stop 10/27/18 at 11:13; Status DC Tirofiban/Sodium Chloride 100 ml @ 0 mls/hr CONT PRN IV PER PROTOCOL Last administered on 10/27/18at 17:29; Start 10/27/18 at 11:30; Stop 10/28/18 at 05:29; Status DC Heparin Sodium/ Dextrose 500 ml @ 0 mls/hr CONT PRN IV SEE I/O RECORD Last administered on 10/27/18at 11:17; Start 10/27/18 at 11:30; Stop 10/28/18 at 13:51; Status DC Heparin Sodium (Porcine) (Heparin Sodium) 2,200 unit PRN Q6HRS PRN IV FOR UFH LEVEL LESS THAN 0.2 Last administered on 10/27/18at 19:31; Start 10/27/18 at 11:30; Stop 10/28/18 at 13:51; Status DC Info (Anti-Coagulation Monitoring By Pharmacy) 1 each PRN DAILY PRN MC SEE COMMENTS; Start 10/27/18 at 11:45; Stop 10/29/18 at 09:07; Status DC Sodium Chloride 1,000 ml @ 100 mls/hr Q10H IV Last administered on 10/27/18at 13:07; Start 10/27/18 at 12:00; Stop 10/28/18 at 13:49; Status DC Tirofiban/Sodium Chloride 100 ml @ 0 mls/hr CONT PRN IV PER PROTOCOL; Start 10/27/18 at 11:30; Stop 10/28/18 at 05:29; Status UNV Acetaminophen (Tylenol) 650 mg PRN Q6HRS PRN PO MILD PAIN / TEMP; Start 10/27/18 at 11:30; Stop 10/28/18 at 13:45; Status DC Fentanyl Citrate (Fentanyl 2ml Vial) 50 mcg PRN Q1HR PRN IV SEVERE PAIN Last administered on 10/28/18at 01:35; Start 10/27/18 at 11:30; Stop 11/01/18 at 09:49; Status DC Nitroglycerin (Nitrostat) 0.4 mg PRN Q5MIN PRN SL CHEST PAIN Last administered on 10/27/18 13:05; Start 10/27/18 at 13:00 Nitroglycerin/ Dextrose 250 ml @ 1.5 mls/hr CONT PRN IV SEE I/O RECORD Last administered on 10/28/18 01:27; Start 10/27/18 at 13:00; Stop 10/28/18 at 13:35; Status DC Cefazolin Sodium/ Dextrose 50 ml @ 100 mls/hr 1X ONCE IV Last administered on 10/28/18 06:00; Start 10/28/18 at 06:00; Stop 10/28/18 at 06:29; Status DC Nicotine (Nicoderm Cq 21mg) 1 patch PRN DAILY PRN TD SMOKING CESSATION Last administered on 11/01/18 08:39; Start 10/27/18 at 17:30 Atorvastatin Calcium (Lipitor) 40 mg QHS PO Last administered on 11/01/18 21:21; Start 10/27/18 at 21:00 Lurasidone HCl (Latuda) 80 mg QHS PO Last administered on 11/01/18 21:22; Start 10/27/18 at 21:00 Tamsulosin HCl (Flomax) 0.4 mg DAILY PO Last administered on 11/01/18 08:23; Start 10/28/18 at 09:00 Duloxetine HCl (Cymbalta) 60 mg BID PO Last administered on 11/01/18 21:21; Start 10/27/18 at 21:00 Lisinopril (Prinivil) 5 mg DAILY PO Last administered on 11/01/18 08:25; Start 10/28/18 at 09:00 Mirtazapine (Remeron) 7.5 mg QHS PO Last administered on 11/01/18 21:22; Start 10/27/18 at 21:00 Oxcarbazepine (Trileptal) 300 mg DAILY PO Last administered on 11/01/18 08:23; Start 10/28/18 at 09:00 Insulin Glargine (Lantus) 35 units QHS SQ ; Start 10/27/18 at 21:00; Stop 10/27/18 at 21:00; Status DC Insulin Human Lispro (HumaLOG) 10 units TIDWMEALS SQ Last administered on 4/23/19at 18:10; Start 10/27/18 at 18:30; Stop 10/27/18 at 20:21; Status DC Insulin Human Lispro (HumaLOG) 0-7 UNITS TIDWMEALS SQ ; Start 10/28/18 at 08:00; Stop 10/28/18 at 08:17; Status DC Dextrose (Dextrose 50%-Water Syringe) 12.5 gm PRN Q15MIN PRN IV SEE COMMENTS; Start 10/27/18 at 18:00; Stop 10/28/18 at 13:49; Status DC Oxycodone HCl (Roxicodone) 5 mg PRN Q4HRS PRN PO MODERATE-SEVERE PAIN Last administered on 10/27/18at 18:10; Start 10/27/18 at 18:00; Stop 10/28/18 at 13:47; Status DC Potassium Chloride 70 meq/ Sodium Bicarbonate 12.5 meq/Lidocaine HCl 24 ml/ Parenteral Electrolytes 571.5 ml @ 571.5 mls/ hr 1X ONCE IRR Last administered on 10/28/18at 10:35; Start 10/28/18 at 06:00; Stop 10/28/18 at 06:59; Status DC Potassium Chloride 15 meq/ Sodium Bicarbonate 12.5 meq/Parenteral Electrolytes 520 ml @ 520 mls/hr 1X ONCE IRR Last administered on 10/28/18at 10:35; Start 10/28/18 at 06:00; Stop 10/28/18 at 06:59; Status DC Heparin Sodium (Porcine) 02438 unit/Ringer's Solution 1,020 ml @ 1,020 mls/hr 1X ONCE IRR Last administered on 10/28/18at 08:36; Start 10/28/18 at 06:00; Stop 10/28/18 at 06:59; Status DC Cefazolin Sodium 1 gm/Sodium Chloride 500 ml @ 500 mls/hr 1X ONCE IRR Last administered on 10/28/18at 08:36; Start 10/28/18 at 06:00; Stop 10/28/18 at 06:59; Status DC Zolpidem Tartrate (Ambien) 5 mg PRN QHS PRN PO INSOMNIA; Start 10/27/18 at 20:00 Insulin Human Regular 150 unit/ Sodium Chloride 151.5 ml @ 0 mls/hr CONT PRN IV SEE I/O RECORD Last administered on 10/27/18at 20:39; Start 10/27/18 at 20:15; Stop 10/28/18 at 13:45; Status DC Sodium Chloride 1,000 ml @ 50 mls/hr Q20H IV ; Start 10/27/18 at 20:15; Stop 10/28/18 at 19:16; Status DC Dextrose/Sodium Chloride 1,000 ml @ 100 mls/hr Q10H IV Last administered on 10/27/18at 23:45; Start 10/27/18 at 23:00; Stop 10/28/18 at 19:16; Status DC Morphine Sulfate (Morphine Sulfate) 2 mg PRN Q30MIN PRN IV PAIN Last administered on 10/28/18 02:16; Start 10/28/18 at 02:15; Stop 10/28/18 at 13:46; Status DC Ondansetron HCl (Zofran) 4 mg PRN Q6HRS PRN IV NAUSEA/VOMITING Last administered on 10/28/18 02:31; Start 10/28/18 at 02:30; Stop 10/28/18 at 13:39; Status DC Etomidate (Amidate) 20 mg STK-MED ONCE IV ; Start 10/28/18 at 06:52; Stop 10/28/18 at 06:53; Status DC Phenylephrine HCl (PHENYLEPHRINE in 0.9% NACL PF) 1 mg STK-MED ONCE IV ; Start 10/28/18 at 06:53; Stop 10/28/18 at 06:54; Status DC Rocuronium [place] (Zemuron) 100 mg STK-MED ONCE .ROUTE ; Start 10/28/18 at 06:53; Stop 10/28/18 at 06:54; Status DC Midazolam HCl (Versed) 5 mg STK-MED ONCE .ROUTE ; Start 10/28/18 at 06:54; Stop 10/28/18 at 06:55; Status DC Vancomycin HCl (VANCO for OR ONLY) 10 gm STK-MED ONCE .ROUTE Last administered on 10/28/18at 08:36; Start 10/28/18 at 05:54; Stop 10/28/18 at 06:55; Status DC Cellulose (Surgicel Hemostat 4x8) 1 each STK-MED ONCE .ROUTE Last administered on 10/28/18at 08:36; Start 10/28/18 at 05:54; Stop 10/28/18 at 06:55; Status DC Papaverine HCl 60 mg STK-MED ONCE .ROUTE Last administered on 10/28/18at 08:36; Start 10/28/18 at 05:55; Stop 10/28/18 at 06:55; Status DC Sodium Chloride (SODIUM CHLORIDE 20ml) 20 ml STK-MED ONCE IJ Last administered on 10/28/18at 08:36; Start 10/28/18 at 05:55; Stop 10/28/18 at 06:55; Status DC Sodium Chloride (SODIUM CHLORIDE 20ml) 20 ml STK-MED ONCE IJ Last administered on 10/28/18at 08:36; Start 10/28/18 at 05:55; Stop 10/28/18 at 06:55; Status DC Phenylephrine HCl (Jameel-Synephrine Inj) 10 mg STK-MED ONCE .ROUTE ; Start 10/28/18 at 06:55; Stop 10/28/18 at 06:56; Status DC Sodium Chloride (SODIUM CHLORIDE 20ml) 20 ml STK-MED ONCE IJ Last administered on 10/28/18at 08:36; Start 10/28/18 at 05:56; Stop 10/28/18 at 06:56; Status DC Phenylephrine HCl (Jameel-Synephrine Inj) 10 mg STK-MED ONCE .ROUTE ; Start 10/28/18 at 06:56; Stop 10/28/18 at 06:57; Status DC Aspirin (Aspirin) 300 mg STK-MED ONCE .ROUTE Last administered on 10/28/18at 13:19; Start 10/28/18 at 05:57; Stop 10/28/18 at 06:57; Status DC Sufentanil Citrate (Sufenta) 250 mcg STK-MED ONCE .ROUTE ; Start 10/28/18 at 06:57; Stop 10/28/18 at 06:58; Status DC Aminocaproic Acid (Amicar) 5,000 mg STK-MED ONCE IV ; Start 10/28/18 at 06:58; Stop 10/28/18 at 06:59; Status DC Aminocaproic Acid (Amicar) 5,000 mg STK-MED ONCE IV ; Start 10/28/18 at 06:58; Stop 10/28/18 at 06:59; Status DC Aminocaproic Acid (Amicar) 5,000 mg STK-MED ONCE IV ; Start 10/28/18 at 06:58; Stop 10/28/18 at 06:59; Status DC Ephedrine Sulfate (ePHEDrine PF IN SALINE SYRINGE) 50 mg STK-MED ONCE IV ; Start 10/28/18 at 07:00; Stop 10/28/18 at 07:01; Status DC Lidocaine HCl (Xylocaine-Mpf 1% 2ml Vial) 2 ml STK-MED ONCE .ROUTE ; Start 10/28/18 at 07:14; Stop 10/28/18 at 07:15; Status DC Acetaminophen (Tylenol) 500 mg PRN Q6HRS PRN PO MILD PAIN / TEMP; Start 10/28/18 at 08:15; Stop 10/28/18 at 13:45; Status DC Acetaminophen/ Codeine Phosphate (Tylenol #3) 1 tab PRN Q6HRS PRN PO MODERATE PAIN; Start 10/28/18 at 08:15; Stop 10/28/18 at 13:46; Status DC Ondansetron HCl (Zofran) 4 mg PRN Q6HRS PRN IV NAUSEA/VOMITING; Start 10/28/18 at 08:15; Stop 10/28/18 at 13:39; Status DC Ondansetron HCl (Zofran Odt) 4 mg PRN Q6HRS PRN PO NAUSEA/VOMITING; Start 10/28/18 at 08:15 Insulin Human Lispro (HumaLOG) 0-9 UNITS TIDWMEALS SQ Last administered on 11/01/18at 17:29; Start 10/28/18 at 12:00 Dextrose (Dextrose 50%-Water Syringe) 12.5 gm PRN Q15MIN PRN IV SEE COMMENTS; Start 10/28/18 at 08:15; Stop 10/28/18 at 13:49; Status DC Fenofibrate (Lofibra) 134 mg DAILY PO Last administered on 11/01/18at 08:23; Start 10/28/18 at 09:00 Fish Oil (Fish Oil) 2,000 mg BID PO Last administered on 11/01/18at 21:22; Start 10/28/18 at 09:00 Heparin Sodium (Porcine) 30,000 unit STK-MED ONCE .ROUTE ; Start 10/28/18 at 08:24; Stop 10/28/18 at 08:25; Status DC Verapamil HCl (Verapamil) 10 mg STK-MED ONCE .ROUTE ; Start 10/27/18 at 10:00; Stop 10/28/18 at 08:58; Status DC Rocuronium [place] (Zemuron) 100 mg STK-MED ONCE .ROUTE ; Start 10/28/18 at 09:06; Stop 10/28/18 at 09:07; Status DC Cefazolin Sodium (Ancef) 1 gm STK-MED ONCE .ROUTE ; Start 10/28/18 at 09:20; Stop 10/28/18 at 09:21; Status DC Cefazolin Sodium (Ancef) 1 gm STK-MED ONCE .ROUTE ; Start 10/28/18 at 09:20; Stop 10/28/18 at 09:21; Status DC Heparin Sodium (Porcine) (Heparin Sodium) 10,000 unit STK-MED ONCE .ROUTE ; Start 10/28/18 at 10:24; Stop 10/28/18 at 10:25; Status DC Protamine Sulfate (Protamine) 250 mg STK-MED ONCE IV ; Start 10/28/18 at 11:22; Stop 10/28/18 at 11:23; Status DC Protamine Sulfate (Protamine) 50 mg STK-MED ONCE IV ; Start 10/28/18 at 12:11; Stop 10/28/18 at 12:12; Status DC Heparin Sodium (Porcine) (Heparin Sodium) 10,000 unit STK-MED ONCE .ROUTE ; Start 10/28/18 at 12:17; Stop 10/28/18 at 12:18; Status DC Lidocaine HCl (Lidocaine Pf 2% Vial) 5 ml STK-MED ONCE .ROUTE ; Start 10/28/18 at 12:17; Stop 10/28/18 at 12:18; Status DC Magnesium Sulfate 5 gm STK-MED ONCE .ROUTE ; Start 10/28/18 at 12:17; Stop 10/28/18 at 12:18; Status DC Mannitol (Mannitol) 12.5 g STK-MED ONCE .ROUTE ; Start 10/28/18 at 12:17; Stop 10/28/18 at 12:18; Status DC Albumin Human 100 ml @ As Directed STK-MED ONCE IV ; Start 10/28/18 at 12:17; Stop 10/28/18 at 12:18; Status DC Calcium Chloride (Calcium Chloride) 1,000 mg STK-MED ONCE .ROUTE ; Start 10/28/18 at 12:17; Stop 10/28/18 at 12:18; Status DC Nitroglycerin/ Dextrose 250 ml @ As Directed STK-MED ONCE IV ; Start 10/28/18 at 12:30; Stop 10/28/18 at 12:31; Status DC Fentanyl Citrate (Fentanyl 2ml Vial) 100 mcg STK-MED ONCE .ROUTE ; Start 10/28/18 at 12:56; Stop 10/28/18 at 12:57; Status DC Nicardipine HCl 50 mg/Sodium Chloride 250 ml @ 25 mls/hr CONT PRN IV SEE I/O RECORD Last administered on 10/28/18at 14:55; Start 10/28/18 at 12:45; Stop 10/29/18 at 13:58; Status DC Amiodarone HCl 900 mg/Dextrose 518 ml @ 0 mls/hr CONT PRN IV SEE I/O RECORD Last administered on 10/28/18at 14:45; Start 10/28/18 at 12:45; Stop 10/28/18 at 15:49; Status DC Amiodarone HCl 150 mg/Dextrose 103 ml @ 618 mls/hr 1X ONCE IV Last administered on 10/28/18at 15:26; Start 10/28/18 at 12:45; Stop 10/28/18 at 13:02; Status DC Sodium Chloride (Normal Saline Flush) 3 ml PRN Q12HR PRN IV AFTER MEDS AND BLOOD DRAWS; Start 10/28/18 at 13:30 Ringer's Solution 1,000 ml @ 30 mls/hr Q24H IV Last administered on 10/28/18at 15:32; Start 10/28/18 at 13:22; Stop 10/29/18 at 13:58; Status DC Albumin Human 250 ml @ 500 mls/hr PRN Q4HRS PRN IV SEE COMMENTS; Start 10/28/18 at 13:30; Stop 10/29/18 at 13:58; Status DC Insulin Human Regular 150 unit/ Sodium Chloride 151.5 ml @ 0 mls/hr CONT PRN PRN IV PER PROTOCOL Last administered on 10/29/18at 03:25; Start 10/28/18 at 13:30; Stop 10/29/18 at 13:58; Status DC Dextrose (Dextrose 50%-Water Syringe) 25 gm PRN Q15MIN PRN IV LOW BLOOD SUGAR; Start 10/28/18 at 13:30 Nitroglycerin/ Dextrose 250 ml @ 0 mls/hr CONT PRN PRN IV POST CV SURGERY; Start 10/28/18 at 13:30; Stop 10/28/18 at 19:16; Status DC Phenylephrine HCl 20 mg/Sodium Chloride 252 ml @ 0 mls/hr CONT PRN PRN IV HYPOTENSION; Start 10/28/18 at 13:30; Stop 10/29/18 at 13:58; Status DC Amiodarone HCl 150 mg/Dextrose 103 ml @ 600 mls/hr 1X ONCE IV ; Start 10/28/18 at 13:30; Stop 10/28/18 at 13:40; Status UNV Amiodarone HCl 150 mg/Dextrose 103 ml @ 200 mls/hr 1X PRN PRN IV FOR AFIB Last administered on 10/28/18at 14:00; Start 10/28/18 at 13:30; Stop 10/29/18 at 13:58; Status DC Amiodarone HCl 900 mg/Dextrose 518 ml @ 0 mls/hr CONT PRN PRN IV AFIB; Start 10/28/18 at 13:30; Status UNV Info (KCl Per Protocol) 1 ea CONT PRN PRN MC SEE COMMENTS; Start 10/28/18 at 13:30; Stop 10/29/18 at 13:58; Status DC Magnesium Sulfate/ Dextrose 100 ml @ 100 mls/hr PRN DAILY PRN IV FOR MAG < 2.2 Last administered on 10/30/18at 08:30; Start 10/28/18 at 13:30; Stop 10/29/18 at 13:58; Status DC Famotidine (Pepcid Vial) 20 mg BID IVP Last administered on 10/31/18at 20:53; Start 10/28/18 at 21:00; Stop 11/01/18 at 08:01; Status DC Ondansetron HCl (Zofran) 4 mg PRN Q4HRS PRN IV NAUSEA/VOMITING, 1st CHOICE Last administered on 10/28/18at 21:44; Start 10/28/18 at 13:30 Prochlorperazine Edisylate (Compazine) 10 mg PRN Q6HRS PRN IV NAUSEA/VOMITING, 2nd CHOICE; Start 10/28/18 at 13:30 Metoclopramide HCl (Reglan Vial) 10 mg PRN Q6HRS PRN IV NAUSEA/VOMITING, 3rd CHOICE; Start 10/28/18 at 13:30 Morphine Sulfate (Morphine Sulfate) 2 mg PRN Q1HR PRN IV PAIN; Start 10/28/18 at 13:30; Stop 10/28/18 at 19:16; Status DC Morphine Sulfate (Morphine Sulfate) 4 mg PRN Q1HR PRN IV SEVERE PAIN Last administered on 10/28/18at 17:06; Start 10/28/18 at 13:30; Stop 10/28/18 at 19:16; Status DC Acetaminophen (Tylenol) 650 mg PRN Q4HRS PRN PO TEMP > 101'F Last administered on 10/31/18at 08:39; Start 10/28/18 at 13:30 Acetaminophen (Tylenol Supp) 650 mg PRN Q4HRS PRN [place] TEMP > 101'F or MILD PAIN; Start 10/28/18 at 13:30 Meperidine HCl (Demerol) 12.5 mg PRN Q15MIN PRN IV SHIVERING; Start 10/28/18 at 13:30; Stop 10/28/18 at 19:16; Status DC Propofol 100 ml @ 0 mls/hr CONT PRN PRN IV POSTOP SEDATION UNTIL EXTUBATE Last administered on 10/28/18at 15:45; Start 10/28/18 at 13:30; Stop 10/28/18 at 19:16; Status DC Senna/Docusate Sodium (Senna Plus) 1 tab BID PO Last administered on 11/01/18at 21:22; Start 10/28/18 at 21:00 Bisacodyl (Dulcolax Supp) 10 mg PRN DAILY PRN [place] NO BOWEL MOVEMENT; Start 10/28/18 at 13:30 Chlorhexidine Gluconate (Peridex) 15 ml BID MM ; Start 10/29/18 at 09:00; Stop 10/29/18 at 09:00; Status DC Aspirin (Ecotrin) 325 mg DAILYWBKFT PO Last administered on 11/01/18at 08:23; Start 10/29/18 at 08:00 Aspirin (Aspirin) 300 mg PRN DAILY PRN [place] IF UNABLE TO TAKE PO; Start 10/29/18 at 08:00 Albuterol Sulfate (Ventolin Neb Soln) 2.5 mg PRN Q4HRS PRN NEB SHORTNESS OF BREATH Last administered on 10/30/18at 20:33; Start 10/28/18 at 13:30 Metoprolol Tartrate (Lopressor) 25 mg BID PO Last administered on 11/01/18at 21:22; Start 10/29/18 at 09:00 Nicardipine HCl 50 mg/Sodium Chloride 250 ml @ 0 mls/hr CONT PRN PRN IV PER PROTOCOL; Start 10/28/18 at 13:30; Status UNV Oxycodone HCl (Roxicodone) 5 mg PRN Q4HRS PRN PO MILD TO MODERATE PAIN Last administered on 10/29/18at 14:55; Start 10/28/18 at 13:30; Stop 11/01/18 at 09:49; Status DC Oxycodone HCl (Roxicodone) 10 mg PRN Q4HRS PRN PO SEVERE PAIN Last administered on 11/02/18at 05:30; Start 10/28/18 at 13:30 Cefazolin Sodium/ Dextrose 50 ml @ 100 mls/hr Q8H IV ; Start 10/28/18 at 17:00; Stop 10/28/18 at 19:16; Status DC Sodium Bicarbonate (Sodium Bicarb Adult 8.4% Syr) 50 meq 1X ONCE IV Last administered on 10/28/18at 15:33; Start 10/28/18 at 14:45; Stop 10/28/18 at 15:25; Status DC Potassium Chloride/Water 50 ml @ 50 mls/hr Q1HR IV Last administered on 10/28/18at 19:03; Start 10/28/18 at 17:00; Stop 10/28/18 at 18:59; Status DC Fentanyl Citrate (Fentanyl 2ml Vial) 25 mcg 1X ONCE IV Last administered on 10/28/18at 17:37; Start 10/28/18 at 17:30; Stop 10/28/18 at 17:31; Status DC Hydromorphone HCl (Dilaudid) 0.5 mg PRN Q2HRS PRN IVP MODERATE PAIN Last administered on 10/31/18at 23:27; Start 10/28/18 at 17:30; Stop 11/01/18 at 09:49; Status DC Ketorolac Tromethamine (Toradol 15mg Vial) 15 mg PRN Q6HRS PRN IV MILD PAIN Last administered on 10/30/18at 13:41; Start 10/28/18 at 17:30; Stop 11/02/18 at 17:29 Cefazolin Sodium/ Dextrose 50 ml @ 100 mls/hr Q8H IV Last administered on 10/30/18at 03:28; Start 10/28/18 at 20:00; Stop 10/30/18 at 04:29; Status DC Magnesium Sulfate 50 ml @ 25 mls/hr 1X ONCE IV Last administered on 10/29/18at 08:15; Start 10/29/18 at 08:15; Stop 10/29/18 at 10:14; Status DC Pantoprazole Sodium (PROTONIX VIAL for IV PUSH) 40 mg 1X ONCE IVP Last administered on 10/29/18at 08:15; Start 10/29/18 at 08:15; Stop 10/29/18 at 08:22; Status DC Pantoprazole Sodium (PROTONIX VIAL for IV PUSH) 40 mg DAILYAC IVP ; Start 10/30/18 at 07:30; Stop 10/31/18 at 11:37; Status DC Magnesium Sulfate 50 ml @ 25 mls/hr 1X ONCE IV ; Start 10/29/18 at 08:30; Stop 10/29/18 at 10:29; Status DC Nystatin (Nystop) 1 tony BID TP Last administered on 11/01/18at 21:00; Start 10/29/18 at 09:30 Amiodarone HCl (Cordarone) 200 mg BID PO Last administered on 11/01/18at 21:21; Start 10/29/18 at 21:00 Insulin Human Lispro (HumaLOG) 0-9 UNITS TIDWMEALS SQ ; Start 10/29/18 at 17:00; Status UNV Dextrose (Dextrose 50%-Water Syringe) 12.5 gm PRN Q15MIN PRN IV SEE COMMENTS; Start 10/29/18 at 14:30 Insulin Glargine (Lantus) 40 units QHS SQ Last administered on 10/30/18at 20:51; Start 10/29/18 at 21:00; Stop 10/31/18 at 17:24; Status DC Potassium Chloride/Water 50 ml @ 50 mls/hr 1X ONCE IV Last administered on 10/30/18at 07:42; Start 10/30/18 at 07:00; Stop 10/30/18 at 07:59; Status DC Magnesium Sulfate/ Dextrose 100 ml @ 100 mls/hr 1X ONCE IV Last administered on 10/30/18at 06:08; Start 10/30/18 at 06:30; Stop 10/30/18 at 07:29; Status DC Magnesium Sulfate 50 ml @ 25 mls/hr 1X ONCE IV Last administered on 10/30/18at 08:30; Start 10/30/18 at 08:30; Stop 10/30/18 at 10:29; Status DC Magnesium Sulfate 50 ml @ 25 mls/hr 1X ONCE IV Last administered on 10/31/18at 13:36; Start 10/31/18 at 11:45; Stop 10/31/18 at 13:44; Status DC Insulin Glargine (Lantus) 50 units QHS SQ ; Start 10/31/18 at 21:00; Stop 10/31/18 at 21:00; Status DC Insulin Human Lispro (HumaLOG) 10 units 1X ONCE SQ Last administered on 10/31/18at 18:10; Start 10/31/18 at 17:30; Stop 10/31/18 at 17:31; Status DC Insulin Glargine (Lantus) 40 units BID SQ Last administered on 11/01/18at 21:29; Start 10/31/18 at 21:00 Famotidine (Pepcid) 20 mg BID PO Last administered on 11/01/18at 21:22; Start 11/01/18 at 09:00 Oxycodone/ Acetaminophen (Percocet 10/325) 1 tab PRN Q4HRS PRN PO pain Last administered on 11/02/18at 00:25; Start 11/01/18 at 10:00 Magnesium Sulfate 50 ml @ 25 mls/hr 1X ONCE IV Last administered on 11/01/18at 11:03; Start 11/01/18 at 10:30; Stop 11/01/18 at 12:29; Status DC Active Scripts Active Levemir (Insulin Detemir) 100 Unit/1 Ml Vial 60 Unit SQ QHS Reported Mirtazapine 15 Mg Tablet 0.5 Tab PO QHS [place] 3 Fish Oil Softgel ([place]-3 Fatty Acids/Fish Oil) 1 Each Capsule.dr 2 Each PO BID [regular insulin] 45 Cymbalta (Duloxetine Hcl) 60 Mg Capsule.dr 1 Cap PO BID Oxcarbazepine 300 Mg Tablet 300 Mg PO DAILY Fenofibrate (Fenofibrate Nanocrystallized) 145 Mg Tablet 1 Tab PO DAILY Atorvastatin Calcium 40 Mg Tablet 1 Tab PO DAILY Celebrex (Celecoxib) 100 Mg Capsule 1 Cap PO BID Latuda (Lurasidone Hcl) 40 Mg Tablet 80 Tab PO QHS Tamsulosin Hcl 0.4 Mg Cap.er.24h 0.4 Mg PO DAILY Lisinopril 5 Mg Tablet 5 Mg PO DAILY Metformin Hcl 1,000 Mg Tablet 500 Tab PO BID Vitals/I & O Vital Sign - Last 24 Hours 11/01/18 11/01/18 11/01/18 11/01/18 08:05 08:24 08:24 08:25 Pulse 77 79 77 O2 Delivery Nasal Cannula O2 Flow Rate 2.0 11/01/18 11/01/18 11/01/18 11/01/18 11:01 15:35 19:40 20:15 Temp 99.8 98.3 97.8 99.8 98.3 97.8 Pulse 68 70 82 Resp 16 20 20 B/P (MAP) 97/56 (70) 116/66 (83) 103/56 (72) Pulse Ox 95 92 92 O2 Delivery Nasal Cannula Nasal Cannula Room Air Nasal Cannula O2 Flow Rate 3.0 3.0 1.5 11/01/18 11/01/18 11/01/18 11/01/18 21:21 21:22 21:25 23:45 Temp 98.3 98.3 Pulse 75 75 63 Resp 20 18 B/P (MAP) 103/56 103/56 103/57 (72) Pulse Ox 92 89 O2 Delivery Nasal Cannula Room Air O2 Flow Rate 1.5 11/01/18 11/02/18 11/02/18 11/02/18 23:55 00:25 01:25 03:45 Temp 98.1 98.1 Pulse 63 Resp 18 18 18 B/P (MAP) 101/55 (70) Pulse Ox 93 92 93 93 O2 Delivery Nasal Cannula Nasal Cannula Nasal Cannula Nasal Cannula O2 Flow Rate 2.0 1.5 2.0 2.0 11/02/18 11/02/18 05:30 06:30 Resp 20 18 Pulse Ox 93 93 O2 Delivery Nasal Cannula Nasal Cannula O2 Flow Rate 2.0 2.0 Intake and Output 11/01/18 11/01/18 11/02/18 14:59 22:59 06:59 Intake Total 400 ml 650 ml Output Total 1150 ml 1825 ml 1250 ml Balance -750 ml -1825 ml -600 ml ULYSSES MORGAN MD Nov 02, 2018 07:47
[2018-11-02 08:00] VITALS: BP 112/67
[2018-11-02] MEDS: INSULIN LISPRO 300 UNITS/3 ML INSULN.PEN. SQ SCH ×2 (08:00→12:23)
[2018-11-02 08:09] LABS: CALCIUM 9.3 mg/dL (8.5-10.1); CREATININE 1.1 mg/dL (0.7-1.3); GFR 70.9; POTASSIUM 3.9 mmol/L (3.5-5.1)
[2018-11-02] MEDS: OMEGA-3 FATTY ACIDS/FISH OIL 1,000 MG CAPSULE. PO SCH (08:15)
[2018-11-02] MEDS: NICOTINE 21MG PATCH. TD PRN (08:15)
[2018-11-02] MEDS: OXcarbazepine 300 MG TABLET PO SCH (08:15)
[2018-11-02] MEDS: FAMOTIDINE 20 MG TABLET. PO SCH (08:16)
[2018-11-02] MEDS: LISINOPRIL 5 MG TABLET. PO SCH (08:16)
[2018-11-02] MEDS: SENNOSIDES/DOCUSATE 8.6/50MG TABLET. PO SCH (08:16)
[2018-11-02] MEDS: METOPROLOL TART IMMED RELEASE 25 MG TABLET. PO SCH (08:16)
[2018-11-02] MEDS: FENOFIBRATE,MICRONIZED 134 MG CAPSULE PO SCH (08:17)
[2018-11-02] MEDS: TAMSULOSIN 0.4 MG CAP.ER.24H. PO SCH (08:17)
[2018-11-02] MEDS: AMIODARONE HCL 200 MG TABLET. PO SCH (08:17)
[2018-11-02] MEDS: ASPIRIN ENTERIC COATED 325 MG TABLET.DR. PO SCH (08:17)
[2018-11-02] MEDS: DULoxetine HCL 30 MG CAPSULE.DR PO SCH (08:18)
[2018-11-02] MEDS: INSULIN GLARGINE 300 UNITS/3 ML INSULN.PEN. SQ SCH (09:00)
[2018-11-02] MEDS: NYSTATIN TOPICAL POWDER 15GM BOTTLE. TP SCH (09:00)
[2018-11-02] MEDS ORDERED: MAGNESIUM SULFATE 4GM 100 ML IV ONE (11:45)
[2018-11-02 12:00] VITALS: BP 100/68
[2018-11-02] MEDS ORDERED: MAGNESIUM CITRATE 296 ML SOLUTION. PO PRN (12:00)
[2018-11-02] MEDS ORDERED: LUBIPROSTONE 8 MCG CAPSULE PO SCH ×2 (12:00→17:00)
[2018-11-02] MEDS ORDERED: POLYETHYLENE GLYCOL 3350 17 GM PACKET. PO SCH (12:00)
--- NOTE | 2018-11-02 12:50 | PDOC ---
Progress Note Subjective Subjective Doing very well. Normotensive, SR. On room air.Glucose better with 40U Lantus BID. No BM ROS ROS No nausea No vomiting No pain No rash Vital Sign Vital Signs Vital Signs Date Time Temp Pulse Resp B/P (MAP) Pulse Ox O2 Delivery O2 Flow Rate FiO2 11/02/18 12:00 98.3 64 18 100/68 (79) 93 98.3 11/02/18 06:30 Nasal Cannula 2.0 Labs Lab Laboratory Tests Test 11/01/18 16:42 11/01/18 21:12 11/02/18 06:30 11/02/18 07:40 Glucose (Fingerstick) 227 mg/dL (70-99) 127 mg/dL (70-99) 65 mg/dL (70-99) Sodium Level 140 mmol/L (136-145) Potassium Level 3.9 mmol/L (3.5-5.1) Chloride Level 100 mmol/L (98-107) Carbon Dioxide Level 32 mmol/L (21-32) Anion Gap 8 (6-14) Blood Urea Nitrogen 12 mg/dL (8-26) Creatinine 1.1 mg/dL (0.7-1.3) Estimated GFR (Cockcroft-Gault) 70.9 Glucose Level 67 mg/dL (70-99) Calcium Level 9.3 mg/dL (8.5-10.1) Magnesium Level 1.6 mg/dL (1.8-2.4) Test 11/02/18 11:38 Glucose (Fingerstick) 162 mg/dL (70-99) Objective Assessment POD#5, s/p CABG x3 (PICKERING to LAD, SVG to RPDA, SVG diagonal) Doing very well. Normotensive, SR. On room air.Glucose better with 40U Lantus BID. No BM Plan Plan of Care D/c home today Stop Amiodarone Stool softeners F/u with me on December 04 at 1:30pm TRISTON CARTWRIGHT MD Nov 02, 2018 12:50
[2018-11-02] MEDS ORDERED: MAGNESIUM HYDROXIDE 2,400 MG/30 ML ORAL.SUSP. PO ONE (14:00)
--- NOTE | 2018-11-02 14:08 | NUR ---
SW following up with pt dc plan. SW met with pt and spoke with pt's daughter Virgie via telephone, phone: [phone] to discuss home health choices and answer questions. Pt's daughter chose [facility], phone: [phone], fax: [phone]. Pt choice and pt's rights forms were verbally signed via telephone by daughter and placed in chart. Pt inquired about help with medications. SW explained he does not qualify for assistance due to having two types of insurance that provides coverage. Pt verbalized understanding. SW will await dc orders and proceed accordingly.
[2018-11-02] MEDS ORDERED: INSU100V13 SQ (15:12)
[2018-11-02] MEDS ORDERED: Nicotine 21MG TD (15:12)
[2018-11-02] MEDS ORDERED: METO25TA4 PO (15:12)
[2018-11-02] MEDS ORDERED: POLY17PO28 PO (15:12)
[2018-11-02] MEDS ORDERED: ASPI325T11 PO (15:12)
--- NOTE | 2018-11-02 15:22 | PDOC3 ---
[facility]-Discharge Summary Date of Admission: Date of Admission: Oct 27, 2018 Date of Discharge: Date of Discharge: Nov 02, 2018 Admission Diagnosis: Admitting Diagnosis: Chest pain Discharge Diagnosis: Discharge Diagnosis: CAD s/p CABG Consults: Consults: Cardiology Cardiothoracic Surgery Procedures: Procedures: CABG 10/28/2018 Hospital Course: Hospital Course: Mr Kidd is a 48 year old male with a history of diabetes, hypertension, hyperlipidemia, strong family history of ischemic heart disease, who was admitted in September 2018 with diabetic ketoacidosis. At that time he had short runs of self terminating V. tach, which were thought to be from to electrolyte disorders. He follow up in the cardiology clinic and that time he mentioned that he was experiencing angina at rest for the past 2 months. He symptoms prompted a coronary angiogram today which demonstrated a mid and distal tight LAD stenosis, a 90% lesion at the ostium of a large diagonal, and a proximal and mid tight stenosis of the dominant RCA. The left circumflex has mild 40% stenosis. An echo last month showed preserved LV function with an EF of 50-60%. An attempt was made to treat the RCA lesions using a Rotablator, which was not satisfactory. Therefore the patient was referred for surgical coronary revascularization. Underwent CABG x 3 (PICKERING to LAD, SVG to RPDA, SVG to diagonal 1) with left endoscopic and open greater saphenous vein harvest that went very well on 10/28/[address] surgery. All chest tubes, Price catheter out and no issues. Ambulating by himself in the halls. Still complains of postop soreness, pain, never goes down to less than 6 out of 10. He is narcotic tolerant, Has been getting Roxicodone 10 mg very often, Has also gotten 20 doses of Dilaudid 0.5 mg and couple doses fentanyl IV. no BM in 7 days. Given large bowel regimen with success. He was optimized on medications, recommended cardiac rehabilitation, smoking ce ssation and has cardiology f/u in the next 2-4 weeks. CAD, 3 vessel disease dm1, check A1c htn lipids tobacco use disorder Obesity BMI 32 Narcotic tolerant Hypomagnesemia Plan Mag 4 grams prior to d/c Bowel regimen [employer] for home independent this evening with new cardiac meds-he will need scripts - SW to see for asst Discussed with RN at bedside Greater than 30 minutes spent on discharge Disposition: Disposition/Orders: D/C to Home Activity: Activity: Resume previous activity Diet: Diet: Cardiac, Consistent Carbohydrate Medications: Home Meds Active Scripts Polyethylene Glycol 3350 (POLYETHYLENE GLYCOL 3350) 17 Gm Powd.pack, 17 GM PO DAILY for Constipation for 30 Days, #30 PKT Prov:ULYSSES MORGAN MD 11/02/18 Aspirin (ASPIRIN EC) 325 Mg Tablet., 325 MG PO DAILYWBKFT for CAD for 30 Days, #30 TAB.SR 11 Refills Prov:ULYSSES MORGAN MD 11/02/18 Metoprolol Tartrate (METOPROLOL TARTRATE) 25 Mg Tablet, 25 MG PO BID for CAD for 30 Days, #60 TAB 5 Refills Prov:ULYSSES MORGAN MD 11/02/18 [Nicotine 21MG] 1 PATCH PATCH No Conflict Check, 1 PATCH TD PRN DAILY PRN for SMOKING CESSATION for 30 Days, #30 5 Refills Prov:ULYSSES MORGAN MD 11/02/18 Insulin Detemir (LEVEMIR) 100 Unit/1 Ml Vial, 38 UNIT SQ BID for Diabetes, #3 VIAL 5 Refills Prov:ULYSSES MORGAN MD 11/02/18 Reported Medications Mirtazapine (MIRTAZAPINE) 15 Mg Tablet, 0.5 TAB PO QHS for sleep, #30 TAB 3 Refills 09/08/18 [place]-3 Fatty Acids/Fish Oil ([place] 3 FISH OIL SOFTGEL) 1 Each Capsule.dr, 2 EACH PO BID for supp, CAP 06/18/18 [regular insulin] No Conflict Check, 45 06/18/18 Duloxetine Hcl (CYMBALTA) 60 Mg Capsule.dr, 1 CAP PO BID for depression, #90 CAP 3 Refills 06/18/18 Oxcarbazepine (OXCARBAZEPINE) 300 Mg Tablet, 300 MG PO DAILY for rx, TAB 06/18/18 Fenofibrate Nanocrystallized (FENOFIBRATE) 145 Mg Tablet, 1 TAB PO DAILY for rx, #30 TAB 5 Refills 06/18/18 Atorvastatin Calcium (ATORVASTATIN CALCIUM) 40 Mg Tablet, 1 TAB PO DAILY for chol, #30 TAB 5 Refills 06/18/18 Lurasidone Hcl (LATUDA) 40 Mg Tablet, 80 TAB PO QHS for rx, #30 TAB 1 Refill 11/05/16 Tamsulosin Hcl (TAMSULOSIN HCL) 0.4 Mg Cap.er.24h, 0.4 MG PO DAILY, TAB 10/15/16 Lisinopril (LISINOPRIL) 5 Mg Tablet, 5 MG PO DAILY for FOR HYPERTENSION, #30 TAB 0 Refills 10/15/16 Metformin Hcl (METFORMIN HCL) 1,000 Mg Tablet, 500 TAB PO BID for diabetes, #180 TAB 3 Refills 10/15/16 Discontinued Reported Medications Celecoxib (CELEBREX) 100 Mg Capsule, 1 CAP PO BID for inflammation, #60 CAP 3 Refills 06/18/18 Scheduled Aspirin (Aspirin Ec), 325 MG PO DAILYWBKFT Atorvastatin Calcium (Atorvastatin Calcium), 1 TAB PO DAILY, (Reported) Duloxetine Hcl (Cymbalta), 1 CAP PO BID, (Reported) Fenofibrate Nanocrystallized (Fenofibrate), 1 TAB PO DAILY, (Reported) Insulin Detemir (Levemir), 38 UNIT SQ BID Lisinopril (Lisinopril), 5 MG PO DAILY, (Reported) Lurasidone Hcl (Latuda), 80 TAB PO QHS, (Reported) Metformin Hcl (Metformin Hcl), 500 TAB PO BID, (Reported) Metoprolol Tartrate (Metoprolol Tartrate), 25 MG PO BID Mirtazapine (Mirtazapine), 0.5 TAB PO QHS, (Reported) [place]-3 Fatty Acids/Fish Oil ([place] 3 Fish Oil Softgel), 2 EACH PO BID, (Reported) Oxcarbazepine (Oxcarbazepine), 300 MG PO DAILY, (Reported) Polyethylene Glycol 3350 (Polyethylene Glycol 3350), 17 GM PO DAILY Tamsulosin Hcl (Tamsulosin Hcl), 0.4 MG PO DAILY, (Reported) Scheduled PRN [Nicotine 21MG], 1 PATCH TD PRN DAILY PRN for SMOKING CESSATION Miscellaneous Medications [regular insulin], 45, (Reported) Discontinued Medications Celecoxib (Celebrex), 1 CAP PO BID, (Reported) ULYSSES MORGAN MD Nov 02, 2018 15:22
--- NOTE | 2018-11-02 18:14 | NUR ---
Discharge: Teaching verbal and written. Reviewed CABG, CABG discharge teaching, hypomagnesium, cardiac cath, precautions, cardiac diet, diabetes, monitoring wound, pain management, ect. Patient and patients daughter verbalized understanding. written prescriptions given to patient. All belongings with patient. Roselia assisted off of unit via wheelchair accompanied by daughter and [employer]. Home health set up thought [facility] information faxed by oncology social work.
[2018-11-02 20:47] LABS: ART BE ISTAT 4 mmol/L (0-3); ART GLUC ISTAT 151 mg/dL (70-99); ART HCO3 ISTAT 29 mmol/L (21-28); ART HCT ISTAT 40 % (37-52); ART HGB ISTAT 13.6 g/dL (14-18); ART ION CA ISTAT 1.28 mmol/L (1.13-1.32); ART NA ISTAT 139 mmol/L (135-145); ART PCO2 ISTAT 46 mmHg (35-45); ART PO2 ISTAT 205 mmHg (75-100); ART SAT O2 SAT 100 % (95-99); ART TCO2 ISTAT 30 mmol/L (21-32)
[2018-11-02 20:48] LABS: ART BE ISTAT -1 mmol/L (0-3); ART GLUC ISTAT 130 mg/dL (70-99); ART HCO3 ISTAT 24 mmol/L (21-28); ART HCT ISTAT 40 % (37-52); ART HGB ISTAT 13.6 g/dL (14-18); ART ION CA ISTAT 1.25 mmol/L (1.13-1.32); ART K ISTAT 3.7 mmol/L (3.5-5.0); ART NA ISTAT 140 mmol/L (135-145); ART PCO2 ISTAT 40 mmHg (35-45); ART PH ISTAT 7.39 (7.35-7.45); ART PO2 ISTAT 65 mmHg (75-100); ART SAT O2 SAT 92 % (95-99); ART TCO2 ISTAT 26 mmol/L (21-32)
[2018-11-02 20:48] LABS: ART BE ISTAT -3 mmol/L (0-3); ART GLUC ISTAT 137 mg/dL (70-99); ART HCO3 ISTAT 23 mmol/L (21-28); ART HCT ISTAT 32 % (37-52); ART HGB ISTAT 10.9 g/dL (14-18); ART ION CA ISTAT 1.95 mmol/L (1.13-1.32); ART K ISTAT 3.9 mmol/L (3.5-5.0); ART NA ISTAT 139 mmol/L (135-145); ART PCO2 ISTAT 40 mmHg (35-45); ART PH ISTAT 7.36 (7.35-7.45); ART PO2 ISTAT 61 mmHg (75-100); ART SAT O2 SAT 90 % (95-99); ART TCO2 ISTAT 24 mmol/L (21-32)
[2018-11-02 20:48] LABS: ART BE ISTAT -1 mmol/L (0-3); ART GLUC ISTAT 142 mg/dL (70-99); ART HCO3 ISTAT 25 mmol/L (21-28); ART HCT ISTAT 36 % (37-52); ART HGB ISTAT 12.2 g/dL (14-18); ART ION CA ISTAT 1.24 mmol/L (1.13-1.32); ART K ISTAT 4.1 mmol/L (3.5-5.0); ART NA ISTAT 139 mmol/L (135-145); ART PCO2 ISTAT 50 mmHg (35-45); ART PH ISTAT 7.31 (7.35-7.45); ART PO2 ISTAT 192 mmHg (75-100); ART SAT O2 SAT 100 % (95-99); ART TCO2 ISTAT 26 mmol/L (21-32)
[2018-11-02 20:48] LABS: ART BE ISTAT -3 mmol/L (0-3); ART GLUC ISTAT 116 mg/dL (70-99); ART HCO3 ISTAT 22 mmol/L (21-28); ART HCT ISTAT 38 % (37-52); ART HGB ISTAT 12.9 g/dL (14-18); ART ION CA ISTAT 1.73 mmol/L (1.13-1.32); ART K ISTAT 3.3 mmol/L (3.5-5.0); ART NA ISTAT 141 mmol/L (135-145); ART PCO2 ISTAT 36 mmHg (35-45); ART PH ISTAT 7.38 (7.35-7.45); ART PO2 ISTAT 69 mmHg (75-100); ART SAT O2 SAT 93 % (95-99); ART TCO2 ISTAT 23 mmol/L (21-32)
[2018-11-02 20:48] LABS: ART BE ISTAT 1 mmol/L (0-3); ART GLUC ISTAT 130 mg/dL (70-99); ART HCO3 ISTAT 26 mmol/L (21-28); ART HCT ISTAT 35 % (37-52); ART HGB ISTAT 11.9 g/dL (14-18); ART ION CA ISTAT 1.17 mmol/L (1.13-1.32); ART NA ISTAT 140 mmol/L (135-145); ART PCO2 ISTAT 45 mmHg (35-45); ART PH ISTAT 7.38 (7.35-7.45); ART PO2 ISTAT 162 mmHg (75-100); ART SAT O2 SAT 99 % (95-99); ART TCO2 ISTAT 28 mmol/L (21-32)
[2018-11-02 20:48] LABS: ART BE ISTAT 1 mmol/L (0-3); ART GLUC ISTAT 148 mg/dL (70-99); ART HCO3 ISTAT 26 mmol/L (21-28); ART HCT ISTAT 34 % (37-52); ART HGB ISTAT 11.6 g/dL (14-18); ART ION CA ISTAT 1.22 mmol/L (1.13-1.32); ART K ISTAT 4.2 mmol/L (3.5-5.0); ART NA ISTAT 140 mmol/L (135-145); ART PCO2 ISTAT 46 mmHg (35-45); ART PH ISTAT 7.37 (7.35-7.45); ART PO2 ISTAT 250 mmHg (75-100); ART SAT O2 SAT 100 % (95-99); ART TCO2 ISTAT 28 mmol/L (21-32)
== END 2018-11-02 17:55 | disposition home health service (06) | DRG 231 ==
LOC: CCL 06:53 → 1 WEST ICU 09:00 → OBSVTOIN 09:00 → 1 WEST ICU 10-28 08:00 → 2 SOUTH 10-30 14:47
PROVIDERS: ADMIT Internal Medicine; ATTEND Internal Medicine Cardiovascular Disease
PROC: 02703FZ Dilation of Coronary Artery, One Artery with Three Intraluminal Devices, Percutaneous Approach (ICD-10-PCS; principal; 2018-10-27)
PROC: 02C03ZZ Extirpation of Matter from Coronary Artery, One Artery, Percutaneous Approach (ICD-10-PCS; 2018-10-27)
PROC: 3E083GC Introduction of Other Therapeutic Substance into Heart, Percutaneous Approach (ICD-10-PCS; 2018-10-27)
PROC: B2111ZZ Fluoroscopy of Multiple Coronary Arteries using Low Osmolar Contrast (ICD-10-PCS; 2018-10-27)
PROC: 4A023N7 Measurement of Cardiac Sampling and Pressure, Left Heart, Percutaneous Approach (ICD-10-PCS; 2018-10-27)
PROC: 02100Z9 Bypass Coronary Artery, One Artery from Left Internal Mammary, Open Approach (ICD-10-PCS; 2018-10-28)
PROC: 021109W Bypass Coronary Artery, Two Arteries from Aorta with Autologous Venous Tissue, Open Approach (ICD-10-PCS; 2018-10-28)
PROC: 06BQ4ZZ Excision of Left Saphenous Vein, Percutaneous Endoscopic Approach (ICD-10-PCS; 2018-10-28)
PROC: 0W9B30Z Drainage of Left Pleural Cavity with Drainage Device, Percutaneous Approach (ICD-10-PCS; 2018-10-28)
PROC: 5A1221Z Performance of Cardiac Output, Continuous (ICD-10-PCS; 2018-10-28)
DX: I25.110 Atherosclerotic heart disease of native coronary artery with unstable angina pectoris (principal); J96.01 Acute respiratory failure with hypoxia; I47.2 Ventricular tachycardia; Z99.11 Dependence on respirator [ventilator] status; E03.9 Hypothyroidism, unspecified; E10.9 Type 1 diabetes mellitus without complications; E66.9 Obesity, unspecified; Z68.32 Body mass index [BMI] 32.0-32.9, adult; E78.5 Hyperlipidemia, unspecified; E83.42 Hypomagnesemia; F12.90 Cannabis use, unspecified, uncomplicated; F17.210 Nicotine dependence, cigarettes, uncomplicated; F41.9 Anxiety disorder, unspecified; I10 Essential (primary) hypertension; J44.9 Chronic obstructive pulmonary disease, unspecified; Z79.4 Long term (current) use of insulin; Z82.49 Family history of ischemic heart disease and other diseases of the circulatory system; Z86.73 Personal history of transient ischemic attack (TIA), and cerebral infarction without residual deficits; I95.9 Hypotension, unspecified; Z90.49 Acquired absence of other specified parts of digestive tract
CPT/HCPCS: 33210; 36415; 71045; 80048; 80053; 82803; 82805; 82962; 83036; 83735; 84132; 85014; 85018; 85025; 85027; 85347; 85384; 85520; 85610; 85730; 86850; 86900; 86901; 86920; 87641; 92933; 93005; 93458; 93880; 93970; 94002; 94640; 99152; 99153; C1724; C1725; C1769; C1781; C1876; C1887; C1892; C1898; C9113; J0171; J0282; J0583; J0690; J0696; J1170; J1200; J1265; J1644; J1815; J1885; J2001; J2150; J2250; J2270; J2370; J2405; J2440; J2704; J3010; J3370; J3475; J3480; J3490; J7030; J7040; J7042; J7050; J7120; J7613; P9046; Q9967; C1713; J3246

== ENCOUNTER → 2018-12-04 | Outpatient (CLI) | payer MEDICARE, OTHER ==
[~2018-12-04] MED LIST changes: +ASPI325T11 PO; +METO25TA4 PO; +Nicotine 21MG TD; +POLY17PO28 PO
--- NOTE | 2018-12-04 16:42 | RAD ---
CHEST PA LATERAL History: Status post coronary artery bypass. FINDINGS: Comparison with October 31, 2018. The heart size is stable. No evidence of pneumothorax. There is a small left pleural effusion. No evidence of right pleural effusion.. Mild markings in left lung base likely atelectasis. No consolidating infiltrate. IMPRESSION: Small left pleural effusion. Mild left lung base atelectasis Electronically signed by: Miki Cortez MD (12/04/2018 4:39 PM) [id number]
== END | disposition home or self-care (01) ==
LOC: RAD 13:18
PROVIDERS: ATTEND Thoracic Surgery (Cardiothoracic Vascular Surgery)
DX: J90 Pleural effusion, not elsewhere classified (principal); Z95.1 Presence of aortocoronary bypass graft; J98.11 Atelectasis
CPT/HCPCS: 71046

== ENCOUNTER 2019-08-19 07:55 | Outpatient (CLI) | payer MEDICARE, OTHER ==
[~2019-08-19] VITALS: Ht 170.8 cm; Wt 87.1 kg
[~2019-08-19 07:55] MED LIST changes: -ACET500T55 PO; +ACET500T56 PO; +FENO145T3 PO; -FENO145T30 PO; +TRAZ-123 PO; -TRAZ-86 PO
[2019-08-19] MEDS ORDERED: ICOS1CAP PO (08:15)
[2019-08-19] MEDS ORDERED: HYDR25TA PO (08:15)
[2019-08-19] MEDS ORDERED: METF10007 PO (08:15)
[2019-08-19] MEDS ORDERED: INSU100V13 SQ (08:15)
[2019-08-19] MEDS ORDERED: INSU100V5 IJ (08:15)
[2019-08-19 08:25] VITALS: BP 109/68
[2019-08-19 08:29] LABS: BASO # 0.1 x10^3/uL (0.0-0.2); BASO % 1 % (0-3); EOS # 0.4 x10^3/uL (0.0-0.7); EOS % 4 % (0-3); HEMATOCRIT 42.1 % (39.0-53.0); HEMOGLOBIN 14.4 g/dL (13.0-17.5); LYMPH # 2.8 x10^3/uL (1.0-4.8); LYMPH % 33 % (24-48); MEAN CORPUSCULAR HEMOGLOBIN 29 pg (25-35); MEAN CORPUSCULAR HGB CONC 34 g/dL (31-37); MEAN CORPUSCULAR VOLUME 84 fL (79-100); MONO # 1.2 x10^3/uL (0.0-1.1); MONO % 14 % (0-9); NEUT % 47 % (31-73); PLATELET COUNT 411 x10^3/uL (140-400); RED BLOOD COUNT 5.02 x10^6/uL (4.30-5.70); RED CELL DISTRIBUTION WIDTH 16.2 % (11.5-14.5); WHITE BLOOD COUNT 8.5 x10^3/uL (4.0-11.0)
[2019-08-19 08:40] LABS: PROTHROMBIN TIME PATIENT 12.5 SEC (11.7-14.0)
[2019-08-19 08:50] LABS: CALCIUM 9.6 mg/dL (8.5-10.1); CREATININE 1.2 mg/dL (0.7-1.3); GFR 63.8; POTASSIUM 4.6 mmol/L (3.5-5.1)
[2019-08-19] MEDS ORDERED: LIDOCAINE WITH 8.4% SOD BICARB 3 ML DISP.SYRIN. ONE (09:09)
[2019-08-19] MEDS ORDERED: fentaNYL PF VIAL 100 MCG/2 ML VIAL ONE (09:11)
[2019-08-19] MEDS ORDERED: MIDAZOLAM HCL/PF 2 MG/2 ML VIAL. ONE (09:11)
--- NOTE | 2019-08-19 09:26 | NUR ---
Patient's neck was scanned by Dr. Amos with ultrasound and mass has shrunk and he advised just monitoring the mass. Patient agreed with Dr. Amos and has decided to wait on biopsy and watch mass with imaging studies. No sedation given and vital signs stable (111/62 blood pressure).
[2019-08-19] MEDS ORDERED: fentaNYL PF VIAL 100 MCG/2 ML VIAL IV ONE (09:30)
[2019-08-19] MEDS ORDERED: LIDOCAINE WITH 8.4% SOD BICARB 3 ML DISP.SYRIN. IJ ONE (09:30)
[2019-08-19] MEDS ORDERED: MIDAZOLAM HCL/PF 2 MG/2 ML VIAL. IV ONE (09:30)
== END 2019-08-19 10:00 | disposition home or self-care (01) ==
LOC: INTRAD 07:55
PROVIDERS: ATTEND Family Medicine
DX: M54.5 Low back pain (principal); J44.9 Chronic obstructive pulmonary disease, unspecified; I10 Essential (primary) hypertension; E11.9 Type 2 diabetes mellitus without complications
CPT/HCPCS: 36415; 76536; 80048; 85025; 85610